=== PATIENT | female | born 1965 | race Caucasian/White ===

== ENCOUNTER 2023-02-20 15:51 | Outpatient (OUT) | payer OTHER, SELFPAY ==
--- NOTE | 2023-02-20 15:53 | MM_ITS ---
Patient Name: BLANCA PEDERSON MR#: [id number] : 1965 Exam Date: 02/20/2023 Ordering Doctor: DR Fredrick Eng . RADIOLOGY REPORT PROCEDURE: MM TOMOSYNTHESIS SCREENING BI COMPARISON: MG MAMM SCREEN 3D MATT CAD, 03/07/2022. MG MAMM SCREEN 3D MATT CAD, 03/03/2021. MG MAMM SCREEN MATT W CAD, 02/24/2020. MG MAMM MATT SCRN W CAD DIG, 11/11/2012. INDICATIONS: Screening Calculator Name NCI Breast Cancer Risk Assessment Tool 5 Year Breast Cancer Risk 2.70% Lifetime Breast Cancer Risk 13.90% Personal Breast Cancer No Personal Ovarian Cancer No Treatments None Family Cancers Mother with breast cancer at age 63. LOCATION: [facility] BREAST COMPOSITION: Heterogeneously dense,which may obscure small masses. FINDINGS: DIAGNOSTIC CATEGORY 1--NEGATIVE. RIGHT BREAST: No significant suspicious finding. No significant change has occurred. LEFT BREAST: No significant suspicious finding. No significant change has occurred. RECOMMENDATIONS: ROUTINE MAMMOGRAM AND CLINICAL EVALUATION IN 12 MONTHS. PLEASE NOTE: A NORMAL MAMMOGRAM DOES NOT EXCLUDE THE POSSIBILITY OF BREAST CANCER. A CLINICALLY SUSPICIOUS PALPABLE LUMP SHOULD BE BIOPSIED. Dictated by: Eduar Trimble M.D. on 02/26/2023 at 12:38 Approved by: Eduar Trimble M.D. on 02/26/2023 at 12:44
== END 2023-02-20 15:52 | disposition home or self-care (01) ==
LOC: MAMMO 15:51
PROVIDERS: PCP Family Medicine; Visit Provider Obstetrics & Gynecology
DX: Z12.31 Encounter for screening mammogram for malignant neoplasm of breast (principal); Z80.3 Family history of malignant neoplasm of breast
CPT/HCPCS: 77063; 77067

== ENCOUNTER 2023-03-01 20:06 | Outpatient (REF) | payer OTHER, SELFPAY ==
[2023-03-07 15:13] LABS: Age Gdln ACOG Testing Note (.); HPV Aptima Negative (Negative); IGP, Aptima HPV, rfx 16/18,45 Note (.)
== END 2023-03-01 20:07 | disposition home or self-care (01) ==
LOC: LAB 20:06
PROVIDERS: PCP Family Medicine; Visit Provider Physician Assistant
DX: Z01.419 Encounter for gynecological examination (general) (routine) without abnormal findings (principal)
CPT/HCPCS: 87624; G0145

== ENCOUNTER 2024-02-21 13:46 | Outpatient (OUT) | payer OTHER, SELFPAY ==
--- OUTSIDE RECORDS SUMMARY | 2024-02-21 13:49 | XMS_ITS | CCD ---
Author Organization [facility] Care Team Providers Care Roofing Foreman Name Role Phone NATI, DR BLOCK Admitting Unavailable NATI, DR BLOCK Attending Unavailable EVLEYN, DR SRINIVASAN Primary Care Unavailable NATI, DR BLOCK Consulting Unavailable EVELYN, DR SRINIVASAN Admitting Unavailable EVELYN, DR SRINIVASAN Attending Unavailable EVELYN, DR SRINIVASAN Primary Care Unavailable EVELYN, DR SRINIVASAN Consulting Unavailable NATI, DR BLOCK Admitting Unavailable NATI, DR BLOCK Attending Unavailable EVELYN, DR SRINIVASAN Primary Care Unavailable NATI, DR BLOCK Consulting Unavailable ZIEBER, DR EDUAR Cherry Consulting Unavailable MD Solomon Rivas Primary Care Provider [phone] MD Solomon Rivas Attending Provider [phone] Solomon Rivas MD Primary Care Provider [phone] SOLOMON RIVAS Attending Unavailable SILVIA COLINDRES Attending Unavailable SOLOMON RIVAS Attending Unavailable MD Solomon Rivas Primary Care Provider MD Solomon Rivas Attending Provider [phone] MD Solomon Rivas Referring Provider [phone] Unavailable Primary Care Provider UnavailYOVANI Bowles Attending Unavailable SOLOMON RIVAS Referring Unavailable Solomon Rivas Primary Care Unavailable Solomon Rivas Attending Unavailable Solomon Rivas Referring Unavailable Solomon Rivas Admitting Unavailable Solomon Rivas MD Primary Care Provider [phone] Medications Current Medications Medication Drug Class(es) Dates Sig (Normalized) Sig (Original) MULTIVITAMIN ORAL (2 sources) MULTIVITAMIN ORA L Take by mouth. Active sod sulf-pot chloride-mag sulf 1.479-0.188- 0.225 gram tablet (2 sources) Start: 01-23-2024 sod sulf-pot chloride-mag sulf 1.479-0.188- 0.225 gram tablet Indications: Encounter for screening colonoscopy Please see instructional sheet given by physicians office. 24 tablet 01/23/2024 Active Problems Active Problems Problem Classification Problem Date Documented Date Episodic/Chronic Chronic kidney disease (8 sources) Chronic kidney disease stage 3A ; Translations: [Stage 3a chronic kidney disease (HCC)] Onset: 01-04-2023 01-04-2023 Chronic Diabetes mellitus without complication (2 sources) Abnormal glucose tolerance test; Translations: [Other abnormal glucose] 01-15-2024 Episodic Essential hypertension (9 sources) Essential (primary) hypertension; Translations: [Hypertensive disorder] Onset: 02-01-2022 01-04-2023 Chronic Immunizations and screening for infectious disease (1 source) Encounter for screening for human papillomavirus (HPV); Translations: [ENC SCREENING HUMAN PAPILLOMAVIRUS] Onset: 02-27-2022 Episodic Osteoarthritis (6 sources) Osteoarthritis of knee; Translations: [Osteoarthritis of knee, unspecified] Onset: 01-04-2023 01-04-2023 Chronic Other screening for suspected conditions (not mental disorders or infectious disease) (12 sources) Encounter for screening mammogram for malignant neoplasm of breast; Translations: [Encounter for screening for malignant neoplasm of cervix] Onset: 02-22-2022 Episodic Residual codes; unclassified (1 source) Family history of malignant neoplasm of breast; Translations: [FAMILY HX MALIG NEOPLASM OF BREAST] Onset: 03-11-2022 Episodic Unclassified (1 source) Colon Cancer Screening Onset: 01-23-2024 Past or Other Problems Problem Classification Problem Date Documented Da te Episodic/Chronic Viral infection (6 sources) Verruca plantaris; Translations: [Plantar wart] Onset: 01-04-2023 01-04-2023 Episodic Results Test Name Value Interpretation Reference Range Facility Alanine aminotransferase [En zymatic activity/volume] in Serum or PlasmaOrdered By: Solomon Rivas on 01-19-2024 ALT [Catalytic activity/Vol] 18 U/L Normal 7-52 [facility] Comment on above: Performed By: #### C BC, CMP, LIPID #### [address] Albumin [Mass/volume] in Ser um or Plasma by Bromocresol green (BCG) dye binding methoOrdered By: Solomon Rivas on 01-19-2024 Albumin BCG dye [Mass/Vol] 4.1 g/dL 3.5-5.7 [facility] Alkaline phosphatase [Enzyma tic activity/volume] in Serum or PlasmaOrdered By: Solomon Becerrila on 01-19-2024 ALP [Catalytic activity/Vol] 68 U/L Normal 34-104 [facility] Comment on above: Performed By: #### C BC, CMP, LIPID #### [facility] [address] Aspartate aminotransferase [ Enzymatic activity/volume] in Serum or PlasmaOrdered By: Solomon Evelyn on 01-19-2024 AST [Catalytic activity/Vol] 23 U/L Normal 13-39 [facility] Comment on above: Performed By: #### C BC, CMP, LIPID #### [facility] [address] [place] [address] Automated basophil %Ordered By: Solomon Rivas on 01-19-2024 Basophils/100 WBC (Bld) 0.8 % Normal . [facility] Comment on above: Performed By: #### C BC, CMP, LIPID #### [facility] [address] [place] [address] Automated basophil countOrde red By: Solomon Rivas on 01-19-2024 Basophils (Bld) [#/Vol] 0.1 10*3/uL Normal 0.0-0.2 [facility] Comment on above: Result Comment: PERF ORMED BY: [place] [address] PATHOLOGIST MARKETING ASSISTANT MANAGER SATHYA LOWRY M.D. Performed By: #### C BC, CMP, LIPID #### [facility] [address] [place] [address] Automated blood monocyte cou ntOrdered By: Solomon Becrerila on 01-19-2024 Monocytes (Bld) [#/Vol] 0.6 10*3/uL Normal 0.0-0.8 [facility] Comment on above: Performed By: #### C BC, CMP, LIPID #### [address] Automated eosinophil %Ordere d By: Solomon Evelyn on 01-19-2024 Eosinophils/100 WBC (Bld) 2.5 % Normal . [facility] Comment on above: Performed By: #### C BC, CMP, LIPID #### [address] Automated eosinophil countOr dered By: Solomon Evelyn on 01-19-2024 Eosinophils (Bld) [#/Vol] 0.2 10*3/uL Normal 0.0-0.45 [facility] Comment on above: Performed By: #### C BC, CMP, LIPID #### [address] Automated monocyte %Ordered By: Solomon Evelyn on 01-19-2024 Monocytes/100 WBC (Bld) 7.8 % Normal . [facility] Comment on above: Performed By: #### C BC, CMP, LIPID #### [address] Automated neutrophil %Ordere d By: Daysicat Evelyn on 01-19-2024 Neutrophils/100 WBC (Bld) 63.3 % Normal . [facility] Comment on above: Performed By: #### C BC, CMP, LIPID #### [address] Bilirubin.total [Mass/volume ] in Serum or PlasmaOrdered By: Solomon Becerrila on 01-19-2024 Bilirubin [Mass/Vol] 0.6 mg/dL Normal 0.3-1.0 [facility] Comment on above: Performed By: #### C BC, CMP, LIPID #### [address] CBC W Auto Differential pane l (Bld)on 01-19-2024 Basophils (Bld) [#/Vol] 0.1 10*3/uL 0.0 - 0.2 10*3/uL [facility] Basophils/100 WBC Manual cnt (Syn fld) 0.8 % . [facility] Eosinophils (Bld) [#/Vol] 0.2 10*3/uL 0.0 - 0.45 10*3/uL [facility] Eosinophils/100 WBC Manual cnt (Syn fld) 2.5 % . [facility] Erythrocyte distribution width (RBC) [Ratio] 12.5 % 11.9 - 15.3 % [facility] Hematocrit (Bld) [Volume fraction] 40.8 % 34.0 - 46.4 % [facility] Hemoglobin (Bld) [Mass/Vol] 13.9 g/dL 11.8 - 15.4 g/dL [facility] Lymphocytes (Bld) [#/Vol] 2.1 10*3/uL 1.00 - 4.8 10*3/uL [facility] Lymphocytes/100 WBC Manual cnt (Syn fld) 25.6 % . [facility] MCH (RBC) [Entitic mass] 32.6 pg 24.7 - 34.3 pg [facility] MCHC (RBC) [Mass/Vol] 34.1 g/dL 32.0 - 35.0 g/dL [facility] MCV (RBC) [Entitic vol] 95.4 fL 80 - 100 fL [facility] Monocytes (Bld) [#/Vol] 0.6 10*3/uL 0.0 - 0.8 10*3/uL [facility] Monocytes+Macrophages/1 00 WBC Manual cnt (Syn fld) 7.8 % . [facility] Neutrophils (Bld) [#/Vol] 5.1 10*3/uL 1.8 - 7.7 10*3/uL [facility] Neutrophils/100 WBC Manual cnt (Syn fld) 63.3 % . [facility] NRBC 0.1 /100{WBC} 0 - 0.5 /100{WBC} [facility] Platelet mean volume (Bld) [Entitic vol] 7.8 fL 6.3 - 10.7 fL [facility] Platelets (Bld) [#/Vol] 293 10*3/uL 150 - 450 10*3/uL [facility] RBC LM.HPF (Urine sed) [#/Area] 4.27 /[HPF] 3.60 - 5.00 [facility] WBC (Bld) [#/Vol] 8.1 10*3/uL 3.8 - 11.6 10*3/uL [facility] WBC LM.HPF (Urine sed) [#/Area] 8.1 10*3/uL 3.8 - 11.6 10*3/uL [facility] Calcium [Mass/volume] in Ser um or PlasmaOrdered By: Solomon Rivas on 01-19-2024 Calcium [Mass/Vol] 9.3 mg/dL Normal 8.6-10.3 [facility] Comment on above: Performed By: #### C BC, CMP, LIPID #### [facility] [address] Carbon dioxide, total [Moles /volume] in Serum or PlasmaOrdered By: Solomon Rivas on 01-19-2024 CO2 [Moles/Vol] 29.5 mmol/L Normal 21.0-31.0 [facility] Comment on above: Performed By: #### C BC, CMP, LIPID #### [facility] [address] [place] [address] [place] Chloride [Moles/volume] in S pat or PlasmaOrdered By: Solomon Rivas on 01-19-2024 Chloride [Moles/Vol] 105 mmol/L Normal 98-107 [facility] Comment on above: Performed By: #### C BC, CMP, LIPID #### [facility] [address] [place] [address] [place] Cholesterol [Mass/volume] in Serum or PlasmaOrdered By: Solomon Rivas on 01-19-2024 Cholesterol [Mass/Vol] 157 mg/dL Normal 140-200 [facility] Comment on above: Chol less than 200 m g/dl low riskChol 201-239 mg/dl borderline riskChol 240 mg/dl and greater high risk Result Comment: Chol less than 200 mg/dl low risk Chol 201-239 mg/dl borderline risk Chol 240 mg/dl and greater high risk Performed By: #### C BC, CMP, LIPID #### [facility] [address] [place] [address] [place] Cholesterol in LDL Calc [Mas s/Vol]Ordered By: Solomon Rivas on 01-19-2024 Cholesterol in LDL [Mass/Vol] 64 mg/dL 0-100 [facility] Comment on above: LDL ATP III CLASSIFI CATIONLDL less than 100 mg/dL OptimalLDL 100-129 mg/dL Near or above optimalLDL 130-159 mg/dL Borderline highLDL 160-189 mg/dL HighLDL greater than 189 mg/dL Very high Cholesterol in VLDL Calc [Ma ss/Vol]Ordered By: Solomon Rivas on 01-19-2024 Cholesterol in VLDL [Mass/Vol] 7 mg/dL [facility] Complete Blood Count Auto Di ffon 01-19-2024 Mean Corpuscular HGB Conc 34.1 g/dL Normal 32.0-35.0 [facility] Comment on above: Performed By: #### C BC, CMP, LIPID #### [facility] [address] [place] [address] NRBC% 0.1 /100{WBC} Normal 0-0.5 [facility] Comment on above: Performed By: #### C BC, CMP, LIPID #### [facility] [address] [place] [address] Comprehensive Metabolic Pane ayad 01-19-2024 Albumin [Mass/Vol] 4.1 g/dL Normal 3.5-5.7 [facility] Comment on above: Performed By: #### C BC, CMP, LIPID #### [address] GFR/1.73 sq M.predicted MDRD (S/P/Bld) [Vol rate/Area] mL/min/{1.73_m2} Normal [facility] Comment on above: Performed By: #### C BC, CMP, LIPID #### [address] Comprehensive metabolic pane ayad 01-19-2024 Albumin [Mass/Vol] 4.1 g/dL 3.5 - 5.7 g/dL [facility] Albumin/Globulin [Mass ratio] 1.5 {ratio} [facility] ALP [Catalytic activity/Vol] 68 U/L 34 - 104 U/L [facility] ALT [Catalytic activity/Vol] 18 U/L 7 - 52 U/L [facility] Anion gap [Moles/Vol] 10 mmol/L 6.0 - 15.0 [facility] AST [Catalytic activity/Vol] 23 U/L 13 - 39 U/L [facility] Bilirubin [Mass/Vol] 0.6 mg/dL 0.3 - 1 .0 mg/dL [facility] Calcium [Mass/Vol] 9.3 mg/dL 8.6 - 10. 3 mg/dL [facility] Chloride [Moles/Vol] 105 mmol/L 98 - 10 7 mmol/L [facility] CO2 [Moles/Vol] 29.5 mmol/L 21.0 - 31.0 mmol/L [facility] Creatinine (U) [Mass/Vol] 0.99 mg/dL 0.60 - 1.20 mg/dL [facility] GFR/1.73 sq M.predicted MDRD (S/P/Bld) [Vol rate/Area] mL/min/{1.73_m2} [facility] Globulin (S) [Mass/Vol] 2.7 g/dL [facility] Glucose [Mass/Vol] 87 mg/dL 70 - 100 mg/dL [facility] Comment on above: Random Glucose Refer ence Range is dependent on time and content of last meal. Glucose of more than 200 mg/dL in a nonstressed, ambulatory subject supports the diagnosis of Diabetes Mellitus. ADA recommended reference range Potassium [Moles/Vol] 4.5 mmol/L 3.5 - 5.1 mmol/L [facility] Protein [Mass/Vol] 6.8 g/dL 6.4 - 8.9 g/dL [facility] Sodium [Moles/Vol] 140 mmol/L 136 - 145 mmol/L [facility] Urea nitrogen [Mass/Vol] 17 mg/dL 7 - 25 mg/dL [facility] Creatinine [Mass/volume] in Serum or PlasmaOrdered By: Solomon Rivas on 01-19-2024 Creatinine [Mass/Vol] 0.99 mg/dL Normal 0.60-1.20 [facility] Comment on above: Performed By: #### C BC, CMP, LIPID #### [address] Erythrocyte distribution wid th [Ratio] by Automated countOrdered By: Solomon Rivas on 01-19-2024 Erythrocyte distribution width (RBC) [Ratio] 12.5 % Normal 11.9-15.3 [facility] Comment on above: Performed By: #### C BC, CMP, LIPID #### [facility] [address] [place] [address] [place] Erythrocytes [#/volume] in B lood by Automated countOrdered By: Solomon Rivas on 01-19-2024 RBC (Bld) [#/Vol] 4.27 10*6/uL Normal 3.60-5.00 [facility] Comment on above: Performed By: #### C BC, CMP, LIPID #### [facility] [address] [place] [address] [place] Glucose [Mass/volume] in Ser um or PlasmaOrdered By: Solomon Rivas on 01-19-2024 Glucose [Mass/Vol] 87 mg/dL Normal 70-100 [facility] Comment on above: ADA recommended refe rence rangeRandom Glucose Reference Range is dependent on time and content of last meal. Glucose of more than 200 mg/dL in a nonstressed, ambulatory subject supports the diagnosis of Diabetes Mellitus. Result Comment: [place] Glucose Reference Range is dependent on time and content of last meal. Glucose of more than 200 mg/dL in a nonstressed, ambulatory subject supports the diagnosis of Diabetes Mellitus. ADA recommended reference range Performed By: #### C BC, CMP, LIPID #### [facility] [address] Hematocrit [Volume Fraction] of Blood by Automated countOrdered By: Solomon Rivas on 01-19-2024 Hematocrit (Bld) [Volume fraction] 40.8 % Normal 34.0-46.4 [facility] Comment on above: Performed By: #### C BC, CMP, LIPID #### [facility] [address] [place] [address] [place] Hemoglobin [Mass/volume] in BloodOrdered By: Solomon Rivas on 01-19-2024 Hemoglobin (Bld) [Mass/Vol] 13.9 g/dL Normal 11.8-15.4 [facility] Comment on above: Performed By: #### C BC, CMP, LIPID #### [facility] [address] [place] [address] [place] Leukocytes [#/volume] correc chidi for nucleated erythrocytes in Blood by Automated counOrdered By: Solomon Rivas on 01-19-2024 WBC corrected for nucl RBC Auto (Bld) [#/Vol] 8.1 10*3/uL 3.8-11.6 [facility] Leukocytes [#/volume] in Blo od by Automated countOrdered By: Solomon Rivas on 01-19-2024 WBC (Bld) [#/Vol] 8.1 10*3/uL Normal 3.8-11.6 [facility] Comment on above: Performed By: #### C BC, CMP, LIPID #### [facility] [address] Lipid 1996 panelon Cholesterol [Mass/Vol] 157 mg/dL 140 - 200 mg/dL [facility] Comment on above: Chol less than 200 m g/dl low risk Chol 201-239 mg/dl borderline risk Chol 240 mg/dl and greater high risk Cholesterol in HDL [Mass/Vol] 86 mg/dL 23 - 92 mg/dL [facility] Comment on above: HDL CHOL ATP-III CLA SSIFICATION Cardiovascular Risk HDL > or equal to 60 mg/dL LOW HDL < 40 mg/dL HIGH Cholesterol.total/Sheri sterol in HDL [Mass ratio] 1.8 {ratio} NINF - 5.0 [facility] LDL CHOLESTEROL,CALCULATED 64 mg/dL 0 - 100 mg/dL [facility] Comment on above: LDL ATP III CLASSIFI CATION LDL less than 100 mg/dL Optimal LDL 100-129 mg/dL Near or above optimal LDL 130-159 mg/dL Borderline high LDL 160-189 mg/dL High LDL greater than 189 mg/dL Very high TRIGLYCERIDE W/REFLEX 35 mg/dL 0 - 14 9 mg/dL [facility] Comment on above: TRIG ATP III CLASSIF ICATION TRIG less than 150 mg/dL Normal TRIG 150-199 mg/dL Borderline high TRIG 200-500 mg/dL High TRIG greater than 500 mg/dL Very high Standard traceable to the Center for Disease Conrtrol and Prevention (CDC) test method. VLDL CHOLESTEROL 7 mg/dL [facility] Lipid Panelon 01-19-2024 LDL Cholesterol,Calculated 64 mg/dL Normal 0-100 [facility] Comment on above: Result Comment: LDL ATP III CLASSIFICATION LDL less than 100 mg/dL Optimal LDL 100-129 mg/dL Near or above optimal LDL 130-159 mg/dL Borderline high LDL 160-189 mg/dL High LDL greater than 189 mg/dL Very high Performed By: #### C BC, CMP, LIPID #### [address] Triglyceride w/Reflex 35 mg/dL Normal 0-149 [facility] Comment on above: Result Comment: TRIG ATP III CLASSIFICATION TRIG less than 150 mg/dL Normal TRIG 150-199 mg/dL Borderline high TRIG 200-500 mg/dL High TRIG greater than 500 mg/dL Very high Standard traceable to the Center for Disease Conrtrol and Prevention (CDC) test method. Performed By: #### C BC, CMP, LIPID #### [address] VLDL CHOLESTEROL 7 mg/dL Normal [facility] Comment on above: Performed By: #### C BC, CMP, LIPID #### [address] Lymphocytes [#/volume] in Bl ood by Automated countOrdered By: Solomon Rivas on 01-19-2024 Lymphocytes (Bld) [#/Vol] 2.1 10*3/uL Normal 1.00-4.8 [facility] Comment on above: Performed By: #### C BC, CMP, LIPID #### [place] [address] [place] Lymphocytes/100 leukocytes i n Blood by Automated countOrdered By: Solomon Rivas on 01-19-2024 Lymphocytes/100 WBC (Bld) 25.6 % Normal . [facility] Comment on above: Performed By: #### C BC, CMP, LIPID #### [place] [address] [place] MCH [Entitic mass] by Automa chidi countOrdered By: Solomon Rivas on 01-19-2024 MCH (RBC) [Entitic mass] 32.6 pg Normal 24.7-34.3 [facility] Comment on above: Performed By: #### C BC, CMP, LIPID #### [facility] [address] MCHC Auto (RBC) [Mass/Vol]Or dered By: Solomon Rivas on 01-19-2024 MCHC (RBC) [Mass/Vol] 34.1 g/dL 32.0-35.0 [facility] MCV [Entitic volume] by Auto mated countOrdered By: Solomon Rivas on 01-19-2024 MCV (RBC) [Entitic vol] 95.4 fL Normal 80-100 [facility] Comment on above: Performed By: #### C BC, CMP, LIPID #### [facility] [address] [place] [address] Neutrophils [#/volume] in Bl ood by Automated countOrdered By: Solomon Rivas on 01-19-2024 Neutrophils (Bld) [#/Vol] 5.1 10*3/uL Normal 1.8-7.7 [facility] Comment on above: Performed By: #### C BC, CMP, LIPID #### [address] No Panel Informationon 01-18 [facility] No Panel InformationOrdered By: Solomon Rivas on 01-19-2024 Estimated GFR (CKD-EPI) > 60.0 mL/Min [facility] Creatinine Clearance (Chem N/A [facility] Nucleated erythrocytes [Pres ence] in Blood by Automated countOrdered By: Solomon Rivas on 01-19-2024 Nucleated RBC Auto Ql (Bld) 0.1 /100{WBC} 0-0.5 [facility] Platelet mean volume [Entiti c volume] in Blood by Automated countOrdered By: Solomon Rivas on 01-19-2024 Platelet mean volume (Bld) [Entitic vol] 7.8 fL Normal 6.3-10.7 [facility] Comment on above: Performed By: #### C BC, CMP, LIPID #### [facility] [address] [place] [address] Platelets [#/volume] in Bloo d by Automated countOrdered By: Solomon Rivas on 01-19-2024 Platelets (Bld) [#/Vol] 293 10*3/uL Normal 150-450 [facility] Comment on above: Performed By: #### C BC, CMP, LIPID #### [facility] [address] [place] [address] Potassium [Moles/volume] in Serum or PlasmaOrdered By: Rugen Troy on 01-19-2024 Potassium [Moles/Vol] 4.5 mmol/L Normal 3.5-5.1 [facility] Comment on above: Performed By: #### C BC, CMP, LIPID #### [facility] [address] [place] [address] Protein [Mass/volume] in Ser um or PlasmaOrdered By: Rugen Troy on 01-19-2024 Protein [Mass/Vol] 6.8 g/dL Normal 6.4-8.9 [facility] Comment on above: Performed By: #### C BC, CMP, LIPID #### [address] Serum globulin measurement b y calculation (mass/volume)Ordered By: Rugcat Troy on 01-19-2024 Globulin (S) [Mass/Vol] 2.7 g/dL Normal [facility] Comment on above: Performed By: #### C BC, CMP, LIPID #### [address] Serum or plasma albumin/glob ulin mass ratioOrdered By: Rugen Troy on 01-19-2024 Albumin/Globulin [Mass ratio] 1.5 {ratio} Normal [facility] Comment on above: Performed By: #### C BC, CMP, LIPID #### [facility] [address] [place] [address] Serum or plasma anion gap de terminationOrdered By: Rugen Evelyn on 01-19-2024 Anion gap [Moles/Vol] 10.0 mmol/L Normal 6.0-15.0 [facility] Comment on above: Performed By: #### C BC, CMP, LIPID #### [facility] [address] [place] [address] Serum or plasma high density lipoprotein (HDL) cholesterol measurementOrdered By: Solomon Rivas on 01-19-2024 Cholesterol in HDL [Mass/Vol] 86 mg/dL Normal 23-92 [facility] Comment on above: HDL CHOL ATP-III CLA SSIFICATION Cardiovascular RiskHDL > or equal to 60 mg/dL LOWHDL < 40 mg/dL HIGH Result Comment: HDL CHOL ATP-III CLASSIFICATION Cardiovascular Risk HDL > or equal to 60 mg/dL LOW HDL < 40 mg/dL HIGH Performed By: #### C BC, CMP, LIPID #### [facility] [address] Serum or plasma total choles terol/high density lipoprotein (HDL) cholesterol mass ratOrdered By: Solomon Rivas on 01-19-2024 Cholesterol.total/Sheri sterol in HDL [Mass ratio] 1.8 {ratio} Normal <5.0 [facility] Comment on above: Result Comment: PERF ORMED BY: [place] [address] PATHOLOGIST MARKETING ASSISTANT MANAGER SATHYA LOWRY M.D. Performed By: #### C BC, CMP, LIPID #### [facility] [address] Sodium [Moles/volume] in Ser um or PlasmaOrdered By: Solomon Rivas on 01-19-2024 Sodium [Moles/Vol] 140 mmol/L Normal 136-145 [facility] Comment on above: Performed By: #### C BC, CMP, LIPID #### [facility] [address] Triglyceride [Mass/volume] i n Serum or PlasmaOrdered By: Solomon Rivas on 01-19-2024 Triglyceride [Mass/Vol] 35 mg/dL 0-149 [facility] Comment on above: TRIG ATP III CLASSIF ICATIONTRIG less than 150 mg/dL NormalTRIG 150-199 mg/dL Borderline highTRIG 200-500 mg/dL High TRIG greater than 500 mg/dL Very highStandard traceable to the Center for Disease Conrtrol and Prevention (CDC) test method. Urea nitrogen [Mass/volume] in Serum or PlasmaOrdered By: Solomon Rivas on 01-19-2024 Urea nitrogen [Mass/Vol] 17 mg/dL Normal 7-25 [facility] Comment on above: Performed By: #### C BC, CMP, LIPID #### [facility] [address] [place] [id number] [facility] Alanine aminotransferase [En zymatic activity/volume] in Serum or PlasmaOrdered By: Solomon Evelyn on 01-27-2023 ALT [Catalytic activity/Vol] 20 U/L 7-52 [facility] Albumin [Mass/volume] in Ser um or Plasma by Bromocresol green (BCG) dye binding methoOrdered By: Solomon Evelyn on 01-27-2023 Albumin BCG dye [Mass/Vol] 4.3 g/dL 3.5-5.7 [facility] Alkaline phosphatase [Enzyma tic activity/volume] in Serum or PlasmaOrdered By: Solomon Evelyn on 01-27-2023 ALP [Catalytic activity/Vol] 67 U/L 34-104 [facility] Aspartate aminotransferase [ Enzymatic activity/volume] in Serum or PlasmaOrdered By: Rugen Troy on 01-27-2023 AST [Catalytic activity/Vol] 22 U/L 13-39 [facility] Basophils Auto (Bld) [#/Vol] Ordered By: Daysien Troy on 01-27-2023 Basophils (Bld) [#/Vol] 0.1 10*3/uL 0.0-0.2 [facility] Basophils/100 WBC Auto (Bld) Ordered By: Solomon Troy on 01-27-2023 Basophils/100 WBC (Bld) 1.4 % . [facility] Bilirubin.total [Mass/volume ] in Serum or PlasmaOrdered By: Rugen Evelyn on 01-27-2023 Bilirubin [Mass/Vol] 0.6 mg/dL 0.3-1.0 [facility] Calcium [Mass/volume] in Ser um or PlasmaOrdered By: Rugen Evelyn on 01-27-2023 Calcium [Mass/Vol] 9.7 mg/dL 8.6-10.3 [facility] Carbon dioxide, total [Moles /volume] in Serum or PlasmaOrdered By: Rugen Troy on 01-27-2023 CO2 [Moles/Vol] 30.5 mmol/L 21.0-31.0 [facility] Chloride [Moles/volume] in S pat or PlasmaOrdered By: Solomon Rivas on 01-27-2023 Chloride [Moles/Vol] 104 mmol/L 98-107 [facility] Cholesterol [Mass/volume] in Serum or PlasmaOrdered By: Solomon Rivas on 01-27-2023 Cholesterol [Mass/Vol] 160 mg/dL 140-200 [facility] Comment on above: Chol less than 200 m g/dl low riskChol 201-239 mg/dl borderline riskChol 240 mg/dl and greater high risk Cholesterol in LDL Calc [Mas s/Vol]Ordered By: Solomon Rivas on 01-27-2023 Cholesterol in LDL [Mass/Vol] 63 mg/dL 0-100 [facility] Comment on above: LDL ATP III CLASSIFI CATIONLDL less than 100 mg/dL OptimalLDL 100-129 mg/dL Near or above optimalLDL 130-159 mg/dL Borderline highLDL 160-189 mg/dL HighLDL greater than 189 mg/dL Very high Cholesterol in VLDL Calc [Ma ss/Vol]Ordered By: Solomon Rivas on 01-27-2023 Cholesterol in VLDL [Mass/Vol] 13 mg/dL [facility] Creatinine [Mass/volume] in Serum or PlasmaOrdered By: Solomon Rivas on 01-27-2023 Creatinine [Mass/Vol] 0.91 mg/dL 0.60-1.20 [facility] Eosinophils Auto (Bld) [#/Vo l]Ordered By: Solomon Rivas on 01-27-2023 Eosinophils (Bld) [#/Vol] 0.3 10*3/uL 0.0-0.45 [facility] Eosinophils/100 WBC Auto (Bl d)Ordered By: Solomon Rivas on 01-27-2023 Eosinophils/100 WBC (Bld) 5.0 % . [facility] Erythrocyte distribution wid th Auto (RBC) [Ratio]Ordered By: Solomon Rivas on 01-27-2023 Erythrocyte distribution width (RBC) [Ratio] 12.6 % 11.9-15.3 [facility] Globulin Calc (S) [Mass/Vol] Ordered By: Solomon Rivas on 01-27-2023 Globulin (S) [Mass/Vol] 2.7 g/dL [facility] Glucose [Mass/volume] in Ser um or PlasmaOrdered By: Solomon Rivas on 01-27-2023 Glucose [Mass/Vol] 83 mg/dL 70-100 [facility] Comment on above: ADA recommended refe rence rangeRandom Glucose Reference Range is dependent on time and content of last meal. Glucose of more than 200 mg/dL in a nonstressed, ambulatory subject supports the diagnosis of Diabetes Mellitus. Hematocrit Auto (Bld) [Volum e fraction]Ordered By: Solomon Rivas on 01-27-2023 Hematocrit (Bld) [Volume fraction] 40.8 % 34.0-46.4 [facility] Hemoglobin [Mass/volume] in BloodOrdered By: Solomon Rivas on 01-27-2023 Hemoglobin (Bld) [Mass/Vol] 13.8 g/dL 11.8-15.4 [facility] Leukocytes [#/volume] correc chidi for nucleated erythrocytes in Blood by Automated counOrdered By: Solomon Rivas on 01-27-2023 WBC corrected for nucl RBC Auto (Bld) [#/Vol] 5.0 10*3/uL 3.8-11.6 [facility] Lymphocytes Auto (Bld) [#/Vo l]Ordered By: Solomon Rivas on 01-27-2023 Lymphocytes (Bld) [#/Vol] 2.4 10*3/uL 1.00-4.8 [facility] Lymphocytes/100 WBC Auto (Bl d)Ordered By: Solomon Rivas on 01-27-2023 Lymphocytes/100 WBC (Bld) 46.8 % . [facility] MCH Auto (RBC) [Entitic mass ]Ordered By: Solomon Rivas on 01-27-2023 MCH (RBC) [Entitic mass] 31.6 pg 24.7-34.3 [facility] MCHC Auto (RBC) [Mass/Vol]Or dered By: Solomon Rivas on 01-27-2023 MCHC (RBC) [Mass/Vol] 33.8 g/dL 32.0-35.0 [facility] MCV Auto (RBC) [Entitic vol] Ordered By: Solomon Becerrila on 01-27-2023 MCV (RBC) [Entitic vol] 93.7 fL 80-100 [facility] Monocytes Auto (Bld) [#/Vol] Ordered By: Solmoon Evelyn on 01-27-2023 Monocytes (Bld) [#/Vol] 0.5 10*3/uL 0.0-0.8 [facility] Monocytes/100 WBC Auto (Bld) Ordered By: Solomon Troy on 01-27-2023 Monocytes/100 WBC (Bld) 9.4 % . [facility] Neutrophils Auto (Bld) [#/Vo l]Ordered By: Solomon Evelyn on 01-27-2023 Neutrophils (Bld) [#/Vol] 1.9 10*3/uL 1.8-7.7 [facility] Neutrophils/100 WBC Auto (Bl d)Ordered By: Solomon Evelyn on 01-27-2023 Neutrophils/100 WBC (Bld) 37.4 % . [facility] No Panel InformationOrdered By: Solomon Rivas on 01-27-2023 Estimated GFR (CKD-EPI) > 60.0 mL/Min [facility] Creatinine Clearance (Chem N/A [facility] Nucleated erythrocytes [Pres ence] in Blood by Automated countOrdered By: Solomon Rivas on 01-27-2023 Nucleated RBC Auto Ql (Bld) 0.1 /100{WBC} 0-0.5 [facility] Platelet mean volume Auto (B ld) [Entitic vol]Ordered By: Solomon Troy on 01-27-2023 Platelet mean volume (Bld) [Entitic vol] 7.8 fL 6.3-10.7 [facility] Platelets Auto (Bld) [#/Vol] Ordered By: Solomon Troy on 01-27-2023 Platelets (Bld) [#/Vol] 276 10*3/uL 150-450 [facility] Potassium [Moles/volume] in Serum or PlasmaOrdered By: Solomon Rivas on 01-27-2023 Potassium [Moles/Vol] 4.8 mmol/L 3.5-5.1 [facility] Protein [Mass/volume] in Ser um or PlasmaOrdered By: Solomon Rivas on 01-27-2023 Protein [Mass/Vol] 7.0 g/dL 6.4-8.9 [facility] RBC Auto (Bld) [#/Vol]Ordere d By: Solomon Rivas on 01-27-2023 RBC (Bld) [#/Vol] 4.36 10*6/uL 3.60-5.00 [facility] Serum or plasma albumin/glob ulin mass ratioOrdered By: Solomon Rivas on 01-27-2023 Albumin/Globulin [Mass ratio] 1.6 {ratio} [facility] Serum or plasma anion gap de terminationOrdered By: Solomon Rivas on 01-27-2023 Anion gap [Moles/Vol] 8.3 mmol/L 6.0-15.0 [facility] Serum or plasma high density lipoprotein (HDL) cholesterol measurementOrdered By: Solomon Rivas on 01-27-2023 Cholesterol in HDL [Mass/Vol] 83 mg/dL 23-92 [facility] Comment on above: HDL CHOL ATP-III CLA SSIFICATION Cardiovascular RiskHDL > or equal to 60 mg/dL LOWHDL < 40 mg/dL HIGH Serum or plasma total choles terol/high density lipoprotein (HDL) cholesterol mass ratOrdered By: Solomon Rivas on 01-27-2023 Cholesterol.total/Sheri sterol in HDL [Mass ratio] 1.9 {ratio} <5.0 [facility] Sodium [Moles/volume] in Ser um or PlasmaOrdered By: Solomon Rivas on 01-27-2023 Sodium [Moles/Vol] 138 mmol/L 136-145 [facility] Triglyceride [Mass/volume] i n Serum or PlasmaOrdered By: Solomon Rivas on 01-27-2023 Triglyceride [Mass/Vol] 69 mg/dL 0-149 [facility] Comment on above: TRIG ATP III CLASSIF ICATIONTRIG less than 150 mg/dL NormalTRIG 150-199 mg/dL Borderline highTRIG 200-500 mg/dL High TRIG greater than 500 mg/dL Very highStandard traceable to the Center for Disease Conrtrol and Prevention (CDC) test method. Urea nitrogen [Mass/volume] in Serum or PlasmaOrdered By: Solomon Rivas on 01-27-2023 Urea nitrogen [Mass/Vol] 18 mg/dL 7-25 [facility] WBC Auto (Bld) [#/Vol]Ordere d By: Solomon Rivas on 01-27-2023 WBC (Bld) [#/Vol] 5.0 10*3/uL 3.8-11.6 [facility] MG MAMM SCREEN 3D MATT CADon 03-07-2022 MG MAMM SCREEN 3D MATT CAD Patient: BLANCA SOLITARIO Exam Date: 03/07/2022 : 1965 Gender:F Ordering : DR UMAIR WISDOM . Admission #: [id number] Family : Order #: [id number] CLICK HERE TO VIEW EXAM RADIOLOGY REPORT PROCEDURE: MAMMOGRAM SCREENING 3D BILATERAL CAD COMPARISON: MG MAMM SCREEN MATT W CAD, 02/24/2020. MG MAMM SCREEN MATT W CAD, 02/20/2019. MG MAMM SCREEN MATT W CAD, 01/17/2018. MG MAMM SCREEN 3D MATT CAD, 03/03/2021. INDICATIONS: Screening mammography Calculator Name NCI Breast Cancer Risk Assessment Tool 5 Year Breast Cancer Risk 2.60% Lifetime Breast Cancer Risk 14.20% Personal Breast Cancer No Personal Ovarian Cancer No Treatments None Family Cancers Mother with breast cancer at age 63. LOCATION: [facility] BREAST COMPOSITION: Heterogeneously dense,which may obscure small masses. FINDINGS: DIAGNOSTIC CATEGORY 1--NEGATIVE. RIGHT BREAST: No significant suspicious finding. No significant change has occurred. LEFT BREAST: No significant suspicious finding. No significant change has occurred. RECOMMENDATIONS: ROUTINE MAMMOGRAM AND CLINICAL EVALUATION IN 12 MONTHS. PLEASE NOTE: A NORMAL MAMMOGRAM DOES NOT EXCLUDE THE POSSIBILITY OF BREAST CANCER. A CLINICALLY SUSPICIOUS PALPABLE LUMP SHOULD BE BIOPSIED. Dictated by: Eduar Trimble M.D. on 03/08/2022 at 07:35 Approved by: Eduar Trimble M.D. on 03/08/2022 at 07:44 Normal [facility] PAP ACOG PANEL 2: 30 to 65on 03-03-2022 . . Normal [facility] Comment on above: Result Comment: Perf ormed at: WB Performed By: #### [id number] #### [facility] [address] [address] [address] Titus Astudillo Age Gdln ACOG Testing 30-65 Normal [facility] Comment on above: Performed By: #### [id number] #### [facility] [address] [address] [address] Titus Astudillo DIAGNOSIS: Comment Normal [facility] Comment on above: Result Comment: NEGA TIVE FOR INTRAEPITHELIAL LESION OR MALIGNANCY. Performed at: WB Performed By: #### [id number] #### [facility] [address] [address] [address] Titus Astudillo HPV Aptima QNSPAP [facility] Comment on above: Result Comment: Test not performed. Liquid based PAP vial contained insufficient specimen for molecular testing; likely a consequence of insufficient cellularity in original collection. This nucleic acid amplification test detects fourteen high-risk HPV types (16,18,31,33,35,39,45,51,52,56,58,59,66,68) without differentiation. Performed at: =G Performed By: #### [id number] #### [facility] [address] [place] [address] Dr. Titus Astudillo HPV Genotype Reflex Comment Normal [facility] Comment on above: Result Comment: Crit eria not met, HPV Genotype not performed. Performed at: WB Performed By: #### [id number] #### [facility] [address] [place] [address] Dr. Titus Astudillo Methodology: Comment Normal [facility] Comment on above: Result Comment: This liquid based ThinPrep(R) pap test was screened with the use of an image guided system. Performed at: WB Performed By: #### [id number] #### [facility] [address] [place] [address] Dr. Titus Astudillo Note: Comment Normal [facility] Comment on above: Result Comment: The Pap smear is a screening test designed to aid in the detection of premalignant and malignant conditions of the uterine cervix. It is not a diagnostic procedure and should not be used as the sole means of detecting cervical cancer. Both false-positive and false-negative reports do occur. . Performed at: WB Performed By: #### [id number] #### [facility] [address] [place] [address] Dr. Titus Astudillo Performed by: Comment Normal [facility] Comment on above: Result Comment: Selene Singh, Dining Car [employer] (ASCP) Performed at: WB Performed By: #### [id number] #### [facility] [address] [place] [address] Dr. Titus Astudillo Specimen adequacy: Comment Normal [facility] Comment on above: Result Comment: Sati sfactory for evaluation. Endocervical and/or squamous metaplastic cells (endocervical component) are present. Performed at: WB Performed By: #### [id number] #### [facility] [address] [place] [address] Dr. Titus Astudillo CBC AUTO DIFFon 01-28-2022 BASO # 0.1 103/ul Normal 0.0-0.1 [facility] Comment on above: Performed By: #### C BC #### [facility] [address] [place] [address] Dr. Titus Astudillo Basophils/100 WBC (Bld) 0.9 % Normal 0.2-2.0 [facility] Comment on above: Performed By: #### C BC #### [facility] [address] [place] [address] Dr. Titus Astudillo EO # 0.1 103/ul Normal 0.0-0.7 [facility] Comment on above: Performed By: #### C BC #### [facility] [address] [place] [address] Dr. Titus Astudillo Eosinophils/100 WBC (Bld) 2.1 % Normal 0.9-7.0 [facility] Comment on above: Performed By: #### C BC #### [facility] [address] [place] [address] Dr. Titus Astudillo Erythrocyte distribution width (RBC) [Ratio] 11.9 % Normal 11.0-15.0 [facility] Comment on above: Performed By: #### C BC #### [facility] [address] [place] [address] Dr. Titus Astudillo Hematocrit (Bld) [Volume fraction] 42.1 % Normal 36.0-48.0 [facility] Comment on above: Performed By: #### C BC #### [facility] [address] [place] [address] Dr. Titus Astudillo Hemoglobin (Bld) [Mass/Vol] 14.0 g/dL Normal 12.0-16.0 [facility] Comment on above: Performed By: #### C BC #### [facility] [address] [place] [address] Dr. Titus Astudillo IG # 0.02 10e3/ul Normal 0.00-0.03 [facility] Comment on above: Performed By: #### C BC #### [facility] [address] [place] [address] Dr. Titus Astudillo IG % 0.3 % Normal 0.0-0.5 [facility] Comment on above: Performed By: #### C BC #### [facility] [address] [place] [address] Dr. Titus Astudillo LYMPH # 2.6 103/ul Normal 1.2-3.8 [facility] Comment on above: Performed By: #### C BC #### [facility] [address] [place] [address] Dr. Titus Astudillo Lymphocytes/100 WBC (Bld) 41.5 % Normal 20.5-60.0 [facility] Comment on above: Performed By: #### C BC #### [facility] [address] [place] [address] Dr. Titus Astudillo MANUAL DIFF REQ NO Normal [facility] Comment on above: Performed By: #### C BC #### [facility] [address] [place] [address] Dr. Titus Astudillo MCH (RBC) [Entitic mass] 31.4 pg Normal 26.7-34.0 [facility] Comment on above: Performed By: #### C BC #### [facility] [address] [place] [address] Dr. Titus Astudillo MCHC (RBC) [Mass/Vol] 33.3 g/dL Normal 29.9-35.2 [facility] Comment on above: Performed By: #### C BC #### [facility] [address] [place] [address] Dr. Titus Astudillo MCV (RBC) [Entitic vol] 94.4 fL Normal 81.0-99.0 [facility] Comment on above: Performed By: #### C BC #### [facility] [address] [place] [address] Dr. Titus Astudillo MONO # 0.5 103/ul Normal 0.3-0.8 [facility] Comment on above: Performed By: #### C BC #### [facility] [address] [place] [address] Dr. Titus Astudillo Monocytes/100 WBC (Bld) 7.9 % Normal 1.7-12.0 [facility] Comment on above: Performed By: #### C BC #### [facility] [address] [place] [address] Dr. Titus Astudillo NEUT # 3.0 103/ul Normal 1.4-6.5 [facility] Comment on above: Performed By: #### C BC #### [facility] [address] [place] [address] Dr. Titus Astudillo Neutrophils/100 WBC (Bld) 47.3 % Normal 43.0-75.0 [facility] Comment on above: Performed By: #### C BC #### [facility] [address] [place] [address] Dr. Titus Astudillo Platelet mean volume (Bld) [Entitic vol] 9.8 fL Normal 9.5-13.5 [facility] Comment on above: Performed By: #### C BC #### [facility] [address] [place] [address] Dr. Titus Astudillo PLT 375 103/ul Normal 150-450 [facility] Comment on above: Performed By: #### C BC #### [facility] [address] [place] [address] Dr. Titus Astudillo RBC 4.46 106/ul Normal 4.20-5.40 [facility] Comment on above: Performed By: #### C BC #### [facility] [address] [place] [address] Dr. Titus Astudillo WBC 6.3 103/ul Normal 4.0-11.0 [facility] Comment on above: Performed By: #### C BC #### [facility] [address] [place] [address] Dr. Titus Astudillo LIPID PROFILEon 01-28-2022 CHOL-HDL RATIO NORM SEE BELOW Normal [facility] Comment on above: Result Comment: 3.3 - 4.4 LOW RISK 4.4 - 7.1 AVERAGE RISK 7.1 - 11.0 MODERATE RISK >11.0 HIGH RISK Performed By: #### C MP, LIPID #### [facility] [address] [place] [address] Dr. Titus Astudillo Cholesterol [Mass/Vol] 163 mg/dL Normal <=200 Th [facility] Comment on above: Performed By: #### C MP, LIPID #### [facility] [address] [place] [address] Dr. Titus Astudillo Cholesterol in HDL [Mass/Vol] 101 mg/dL Critically high 40-60 [facility] Comment on above: Performed By: #### C MP, LIPID #### [facility] [address] [place] [address] Dr. Titus Astudillo Cholesterol in LDL [Mass/Vol] 56.4 mg/dL Normal [facility] Comment on above: Performed By: #### C MP, LIPID #### [facility] [address] [place] [address] Dr. Titus Astudillo Cholesterol.total/Sheri sterol in HDL [Mass ratio] 1.6 {ratio} Normal [facility] Comment on above: Performed By: #### C MP, LIPID #### [facility] [address] [place] [address] Dr. Titus Astudillo HDL NORMAL > or = 60 mg/dl - LO W CARDIOVASCULAR RISK <40 mg/dl - HIGH CARDIOVASCULAR RISK Normal [facility] Comment on above: Performed By: #### C MP, LIPID #### [facility] [address] [place] [address] Dr. Titus Astudillo LDL CALC NORMAL SEE BELOW Normal [facility] Comment on above: Result Comment: <100 mg/dl OPTIMAL 100 - 129 mg/dl NEAR OR ABOVE OPTIMAL 130 - 159 mg/dl BORDERLINE HIGH 160 - 189 mg/dl HIGH >190 mg/dl VERY HIGH Performed By: #### C MP, LIPID #### [facility] [address] [place] [address] Dr. Titus Astudillo Triglyceride [Mass/Vol] 28 mg/dL Normal <=150 T [facility] Comment on above: Performed By: #### C MP, LIPID #### [facility] [address] [place] [address] Dr. Titus Astudillo VLDL CALC 5.6 mg/dL Normal [facility] Comment on above: Performed By: #### C MP, LIPID #### [facility] [address] [place] [address] Dr. Titus Astudillo PROF 14(COMP METB)on 022 Albumin [Mass/Vol] 4.1 g/dL Normal 3.4-5.0 [facility] Comment on above: Performed By: #### C MP, LIPID #### [facility] [address] [place] [address] Dr. Titus Astudillo Albumin/Globulin [Mass ratio] 1.1 {ratio} Normal [facility] Comment on above: Performed By: #### C MP, LIPID #### [facility] [address] [place] [address] Dr. Titus Astudillo ALP [Catalytic activity/Vol] 73 U/L Normal 46-116 [facility] Comment on above: Performed By: #### C MP, LIPID #### [facility] [address] [place] [address] Dr. Titus Astudillo ALT [Catalytic activity/Vol] 29 U/L Normal 14-59 [facility] Comment on above: Performed By: #### C MP, LIPID #### [facility] [address] [place] [address] Dr. Titus Astudillo Anion gap [Moles/Vol] 12.7 mmol/L Normal [facility] Comment on above: Performed By: #### C MP, LIPID #### [facility] [address] [place] [address] Dr. Titus Astudillo AST [Catalytic activity/Vol] 24 U/L Normal 15-37 [facility] Comment on above: Performed By: #### C MP, LIPID #### [facility] [address] [place] [address] Dr. Titus Astudillo Bilirubin [Mass/Vol] 0.5 mg/dL Normal 0.2-1.0 [facility] Comment on above: Performed By: #### C MP, LIPID #### [facility] [address] [place] [address] Dr. Titus Astudillo Calcium [Mass/Vol] 9.5 mg/dL Normal 8.5-10.1 [facility] Comment on above: Performed By: #### C MP, LIPID #### [facility] [address] [place] [address] Dr. Titus Astudillo Chloride [Moles/Vol] 102 mmol/L Normal 98-107 [facility] Comment on above: Performed By: #### C MP, LIPID #### [facility] [address] [place] [address] Dr. Titus Astudillo CO2 [Moles/Vol] 29.6 mmol/L Normal 21.0-32.0 [facility] Comment on above: Performed By: #### C MP, LIPID #### [facility] [address] [place] [address] Dr. Titus Astudillo Creatinine [Mass/Vol] 1.02 mg/dL Normal 0.55-1.02 [facility] Comment on above: Performed By: #### C MP, LIPID #### [facility] [address] [place] [address] Dr. Titus Astudillo EGFR-AF ECUADOREAN >60 Normal >=60 [facility] Comment on above: Performed By: #### C MP, LIPID #### [facility] [address] [place] [address] Dr. Titus Astudillo EGFR-NON AF ECUADOREAN 56 mL/min/1.73m2 Critically low >=60 [facility] Comment on above: Performed By: #### C MP, LIPID #### [facility] [address] [place] [address] Dr. Titus Astudillo Globulin (S) [Mass/Vol] 3.8 g/dL Normal T [facility] Comment on above: Performed By: #### C MP, LIPID #### [facility] [address] [place] [address] Dr. Titus Astudillo Glucose [Mass/Vol] 98 mg/dL Normal 74-106 [facility] Comment on above: Performed By: #### C MP, LIPID #### [facility] [address] [place] [address] Dr. Titus Astudillo Potassium [Moles/Vol] 4.3 mmol/L Normal 3.5-5.1 [facility] Comment on above: Performed By: #### C MP, LIPID #### [facility] [address] [place] [address] Dr. Titus Astudillo Protein [Mass/Vol] 7.9 g/dL Normal 6.4-8.2 [facility] Comment on above: Performed By: #### C MP, LIPID #### [facility] [address] [place] [address] Dr. Titus Astudillo Sodium [Moles/Vol] 140 mmol/L Normal 136-145 [facility] Comment on above: Performed By: #### C MP, LIPID #### [facility] [address] [place] [address] Dr. Titus Astudillo Urea nitrogen [Mass/Vol] 21.0 mg/dL Critically high 7.0-18.0 [facility] Comment on above: Performed By: #### C MP, LIPID #### [facility] [address] [place] [address] Dr. Titus Astudillo Urea nitrogen/Creatinine [Mass ratio] 20.6 mg/mg Normal [facility] Comment on above: Performed By: #### C MP, LIPID #### [facility] [address] [place] [address] Dr. Titus Astudillo Q - SARS CoV2 COVID 19 Ab Ig [place] 03-29-2021 SARS-CoV-2 (COVID-19) Ab IA Qn <1.00 Normal <1.00 [facility] [employer] Comment on above: Order Comment: [facility] performed at: Q, [facility], [address], [address] [place], [address], [employer] Cell Tender: Randy Corona MD [facility] Collection Date/Time: [id number] [facility] Results Received Date/Time: [id number] [facility] Reported Date/Time: [id number] Result Comment: This test is intended to help identify individuals with antibodies to SARS-CoV-2 (COVID-19). The results of this semi-quantitative test should not be interpreted as an indication or degree of immunity or protection from reinfection. A test result that is 1.00 or more (Positive) means antibodies to SARS-CoV-2 were detected in the blood sample by the test. This could mean that the individual may have an immune response to a recent or prior infection with SARS-CoV-2. Positive results may occur after COVID-19 vaccination, but the clinical significance of a positive antibody result for individuals that have received a COVID-19 vaccine is unknown, and the performance of the test has not been established in COVID-19 vaccinees. False positive results for the test may occur due to cross-reactivity from pre-existing antibodies or other possible causes. A test result that is less than 1.00 (Negative) means that antibodies were not detected in the blood sample by the test. This could mean that the individual has not been previously infected with SARS-CoV-2. The clinical significance of a negative antibody result for individuals that have received a COVID-19 vaccine is unknown. The performance of the test has not been established in COVID-19 vaccinees. False negative results for the test may occur if the individual's antibodies have not reached a sufficient level for the test to be able to detect them. Antibodies can take up to two to three weeks (sometimes longer) to develop after someone is infected. How long antibodies to SARS-CoV-2 last after infection is not known. This test should not be used to diagnose an active SARS-CoV-2 infection. If an active infection is suspected, direct molecular or antigen testing for SARS-CoV-2 is recommended. Please review the Fact Sheets available for healthcare providers and patients using the following websites: http://[email or web address]/[facility]-HCP [email or web address]/[facility]-Patients Healthcare Providers: For additional information please refer to: http://education.LoopFuse/faq/WYS789 (This link is being provided for informational/educational purposes only.) This test has been authorized by the FDA under an Emergency Use Authorization (EUA) for use by authorized laboratories. The FDA authorized labeling is available on the [employer] website: www.Rotapanel/Covid19. Performed By: #### 3 [id number] #### [facility] Default [address] [place] [address] Vital Signs Date Time Vital Sign Value Performing Clinician Faci lity 01-23-2024 14:29-0400 Body weight 61.24 kg [facility] Phone: [facility] 01-15-2024 15:55-0400 Body height 170.2 cm Solomon Rivas MD Work Phone: [facility] 01-15-2024 15:55-0400 Body mass index (BMI) [Ratio] 21.46 kg/m2 Solomon Rivas MD Work Phone: [facility] 01-15-2024 15:55-0400 Body weight 62.14 kg Solomon Rivas MD Work Phone: [facility] 01-15-2024 15:55-0400 Diastolic blood pressure 88 mm[Hg] Solomon Rivas MD Work Phone: [facility] 01-15-2024 15:55-0400 Heart rate 78 /min Solomon Rivas MD Work Phone: [facility] 01-15-2024 15:55-0400 SaO2% (BldA) [Mass fraction] 99 % Solomon Rivas MD Work Phone: [facility] 01-15-2024 15:55-0400 Systolic blood pressure 122 mm[Hg] Solomon Rivsa MD Work Phone: [facility] Encounters Encounter Date Encounter Type Care Provider Facility Start: 01-29-2024 End: 02-04-2024 Telephone encounter Yovani Faith SALES PROFESSIONAL-SLOTS MANAGER Work Phone: [facility] Start: 01-23-2024 End: 01-23-2024 Patient encounter procedure Yovani Faith SALES PROFESSIONAL-SLOTS MANAGER Work Phone: [facility] Comment on above: Encounter for screen ing colonoscopy (Primary Dx) Start: 01-23-2024 End: 01-23-2024 [facility]ulatory [facility] Start: 01-19-2024 End: 01-19-2024 External Result Encounter Solomon Rivas MD Work Phone: [facility] Unsolicited Start: 01-19-2024 End: 01-19-2024 External Result Encounter Solomon Rivas MD Work Phone: [facility] Unsolicited Start: 01-19-2024 End: 01-19-2024 Patient encounter procedure MD Solomon Rivas Work Phone: [facility] [place] Work Phone: Start: 01-19-2024 End: 01-19-2024 ambulatory MD Solomon Rivas Work Phone: [facility] Work Phone: Start: 01-19-2024 Encounter for genera l adult medical examination without abnormal findings Solomon Rivas [facility] Start: 01-15-2024 End: 01-15-2024 Patient encounter procedure Solomon Rivas MD Work Phone: [facility] Start: 01-15-2024 End: 01-15-2024 Periodic preventive med est patient 40-64yrs Solomon Rivas MD Work Phone: [facility] Comment on above: Well adult health ch jonny (Primary Dx); Abnormal glucose tolerance test; Benign essential hypertension (CMS/HCC); Annual physical exam; Stage 3a chronic kidney disease (HCC) (CMS/HCC); Screening for lipid disorders Start: 01-15-2024 End: 01-15-2024 ambulatory SOLOMON RIVAS Not Available Start: 01-15-2024 End: 01-15-2024 Bamboo flowsheet Solomon Rivas MD Work Phone: [facility] Start: 01-15-2024 End: 01-15-2024 Bamboo flowsheet Solomon Rivas MD Work Phone: [facility] Start: 01-15-2024 End: 01-15-2024 Patient encounter status Solomon Rivas MD Work Phone: [facility] Work Phone: Start: 01-15-2024 End: 01-22-2024 Telephone encounter Solomon Rivas MD Work Phone: [facility] Start: 03-01-2023 End: 03-01-2023 ambulatory SILVIA COLINDRES Not Available Start: 02-13-2023 End: 02-13-2023 ambulatory SOLOMON RIVAS Not Available Start: 02-13-2023 Patient encounter status Solomon Rivas MD Work Phone: [facility] Work Phone: Start: 01-27-2023 End: 01-27-2023 ambulatory MD Solomon Rivas Work Phone: [facility] Work Phone: Start: 01-27-2023 End: 01-27-2023 Patient encounter procedure MD Solomon Rivas Work Phone: [facility] [place] Work Phone: Start: 03-07-2022 End: 03-08-[address] UMAIR WISDOM Facility:[facility] Start: 02-22-2022 End: 02-22-[address] UMAIR WISDOM Facility:[facility] Start: 02-01-2022 Encounter for genera l adult medical examination without abnormal findings DR SOL[facility]ON RIV[facility] Start: 01-28-2022 End: 01-29-[address] SOLOMON RIVAS Facility:[facility] Start: 01-28-2022 End: 01-29-2022 Encounter for general adult medical examination without abnormal findings DR SOLOMON RIVAS Facility:[facility] Procedures Date Procedure Procedure Detail Performing Clinician Start: 01-19-2024 Complete blood count with white cell differential, automated Solomon Rivas MD Work Phone: Start: 01-19-2024 Comprehensive metabo lic panel Solomon Rivas MD Work Phone: Start: 01-19-2024 Lipid panel Solomon Aquino MD Work Phone: Start: 02-26-2023 Mammography Solomon Rivas MD Work Phone: Start: 02-22-2022 Microscopic observat ion [Identifier] in Cervix by Cyto stain Solomon Rivas MD Work Phone: Start: 10-07-2014 Colonoscopy Solomon Rivas MD Work Phone: Plan of Treatment Date Care Activity Detail Author Start: 02-22-2027 Screening for malign ant neoplasm of cervix [facility] Start: 02-22-2025 Screening for malign ant neoplasm of cervix Pap Smear [facility] Start: 01-22-2025 Tobacco Screening Tobacco Screening [facility] Start: 10-07-2024 Screening for malign ant neoplasm of colon [facility] Start: 02-27-2024 End: 02-27-2024 Patient encounter procedure 02/27/2024 2:30 PM EST Office Visit [facility] [address] [place] [address] Umair Wisdom DO [address] [place] [address] [facility] Start: 02-27-2024 Screening for malign ant neoplasm of breast Mammogram [facility] Start: 02-27-2024 End: 02-27-2024 Telemedicine consultation with patient 02/27/2024 9:30 AM EST Telemedicine [facility] [place] [address] Yovani Faith, SALES PROFESSIONAL-SLOTS MANAGER [address] [place] [address] [facility] Start: 01-15-2024 End: 01-15-2024 Patient encounter procedure 01/15/2024 4:15 PM EDT Office Visit [facility] [address] [place] [address] Solomon Rivas MD [address] [place] [address] Arrived [facility] Comment on above: Arrived Start: 01-15-2024 End: 01-14-2025 CBC W Auto Differential panel - Blood CBC and differential Lab Routine Benign essential hypertension (CMS/HCC) Annual physical exam Stage 3a chronic kidney disease (HCC) (CMS/HCC) Expected: 01/15/2024 (Approximate), Expires: 01/14/2025 [facility] Work Phone: Comment on above: Expected: 01/15/2024 (Approximate), Expires: 01/14/2025 Start: 01-15-2024 End: 01-14-2025 Comprehensive metabolic 2000 panel - Serum or Plasma Comprehensive metabolic panel Lab Routine Abnormal glucose tolerance test Benign essential hypertension (CMS/HCC) Annual physical exam Expected: 01/15/2024 (Approximate), Expires: 01/14/2025 [facility] Comment on above: Expected: 01/15/2024 (Approximate), Expires: 01/14/2025 Start: 01-15-2024 End: 01-14-2025 Lipid 1996 panel - Serum or Plasma Lipid panel Lab Routine Annual physical exam Screening for lipid disorders Expected: 01/15/2024 (Approximate), Expires: 01/14/2025 [facility] Comment on above: Expected: 01/15/2024 (Approximate), Expires: 01/14/2025 Start: 12-02-2023 Influenza vaccination [facility] Start: 2013 Administration of varicella zoster vaccine Zoster (Shingles) Vaccine (1 of 2) [facility] [employer] [facility] Start: 1982 DTaP,Tdap and Td Vaccines (1 - Tdap) DTaP,Tdap and Td Vaccines (1 - Tdap) [employer] Start: 1981 Adult BMI Screening Adult BMI Screen ing [employer] Start: 1975 Depression Screening [facility] Start: 1965 Screening for malign ant neoplasm of colon [facility] End: 01-22-2025 Colonoscopy Colonoscopy GI Routine Encounter for screening colonoscopy 1 Occurrences starting 01/23/2024 until 01/22/2025 [email or web address] Work Phone: Comment on above: 1 Occurrences starti ng 01/23/2024 until 01/22/2025 Payers Date Payer Category Payer Self-pay 2022 Managed Care Other (unspecified) [id number] 2022 Private Health Insurance [facility] [id number] 2022 Unknown [id number] 1965 Unknown [id number] 1963 Unknown [id number] 1963 Unknown [id number] 1963 Unknown [id number] 1963 Unknown [id number] 1963 Unknown [id number] 1963 Unknown [id number] [id number] 1959 Unknown [id number] Unknown [id number] Social History Date Type Detail Facility Tobacco smoking stat RUSTIS Unknown if ever smoked [facility] Work Phone: Start: 1965 Sex Assigned At Female F [facility] Start: 02-12-2023 End: 01-23-2024 Tobacco smoking status DEIS Never smoked tobacco [facility] Start: 02-12-2023 End: 01-23-2024 Tobacco use and exposure Smokeless tobacco non-user [facility] Start: 03-01-2023 End: 01-15-2024 Alcoholic beverage intake Lifetime non-drinker (finding) [facility] Start: 02-13-2023 End: 01-23-2024 History of Social function [facility] Start: 02-13-2023 End: 01-23-2024 Tobacco use panel [facility] Start: 1965 Sex assigned at Not on file N [facility] Start: 01-23-2024 Alcoholic beverage intake Ex-drinker (finding) [facility] Start: 01-17-2024 Sex Female (finding) [facility] Clinical Notes 01-15-2024 to 01-29-2024 Telephone Encounter - Suzanne Sharif - 01/29/2024 1:37 PM EDTTelephone Encounter - Suzanne Sharif - 01/29/2024 1:37 PM EDTTelephone Encounter - Suzanne Sharif - 01/29/2024 1:37 PM EDT Note Date & Type Note Facility 01-29-2024 Miscellaneous Notes Called Blanca regarding the GERD referral that our office received from Blanca Jarvis states that she is already scheduled for a colonoscopy with Dr Lloyd on 02/20/24 at [facility] at 8 am. Sent Lorrie S a staff message to see if we can just add the EGD to the colonoscopy or if she will need to see Yovani Faith NP before that. Lorrie called Blanca and got her scheduled for a video visit with Yovani Faith NP for 02/25/24. documented in this encounter [facility] 01-29-2024 Telephone encounter Note Called Blanca regarding the GERD referral that our office received from Blanca Jarvis states that she is already scheduled for a colonoscopy with Dr Lloyd on 02/20/24 at [facility] at 8 am. Sent Lorrie S a staff message to see if we can just add the EGD to the colonoscopy or if she will need to see Yovani Faith NP before that. [facility] 01-29-2024 Telephone encounter Note Lorrie called Blanca and got her scheduled for a video visit with Yovani Faith NP for 02/25/24. [facility] 01-23-2024 History of Presen t illness Narrative Images from the original note were not included. Chief Complaint: Colon cancer screening History of Present Illness Blanca Solitario is a 58 y.o. female who presents to the office for colon cancer screening. Her last colonoscopy was in 2014 and this was a normal study. Her insurance covers a screening colonoscopy for her yearly and she would like to get 1 done at this time. She denies diarrhea, constipation, abdominal pain, melena, hematochezia, unexplained weight loss. There is no family history of colon cancer. Review of Systems Constitutional: Negative for fever and unexpected weight change. HENT: Negative for trouble swallowing. Respiratory: Negative for shortness of breath. Cardiovascular: Negative for chest pain. Gastrointestinal: Negative for nausea, vomiting, abdominal pain, diarrhea, constipation, blood in stool and black tarry stool. Genitourinary: Negative for dysuria and difficulty urinating. Musculoskeletal: Negative for gait problem. Skin: Negative for rash and wound. Neurological: Negative for dizziness, weakness and light-headedness. Hematological: Does not bruise/bleed easily. Psychiatric/Behavioral: Negative for confusion. History reviewed. No pertinent past medical history. Past Surgical History: Procedure Laterality Date COLONOSCOPY 2014 DILATION AND CURETTAGE OF UTERUS No Known Allergies Current Outpatient Medications: MULTIVITAMIN ORAL, Take by mouth., Disp: , Rfl: sod sulf-pot chloride-mag sulf 1.479-0.188- 0.225 gram tablet, Please see instructional sheet given by physicians office., Disp: 24 tablet, Rfl: 0 Social History Socioeconomic History Marital status: Spouse name: Not on file Number of children: Not on file Years of education: Not on file Highest education level: Not on file Occupational History Not on file Tobacco Use Smoking status: Never Smokeless tobacco: Never Vaping Use Vaping status: Never Used Substance and Sexual Activity Alcohol use: Not Currently Drug use: Never Sexual activity: Defer Other Topics Concern Not on file Social History Narrative Not on file Social Drivers of Health Financial Resource Strain: Not on file Food Insecurity: Not on file Transportation Needs: Not on file Physical Activity: Not on file Stress: Not on file Social Connections: Not on file Interpersonal Safety: Not on file Housing Instability: Not on file Family History Problem Relation Age of Onset Breast cancer Mother Leukemia Father Objective Physical Exam Constitutional: General: She is not in acute distress. Appearance: Normal appearance. She is not ill-appearing. HENT: Head: Normocephalic and atraumatic. Mouth/Throat: Mouth: Mucous membranes are moist. Eyes: Pupils: Pupils are equal, round, and reactive to light. Cardiovascular: Rate and Rhythm: Normal rate and regular rhythm. Pulmonary: Effort: Pulmonary effort is normal. No respiratory distress. Breath sounds: Normal breath sounds. Abdominal: General: There is no distension. Musculoskeletal: General: Normal range of motion. Skin: General: Skin is warm and dry. Neurological: Mental Status: She is alert and oriented to person, place, and time. Mental status is at baseline. Vital Signs: Weight 61.2 kg (135 lb). Respiratory Source: No data recorded Admission Weight: Weight: 61.2 kg (135 lb) Labs No results found for: WBC , HGB , HCT , MCV , PLT No results found for: GLU , CALCIUM , NA , K , CO2 , CL , BUN , CREATININE No results found for: AMYLASE No results found for: LIPASE No results found for: ALT , AST , GGT , ALKPHOS , LABBILI No results found for: INR , PROTIME Assessment Blanca Solitario is a 58 y.o.female who presents to the office for screening colonoscopy. Plan Colonoscopy with possible biopsy and/or polypectomy. Risks, benefits, and alternatives discussed with patient. Educated on bowel evacuation preparation. Patient verbalizes understanding and wishes to proceed. Evaluation included: Preparing to see the patient (e.g., review of tests) Obtaining and/or reviewing separately obtained history Performing a medically appropriate examination and/or evaluation Counseling and educating the patient/family/caregiver Referring and communicating with other health pet caregiver Encounter for screening colonoscopy [Z12.11] DANNY MALLOY [facility] [place] This note was created with the assistance of a speech recognition program. While intending to generate a timely document that accurately reflects the content of the visit, no guarantee can be provided that every grammatical or spelling mistake has been or will be identified or corrected. Thank you for your understanding. DANNY Malloy 01/23/24 1453 documented in this encounter [facility] 01-15-2024 Telephone encounter Note Patient called and said she forgot to mention at her appointment today that she would like to have her colonoscopy done before the end of the year. [facility] 01-15-2024 Miscellaneous Notes Patient called and said she forgot to mention at her appointment today that she would like to have her colonoscopy done before the end of the year. documented in this encounter [facility] 01-15-2024 History of Presen t illness Narrative Images from the original note were not included. Subjective Patient ID: Blanca Solitario is a 58 y.o. female who presents for Annual Exam. Pt is here for her annual visit No current outpatient medications on file prior to visit. No current facility-administered medications on file prior to visit. I have reviewed and reconciled the history and medication list with the patient today. No Known Allergies Social History Tobacco Use Smoking status: Never Smokeless tobacco: Never Substance Use Topics Alcohol use: Never Family History Problem Relation Name Age of Onset Cancer Mother Leukemia Father Heart disease Father Past Medical History: Diagnosis Date Breast cancer screening by mammogram 02/26/2023 neg History of medical problems 02/21/2020 Endometrial Echotexture measuresup to 0.8 cm. Patient still has periods up to this age History of medical problems History of Post-Menopausal Bleeding Hypertension (CMS/HCC) 01/04/2023 Osteoarthritis of knee 01/04/2023 Stage 3a chronic kidney disease (HCC) (CMS/HCC) 01/04/2023 Past Surgical History: Procedure Laterality Date COLONOSCOPY 2014 normal DILATION AND CURETTAGE OF UTERUS 2019 dr wisdom Visit Vitals BP 122/88 Pulse 78 Ht 5' 7 Wt 137 lb SpO2 99% BMI 21.46 kg/m Smoking Status Never BSA 1.71 m Review of Systems Constitutional: Negative for chills, fatigue, fever and unexpected weight change. Respiratory: Negative for cough. Cardiovascular: Negative for chest pain. Gastrointestinal: Negative for abdominal pain, blood in stool, constipation, diarrhea, nausea and vomiting. Genitourinary: Negative for dysuria, enuresis, frequency and hematuria. Musculoskeletal: Negative for back pain and gait problem. Neurological: Negative for dizziness, tremors, syncope, facial asymmetry and speech difficulty. Psychiatric/Behavioral: Negative for agitation, behavioral problems, confusion and dysphoric mood. The patient is not nervous/anxious. Objective Physical Exam Vitals reviewed. Constitutional: General: She is not in acute distress. Appearance: Normal appearance. HENT: Head: Normocephalic. Right Ear: Tympanic membrane, ear canal and external ear normal. Left Ear: Tympanic membrane, ear canal and external ear normal. Nose: Nose normal. Mouth/Throat: Mouth: Mucous membranes are moist. Eyes: Extraocular Movements: Extraocular movements intact. Conjunctiva/sclera: Conjunctivae normal. Pupils: Pupils are equal, round, and reactive to light. Cardiovascular: Rate and Rhythm: Normal rate and regular rhythm. Pulses: Normal pulses. Heart sounds: Normal heart sounds. Pulmonary: Effort: Pulmonary effort is normal. No respiratory distress. Breath sounds: Normal breath sounds. Abdominal: General: Abdomen is flat. Bowel sounds are normal. Palpations: Abdomen is soft. Tenderness: There is no abdominal tenderness. Musculoskeletal: General: Normal range of motion. Cervical back: Normal range of motion and neck supple. Skin: General: Skin is warm and dry. Capillary Refill: Capillary refill takes 2 to 3 seconds. Neurological: General: No focal deficit present. Mental Status: She is alert and oriented to person, place, and time. Psychiatric: Mood and Affect: Mood normal. Assessment/Plan Problem List Items Addressed This Visit Stage 3a chronic kidney disease (HCC) (CMS/HCC) Relevant Orders CBC and differential Well adult health check - Primary [place] Alcohol consumption No Tobacco Seat Belt use Exercise Regularly No Text Drive Social Accountability Other Visit Diagnoses Abnormal glucose tolerance test Relevant Orders Comprehensive metabolic panel Benign essential hypertension (CMS/HCC) Relevant Orders CBC and differential Comprehensive metabolic panel Annual physical exam Relevant Orders CBC and differential Comprehensive metabolic panel Lipid panel Screening for lipid disorders Relevant Orders Lipid panel Follow up in about 1 year (around 01/14/2025). Associated Problem(s): Well adult health check [place] Alcohol consumption No Tobacco Seat Belt use Exercise Regularly No Text Drive Social Accountability documented in this encounter [facility] Evaluation note No assessment inform ation available [facility] Work Phone: Evaluation note Diagnosis Encounter for well adult exam without abnormal findings- Primary Well adult health check- Primary Unspecified general medical examination Abnormal glucose tolerance test Impaired glucose tolerance test Benign essential hypertension (CMS/HCC) Essential hypertension, benign Annual physical exam Routine general medical examination at a health care facility Stage 3a chronic kidney disease (HCC) (CMS/HCC) Screening for lipid disorders documented in this encounter [facility] Diagnosis Encounter for screening colonoscopy- Primary documented in this encounter [facility] filedocumented in this encounter [facility]Not on filedocumented in this encounter [facility] Summary Purpose Family History No Family History Records FoundNo Family History Records FoundNo Family History Records FoundNo Family History Records FoundNo Family History Records Found Advance Directives Advance Directive Response Recorded Date/ Time Advance Directives No January 15, 2023 10:57am Chief Complaint and Reason for Visit Chief Complaint I10 R73.09 Z00.00 Chief Complaint I10 Z00.00 N18.31 R7 3.09 Z13.220 Additional Source Comments INFORMATION SOURCE (unrecogn ized section and content) DATE CREATED AUTHOR 03/30/2021 [facility] dical Specialist DATE CREATED AUTHOR AUTHOR'S ORGANIZ ATION 03/11/2022 [facility] DATE CREATED AUTHOR AUTHOR'S ORGANIZ ATION 01/17/2024 [facility] dical Specialists EPIC DATE CREATED AUTHOR AUTHOR'S ORGANIZ ATION 01/25/2024 [facility] DATE CREATED AUTHOR AUTHOR'S ORGANIZ ATION 01/28/2024 [facility] Care Teams (unrecognized sec tion and content) Team Status: Active Member Role Status Dates Solomon Rivas MD Primary Care Provider Active Team Status: Inactive Member Role Status Dates Solomon Rivas MD Primary Care Provider, Attending Pro vider Active Roofing Foreman Relationship Specialty Start Date End Date Solomon Rivas MD [address] [place] [facility] [address] [place] [address] PCP - General Family Medicine 08/08/22 Roofing Foreman Relationship Specialty Start Date End Date Solomon Rivas MD [address] [facility] [address] [place] [address] PCP - General Family Medicine 08/08/22 Roofing Foreman Relationship Specialty Start Date End Date Solomon Rivas MD [address] [facility] [address] [place] [address] PCP - General Family Medicine 08/08/22 Roofing Foreman Relationship Specialty Start Date End Date Solomon Rivas MD 112 [facility] [address] [place] [address] PCP - General Family Medicine 08/08/22 Team Status: Inactive Member Role Status Dates Solomon Rivas MD Primary Care Provide r, Attending Provider, Referring Provider Active Start: January 19, 2024 End: January 19, 2024 Roofing Foreman Relationship Specialty Start Date End Date Solomon Rivas MD [address] [address] PCP - General Family Medicine 01/29/24 Goals (unrecognized section and content) Goals may be documented in a n alternate sectionGoals may be documented in an alternate sectionNot on filedocumented as of this encounterNot on filedocumented as of this encounter Reason for Visit (unrecogniz ed section and content) Reason Comments Annual Exam Reason Comments Colon Cancer Screening Insurance will co carolyn screening yearly Specialty Diagnoses / Procedures Referred By Marcelo t Referred To Contact Gastroenterology Diagnoses Screening for malignant neoplasm of colon Procedures [place] OFFICE OUTPATIENT VISIT 60-74 MINS HIGH MDM [id number] (SNOMED CT) - AMB REFERRAL TO GASTROENTEROLOGY Solomon Rivas MD [address] [address] Phone: tel: fax: Jerad Lloyd DO [address] [place] [id number] Phone: tel:[phone] fax:[phone] Referral ID Status Reason Start Date Expiration Date V isits Requested Visits Authorized [id number] Pending Review 01/16/2024 07/14/2024 1 1 FOR RECORDS PERTAINING TO PATIENTS WHO ARE OR HAVE BEEN ENROLLED IN A CHEMICAL DEPENDENCY/SUBSTANCEABUSE PROGRAM, SOME INFORMATION MAY BE OMITTED. This clinical summary was aggregated from multiple sources. Caution should be exercised in using it in the provision of clinical care. This summary normalizes information from multiple sources, and as a consequence, information in this document may materially change the coding, format and clinical context of patient data. In addition, data may be omitted in some cases. CLINICAL DECISIONS SHOULD BE BASED ON THE PRIMARY CLINICAL RECORDS. [facility]. provides no warranty or guarantee of the accuracy or completeness of information in this document.
== END 2024-02-21 13:47 | disposition home or self-care (01) ==
LOC: PST 13:46
PROVIDERS: PCP Family Medicine; Visit Provider Surgery
DX: Z01.818 Encounter for other preprocedural examination (principal); Z12.11 Encounter for screening for malignant neoplasm of colon; K21.9 Gastro-esophageal reflux disease without esophagitis

== ENCOUNTER 2024-02-27 19:01 | Outpatient (REF) | payer OTHER, SELFPAY ==
--- OUTSIDE RECORDS SUMMARY | 2024-02-27 19:06 | XMS_ITS | CCD ---
Author Organization [facility] Care Team Providers Care Comptroller Name Role Phone VELASQUEZ, DR BLOCK Admitting Unavailable VELASQUEZ, DR BLOCK Attending Unavailable EVELYN, DR SRINIVASAN Primary Care Unavailable VELASQUEZ, DR BLOCK Consulting Unavailable EVELYN, DR SRINIVASAN Admitting Unavailable EVELYN, DR SRINIVASAN Attending Unavailable EVELYN, DR SRINIVASAN Primary Care Unavailable EVELYN, DR SRINIVASAN Consulting Unavailable VELASQUEZ, DR BLOCK Admitting Unavailable VELASQUEZ, DR BLOCK Attending Unavailable EVELYN, DR SRINIVASAN Primary Care Unavailable VELASQUEZ, DR BLOCK Consulting Unavailable ZIEBER, DR EDUAR Cherry Consulting Unavailable MD Solomon Rivas Primary Care Provider MD Solomon Rivas Attending Provider [phone] Solomon Rivas MD Primary Care Provider [phone] SOLOMON RIVAS Attending Unavailable SILVIA COLINDRES Attending Unavailable SOLOMON RIVAS Attending Unavailable MD Solomon Rivas Primary Care Provider [phone] MD Solomon Rivas Attending Provider [phone] MD Solomon Rivas Referring Provider Unavailable Primary Care Provider UnavailYOVANI Bowles Attending Unavailable SOLOMON RIVAS Referring Unavailable Solomon Rivas Primary Care Unavailable Solomon Rivas Attending Unavailable Solomon Rivas Referring Unavailable Solomon Rivas Admitting Unavailable Solomon Rivas MD Primary Care Provider Medications Current Medications Medication Drug Class(es) Dates Sig (Normalized) Sig (Original) MULTIVITAMIN ORAL (3 sources) MULTIVITAMIN ORA L Take by mouth. Active sod sulf-pot chloride-mag sulf 1.479-0.188- 0.225 gram tablet (3 sources) Start: 01-23-2024 sod sulf-pot chloride-mag sulf 1.479-0.188- 0.225 gram tablet Indications: Encounter for screening colonoscopy Please see instructional sheet given by physicians office. 24 tablet 01/23/2024 Active Problems Active Problems Problem Classification Problem Date Documented Date Episodic/Chronic Abdominal pain (1 source) Upper abdominal pain; Translations: [Upper abdominal pain, unspecified] 02-27-2024 Episodic Chronic kidney disease (9 sources) Chronic kidney disease stage 3A ; Translations: [Stage 3a chronic kidney disease (HCC)] Onset: 01-04-2023 01-04-2023 Chronic Diabetes mellitus without complication (2 sources) Abnormal glucose tolerance test; Translations: [Other abnormal glucose] 01-15-2024 Episodic Essential hypertension (10 sources) Essential (primary) hypertension; Translations: [Hypertensive disorder] Onset: 02-01-2022 01-04-2023 Chronic Immunizations and screening for infectious disease (1 source) Encounter for screening for human papillomavirus (HPV); Translations: [ENC SCREENING HUMAN PAPILLOMAVIRUS] Onset: 02-27-2022 Episodic Osteoarthritis (7 sources) Osteoarthritis of knee; Translations: [Osteoarthritis of knee, unspecified] Onset: 01-04-2023 01-04-2023 Chronic Other screening for suspected conditions (not mental disorders or infectious disease) (13 sources) Encounter for screening mammogram for malignant [...] Date Documented Da te Episodic/Chronic Viral infection (7 sources) Verruca plantaris; Translations: [Plantar wart] Onset: 01-04-2023 01-04-2023 Episodic Results Test Name Value Interpretation Reference Range Facility Alanine aminotransferase [En zymatic activity/volume] in Serum or PlasmaOrdered By: Solomon Rivas on 01-19-2024 ALT [Catalytic activity/Vol] 18 U/L Normal 7-52 [facility] Comment on above: Performed By: #### C BC, CMP, LIPID #### [address] Albumin [Mass/volume] in Ser um or Plasma by Bromocresol green (BCG) dye binding methoOrdered By: Solomon Becerrila on 01-19-2024 Albumin BCG dye [Mass/Vol] 4.1 g/dL 3.5-5.7 [facility] Alkaline phosphatase [Enzyma tic activity/volume] in Serum or PlasmaOrdered By: Rugen Diana on 01-19-2024 ALP [Catalytic activity/Vol] 68 U/L Normal 34-104 [facility] Comment on above: Performed By: #### C BC, CMP, LIPID #### [address] Aspartate aminotransferase [ Enzymatic activity/volume] in Serum or PlasmaOrdered By: Rugen Evelyn on 01-19-2024 AST [Catalytic activity/Vol] 23 U/L Normal 13-39 [facility] Comment on above: Performed By: #### C BC, CMP, LIPID #### [address] Automated basophil %Ordered By: Solomon Diana on 01-19-2024 Basophils/100 WBC (Bld) 0.8 % Normal . [facility] Comment on above: Performed By: #### C BC, CMP, LIPID #### [address] Automated basophil countOrde red By: Solomon Becerrila on 01-19-2024 Basophils (Bld) [#/Vol] 0.1 10*3/uL Normal 0.0-0.2 [facility] Comment on above: Result Comment: PERF ORMED BY: [place] [address] PATHOLOGIST JOINER SATHYA LOWRY M.D. Performed By: #### C BC, CMP, LIPID #### [address] Automated blood monocyte cou ntOrdered By: Rugcat Evelyn on 01-19-2024 Monocytes (Bld) [#/Vol] 0.6 10*3/uL Normal 0.0-0.8 [facility] Comment on above: Performed By: #### C BC, CMP, LIPID #### [address] Automated eosinophil %Ordere d By: Solomon Rivas on 01-19-2024 Eosinophils/100 WBC (Bld) 2.5 % Normal . [facility] Comment on above: Performed By: #### C BC, CMP, LIPID #### [address] Automated eosinophil countOr dered By: Solomon Rivas on 01-19-2024 Eosinophils (Bld) [#/Vol] 0.2 10*3/uL Normal 0.0-0.45 [facility] Comment on above: Performed By: #### C BC, CMP, LIPID #### [address] Automated monocyte %Ordered By: Solomon Becerrila on 01-19-2024 Monocytes/100 WBC (Bld) 7.8 % Normal . [facility] Comment on above: Performed By: #### C BC, CMP, LIPID #### [address] Automated neutrophil %Ordere d By: Solomon Rivas on 01-19-2024 Neutrophils/100 WBC (Bld) 63.3 % Normal . [facility] Comment on above: Performed By: #### C BC, CMP, LIPID #### [address] Bilirubin.total [Mass/volume ] in Serum or PlasmaOrdered By: Solomon Rivas on 01-19-2024 Bilirubin [Mass/Vol] 0.6 mg/dL Normal 0.3-1.0 [facility] Comment on above: Performed By: #### C BC, CMP, LIPID #### [address] CBC W Auto Differential pane l (Bld)on 01-19-2024 Basophils (Bld) [#/Vol] 0.1 10*3/uL 0.0 - 0.2 10*3/uL [facility] Basophils/100 WBC Manual cnt (Syn fld) 0.8 % . [facility] Eosinophils (Bld) [#/Vol] 0.2 10*3/uL 0.0 - 0.45 10*3/uL [facility] Eosinophils/100 WBC Manual cnt (Syn fld) 2.5 % . [facility] Erythrocyte distribution width (RBC) [Ratio] 12.5 % 11.9 - 15.3 % [facility] Hematocrit (Bld) [Volume fraction] 40.8 % 34.0 - 46.4 % [facility] Hemoglobin (Bld) [Mass/Vol] 13.9 g/dL 11.8 - 15.4 g/dL [facility] Lymphocytes (Bld) [#/Vol] 2.1 10*3/uL 1.00 - 4.8 10*3/uL [facility] Lymphocytes/100 WBC Manual cnt (Syn fld) 25.6 % . [facility] MCH (RBC) [Entitic mass] 32.6 pg 24.7 - 34.3 pg [facility] MCHC (RBC) [Mass/Vol] 34.1 g/dL 32.0 - 35.0 g/dL [facility] MCV (RBC) [Entitic vol] 95.4 fL 80 - 100 fL [facility] Monocytes (Bld) [#/Vol] 0.6 10*3/uL 0.0 - 0.8 10*3/uL [facility] Monocytes+Macrophages/1 00 WBC Manual cnt (Syn fld) 7.8 % . [facility] Neutrophils (Bld) [#/Vol] 5.1 10*3/uL 1.8 - 7.7 10*3/uL [facility] Neutrophils/100 WBC Manual cnt (Syn fld) 63.3 % . [facility] NRBC 0.1 /100{WBC} 0 - 0.5 /100{WBC} [facility] Platelet mean volume (Bld) [Entitic vol] 7.8 fL 6.3 - 10.7 fL [facility] Platelets (Bld) [#/Vol] 293 10*3/uL 150 - 450 10*3/uL [facility] RBC LM.HPF (Urine sed) [#/Area] 4.27 /[HPF] 3.60 - 5.00 [facility] WBC (Bld) [#/Vol] 8.1 10*3/uL 3.8 - 11.6 10*3/uL [facility] WBC LM.HPF (Urine sed) [#/Area] 8.1 10*3/uL 3.8 - 11.6 10*3/uL [facility] Calcium [Mass/volume] in Ser um or PlasmaOrdered By: Solomon Rivas on 01-19-2024 Calcium [Mass/Vol] 9.3 mg/dL Normal 8.6-10.3 [facility] Comment on above: Performed By: #### C BC, CMP, LIPID #### [facility] [address] [place] [address] [place] Carbon dioxide, total [Moles /volume] in Serum or PlasmaOrdered By: Solomon Rivas on 01-19-2024 CO2 [Moles/Vol] 29.5 mmol/L Normal 21.0-31.0 [facility] Comment on above: Performed By: #### C BC, CMP, LIPID #### [facility] [address] [place] [address] [place] Chloride [Moles/volume] in S pat or PlasmaOrdered By: Solomon Rivas on 01-19-2024 Chloride [Moles/Vol] 105 mmol/L Normal 98-107 [facility] Comment on above: Performed By: #### C BC, CMP, LIPID #### [facility] [address] [place] [id number] [place] Cholesterol [Mass/volume] in Serum or PlasmaOrdered By: Solomon Rivas on 01-19-2024 Cholesterol [Mass/Vol] 157 mg/dL Normal 140-200 [facility] Comment on above: Chol less than 200 m g/dl low riskChol 201-239 mg/dl borderline riskChol 240 mg/dl and greater high risk Result Comment: Chol less than 200 mg/dl low risk Chol 201-239 mg/dl borderline risk Chol 240 mg/dl and greater high risk Performed By: #### C BC, CMP, LIPID #### [facility] [address] [place] [id number] [place] Cholesterol in LDL Calc [Mas s/Vol]Ordered By: Solomon Rivas on 01-19-2024 Cholesterol in LDL [Mass/Vol] 64 mg/dL 0-100 [facility] Comment on above: LDL ATP III CLASSIFI CATIONLDL less than 100 mg/dL OptimalLDL 100-129 mg/dL Near or above optimalLDL 130-159 mg/dL Borderline highLDL 160-189 mg/dL HighLDL greater than 189 mg/dL Very high Cholesterol in VLDL Calc [Ma ss/Vol]Ordered By: Solomon Rivas on 01-19-2024 Cholesterol in VLDL [Mass/Vol] 7 mg/dL [facility] Complete Blood Count Auto Di ffon 01-19-2024 Mean Corpuscular HGB Conc 34.1 g/dL Normal 32.0-35.0 [facility] Comment on above: Performed By: #### C BC, CMP, LIPID #### [facility] [address] NRBC% 0.1 /100{WBC} Normal 0-0.5 [facility] Comment on above: Performed By: #### C BC, CMP, LIPID #### [facility] [address] Comprehensive Metabolic Pane ayad 01-19-2024 Albumin [Mass/Vol] 4.1 g/dL Normal 3.5-5.7 [facility] Comment on above: Performed By: #### C BC, CMP, LIPID #### [facility] [address] [place] [address] GFR/1.73 sq M.predicted MDRD (S/P/Bld) [Vol rate/Area] mL/min/{1.73_m2} Normal [facility] Comment on above: Performed By: #### C BC, CMP, LIPID #### [facility] [address] Comprehensive metabolic pane ayad 01-19-2024 Albumin [Mass/Vol] 4.1 g/dL 3.5 - 5.7 g/dL [facility] Albumin/Globulin [Mass ratio] 1.5 {ratio} [facility] ALP [Catalytic activity/Vol] 68 U/L 34 - 104 U/L [facility] ALT [Catalytic activity/Vol] 18 U/L 7 - 52 U/L [facility] Anion gap [Moles/Vol] 10 mmol/L 6.0 - 15.0 [facility] AST [Catalytic activity/Vol] 23 U/L 13 - 39 U/L [facility] Bilirubin [Mass/Vol] 0.6 mg/dL 0.3 - 1 .0 mg/dL [facility] Calcium [Mass/Vol] 9.3 mg/dL 8.6 - 10. 3 mg/dL [facility] Chloride [Moles/Vol] 105 mmol/L 98 - 10 7 mmol/L [facility] CO2 [Moles/Vol] 29.5 mmol/L 21.0 - 31.0 mmol/L [facility] Creatinine (U) [Mass/Vol] 0.99 mg/dL 0.60 - 1.20 mg/dL [facility] GFR/1.73 sq M.predicted MDRD (S/P/Bld) [Vol rate/Area] mL/min/{1.73_m2} [facility] Globulin (S) [Mass/Vol] 2.7 g/dL N [facility] Glucose [Mass/Vol] 87 mg/dL 70 - 100 mg/dL [facility] Comment on above: Random Glucose Refer ence Range is dependent on time and content of last meal. Glucose of more than 200 mg/dL in a nonstressed, ambulatory subject supports the diagnosis of Diabetes Mellitus. ADA recommended reference range Potassium [Moles/Vol] 4.5 mmol/L 3.5 - 5.1 mmol/L [facility] Protein [Mass/Vol] 6.8 g/dL 6.4 - 8.9 g/dL [facility] Sodium [Moles/Vol] 140 mmol/L 136 - 145 mmol/L [facility] Urea nitrogen [Mass/Vol] 17 mg/dL 7 - 25 mg/dL [facility] Creatinine [Mass/volume] in Serum or PlasmaOrdered By: Solomon Rivas on 01-19-2024 Creatinine [Mass/Vol] 0.99 mg/dL Normal 0.60-1.20 [facility] Comment on above: Performed By: #### C BC, CMP, LIPID #### [address] Erythrocyte distribution wid th [Ratio] by Automated countOrdered By: Solomon Rivas on 01-19-2024 Erythrocyte distribution width (RBC) [Ratio] 12.5 % Normal 11.9-15.3 [facility] Comment on above: Performed By: #### C BC, CMP, LIPID #### [facility] [address] Erythrocytes [#/volume] in B lood by Automated countOrdered By: Solomon Rivas on 01-19-2024 RBC (Bld) [#/Vol] 4.27 10*6/uL Normal 3.60-5.00 [facility] Comment on above: Performed By: #### C BC, CMP, LIPID #### [facility] [address] [place] [address] [place] Glucose [Mass/volume] in Ser um or PlasmaOrdered By: Solomon Rivas on 01-19-2024 Glucose [Mass/Vol] 87 mg/dL Normal 70-100 [facility] Comment on above: ADA recommended refe rence rangeRandom Glucose Reference Range is dependent on time and content of last meal. Glucose of more than 200 mg/dL in a nonstressed, ambulatory subject supports the diagnosis of Diabetes Mellitus. Result Comment: [place] Glucose Reference Range is dependent on time and content of last meal. Glucose of more than 200 mg/dL in a nonstressed, ambulatory subject supports the diagnosis of Diabetes Mellitus. ADA recommended reference range Performed By: #### C BC, CMP, LIPID #### [facility] [address] [place] [address] [place] Hematocrit [Volume Fraction] of Blood by Automated countOrdered By: Solomon Rivas on 01-19-2024 Hematocrit (Bld) [Volume fraction] 40.8 % Normal 34.0-46.4 [facility] Comment on above: Performed By: #### C BC, CMP, LIPID #### [facility] [address] [place] [address] [place] Hemoglobin [Mass/volume] in BloodOrdered By: Solomon Rivas on 01-19-2024 Hemoglobin (Bld) [Mass/Vol] 13.9 g/dL Normal 11.8-15.4 [facility] Comment on above: Performed By: #### C BC, CMP, LIPID #### [facility] [address] Leukocytes [#/volume] correc chidi for nucleated erythrocytes in Blood by Automated counOrdered By: Solomon Rivas on 01-19-2024 WBC corrected for nucl RBC Auto (Bld) [#/Vol] 8.1 10*3/uL 3.8-11.6 [facility] Leukocytes [#/volume] in Blo od by Automated countOrdered By: Solomon Rivas on 01-19-2024 WBC (Bld) [#/Vol] 8.1 10*3/uL Normal 3.8-11.6 [facility] Comment on above: Performed By: #### C BC, CMP, LIPID #### [facility] [address] Lipid 1996 panelon Cholesterol [Mass/Vol] 157 mg/dL 140 - 200 mg/dL [facility] Comment on above: Chol less than 200 m g/dl low risk Chol 201-239 mg/dl borderline risk Chol 240 mg/dl and greater high risk Cholesterol in HDL [Mass/Vol] 86 mg/dL 23 - 92 mg/dL [facility] Comment on above: HDL CHOL ATP-III CLA SSIFICATION Cardiovascular Risk HDL > or equal to 60 mg/dL LOW HDL < 40 mg/dL HIGH Cholesterol.total/Sheri sterol in HDL [Mass ratio] 1.8 {ratio} NINF - 5.0 [facility] LDL CHOLESTEROL,CALCULATED 64 mg/dL 0 - 100 mg/dL [facility] Comment on above: LDL ATP III CLASSIFI CATION LDL less than 100 mg/dL Optimal LDL 100-129 mg/dL Near or above optimal LDL 130-159 mg/dL Borderline high LDL 160-189 mg/dL High LDL greater than 189 mg/dL Very high TRIGLYCERIDE W/REFLEX 35 mg/dL 0 - 14 9 mg/dL [facility] Comment on above: TRIG ATP III CLASSIF ICATION TRIG less than 150 mg/dL Normal TRIG 150-199 mg/dL Borderline high TRIG 200-500 mg/dL High TRIG greater than 500 mg/dL Very high Standard traceable to the Center for Disease Conrtrol and Prevention (CDC) test method. VLDL CHOLESTEROL 7 mg/dL [facility] Lipid Panelon 01-19-2024 LDL Cholesterol,Calculated 64 mg/dL Normal 0-100 [facility] Comment on above: Result Comment: LDL ATP III CLASSIFICATION LDL less than 100 mg/dL Optimal LDL 100-129 mg/dL Near or above optimal LDL 130-159 mg/dL Borderline high LDL 160-189 mg/dL High LDL greater than 189 mg/dL Very high Performed By: #### C BC, CMP, LIPID #### [address] Triglyceride w/Reflex 35 mg/dL Normal 0-149 [facility] Comment on above: Result Comment: TRIG ATP III CLASSIFICATION TRIG less than 150 mg/dL Normal TRIG 150-199 mg/dL Borderline high TRIG 200-500 mg/dL High TRIG greater than 500 mg/dL Very high Standard traceable to the Center for Disease Conrtrol and Prevention (CDC) test method. Performed By: #### C BC, CMP, LIPID #### [address] VLDL CHOLESTEROL 7 mg/dL Normal [facility] Comment on above: Performed By: #### C BC, CMP, LIPID #### [address] Lymphocytes [#/volume] in Bl ood by Automated countOrdered By: Solomon Rivas on 01-19-2024 Lymphocytes (Bld) [#/Vol] 2.1 10*3/uL Normal 1.00-4.8 [facility] Comment on above: Performed By: #### C BC, CMP, LIPID #### [place] [address] [place] Lymphocytes/100 leukocytes i n Blood by Automated countOrdered By: Solomon Rivas on 01-19-2024 Lymphocytes/100 WBC (Bld) 25.6 % Normal . [facility] Comment on above: Performed By: #### C BC, CMP, LIPID #### [place] [address] [place] MCH [Entitic mass] by Automa chidi countOrdered By: Solomon Rivas on 01-19-2024 MCH (RBC) [Entitic mass] 32.6 pg Normal 24.7-34.3 [facility] Comment on above: Performed By: #### C BC, CMP, LIPID #### [facility] [address] [place] [address] MCHC Auto (RBC) [Mass/Vol]Or dered By: Solomon Rivas on 01-19-2024 MCHC (RBC) [Mass/Vol] 34.1 g/dL 32.0-35.0 [facility] MCV [Entitic volume] by Auto mated countOrdered By: Solomon Rivas on 01-19-2024 MCV (RBC) [Entitic vol] 95.4 fL Normal 80-100 [facility] Comment on above: Performed By: #### C BC, CMP, LIPID #### [address] Neutrophils [#/volume] in Bl ood by Automated countOrdered By: Solomon Rivas on 01-19-2024 Neutrophils (Bld) [#/Vol] 5.1 10*3/uL Normal 1.8-7.7 [facility] Comment on above: Performed By: #### C BC, CMP, LIPID #### [address] No Panel Informationon 01-18 [facility] No Panel InformationOrdered By: Solomon Rivas on 01-19-2024 Estimated GFR (CKD-EPI) > 60.0 mL/Min [facility] Creatinine Clearance (Chem N/A [facility] Nucleated erythrocytes [Pres ence] in Blood by Automated countOrdered By: Solomon Rivas on 01-19-2024 Nucleated RBC Auto Ql (Bld) 0.1 /100{WBC} 0-0.5 [facility] Platelet mean volume [Entiti c volume] in Blood by Automated countOrdered By: Solomon Rivas on 01-19-2024 Platelet mean volume (Bld) [Entitic vol] 7.8 fL Normal 6.3-10.7 [facility] Comment on above: Performed By: #### C BC, CMP, LIPID #### [address] Platelets [#/volume] in Bloo d by Automated countOrdered By: Rugcat Becerrila on 01-19-2024 Platelets (Bld) [#/Vol] 293 10*3/uL Normal 150-450 [facility] Comment on above: Performed By: #### C BC, CMP, LIPID #### [facility] [address] Potassium [Moles/volume] in Serum or PlasmaOrdered By: Rugen Diana on 01-19-2024 Potassium [Moles/Vol] 4.5 mmol/L Normal 3.5-5.1 [facility] Comment on above: Performed By: #### C BC, CMP, LIPID #### [address] Protein [Mass/volume] in Ser um or PlasmaOrdered By: Rugen Diana on 01-19-2024 Protein [Mass/Vol] 6.8 g/dL Normal 6.4-8.9 [facility] Comment on above: Performed By: #### C BC, CMP, LIPID #### [facility] [address] [place] [address] Serum globulin measurement b y calculation (mass/volume)Ordered By: Solomon Becerrila on 01-19-2024 Globulin (S) [Mass/Vol] 2.7 g/dL Normal [facility] Comment on above: Performed By: #### C BC, CMP, LIPID #### [facility] [address] [place] [address] Serum or plasma albumin/glob ulin mass ratioOrdered By: Rugen Diana on 01-19-2024 Albumin/Globulin [Mass ratio] 1.5 {ratio} Normal [facility] Comment on above: Performed By: #### C BC, CMP, LIPID #### [facility] [address] [place] [address] Serum or plasma anion gap de terminationOrdered By: Rugen Diana on 01-19-2024 Anion gap [Moles/Vol] 10.0 mmol/L Normal 6.0-15.0 [facility] Comment on above: Performed By: #### C BC, CMP, LIPID #### [facility] [address] Serum or plasma high density lipoprotein (HDL) cholesterol measurementOrdered By: Solomon Rivas on 01-19-2024 Cholesterol in HDL [Mass/Vol] 86 mg/dL Normal 23-92 [facility] Comment on above: HDL CHOL ATP-III CLA SSIFICATION Cardiovascular RiskHDL > or equal to 60 mg/dL LOWHDL < 40 mg/dL HIGH Result Comment: HDL CHOL ATP-III CLASSIFICATION Cardiovascular Risk HDL > or equal to 60 mg/dL LOW HDL < 40 mg/dL HIGH Performed By: #### C BC, CMP, LIPID #### [facility] [address] Serum or plasma total choles terol/high density lipoprotein (HDL) cholesterol mass ratOrdered By: Solomon Rivas on 01-19-2024 Cholesterol.total/Sheri sterol in HDL [Mass ratio] 1.8 {ratio} Normal <5.0 [facility] Comment on above: Result Comment: PERF ORMED BY: [place] [address] PATHOLOGIST JOINER SATHYA LOWRY M.D. Performed By: #### C BC, CMP, LIPID #### [facility] [address] Sodium [Moles/volume] in Ser um or PlasmaOrdered By: Solomon Rivas on 01-19-2024 Sodium [Moles/Vol] 140 mmol/L Normal 136-145 [facility] Comment on above: Performed By: #### C BC, CMP, LIPID #### [facility] [address] Triglyceride [Mass/volume] i n Serum or PlasmaOrdered By: Solomon Rivas on 01-19-2024 Triglyceride [Mass/Vol] 35 mg/dL 0-149 [facility] Comment on above: TRIG ATP III CLASSIF ICATIONTRIG less than 150 mg/dL NormalTRIG 150-199 mg/dL Borderline highTRIG 200-500 mg/dL High TRIG greater than 500 mg/dL Very highStandard traceable to the Center for Disease Conrtrol and Prevention (CDC) test method. Urea nitrogen [Mass/volume] in Serum or PlasmaOrdered By: Solomon Rivas on 01-19-2024 Urea nitrogen [Mass/Vol] 17 mg/dL Normal - [facility] Comment on above: Performed By: #### C BC, CMP, LIPID #### [facility] [address] Alanine aminotransferase [En zymatic activity/volume] in Serum or PlasmaOrdered By: Solomon Becerrila on 01-27-2023 ALT [Catalytic activity/Vol] 20 U/L 7-52 [facility] Albumin [Mass/volume] in Ser um or Plasma by Bromocresol green (BCG) dye binding methoOrdered By: Solomon Rivas on 01-27-2023 Albumin BCG dye [Mass/Vol] 4.3 g/dL 3.5-5.7 [facility] Alkaline phosphatase [Enzyma tic activity/volume] in Serum or PlasmaOrdered By: Solomon Becerrila on 01-27-2023 ALP [Catalytic activity/Vol] 67 U/L 34-104 [facility] Aspartate aminotransferase [ Enzymatic activity/volume] in Serum or PlasmaOrdered By: Solomon Becerrila on 01-27-2023 AST [Catalytic activity/Vol] 22 U/L 13-39 [facility] Basophils Auto (Bld) [#/Vol] Ordered By: Solomon Becerrila on 01-27-2023 Basophils (Bld) [#/Vol] 0.1 10*3/uL 0.0-0.2 [facility] Basophils/100 WBC Auto (Bld) Ordered By: Solomon Evelyn on 01-27-2023 Basophils/100 WBC (Bld) 1.4 % . [facility] Bilirubin.total [Mass/volume ] in Serum or PlasmaOrdered By: Solomon Becerrila on 01-27-2023 Bilirubin [Mass/Vol] 0.6 mg/dL 0.3-1.0 [facility] Calcium [Mass/volume] in Ser um or PlasmaOrdered By: Solomon Becerrila on 01-27-2023 Calcium [Mass/Vol] 9.7 mg/dL 8.6-10.3 [facility] Carbon dioxide, total [Moles /volume] in Serum or PlasmaOrdered By: Solomon Rivas on 01-27-2023 CO2 [Moles/Vol] 30.5 mmol/L 21.0-31.0 [facility] Chloride [Moles/volume] in S pat or PlasmaOrdered By: Solomon Rivas on 01-27-2023 Chloride [Moles/Vol] 104 mmol/L 98-107 [facility] Cholesterol [Mass/volume] in Serum or PlasmaOrdered By: Solomon Rivas on 01-27-2023 Cholesterol [Mass/Vol] 160 mg/dL 140-200 [facility] Comment on above: Chol less than 200 m g/dl low riskChol 201-239 mg/dl borderline riskChol 240 mg/dl and greater high risk Cholesterol in LDL Calc [Mas s/Vol]Ordered By: Solomon Rivas on 01-27-2023 Cholesterol in LDL [Mass/Vol] 63 mg/dL 0-100 [facility] Comment on above: LDL ATP III CLASSIFI CATIONLDL less than 100 mg/dL OptimalLDL 100-129 mg/dL Near or above optimalLDL 130-159 mg/dL Borderline highLDL 160-189 mg/dL HighLDL greater than 189 mg/dL Very high Cholesterol in VLDL Calc [Ma ss/Vol]Ordered By: Solomon Rivas on 01-27-2023 Cholesterol in VLDL [Mass/Vol] 13 mg/dL [facility] Creatinine [Mass/volume] in Serum or PlasmaOrdered By: Solomon Rivas on 01-27-2023 Creatinine [Mass/Vol] 0.91 mg/dL 0.60-1.20 [facility] Eosinophils Auto (Bld) [#/Vo l]Ordered By: Solomon Rivas on 01-27-2023 Eosinophils (Bld) [#/Vol] 0.3 10*3/uL 0.0-0.45 [facility] Eosinophils/100 WBC Auto (Bl d)Ordered By: Solomon Rivas on 01-27-2023 Eosinophils/100 WBC (Bld) 5.0 % . [facility] Erythrocyte distribution wid th Auto (RBC) [Ratio]Ordered By: Solomon Rivas on 01-27-2023 Erythrocyte distribution width (RBC) [Ratio] 12.6 % 11.9-15.3 [facility] Globulin Calc (S) [Mass/Vol] Ordered By: Solomon Rivas on 01-27-2023 Globulin (S) [Mass/Vol] 2.7 g/dL F [facility] Glucose [Mass/volume] in Ser um or PlasmaOrdered By: Solomon Rivas on 01-27-2023 Glucose [Mass/Vol] 83 mg/dL 70-100 [facility] Comment on above: ADA recommended refe rence rangeRandom Glucose Reference Range is dependent on time and content of last meal. Glucose of more than 200 mg/dL in a nonstressed, ambulatory subject supports the diagnosis of Diabetes Mellitus. Hematocrit Auto (Bld) [Volum e fraction]Ordered By: Solomon Rivas on 01-27-2023 Hematocrit (Bld) [Volume fraction] 40.8 % 34.0-46.4 [facility] Hemoglobin [Mass/volume] in BloodOrdered By: Solomon Rivas on 01-27-2023 Hemoglobin (Bld) [Mass/Vol] 13.8 g/dL 11.8-15.4 [facility] Leukocytes [#/volume] correc chidi for nucleated erythrocytes in Blood by Automated counOrdered By: Solomon Rivas on 01-27-2023 WBC corrected for nucl RBC Auto (Bld) [#/Vol] 5.0 10*3/uL 3.8-11.6 [facility] Lymphocytes Auto (Bld) [#/Vo l]Ordered By: Solomon Rivas on 01-27-2023 Lymphocytes (Bld) [#/Vol] 2.4 10*3/uL 1.00-4.8 [facility] Lymphocytes/100 WBC Auto (Bl d)Ordered By: Solomon Rivas on 01-27-2023 Lymphocytes/100 WBC (Bld) 46.8 % . [facility] MCH Auto (RBC) [Entitic mass ]Ordered By: Solomon Rivas on 01-27-2023 MCH (RBC) [Entitic mass] 31.6 pg 24.7-34.3 [facility] MCHC Auto (RBC) [Mass/Vol]Or dered By: Solomon Rivas on 01-27-2023 MCHC (RBC) [Mass/Vol] 33.8 g/dL 32.0-35.0 [facility] MCV Auto (RBC) [Entitic vol] Ordered By: Solomon Diana on 01-27-2023 MCV (RBC) [Entitic vol] 93.7 fL 80-100 [facility] Monocytes Auto (Bld) [#/Vol] Ordered By: Solomon Diana on 01-27-2023 Monocytes (Bld) [#/Vol] 0.5 10*3/uL 0.0-0.8 [facility] Monocytes/100 WBC Auto (Bld) Ordered By: Solomon Evelyn on 01-27-2023 Monocytes/100 WBC (Bld) 9.4 % . [facility] Neutrophils Auto (Bld) [#/Vo l]Ordered By: Solomon Becerrila on 01-27-2023 Neutrophils (Bld) [#/Vol] 1.9 10*3/uL 1.8-7.7 [facility] Neutrophils/100 WBC Auto (Bl d)Ordered By: Solomon Evelyn on 01-27-2023 Neutrophils/100 WBC (Bld) 37.4 % . [facility] No Panel InformationOrdered By: Solomon Rivas on 01-27-2023 Estimated GFR (CKD-EPI) > 60.0 mL/Min [facility] Creatinine Clearance (Chem N/A [facility] Nucleated erythrocytes [Pres ence] in Blood by Automated countOrdered By: Solomon Rivas on 01-27-2023 Nucleated RBC Auto Ql (Bld) 0.1 /100{WBC} 0-0.5 [facility] Platelet mean volume Auto (B ld) [Entitic vol]Ordered By: Solomon Becerrila on 01-27-2023 Platelet mean volume (Bld) [Entitic vol] 7.8 fL 6.3-10.7 [facility] Platelets Auto (Bld) [#/Vol] Ordered By: Solomon Rivas on 01-27-2023 Platelets (Bld) [#/Vol] 276 10*3/uL 150-450 [facility] Potassium [Moles/volume] in Serum or PlasmaOrdered By: Solomon Rivas on 01-27-2023 Potassium [Moles/Vol] 4.8 mmol/L 3.5-5.1 [facility] Protein [Mass/volume] in Ser um or PlasmaOrdered By: Solomon Rivas on 01-27-2023 Protein [Mass/Vol] 7.0 g/dL 6.4-8.9 [facility] RBC Auto (Bld) [#/Vol]Ordere d By: Solomon Rivas on 01-27-2023 RBC (Bld) [#/Vol] 4.36 10*6/uL 3.60-5.00 [facility] Serum or plasma albumin/glob ulin mass ratioOrdered By: Solomon Rivas on 01-27-2023 Albumin/Globulin [Mass ratio] 1.6 {ratio} [facility] Serum or plasma anion gap de terminationOrdered By: Solomon Rivas on 01-27-2023 Anion gap [Moles/Vol] 8.3 mmol/L 6.0-15.0 [facility] Serum or plasma high density lipoprotein (HDL) cholesterol measurementOrdered By: Solomon Rivas on 01-27-2023 Cholesterol in HDL [Mass/Vol] 83 mg/dL 23-92 [facility] Comment on above: HDL CHOL ATP-III CLA SSIFICATION Cardiovascular RiskHDL > or equal to 60 mg/dL LOWHDL < 40 mg/dL HIGH Serum or plasma total choles terol/high density lipoprotein (HDL) cholesterol mass ratOrdered By: Solomon Rivas on 01-27-2023 Cholesterol.total/Sheri sterol in HDL [Mass ratio] 1.9 {ratio} <5.0 [facility] Sodium [Moles/volume] in Ser um or PlasmaOrdered By: Solomon Rivas on 01-27-2023 Sodium [Moles/Vol] 138 mmol/L 136-145 [facility] Triglyceride [Mass/volume] i n Serum or PlasmaOrdered By: Solomon Rivas on 01-27-2023 Triglyceride [Mass/Vol] 69 mg/dL 0-149 [facility] Comment on above: TRIG ATP III CLASSIF ICATIONTRIG less than 150 mg/dL NormalTRIG 150-199 mg/dL Borderline highTRIG 200-500 mg/dL High TRIG greater than 500 mg/dL Very highStandard traceable to the Center for Disease Conrtrol and Prevention (CDC) test method. Urea nitrogen [Mass/volume] in Serum or PlasmaOrdered By: Solomon Rivas on 01-27-2023 Urea nitrogen [Mass/Vol] 18 mg/dL 7-25 [facility] WBC Auto (Bld) [#/Vol]Ordere d By: Solomon Rivas on 01-27-2023 WBC (Bld) [#/Vol] 5.0 10*3/uL 3.8-11.6 [facility] MG MAMM SCREEN 3D MATT CADon 03-07-2022 MG MAMM SCREEN 3D MATT CAD Patient: BLANCA SOLITARIO Exam Date: 03/07/2022 : 1965 Gender:F Ordering : DR UMAIR WISDOM . Admission #: [id number] Family : Order #: [id number] CLICK HERE TO VIEW EXAM RADIOLOGY REPORT [...] breast cancer at age 61. LOCATION: [facility] BREAST COMPOSITION: Heterogeneously dense,which may obscure small [...] M.D. on 03/08/2022 at 07:44 Normal [facility] PAP ACOG PANEL 2: 30 to 65on 03-03-2022 . . Normal [facility] Comment on above: Result Comment: Perf ormed at: WB Performed By: #### [id number] #### [facility] [address] [place] [address] Dr. Titus Astudillo Age Gdln ACOG Testing 30-65 Normal [facility] Comment on above: Performed By: #### [id number] #### [facility] [address] [place] [address] Dr. Titus Astudillo DIAGNOSIS: Comment Normal [facility] Comment on above: Result Comment: NEGA TIVE FOR INTRAEPITHELIAL LESION OR MALIGNANCY. Performed at: WB Performed By: #### [id number] #### [facility] [address] [place] [address] Dr. Titus Astudillo HPV Aptima QNSPAP [facility] Comment on above: Result Comment: Test not performed. Liquid based PAP vial contained insufficient specimen for molecular testing; likely a consequence of insufficient cellularity in original collection. This nucleic acid amplification test detects fourteen high-risk HPV types (16,18,31,33,35,39,45,51,52,56,58,59,66,68) without differentiation. Performed at: =G Performed By: #### [id number] #### [facility] [address] [place] [address] Dr. Titus Astudillo HPV Genotype Reflex Comment Normal [facility] Comment on above: Result Comment: Crit eria not met, HPV Genotype not performed. Performed at: WB Performed By: #### [id number] #### [facility] [address] [place] [address] Dr. Titus Astudillo Methodology: Comment [facility] Comment on above: Result Comment: This liquid based ThinPrep(R) pap test was screened with the use of an image guided system. Performed at: WB Performed By: #### [id number] #### [facility] [address] [place] [address] Dr. Titus Astudillo Note: Comment Normal [facility] Comment on above: Result Comment: The Pap smear is a screening test designed to aid in the detection of premalignant and malignant conditions of the uterine cervix. It is not a diagnostic procedure and should not be used as the sole means of detecting cervical cancer. Both false-positive and false-negative reports do occur. . Performed at: WB Performed By: #### [id number] #### [facility] [address] [place] [address] Dr. Titus Astudillo Performed by: Comment Normal [facility] Comment on above: Result Comment: Selene Singh, Holder [employer] (ASCP) Performed at: WB Performed By: #### [id number] #### [facility] [address] [place] [address] Dr. Titus Astudillo Specimen adequacy: Comment Normal [facility] Comment on above: Result Comment: Sati sfactory for evaluation. Endocervical and/or squamous metaplastic cells (endocervical component) are present. Performed at: WB Performed By: #### [id number] #### [facility] [address] [place] [address] Dr. Titus Astudillo CBC AUTO DIFFon 01-28-2022 BASO # 0.1 103/ul Normal 0.0-0.1 [facility] Comment on above: Performed By: #### C BC #### [facility] [address] [place] [address] Dr. Titus Astudillo Basophils/100 WBC (Bld) 0.9 % Normal 0.2-2.0 [facility] [place] [facility] Comment on above: Performed By: #### C BC #### [facility] [address] [place] [address] Dr. Titus Astudillo EO # 0.1 103/ul Normal 0.0-0.7 [facility] Comment on above: Performed By: #### C BC #### [facility] [address] [place] [address] Dr. Titus Astudillo Eosinophils/100 WBC (Bld) 2.1 % Normal 0.9-7.0 [facility] Comment on above: Performed By: #### C BC #### [facility] [address] [place] [address] Dr. Titus Astudillo Erythrocyte distribution width (RBC) [Ratio] 11.9 % Normal 11.0-15.0 [facility] Comment on above: Performed By: #### C BC #### [facility] [address] [place] [address] Dr. Titus Astudillo Hematocrit (Bld) [Volume fraction] 42.1 % Normal 36.0-48.0 [facility] Comment on above: Performed By: #### C BC #### [facility] [address] [place] [address] Dr. Titus Astudillo Hemoglobin (Bld) [Mass/Vol] 14.0 g/dL Normal 12.0-16.0 [facility] Comment on above: Performed By: #### C BC #### [facility] [address] [place] [address] Dr. Titus Astudillo IG # 0.02 10e3/ul Normal 0.00-0.03 [facility] Comment on above: Performed By: #### C BC #### [facility] [address] [place] [address] Dr. Titus Astudillo IG % 0.3 % Normal 0.0-0.5 [facility] Comment on above: Performed By: #### C BC #### [facility] [address] [place] [address] Dr. Titus Astudillo LYMPH # 2.6 103/ul Normal 1.2-3.8 [facility] Comment on above: Performed By: #### C BC #### [facility] [address] [place] [address] Dr. Titus Astudillo Lymphocytes/100 WBC (Bld) 41.5 % Normal 20.5-60.0 [facility] Comment on above: Performed By: #### C BC #### [facility] [address] [place] [address] Dr. Titus Astudillo MANUAL DIFF REQ NO Normal [facility] Comment on above: Performed By: #### C BC #### [facility] [address] [place] [address] Dr. Titus Astudillo MCH (RBC) [Entitic mass] 31.4 pg Normal 26.7-34.0 [facility] Comment on above: Performed By: #### C BC #### [facility] [address] [address] [address] Titus Astudillo MCHC (RBC) [Mass/Vol] 33.3 g/dL Normal 29.9-35.2 [facility] Comment on above: Performed By: #### C BC #### [facility] [address] [place] [address] Dr. Titus Astudillo MCV (RBC) [Entitic vol] 94.4 fL Normal 81.0-99.0 [facility] [place] [facility] Comment on above: Performed By: #### C BC #### [facility] [address] [place] [address] Dr. Titus Astudillo MONO # 0.5 103/ul Normal 0.3-0.8 [facility] Comment on above: Performed By: #### C BC #### [facility] [address] [place] [address] Dr. Titus Astudillo Monocytes/100 WBC (Bld) 7.9 % Normal 1.7-12.0 [facility] [place] [facility] Comment on above: Performed By: #### C BC #### [facility] [address] [place] [address] Dr. Titus Astudillo NEUT # 3.0 103/ul Normal 1.4-6.5 [facility] Comment on above: Performed By: #### C BC #### [facility] [address] [place] [address] Dr. Titus Astudillo Neutrophils/100 WBC (Bld) 47.3 % Normal 43.0-75.0 [facility] Comment on above: Performed By: #### C BC #### [facility] [address] [place] [address] Dr. Titus Astudillo Platelet mean volume (Bld) [Entitic vol] 9.8 fL Normal 9.5-13.5 [facility] Comment on above: Performed By: #### C BC #### [facility] [address] [place] [address] Dr. Titus Astudillo PLT 375 103/ul Normal 150-450 [facility] Comment on above: Performed By: #### C BC #### [facility] [address] [address] [address] Titus Astudillo RBC 4.46 106/ul Normal 4.20-5.40 [facility] Comment on above: Performed By: #### C BC #### [facility] [address] [address] [address] Titus Astudillo WBC 6.3 103/ul Normal 4.0-11.0 [facility] Comment on above: Performed By: #### C BC #### [facility] [address] [place] [address] Dr. Titus Astudillo LIPID PROFILEon 01-28-2022 CHOL-HDL RATIO NORM SEE BELOW Normal [facility] Comment on above: Result Comment: 3.3 - 4.4 LOW RISK 4.4 - 7.1 AVERAGE RISK 7.1 - 11.0 MODERATE RISK >11.0 HIGH RISK Performed By: #### C MP, LIPID #### [facility] [address] [place] [address] Dr. Titus Astudillo Cholesterol [Mass/Vol] 163 mg/dL Normal <=200 Th [facility] Comment on above: Performed By: #### C MP, LIPID #### [facility] [address] [place] [address] Dr. Titus Astudillo Cholesterol in HDL [Mass/Vol] 101 mg/dL Critically high 40-60 [facility] Comment on above: Performed By: #### C MP, LIPID #### [facility] [address] [place] [address] Dr. Titus Astudillo Cholesterol in LDL [Mass/Vol] 56.4 mg/dL Normal [facility] Comment on above: Performed By: #### C MP, LIPID #### [facility] [address] [place] [address] Dr. Titus Astudillo Cholesterol.total/Sheri sterol in HDL [Mass ratio] 1.6 {ratio} Normal [facility] Comment on above: Performed By: #### C MP, LIPID #### [facility] [address] [place] [address] Dr. Titus Astudillo HDL NORMAL > or = 60 mg/dl - LO W CARDIOVASCULAR RISK <40 mg/dl - HIGH CARDIOVASCULAR RISK Normal [facility] Comment on above: Performed By: #### C MP, LIPID #### [facility] [address] [place] [address] Dr. Titus Astudillo LDL CALC NORMAL SEE BELOW Normal [facility] Comment on above: Result Comment: <100 mg/dl OPTIMAL 100 - 129 mg/dl NEAR OR ABOVE OPTIMAL 130 - 159 mg/dl BORDERLINE HIGH 160 - 189 mg/dl HIGH >190 mg/dl VERY HIGH Performed By: #### C MP, LIPID #### [facility] [address] [address] [address] Titus Astudillo Triglyceride [Mass/Vol] 28 mg/dL Normal <=150 [facility] [place] [facility] Comment on above: Performed By: #### C MP, LIPID #### [facility] [address] [place] [address] Dr. Titus Astudillo VLDL CALC 5.6 mg/dL Normal [facility] Comment on above: Performed By: #### C MP, LIPID #### [facility] [address] [place] [address] Dr. Titus Astudillo PROF 14(COMP METB)on 01-28- 022 Albumin [Mass/Vol] 4.1 g/dL Normal 3.4-5.0 [facility] Comment on above: Performed By: #### C MP, LIPID #### [facility] [address] [place] [address] Dr. Titus Astudillo Albumin/Globulin [Mass ratio] 1.1 {ratio} Normal [facility] Comment on above: Performed By: #### C MP, LIPID #### [facility] [address] [place] [address] Dr. Titus Astudillo ALP [Catalytic activity/Vol] 73 U/L Normal 46-116 [facility] Comment on above: Performed By: #### C MP, LIPID #### [facility] [address] [address] [address] Titus Astudillo ALT [Catalytic activity/Vol] 29 U/L Normal 14-59 [facility] Comment on above: Performed By: #### C MP, LIPID #### [facility] [address] [address] [address] Titus Astudillo Anion gap [Moles/Vol] 12.7 mmol/L Normal [facility] Comment on above: Performed By: #### C MP, LIPID #### [facility] [address] [address] [address] Titus Astudillo AST [Catalytic activity/Vol] 24 U/L Normal 15-37 [facility] Comment on above: Performed By: #### C MP, LIPID #### [facility] [address] [address] [address] Titus Astudillo Bilirubin [Mass/Vol] 0.5 mg/dL Normal 0.2-1.0 [facility] Comment on above: Performed By: #### C MP, LIPID #### [facility] [address] [place] [address] Dr. Titus Astudillo Calcium [Mass/Vol] 9.5 mg/dL Normal 8.5-10.1 [facility] Comment on above: Performed By: #### C MP, LIPID #### [facility] [address] [address] [address] Titus Astudillo Chloride [Moles/Vol] 102 mmol/L Normal 98-107 [facility] Comment on above: Performed By: #### C MP, LIPID #### [facility] [address] [place] [address] Dr. Titus Astudillo CO2 [Moles/Vol] 29.6 mmol/L Normal 21.0-32.0 [facility] Comment on above: Performed By: #### C MP, LIPID #### [facility] [address] [address] [address] Titus Astudillo Creatinine [Mass/Vol] 1.02 mg/dL Normal 0.55-1.02 [facility] Comment on above: Performed By: #### C MP, LIPID #### [facility] [address] [address] [address] Titus Astudillo EGFR-AF NICARAGUAN >60 Normal >=60 [facility] Comment on above: Performed By: #### C MP, LIPID #### [facility] [address] [address] [address] Titus Astudillo EGFR-NON AF NICARAGUAN 56 mL/min/1.73m2 Critically low >=60 [facility] Comment on above: Performed By: #### C MP, LIPID #### [facility] [address] [address] [address] Titus Astudillo Globulin (S) [Mass/Vol] 3.8 g/dL Normal [facility] Comment on above: Performed By: #### C MP, LIPID #### [facility] [address] [address] [address] Titus Astudillo Glucose [Mass/Vol] 98 mg/dL Normal 74-106 [facility] Comment on above: Performed By: #### C MP, LIPID #### [facility] [address] [address] [address] Titus Astudillo Potassium [Moles/Vol] 4.3 mmol/L Normal 3.5-5.1 [facility] Comment on above: Performed By: #### C MP, LIPID #### [facility] [address] [address] [address] Titus Astudillo Protein [Mass/Vol] 7.9 g/dL Normal 6.4-8.2 [facility] Comment on above: Performed By: #### C MP, LIPID #### [facility] [address] [address] [address] Titus Astudillo Sodium [Moles/Vol] 140 mmol/L Normal 136-145 [facility] Comment on above: Performed By: #### C MP, LIPID #### [facility] [address] [address] [address] Titus Astudillo Urea nitrogen [Mass/Vol] 21.0 mg/dL Critically high 7.0-18.0 [facility] Comment on above: Performed By: #### C MP, LIPID #### [facility] [address] [address] [address] Titus Astudillo Urea nitrogen/Creatinine [Mass ratio] 20.6 mg/mg Normal [facility] Comment on above: Performed By: #### C MP, LIPID #### [facility] [address] [place], [place] [address] Dr. Titus Astudillo Q - SARS CoV2 COVID 19 Ab Ig [place] 03-29-2021 SARS-CoV-2 (COVID-19) Ab IA Qn <1.00 Normal <1.00 [facility] [employer] Comment on above: Order Comment: [facility] Testing performed at: [employer], [facility], [address] [place] [address], [address] [place] [address], [id number], Quality Audit Representative: Randy Corona MD [facility] Collection Date/Time: [id number] [facility] Results Received Date/Time: [id number] [facility] Reported Date/Time: [id number] Result Comment: This test is intended to [...] providers and patients using the following websites: [email or web address] Healthcare Providers: For additional information please refer to: http://education.[employer]/faq/BTR074 (This link is being provided for informational/educational purposes only.) This test has been authorized by the FDA under an Emergency Use Authorization (EUA) for use by authorized laboratories. The FDA authorized labeling is available on the [employer] website: www.[employer]/Covid19. Performed By: #### 3 [id number] #### [facility] Default [address] [place] [address] Vital Signs Date Time Vital Sign Value Performing Clinician David galdamez 01-23-2024 14:29-0400 Body weight 61.24 kg [facility]ani [facility] Work Phone: [facility] 01-15-2024 15:55-0400 Body height 170.2 cm Solomon Rivas MD Work Phone: [facility] 01-15-2024 15:55-0400 Body mass index (BMI) [Ratio] 21.46 kg/m2 Solomon Rivas MD Work Phone: [facility] 01-15-2024 15:55-0400 Body weight 62.14 kg Solomon Rivas MD Work Phone: [facility] 01-15-2024 15:55-0400 Diastolic blood pressure 88 mm[Hg] Solomon Rivas MD Work Phone: [facility] 01-15-2024 15:55-0400 Heart rate 78 /min Solomon Rivas MD Work Phone: [facility] 01-15-2024 15:55-0400 SaO2% (BldA) [Mass fraction] 99 % Solomon Rivas MD Work Phone: [facility] 01-15-2024 15:55-0400 Systolic blood pressure 122 mm[Hg] Solomon Rivas MD Work Phone: [facility] Encounters Encounter Date Encounter Type Care Provider Facility Start: 02-27-2024 End: 02-27-2024 Bamboo flowsheet Umair Velasquez DO Work Phone: [facility] Start: 02-27-2024 End: 02-27-2024 Bamboo flowsheet Umair Velasquez DO Work Phone: [facility] Start: 02-27-2024 End: 02-27-2024 Office outpatient visit 15 minutes Yovani Faith [employer] OBEDIENCE INSTRUCTOR Work Phone: [facility] Comment on above: Encounter for screen ing colonoscopy (Primary Dx); Upper abdominal pain Start: 01-29-2024 End: 02-04-2024 Telephone encounter Yovani Faith [employer] OBEDIENCE INSTRUCTOR Work Phone: [facility] Start: 01-23-2024 End: 01-23-2024 Patient encounter procedure Yovani Faith [employer] OBEDIENCE INSTRUCTOR Work Phone: [facility] Comment on above: Encounter for screen ing colonoscopy (Primary Dx) Start: 01-23-2024 End: 01-23-2024 ambulatory [facility] Darrel FAITH [facility] Start: 01-19-2024 End: 01-19-2024 External Result Encounter Solomon Rivas MD Work Phone: [facility] Unsolicited Start: 01-19-2024 End: 01-19-2024 External Result Encounter Solomon Rivas MD Work Phone: [facility] Unsolicited Start: 01-19-2024 End: 01-19-2024 Patient encounter procedure MD Solomon Rivas Work Phone: [facility] [place] Work Phone: Start: 01-19-2024 End: 01-19-2024 ambulatory MD Solomon Rivas Work Phone: [facility] Work Phone: Start: 01-19-2024 Encounter for genera l adult medical examination without abnormal findings Solomon Rivas [facility] Start: 01-15-2024 End: 01-15-2024 Patient [...] 01-27-2023 ambulatory MD Solomon Rivas Work Phone: [facility] Work Phone: Start: 01-27-2023 End: 01-27-2023 Patient encounter procedure MD Solomon Rivas Work Phone: [facility] [place] Work Phone: Start: 03-07-2022 End: 03-08-[address] UMAIR WISDOM Facility:[facility] Start: 02-22-2022 End: 02-22-[address] UMAIR WISDOM Facility:[facility] Start: 02-01-2022 Encounter for genera l adult medical examination without abnormal findings DR SOLOMON RIVAS [facility] Start: 01-28-2022 End: 01-29-[address] SOLOMON [...] Activity Detail Author Start: 02-22-2027 Screening for malignant neoplasm of cervix [facility] Start: 02-26-2025 Tobacco Screening Tobacco Screening [facility] Start: 02-22-2025 Screening for malignant neoplasm of cervix Pap Smear [facility] Start: 01-22-2025 Tobacco Screening Tobacco Screening [facility] Start: 10-07-2024 Screening for malignant neoplasm of colon [facility] Start: 02-27-2024 End: 02-27-2024 Patient encounter procedure [facility] Comment on above: Arrived Start: 02-27-2024 Screening for malignant neoplasm of breast Mammogram [facility] Start: 02-27-2024 End: 02-27-2024 Telemedicine consultation with patient 02/27/2024 9:30 AM EST Telemedicine [facility] [address] [place] [id number] Yovani Faith, [employer] OBEDIENCE INSTRUCTOR [address] [place] [address] [facility] Start: 01-15-2024 End: 01-15-2024 Patient encounter procedure 01/15/2024 4:15 PM EDT Office Visit [facility] [address] [place] [address] [place] [id number] Solomon Rivas MD [address] [place] [address] [place] [address] Arrived [facility] Comment on above: Arrived Start: 01-15-2024 End: 01-14-2025 CBC W Auto Differential panel - Blood CBC and differential Lab Routine Benign essential hypertension (CMS/HCC) Annual physical exam Stage 3a chronic kidney disease (HCC) (CMS/HCC) Expected: 01/15/2024 (Approximate), Expires: 01/14/2025 [facility] Work Phone: Comment on above: Expected: 01/15/2024 (Approximate), Expi res: 01/14/2025 Start: 01-15-2024 End: 01-14-2025 Comprehensive metabolic 2000 panel - Serum or Plasma Comprehensive metabolic panel Lab Routine Abnormal glucose tolerance test Benign essential hypertension (CMS/HCC) Annual physical exam Expected: 01/15/2024 (Approximate), Expires: 01/14/2025 [facility] Comment on above: Expected: 01/15/2024 (Approximate), Expi res: 01/14/2025 Start: 01-15-2024 End: 01-14-2025 Lipid 1996 panel - Serum or Plasma Lipid panel Lab Routine Annual physical exam Screening for lipid disorders Expected: 01/15/2024 (Approximate), Expires: 01/14/2025 [facility] Comment on above: Expected: 01/15/2024 (Approximate), Expi res: 01/14/2025 Start: 12-02-2023 Influenza vaccination [facility] Start: 2013 Administration of varicella zoster vaccine Zoster (Shingles) Vaccine (1 of 2) [facility] Start: 1982 DTaP,Tdap and Td Vaccines (1 - Tdap) DTaP,Tdap and Td Vaccines (1 - Tdap) [facility] Start: 1981 Adult BMI Screening Adult BMI Screening [facility] Start: 1975 Depression Screening Depression Screening [facility] Start: 1965 Screening for malignant neoplasm of colon [facility] End: 01-22-2025 Colonoscopy Colonoscopy GI Routine Encounter for screening colonoscopy 1 Occurrences starting 01/23/2024 until 01/22/2025 [employer] Work Phone: Comment on above: 1 Occurrences starting 01/23/2024 until 01/22/2025 End: 02-26-2025 Esophagogastroduodenoscopy EGD GI Routine Upper abdominal pain 1 Occurrences starting 02/27/2024 until 02/26/2025 [facility] Work Phone: Comment on above: 1 Occurrences starting 02/27/2024 until 02/26/2025 Payers Date Payer Category Payer Self-pay 2022 Managed Care Other (unspecified) [id number] 2022 Private Health Insurance [facility] [place] [address] [id number] 2022 Unknown [id number] 1965 Unknown [id number] 1963 Unknown [id number] [id number] 1963 Unknown [id number] [id number] 1963 Unknown [id number] [id number] 1963 Unknown [id number] [id number] 1963 Unknown [id number] [id number] 1963 Unknown [id number] [id number] 1959 Unknown [id number] Unknown [id number] [id number] Social History Date Type Detail Facility Tobacco smoking stat [facility] Unknown if ever smoked [facility] Work Phone: Start: 1965 Sex Assigned At Female F [facility] Start: 02-12-2023 End: 01-23-2024 Tobacco smoking status VAIS Never smoked tobacco [facility] Start: 02-12-2023 End: 01-23-2024 Tobacco use and exposure Smokeless tobacco non-user [facility] Start: 03-01-2023 End: 01-15-2024 Alcoholic beverage intake Lifetime non-drinker (finding) [facility] Start: 02-13-2023 End: 01-15-2024 History of Social function [facility] Start: 02-13-2023 End: 01-15-2024 Tobacco use panel [facility] Start: 1965 Sex assigned at Not on file N [facility] Start: 01-23-2024 End: 02-27-2024 Alcoholic beverage intake Ex-drinker (finding) [facility] Start: 01-17-2024 Sex Female (finding) [facility] Clinical Notes 01-15-2024 to 02-27-2024 Yovani Faith, [employer]OG OBEDIENCE INSTRUCTOR - 02/27/2024 9:30 AM ESTTelephone Encounter - Suzanne Sharif - 01/29/2024 1:37 PM EDTTelephone Encounter - Suzanne Kole - 01/29/2024 1:37 PM EDT Note Date & Type Note Facility 02-27-2024 History of Presen t illness Narrative Images [...] at this time. She denies diarrhea, constipation, melena, hematochezia, unexplained weight loss. There is no family history of colon cancer. She also reports her stomach is bothersome and off. She would like to get an EGD done while she is getting her colonoscopy. Her symptoms are sort of vague. She states she has upper abdominal pain that seems to be worse after eating. The pain occurs a few times monthly mainly on the weekends. She denies heartburn. She denies nausea and vomiting. Review of Systems Constitutional: Negative for fever and unexpected weight change. HENT: Negative for trouble swallowing. Respiratory: Negative for shortness of breath. Cardiovascular: Negative for chest pain. Gastrointestinal: Positive for abdominal pain. Negative for nausea, vomiting, diarrhea, constipation, blood in stool and black [...] Current Outpatient Medications: MULTIVITAMIN ORAL, Take by mouth. (Patient not taking: Reported on 02/27/2024), Disp: , Rfl: sod sulf-pot chloride-mag sulf 1.479-0.188- 0.225 gram tablet, Please see instructional sheet given by physicians office. (Patient not taking: Reported on 02/27/2024), Disp: 24 tablet, Rfl: 0 Social History [...] not ill-appearing. HENT: Head: Normocephalic and atraumatic. Eyes: Pupils: Pupils are equal, round, and reactive to light. Pulmonary: Effort: Pulmonary effort is normal. No respiratory distress. Musculoskeletal: General: Normal range of motion. Cervical back: Normal range of motion. Neurological: Mental Status: She is alert and oriented to person, place, and time. Mental status is at baseline. Vital Signs: There were no vitals taken for this visit. Respiratory Source: No data recorded Admission Weight: Labs No results found for: WBC , [...] results found for: INR , PROTIME Assessment Screening colonoscopy Upper abdominal pain Plan EGD and colonoscopy with possible biopsy and/or polypectomy. Risks, benefits, and alternatives discussed with patient. Educated on bowel evacuation preparation. Patient verbalizes understanding and wishes to proceed. Evaluation included: Preparing to see the patient (e.g., review of tests) Obtaining and/or reviewing separately obtained history Performing a medically appropriate examination and/or evaluation Counseling and educating the patient/family/caregiver Referring and communicating with other health human services care specialist Encounter for screening colonoscopy [Z12.11] DANNY MALLOY [facility] This note was created with the assistance of a speech recognition program. While intending to generate a timely document that accurately reflects the content of the visit, no guarantee can be provided that every grammatical or spelling mistake has been or will be identified or corrected. Thank you for your understanding. Video Visit via Real-time Synchronous Audiovisual Provider Location: [address] [address] Patient Location: Patient's home Video Visit Consent Statement: I discussed risks, benefits, and alternatives of a real-time synchronous audiovisual consultation with the patient (and any accompanying persons) including the risks that the patient's personal health details and medical records will be discussed over real-time, synchronous, interactive video/audio/telecommunication technology, the visit will not be recorded without the express consent of both the provider and the patient, and that there are some limitations compared to [id number] evaluations. The patient consented to the presence of additional virtual and/or in-person participants. We elected to proceed. DANNY Malloy 02/27/24 0955 documented in this encounter [facility] [employer] [facility] 01-29-2024 Miscellaneous Notes Called Blanca regarding the GERD referral that our office received from Dr Rivas, Blanca states that she is already scheduled for a colonoscopy with Dr Lloyd on 02/20/24 at [facility] at 8 am. Sent Lorrie Rivas a staff message to see if we can just add the EGD to the colonoscopy or if she will need to see Yovani Faith NP before that. Lorrie called Blanca and got her scheduled for a video visit with Yovani Faith NP for 02/25/24. documented in this encounter [facility] 01-29-2024 Telephone encounter Note Called Blanca regarding the GERD referral that our office received from Dr Rivas, Blanca states that she is already scheduled for a colonoscopy with Dr Lloyd on 02/20/24 at [facility] at 8 am. Sent Lorrie S a staff message to see if we can just add the EGD to the colonoscopy or if she will need to see Yovani Faith NP before that. [facility] 01-29-2024 Telephone encounter Note Lorrie called Blanca and got her scheduled for a video visit with Yovani Faith NP for 02/25/24. [facility] 01-23-2024 History of Presen t illness Narrative [...] Past Surgical History: Procedure Laterality Date COLONOSCOPY 2015 DILATION AND CURETTAGE OF UTERUS No Known [...] patient/family/caregiver Referring and communicating with other health human services care specialist Encounter for screening colonoscopy [Z12.11] DANNY MALLOY [facility] [place] This note was created with the assistance of a speech recognition program. While intending to generate a timely document that accurately reflects the content of the visit, no guarantee can be provided that every grammatical or spelling mistake has been or will be identified or corrected. Thank you for your understanding. DANNY Malloy 01/23/24 1453 documented in this encounter [facility] 01-15-2024 Telephone encounter Note Patient called and said she forgot to mention at her appointment today that she would like to have her colonoscopy done before the end of the year. [facility] 01-15-2024 Miscellaneous Notes Patient called and said she forgot to mention at her appointment today that she would like to have her colonoscopy done before the end of the year. documented in this encounter [facility] 01-15-2024 History of Presen t illness Narrative [...] Drive Social Accountability documented in this encounter [facility] Evaluation note No assessment inform ation available [facility] Work Phone: Evaluation note Diagnosis Encounter [...] for lipid disorders documented in this encounter [facility] HealthcareEvaluation note* Diagnosis Encounter for screening colonoscopy- Primary documented in this encounter [facility] Diagnosis Encounter for screening colonoscopy- Primary Upper abdominal pain documented [facility] filed[facility] in this encounter [facility] filedocumented in this encounter [facility] on filedocumented in this encounter [facility] Summary Purpose Family History No Family [...] section and content) DATE CREATED AUTHOR 03/30/2021 [facility] Specialist DATE CREATED AUTHOR AUTHOR'S ORGANIZ ATION 03/11/2022 [facility] DATE CREATED AUTHOR AUTHOR'S ORGANIZ ATION 01/17/2024 [facility] Specialists EPIC DATE CREATED AUTHOR AUTHOR'S ORGANIZ ATION 01/25/2024 [facility] DATE CREATED AUTHOR AUTHOR'S ORGANIZ ATION 01/28/2024 [facility] Care Teams (unrecognized sec tion and content) Team Status: Active Member Role Status Dates Solomon Rivas MD Primary Care Provider Active Team Status: Inactive Member Role Status Dates Solomon Rivas MD Primary Care Provider, Attending Pro vider Active Comptroller Relationship Specialty Start Date End Date Solomon Rivas MD [address] [address] PCP - General Family Medicine 08/08/22 Comptroller Relationship Specialty Start Date End Date Solomon Rivas MD [address] [facility] [address] [place] [address] PCP - General Family Medicine 08/08/22 Comptroller Relationship Specialty Start Date End Date Solomon Rivas MD [address] [facility] [address] [place] [address] PCP - General Family Medicine 08/08/22 Comptroller Relationship Specialty Start Date End Date Solomon Rivas MD [address] [facility] [address] [place] [address] PCP - General Family Medicine 08/08/22 Team Status: Inactive Member Role Status Dates Solomon Rivas MD Primary Care Provide r, Attending Provider, Referring Provider Active Start: January 19, 2024 End: January 19, 2024 Comptroller Relationship Specialty Start Date End Date Solomon Rivas MD [address] [facility] [address] [place] [address] PCP - General Family Medicine 01/29/24 Comptroller Relationship Specialty Start Date End Date Solomon Rivas MD [address] [facility] [address] [place] [address] PCP - General Family Medicine 01/29/24 Goals (unrecognized section and content) Goals may be documented in a n alternate sectionGoals may be documented in an alternate sectionNot on filedocumented as of this encounterNot on filedocumented as of this encounterNot on filedocumented as of this encounter Reason for Visit (unrecogniz ed section and content) Reason Comments Annual Exam Reason Comments Colon Cancer Screening Insurance will co carolyn screening yearly Specialty Diagnoses / Procedures Referred By Contac t Referred To Contact Gastroenterology Diagnoses Screening for malignant neoplasm of colon Procedures [place] OFFICE OUTPATIENT VISIT 60-74 MINS HIGH MDM [id number] (SNOMED CT) - AMB REFERRAL TO GASTROENTEROLOGY Solomon Rivas MD [address] [facility] [address] [place] [address] Phone: tel: fax: Jerad Lloyd DO [address] [place] [address] Phone: tel:[phone] fax:[phone] Referral ID Status Reason Start Date Expiration Date V isits Requested Visits Authorized [id number] Pending Review 01/16/2024 07/14/2024 1 1 Reason Comments Colon Cancer Screening FOR RECORDS PERTAINING TO PATIENTS WHO ARE [...] BE BASED ON THE PRIMARY CLINICAL RECORDS. [facility] [employer], [facility]. provides no warranty or guarantee of the accuracy or completeness of information in this document.
== END 2024-02-27 19:02 | disposition home or self-care (01) ==
LOC: LAB 19:01
PROVIDERS: PCP Family Medicine; Visit Provider Obstetrics & Gynecology
DX: Z01.419 Encounter for gynecological examination (general) (routine) without abnormal findings (principal)
CPT/HCPCS: 87624; 88175

== ENCOUNTER 2024-03-05 06:20 | Day surgery (SDC) | payer OTHER, SELFPAY ==
--- OUTSIDE RECORDS SUMMARY | 2024-03-05 06:24 | XMS_ITS | CCD ---
Author Organization [facility] Care Team Providers Care Edge Stainer Name Role Phone VELASQUEZ, DR BLOCK Admitting [...] Care Provider MD Solomon Rivas Attending Provider [phone] Solomon Rivas MD Primary Care Provider [phone] MD Solomon Rvias Primary Care Provider MD Solomon Rivas Attending Provider [phone] MD Solomon Rivas Referring Provider [phone] Unavailable Primary Care Provider Unavailabl e Solomon Rivas Primary Care Unavailable Solomon Rivas Attending Unavailable Solomon Rivas Referring Unavailable Solomon Rivas Admitting Unavailable Evelyn Solomon CURTIS Primary Care Provider [phone] YOVANI FAITH Attending Unavailable SOLOMON RIVAS Referring Unavailable YOVANI FAITH Attending Unavailable SOLOMON RIVAS Referring Unavailable SOLOMON RIVAS Primary Care Unavailable SOLOMON RIVAS Attending Unavailable UMAIR WISDOM Attending Unavailable Medications Current Medications Medication Drug Class(es) Dates [...] pain, unspecified] 02-27-2024 Episodic Chronic kidney disease (11 sources) Chronic kidney disease stage 3A ; Translations: [Stage 3a chronic kidney disease (HCC)] Onset: 01-04-2023 01-04-2023 Chronic Diabetes mellitus without complication (2 sources) Abnormal glucose tolerance test; Translations: [Other abnormal glucose] 01-15-2024 Episodic Essential hypertension (12 sources) Essential (primary) hypertension; Translations: [Hypertensive disorder] Onset: 02-01-2022 01-04-2023 Chronic Immunizations and screening for infectious disease (1 source) Encounter for screening for human papillomavirus (HPV); Translations: [ENC SCREENING HUMAN PAPILLOMAVIRUS] Onset: 02-27-2022 Episodic Osteoarthritis (9 sources) Osteoarthritis of knee; Translations: [Osteoarthritis of [...] Date Documented Da te Episodic/Chronic Viral infection (9 sources) Verruca plantaris; Translations: [Plantar wart] Onset: 01-04-2023 01-04-2023 Episodic Results Test Name Value Interpretation Reference Range Facility Alanine aminotransferase [En zymatic activity/volume] in Serum or PlasmaOrdered By: Solomon Rivas on 01-19-2024 ALT [Catalytic activity/Vol] 18 U/L Normal 7-52 [facility] Comment on above: Performed By: #### C BC, CMP, LIPID #### [place] [address] [place] Albumin [Mass/volume] in Ser um or Plasma by Bromocresol green (BCG) dye binding methoOrdered By: Solomon Becerrila on 01-19-2024 Albumin BCG dye [Mass/Vol] 4.1 g/dL 3.5-5.7 [facility] Alkaline phosphatase [Enzyma tic activity/volume] in Serum or PlasmaOrdered By: Rugen Evelyn on 01-19-2024 ALP [Catalytic activity/Vol] 68 U/L Normal 34-104 [facility] Comment on above: Performed By: #### C BC, CMP, LIPID #### [address] Aspartate aminotransferase [ Enzymatic activity/volume] in Serum or PlasmaOrdered By: Solomon [place] on 01-19-2024 AST [Catalytic activity/Vol] 23 U/L Normal 13-39 [facility] Comment on above: Performed By: #### C BC, CMP, LIPID #### [address] Automated basophil %Ordered By: Solomon Rivas on 01-19-2024 Basophils/100 WBC (Bld) 0.8 % Normal . [facility] Comment on above: Performed By: #### C BC, CMP, LIPID #### [address] Automated basophil countOrde red By: Solomon Rivas on 01-19-2024 Basophils (Bld) [#/Vol] 0.1 10*3/uL Normal 0.0-0.2 [facility] Comment on above: Result Comment: PERF ORMED BY: [place] [address] PATHOLOGIST [employer] SATHYA LOWRY M.D. Performed By: #### C BC, CMP, LIPID #### [address] Automated blood monocyte cou ntOrdered By: Solomon Rivas on 01-19-2024 Monocytes (Bld) [#/Vol] 0.6 10*3/uL Normal 0.0-0.8 [facility] Comment on above: Performed By: #### C BC, CMP, LIPID #### [address] Automated eosinophil %Ordere d By: Rugen [place] on 01-19-2024 Eosinophils/100 WBC (Bld) 2.5 % Normal . [facility] Comment on above: Performed By: #### C BC, CMP, LIPID #### [address] Automated eosinophil countOr dered By: Rugen [place] on 01-19-2024 Eosinophils (Bld) [#/Vol] 0.2 10*3/uL Normal 0.0-0.45 [facility] Comment on above: Performed By: #### C BC, CMP, LIPID #### [address] Automated monocyte %Ordered By: Rugen [place] on 01-19-2024 Monocytes/100 WBC (Bld) 7.8 % Normal . [facility] Comment on above: Performed By: #### C BC, CMP, LIPID #### [address] Automated neutrophil %Ordere d By: Rugen Evelyn on 01-19-2024 Neutrophils/100 WBC (Bld) 63.3 % Normal . [facility] Comment on above: Performed By: #### C BC, CMP, LIPID #### [address] Bilirubin.total [Mass/volume ] in Serum or PlasmaOrdered By: Rugen Evelyn on 01-19-2024 Bilirubin [Mass/Vol] 0.6 mg/dL Normal 0.3-1.0 [facility] Comment on above: Performed By: #### C BC, CMP, LIPID #### [address] CBC W Auto Differential pane l (Bld)on 10-19-2024 Basophils (Bld) [#/Vol] 0.1 10*3/uL 0.0 - 0.2 10*3/uL [facility] Basophils/100 WBC Manual cnt (Syn fld) 0.8 % . [facility] Eosinophils (Bld) [#/Vol] 0.2 10*3/uL 0.0 - 0.45 10*3/uL [facility] Eosinophils/100 WBC Manual cnt (Syn fld) 2.5 % . [facility] Erythrocyte distribution width (RBC) [Ratio] 12.5 % 11.9 - 15.3 % [facility] Hematocrit (Bld) [Volume fraction] 40.8 % 34.0 - 46.4 % [facility] Hemoglobin (Bld) [Mass/Vol] 13.9 g/dL 11.8 - 15.4 g/dL [facility] Lymphocytes (Bld) [#/Vol] 2.1 10*3/uL 1.00 - 4.8 10*3/uL [facility] Lymphocytes/100 WBC Manual cnt (Syn fld) 25.6 % . [facility] MCH (RBC) [Entitic mass] 32.6 pg 24.7 - 34.3 pg [facility] MCHC (RBC) [Mass/Vol] 34.1 g/dL 32.0 - 35.0 g/dL [facility] MCV (RBC) [Entitic vol] 95.4 fL 80 - 100 fL [facility] Monocytes (Bld) [#/Vol] 0.6 10*3/uL 0.0 - 0.8 10*3/uL [facility] Monocytes+Macrophages/1 00 WBC Manual cnt (Syn fld) 7.8 % . [facility] Neutrophils (Bld) [#/Vol] 5.1 10*3/uL 1.8 - 7.7 10*3/uL [facility] Neutrophils/100 WBC Manual cnt (Syn fld) 63.3 % . [facility] NRBC 0.1 /100{WBC} 0 - 0.5 /100{WBC} [facility] Platelet mean volume (Bld) [Entitic vol] 7.8 fL 6.3 - 10.7 fL [facility] Platelets (Bld) [#/Vol] 293 10*3/uL 150 - 450 10*3/uL [facility] RBC LM.HPF (Urine sed) [#/Area] 4.27 /[HPF] 3.60 - 5.00 [facility] WBC (Bld) [#/Vol] 8.1 10*3/uL 3.8 - 11.6 10*3/uL [facility] WBC LM.HPF (Urine sed) [#/Area] 8.1 10*3/uL 3.8 - 11.6 10*3/uL [facility] Calcium [Mass/volume] in Ser um or PlasmaOrdered By: Solomon Rivas on 01-19-2024 Calcium [Mass/Vol] 9.3 mg/dL Normal 8.6-10.3 [facility] Comment on above: Performed By: #### C BC, CMP, LIPID #### [facility] [address] [place] [address] [place] Carbon dioxide, total [Moles /volume] in Serum or PlasmaOrdered By: Solomon Rivas on 01-19-2024 CO2 [Moles/Vol] 29.5 mmol/L Normal 21.0-31.0 [facility] Comment on above: Performed By: #### C BC, CMP, LIPID #### [facility] [address] [place] [address] [place] Chloride [Moles/volume] in S pat or PlasmaOrdered By: Solomon Rivas on 01-19-2024 Chloride [Moles/Vol] 105 mmol/L Normal 98-107 [facility] Comment on above: Performed By: #### C BC, CMP, LIPID #### [facility] [address] [place] [id number] [place] Cholesterol [Mass/volume] in Serum or PlasmaOrdered By: Solomon Rivas on 01-19-2024 Cholesterol [Mass/Vol] 157 mg/dL Normal 140-200 [facility] Comment on above: Chol less than 200 m g/dl low riskChol 201-239 mg/dl borderline riskChol 240 mg/dl and greater high risk Result Comment: Chol less than 200 mg/dl low risk Chol 201-239 mg/dl borderline risk Chol 240 mg/dl and greater high risk Performed By: #### C BC, CMP, LIPID #### [facility] [address] [place] [id number] [place] Cholesterol in LDL Calc [Mas s/Vol]Ordered By: Solomon Rivas on 01-19-2024 Cholesterol in LDL [Mass/Vol] 64 mg/dL 0-100 [facility] Comment on above: LDL ATP III CLASSIFI CATIONLDL less than 100 mg/dL OptimalLDL 100-129 mg/dL Near or above optimalLDL 130-159 mg/dL Borderline highLDL 160-189 mg/dL HighLDL greater than 189 mg/dL Very high Cholesterol in VLDL Calc [Ma ss/Vol]Ordered By: Solomon Rivas on 01-19-2024 Cholesterol in VLDL [Mass/Vol] 7 mg/dL [facility] Complete Blood Count Auto Di ffon 01-19-2024 Mean Corpuscular HGB Conc 34.1 g/dL Normal 32.0-35.0 [facility] Comment on above: Performed By: #### C BC, CMP, LIPID #### [facility] [address] NRBC% 0.1 /100{WBC} Normal 0-0.5 [facility] Comment on above: Performed By: #### C BC, CMP, LIPID #### [facility] [address] Comprehensive Metabolic Pane ayad 01-19-2024 Albumin [Mass/Vol] 4.1 g/dL Normal 3.5-5.7 [facility] Comment on above: Performed By: #### C BC, CMP, LIPID #### [facility] [address] GFR/1.73 sq M.predicted MDRD (S/P/Bld) [Vol rate/Area] mL/min/{1.73_m2} Normal [facility] Comment on above: Performed By: #### C BC, CMP, LIPID #### [facility] [address] Comprehensive metabolic pane ayad 01-19-2024 Albumin [Mass/Vol] 4.1 g/dL 3.5 - 5.7 g/dL [facility] Albumin/Globulin [Mass ratio] 1.5 {ratio} [facility] ALP [Catalytic activity/Vol] 68 U/L 34 - 104 U/L [facility] ALT [Catalytic activity/Vol] 18 U/L 7 - 52 U/L [facility] Anion gap [Moles/Vol] 10 mmol/L 6.0 - 15.0 [facility] AST [Catalytic activity/Vol] 23 U/L 13 - 39 U/L [facility] Bilirubin [Mass/Vol] 0.6 mg/dL 0.3 - 1 .0 mg/dL [facility] Calcium [Mass/Vol] 9.3 mg/dL 8.6 - 10. 3 mg/dL [facility] Chloride [Moles/Vol] 105 mmol/L 98 - 10 7 mmol/L [facility] CO2 [Moles/Vol] 29.5 mmol/L 21.0 - 31.0 mmol/L [facility] Creatinine (U) [Mass/Vol] 0.99 mg/dL 0.60 - 1.20 mg/dL [facility] GFR/1.73 sq M.predicted MDRD (S/P/Bld) [Vol rate/Area] mL/min/{1.73_m2} [facility] Globulin (S) [Mass/Vol] 2.7 g/dL [facility] Glucose [Mass/Vol] 87 mg/dL 70 - 100 mg/dL [facility] Comment on above: Random Glucose Refer ence Range is dependent on time and content of last meal. Glucose of more than 200 mg/dL in a nonstressed, ambulatory subject supports the diagnosis of Diabetes Mellitus. ADA recommended reference range Potassium [Moles/Vol] 4.5 mmol/L 3.5 - 5.1 mmol/L [facility] Protein [Mass/Vol] 6.8 g/dL 6.4 - 8.9 g/dL [facility] Sodium [Moles/Vol] 140 mmol/L 136 - 145 mmol/L [facility] Urea nitrogen [Mass/Vol] 17 mg/dL 7 - 25 mg/dL [facility] Creatinine [Mass/volume] in Serum or PlasmaOrdered By: Solomon Rivas on 01-19-2024 Creatinine [Mass/Vol] 0.99 mg/dL Normal 0.60-1.20 [facility] Comment on above: Performed By: #### C BC, CMP, LIPID #### [facility] [address] Erythrocyte distribution wid th [Ratio] by Automated countOrdered By: Solomon Rivas on 01-19-2024 Erythrocyte distribution width (RBC) [Ratio] 12.5 % Normal 11.9-15.3 [facility] Comment on above: Performed By: #### C BC CMP, LIPID #### [facility] [address] Erythrocytes [#/volume] in B lood by Automated countOrdered By: Solomon Rivas on 01-19-2024 RBC (Bld) [#/Vol] 4.27 10*6/uL Normal 3.60-5.00 [facility] Comment on above: Performed By: #### C CHIKA STEWARD, LIPID #### [facility] [address] Glucose [Mass/volume] in Ser um or PlasmaOrdered By: Solomon Rivas on 01-19-2024 Glucose [Mass/Vol] 87 mg/dL Normal 70-100 [facility] Comment on above: ADA recommended refe rence rangeRandom Glucose Reference Range is dependent on time and content of last meal. Glucose of more than 200 mg/dL in a nonstressed, ambulatory subject supports the diagnosis of Diabetes Mellitus. Result Comment: [place] om Glucose Reference Range is dependent on time and content of last meal. Glucose of more than 200 mg/dL in a nonstressed, ambulatory subject supports the diagnosis of Diabetes Mellitus. ADA recommended reference range Performed By: #### C BC CMP, LIPID #### [facility] [address] Hematocrit [Volume Fraction] of Blood by Automated countOrdered By: Solomon Rivas on 01-19-2024 Hematocrit (Bld) [Volume fraction] 40.8 % Normal 34.0-46.4 [facility] Comment on above: Performed By: #### C BC CMP, LIPID #### [facility] [address] Hemoglobin [Mass/volume] in BloodOrdered By: Solomon Rivas on 01-19-2024 Hemoglobin (Bld) [Mass/Vol] 13.9 g/dL Normal 11.8-15.4 [facility] Comment on above: Performed By: #### C BC, CMP, LIPID #### [facility] [address] Leukocytes [#/volume] correc chidi for nucleated erythrocytes in Blood by Automated counOrdered By: Solomon Rivas on 01-19-2024 WBC corrected for nucl RBC Auto (Bld) [#/Vol] 8.1 10*3/uL 3.8-11.6 [facility] Leukocytes [#/volume] in Blo od by Automated countOrdered By: Solomon Rivas on 01-19-2024 WBC (Bld) [#/Vol] 8.1 10*3/uL Normal 3.8-11.6 [facility] Comment on above: Performed By: #### C BC, CMP, LIPID #### [facility] [address] Lipid 1996 panelon Cholesterol [Mass/Vol] 157 mg/dL 140 - 200 mg/dL [facility] Comment on above: Chol less than 200 m g/dl low risk Chol 201-239 mg/dl borderline risk Chol 240 mg/dl and greater high risk Cholesterol in HDL [Mass/Vol] 86 mg/dL 23 - 92 mg/dL [facility] Comment on above: HDL CHOL ATP-III CLA SSIFICATION Cardiovascular Risk HDL > or equal to 60 mg/dL LOW HDL < 40 mg/dL HIGH Cholesterol.total/Sheri sterol in HDL [Mass ratio] 1.8 {ratio} NINF - 5.0 [facility] LDL CHOLESTEROL,CALCULATED 64 mg/dL 0 - 100 mg/dL [facility] Comment on above: LDL ATP III CLASSIFI CATION LDL less than 100 mg/dL Optimal LDL 100-129 mg/dL Near or above optimal LDL 130-159 mg/dL Borderline high LDL 160-189 mg/dL High LDL greater than 189 mg/dL Very high TRIGLYCERIDE W/REFLEX 35 mg/dL 0 - 14 9 mg/dL [facility] Comment on above: TRIG ATP III CLASSIF ICATION TRIG less than 150 mg/dL Normal TRIG 150-199 mg/dL Borderline high TRIG 200-500 mg/dL High TRIG greater than 500 mg/dL Very high Standard traceable to the Center for Disease Conrtrol and Prevention (CDC) test method. VLDL CHOLESTEROL 7 mg/dL [facility] Lipid Panelon 01-19-2024 LDL Cholesterol,Calculated 64 mg/dL Normal 0-100 [facility] Comment on above: Result Comment: LDL ATP III CLASSIFICATION LDL less than 100 mg/dL Optimal LDL 100-129 mg/dL Near or above optimal LDL 130-159 mg/dL Borderline high LDL 160-189 mg/dL High LDL greater than 189 mg/dL Very high Performed By: #### C BC, CMP, LIPID #### [address] Triglyceride w/Reflex 35 mg/dL Normal 0-149 [facility] Comment on above: Result Comment: TRIG ATP III CLASSIFICATION TRIG less than 150 mg/dL Normal TRIG 150-199 mg/dL Borderline high TRIG 200-500 mg/dL High TRIG greater than 500 mg/dL Very high Standard traceable to the Center for Disease Conrtrol and Prevention (CDC) test method. Performed By: #### C BC, CMP, LIPID #### [address] VLDL CHOLESTEROL 7 mg/dL Normal [facility] Comment on above: Performed By: #### C BC, CMP, LIPID #### [place] [address] [place] Lymphocytes [#/volume] in Bl ood by Automated countOrdered By: Solomon Rivas on 01-19-2024 Lymphocytes (Bld) [#/Vol] 2.1 10*3/uL Normal 1.00-4.8 [facility] Comment on above: Performed By: #### C BC, CMP, LIPID #### [place] [address] [place] Lymphocytes/100 leukocytes i n Blood by Automated countOrdered By: Solomon Rivas on 01-19-2024 Lymphocytes/100 WBC (Bld) 25.6 % Normal . [facility] Comment on above: Performed By: #### C BC, CMP, LIPID #### [place] [address] [place] MCH [Entitic mass] by Automa chidi countOrdered By: Solomon Rivas on 01-19-2024 MCH (RBC) [Entitic mass] 32.6 pg Normal 24.7-34.3 [facility] Comment on above: Performed By: #### C BC, CMP, LIPID #### [facility] [address] [place] [address] MCHC Auto (RBC) [Mass/Vol]Or dered By: Solomon Rivas on 01-19-2024 MCHC (RBC) [Mass/Vol] 34.1 g/dL 32.0-35.0 [facility] MCV [Entitic volume] by Auto mated countOrdered By: Solomon Rivas on 01-19-2024 MCV (RBC) [Entitic vol] 95.4 fL Normal 80-100 [facility] Comment on above: Performed By: #### C BC, CMP, LIPID #### [facility] [address] [place] [address] Neutrophils [#/volume] in Bl ood by Automated countOrdered By: Solomon Rivas on 01-19-2024 Neutrophils (Bld) [#/Vol] 5.1 10*3/uL Normal 1.8-7.7 [facility] Comment on above: Performed By: #### C BC, CMP, LIPID #### [facility] [address] [place] [address] No Panel Informationon 01-18 [facility] No Panel InformationOrdered By: Solomon Rivas on 01-19-2024 Estimated GFR (CKD-EPI) > 60.0 mL/Min [facility] Creatinine Clearance (Chem N/A [facility] Nucleated erythrocytes [Pres ence] in Blood by Automated countOrdered By: Solomon Rivas on 01-19-2024 Nucleated RBC Auto Ql (Bld) 0.1 /100{WBC} 0-0.5 [facility] Platelet mean volume [Entiti c volume] in Blood by Automated countOrdered By: Solomon Rivas on 01-19-2024 Platelet mean volume (Bld) [Entitic vol] 7.8 fL Normal 6.3-10.7 [facility] Comment on above: Performed By: #### C BC, CMP, LIPID #### [facility] [address] Platelets [#/volume] in Bloo d by Automated countOrdered By: Rugcat Evelyn on 01-19-2024 Platelets (Bld) [#/Vol] 293 10*3/uL Normal 150-450 [facility] Comment on above: Performed By: #### C BC, CMP, LIPID #### [address] Potassium [Moles/volume] in Serum or PlasmaOrdered By: Rugen Evelyn on 01-19-2024 Potassium [Moles/Vol] 4.5 mmol/L Normal 3.5-5.1 [facility] Comment on above: Performed By: #### C BC, CMP, LIPID #### [address] Protein [Mass/volume] in Ser um or PlasmaOrdered By: Rugen Eveyln on 01-19-2024 Protein [Mass/Vol] 6.8 g/dL Normal 6.4-8.9 [facility] Comment on above: Performed By: #### C BC, CMP, LIPID #### [address] Serum globulin measurement b y calculation (mass/volume)Ordered By: Solomon [place] on 01-19-2024 Globulin (S) [Mass/Vol] 2.7 g/dL Normal [facility] Comment on above: Performed By: #### C BC, CMP, LIPID #### [facility] [address] [place] [address] Serum or plasma albumin/glob ulin mass ratioOrdered By: Rugen [place] on 01-19-2024 Albumin/Globulin [Mass ratio] 1.5 {ratio} Normal [facility] Comment on above: Performed By: #### C BC, CMP, LIPID #### [address] Serum or plasma anion gap de terminationOrdered By: Rugen Evelyn on 01-19-2024 Anion gap [Moles/Vol] 10.0 mmol/L Normal 6.0-15.0 [facility] Comment on above: Performed By: #### C BC, CMP, LIPID #### [facility] [address] Serum or plasma high density lipoprotein (HDL) cholesterol measurementOrdered By: Solomon Rivas on 01-19-2024 Cholesterol in HDL [Mass/Vol] 86 mg/dL Normal 23-92 [facility] Comment on above: HDL CHOL ATP-III CLA SSIFICATION Cardiovascular RiskHDL > or equal to 60 mg/dL LOWHDL < 40 mg/dL HIGH Result Comment: HDL CHOL ATP-III CLASSIFICATION Cardiovascular Risk HDL > or equal to 60 mg/dL LOW HDL < 40 mg/dL HIGH Performed By: #### C BC, CMP, LIPID #### [address] Serum or plasma total choles terol/high density lipoprotein (HDL) cholesterol mass ratOrdered By: Solomon Rivas on 01-19-2024 Cholesterol.total/Sheri sterol in HDL [Mass ratio] 1.8 {ratio} Normal <5.0 [facility] Comment on above: Result Comment: PERF ORMED BY: [place] [address] PATHOLOGIST [employer] SATHYA LOWRY M.D. Performed By: #### C BC, CMP, LIPID #### [address] Sodium [Moles/volume] in Ser um or PlasmaOrdered By: Solomon Rivas on 01-19-2024 Sodium [Moles/Vol] 140 mmol/L Normal 136-145 [facility] Comment on above: Performed By: #### C BC, CMP, LIPID #### [facility] [address] [place] [address] Triglyceride [Mass/volume] i n Serum or PlasmaOrdered By: Solomon Rivas on 01-19-2024 Triglyceride [Mass/Vol] 35 mg/dL 0-149 [facility] Comment on above: TRIG ATP III CLASSIF ICATIONTRIG less than 150 mg/dL NormalTRIG 150-199 mg/dL Borderline highTRIG 200-500 mg/dL High TRIG greater than 500 mg/dL Very highStandard traceable to the Center for Disease Conrtrol and Prevention (CDC) test method. Urea nitrogen [Mass/volume] in Serum or PlasmaOrdered By: Solomon Rivas on 01-19-2024 Urea nitrogen [Mass/Vol] 17 mg/dL Normal 7-25 [facility] Comment on above: Performed By: #### C BC, CMP, LIPID #### [facility] [address] Alanine aminotransferase [En zymatic activity/volume] in Serum or PlasmaOrdered By: Solomon Rivas on 01-27-2023 ALT [Catalytic activity/Vol] 20 U/L 7-52 [facility] Albumin [Mass/volume] in Ser um or Plasma by Bromocresol green (BCG) dye binding methoOrdered By: Solomon Rivas on 01-27-2023 Albumin BCG dye [Mass/Vol] 4.3 g/dL 3.5-5.7 [facility] Alkaline phosphatase [Enzyma tic activity/volume] in Serum or PlasmaOrdered By: Solomon Rivas on 01-27-2023 ALP [Catalytic activity/Vol] 67 U/L 34-104 [facility] Aspartate aminotransferase [ Enzymatic activity/volume] in Serum or PlasmaOrdered By: Solomon Rivas on 01-27-2023 AST [Catalytic activity/Vol] 22 U/L 13-39 [facility] Basophils Auto (Bld) [#/Vol] Ordered By: Solomon Rivas on 01-27-2023 Basophils (Bld) [#/Vol] 0.1 10*3/uL 0.0-0.2 [facility] Basophils/100 WBC Auto (Bld) Ordered By: Solomon Becerrila on 01-27-2023 Basophils/100 WBC (Bld) 1.4 % . [facility] Bilirubin.total [Mass/volume ] in Serum or PlasmaOrdered By: Solomon Rivas on 01-27-2023 Bilirubin [Mass/Vol] 0.6 mg/dL 0.3-1.0 [facility] Calcium [Mass/volume] in Ser um or PlasmaOrdered By: Solomon Rivas on 01-27-2023 Calcium [Mass/Vol] 9.7 mg/dL 8.6-10.3 [facility] Carbon dioxide, total [Moles /volume] in Serum or PlasmaOrdered By: Solomon Rivas on 01-27-2023 CO2 [Moles/Vol] 30.5 mmol/L 21.0-31.0 [facility] Chloride [Moles/volume] in S pat or PlasmaOrdered By: Solomon Rivas on 01-27-2023 Chloride [Moles/Vol] 104 mmol/L 98-107 [facility] Cholesterol [Mass/volume] in Serum or PlasmaOrdered By: Solomon Rivas on 01-27-2023 Cholesterol [Mass/Vol] 160 mg/dL 140-200 [facility] Comment on above: Chol less than 200 m g/dl low riskChol 201-239 mg/dl borderline riskChol 240 mg/dl and greater high risk Cholesterol in LDL Calc [Mas s/Vol]Ordered By: Solomon Rivas on 01-27-2023 Cholesterol in LDL [Mass/Vol] 63 mg/dL 0-100 [facility] Comment on above: LDL ATP III CLASSIFI CATIONLDL less than 100 mg/dL OptimalLDL 100-129 mg/dL Near or above optimalLDL 130-159 mg/dL Borderline highLDL 160-189 mg/dL HighLDL greater than 189 mg/dL Very high Cholesterol in VLDL Calc [Ma ss/Vol]Ordered By: Solomon Rivas on 01-27-2023 Cholesterol in VLDL [Mass/Vol] 13 mg/dL [facility] Creatinine [Mass/volume] in Serum or PlasmaOrdered By: Solomon Rivas on 01-27-2023 Creatinine [Mass/Vol] 0.91 mg/dL 0.60-1.20 [facility] Eosinophils Auto (Bld) [#/Vo l]Ordered By: Solomon Rivas on 01-27-2023 Eosinophils (Bld) [#/Vol] 0.3 10*3/uL 0.0-0.45 [facility] Eosinophils/100 WBC Auto (Bl d)Ordered By: Solomon Rivas on 01-27-2023 Eosinophils/100 WBC (Bld) 5.0 % . [facility] Erythrocyte distribution wid th Auto (RBC) [Ratio]Ordered By: Solomon Rivas on 01-27-2023 Erythrocyte distribution width (RBC) [Ratio] 12.6 % 11.9-15.3 [facility] Globulin Calc (S) [Mass/Vol] Ordered By: Solomon Rivas on 01-27-2023 Globulin (S) [Mass/Vol] 2.7 g/dL [facility] Glucose [Mass/volume] in Ser um or PlasmaOrdered By: Solomon Rivas on 01-27-2023 Glucose [Mass/Vol] 83 mg/dL 70-100 [facility] Comment on above: ADA recommended refe rence rangeRandom Glucose Reference Range is dependent on time and content of last meal. Glucose of more than 200 mg/dL in a nonstressed, ambulatory subject supports the diagnosis of Diabetes Mellitus. Hematocrit Auto (Bld) [Volum e fraction]Ordered By: Solomon Rivas on 01-27-2023 Hematocrit (Bld) [Volume fraction] 40.8 % 34.0-46.4 [facility] Hemoglobin [Mass/volume] in BloodOrdered By: Solomon Rivas on 01-27-2023 Hemoglobin (Bld) [Mass/Vol] 13.8 g/dL 11.8-15.4 [facility] Leukocytes [#/volume] correc chidi for nucleated erythrocytes in Blood by Automated counOrdered By: Solomon Rivas on 01-27-2023 WBC corrected for nucl RBC Auto (Bld) [#/Vol] 5.0 10*3/uL 3.8-11.6 [facility] Lymphocytes Auto (Bld) [#/Vo l]Ordered By: Solomon Rivas on 01-27-2023 Lymphocytes (Bld) [#/Vol] 2.4 10*3/uL 1.00-4.8 [facility] Lymphocytes/100 WBC Auto (Bl d)Ordered By: Solomon Rivas on 01-27-2023 Lymphocytes/100 WBC (Bld) 46.8 % . [facility] MCH Auto (RBC) [Entitic mass ]Ordered By: Solomon Rivas on 01-27-2023 MCH (RBC) [Entitic mass] 31.6 pg 24.7-34.3 [facility] MCHC Auto (RBC) [Mass/Vol]Or dered By: Solomon Rivas on 01-27-2023 MCHC (RBC) [Mass/Vol] 33.8 g/dL 32.0-35.0 [facility] MCV Auto (RBC) [Entitic vol] Ordered By: Solomon Becerrila on 01-27-2023 MCV (RBC) [Entitic vol] 93.7 fL 80-100 [facility] Monocytes Auto (Bld) [#/Vol] Ordered By: Solomon Becerrila on 01-27-2023 Monocytes (Bld) [#/Vol] 0.5 10*3/uL 0.0-0.8 [facility] Monocytes/100 WBC Auto (Bld) Ordered By: Solomon Becerrila on 01-27-2023 Monocytes/100 WBC (Bld) 9.4 % . [facility] Neutrophils Auto (Bld) [#/Vo l]Ordered By: Solomon Rivas on 01-27-2023 Neutrophils (Bld) [#/Vol] 1.9 10*3/uL 1.8-7.7 [facility] Neutrophils/100 WBC Auto (Bl d)Ordered By: Solomon Rivas on 01-27-2023 Neutrophils/100 WBC (Bld) 37.4 % . [facility] No Panel InformationOrdered By: Solomon Rivas on 01-27-2023 Estimated GFR (CKD-EPI) > 60.0 mL/Min [facility] Creatinine Clearance (Chem N/A [facility] Nucleated erythrocytes [Pres ence] in Blood by Automated countOrdered By: Solomon Rivas on 01-27-2023 Nucleated RBC Auto Ql (Bld) 0.1 /100{WBC} 0-0.5 [facility] Platelet mean volume Auto (B ld) [Entitic vol]Ordered By: Solomon Becerrila on 01-27-2023 Platelet mean volume (Bld) [Entitic vol] 7.8 fL 6.3-10.7 [facility] Platelets Auto (Bld) [#/Vol] Ordered By: Solomon Rivas on 01-27-2023 Platelets (Bld) [#/Vol] 276 10*3/uL 150-450 [facility] Potassium [Moles/volume] in Serum or PlasmaOrdered By: Solomon Rivas on 01-27-2023 Potassium [Moles/Vol] 4.8 mmol/L 3.5-5.1 [facility] Protein [Mass/volume] in Ser um or PlasmaOrdered By: Solomon Rivas on 01-27-2023 Protein [Mass/Vol] 7.0 g/dL 6.4-8.9 [facility] RBC Auto (Bld) [#/Vol]Ordere d By: Solomon Rivas on 01-27-2023 RBC (Bld) [#/Vol] 4.36 10*6/uL 3.60-5.00 [facility] Serum or plasma albumin/glob ulin mass ratioOrdered By: Solomon Rivas on 01-27-2023 Albumin/Globulin [Mass ratio] 1.6 {ratio} [facility] Serum or plasma anion gap de terminationOrdered By: Solomon Rivas on 01-27-2023 Anion gap [Moles/Vol] 8.3 mmol/L 6.0-15.0 [facility] Serum or plasma high density lipoprotein (HDL) cholesterol measurementOrdered By: Solomon Rivas on 01-27-2023 Cholesterol in HDL [Mass/Vol] 83 mg/dL 23-92 [facility] Comment on above: HDL CHOL ATP-III CLA SSIFICATION Cardiovascular RiskHDL > or equal to 60 mg/dL LOWHDL < 40 mg/dL HIGH Serum or plasma total choles terol/high density lipoprotein (HDL) cholesterol mass ratOrdered By: Solomon Rivas on 01-27-2023 Cholesterol.total/Sheri sterol in HDL [Mass ratio] 1.9 {ratio} <5.0 [facility] Sodium [Moles/volume] in Ser um or PlasmaOrdered By: Solomon Rivas on 01-27-2023 Sodium [Moles/Vol] 138 mmol/L 136-145 [facility] Triglyceride [Mass/volume] i n Serum or PlasmaOrdered By: Solomon Rivas on 01-27-2023 Triglyceride [Mass/Vol] 69 mg/dL 0-149 [facility] Comment on above: TRIG ATP III CLASSIF ICATIONTRIG less than 150 mg/dL NormalTRIG 150-199 mg/dL Borderline highTRIG 200-500 mg/dL High TRIG greater than 500 mg/dL Very highStandard traceable to the Center for Disease Conrtrol and Prevention (CDC) test method. Urea nitrogen [Mass/volume] in Serum or PlasmaOrdered By: Solomon Rivas on 01-27-2023 Urea nitrogen [Mass/Vol] 18 mg/dL 7-25 [facility] WBC Auto (Bld) [#/Vol]Ordere d By: Solomon Rivas on 01-27-2023 WBC (Bld) [#/Vol] 5.0 10*3/uL 3.8-11.6 [facility] MG MAMM SCREEN 3D MATT CADon 03-07-2022 MG MAMM SCREEN 3D MATT CAD Patient: BLANCA SOLITARIO Exam Date: 03/07/2022 : 1965 Gender:F Ordering : DR UMAIR WISDOM . Admission #: [id number] Family : Order #: [id number] CLICK HERE TO VIEW EXAM RADIOLOGY REPORT [...] breast cancer at age 61. LOCATION: [facility] BREAST COMPOSITION: Heterogeneously dense,which may obscure [...] Trimble M.D. on 03/08/2022 at 07:44 Normal [facility] PAP ACOG PANEL 2: 30 to 65on 03-03-2022 . . Normal [facility] Comment on above: Result Comment: Perf ormed at: WB Performed By: #### [id number] #### [facility] [address] [address] [address] Titus Astudillo Age Gdln ACOG Testing 30-65 Normal [facility] Comment on above: Performed By: #### [id number] #### [facility] [address] [address] [address] Titus Astudillo DIAGNOSIS: Comment [facility] Comment on above: Result Comment: NEGA TIVE FOR INTRAEPITHELIAL LESION OR MALIGNANCY. Performed at: WB Performed By: #### [id number] #### [facility] [address] [place] [address] Dr. Titus Astudillo HPV Aptima QNSPAP [facility] Comment on above: Result Comment: Test not performed. Liquid based PAP vial contained insufficient specimen for molecular testing; likely a consequence of insufficient cellularity in original collection. This nucleic acid amplification test detects fourteen high-risk HPV types (16,18,31,33,35,39,45,51,52,56,58,59,66,68) without differentiation. Performed at: =G Performed By: #### [id number] #### [facility] [address] [place] [address] Dr. Titus Astudillo HPV Genotype Reflex Comment Normal [facility] Comment on above: Result Comment: Crit eria not met, HPV Genotype not performed. Performed at: WB Performed By: #### [id number] #### [facility] [address] [address] [address] Titus Astudillo Methodology: Comment [facility] Comment on above: Result Comment: This liquid based ThinPrep(R) pap test was screened with the use of an image guided system. Performed at: WB Performed By: #### [id number] #### [facility] [address] [place] [address] Dr. Titus Astudillo Note: Comment Normal [facility] Comment on above: Result Comment: The Pap smear is a screening test designed to aid in the detection of premalignant and malignant conditions of the uterine cervix. It is not a diagnostic procedure and should not be used as the sole means of detecting cervical cancer. Both false-positive and false-negative reports do occur. . Performed at: WB Performed By: #### [id number] #### [facility] [address] [place] [address] Dr. Titus Astudillo Performed by: Comment Normal [facility] Comment on above: Result Comment: Selene Singh Grass[employer] Conservationist (ASCP) Performed at: WB Performed By: #### [id number] #### [facility] [address] [place] [address] Dr. Titus Astudillo Specimen adequacy: Comment Normal [place] Comment on above: Result Comment: Sati sfactory for evaluation. Endocervical and/or squamous metaplastic cells (endocervical component) are present. Performed at: WB Performed By: #### [id number] #### [facility] [address] [place] [address] Dr. Titus Astudillo CBC AUTO DIFFon 01-28-2022 BASO # 0.1 103/ul Normal 0.0-0.1 [facility] Comment on above: Performed By: #### C BC #### [facility] [address] [place] [address] Dr. Titus Astudillo Basophils/100 WBC (Bld) 0.9 % Normal 0.2-2.0 [facility] Comment on above: Performed By: #### C BC #### [facility] [address] [place] [address] Dr. Titus Astudillo EO # 0.1 103/ul Normal 0.0-0.7 [facility] Comment on above: Performed By: #### C BC #### [facility] [address] [place] [address] Dr. Titus Astudillo Eosinophils/100 WBC (Bld) 2.1 % Normal 0.9-7.0 [facility] Comment on above: Performed By: #### C BC #### [facility] [address] [place] [address] Dr. Titus Astudillo Erythrocyte distribution width (RBC) [Ratio] 11.9 % Normal 11.0-15.0 [facility] Comment on above: Performed By: #### C BC #### [facility] [address] [place] [address] Dr. Titus Astudillo Hematocrit (Bld) [Volume fraction] 42.1 % Normal 36.0-48.0 [facility] Comment on above: Performed By: #### C BC #### [facility] [address] [place] [address] Dr. Titus Astudillo Hemoglobin (Bld) [Mass/Vol] 14.0 g/dL Normal 12.0-16.0 [facility] Comment on above: Performed By: #### C BC #### [facility] [address] [place] [address] Dr. Titus Astudillo IG # 0.02 10e3/ul Normal 0.00-0.03 [facility] Comment on above: Performed By: #### C BC #### [facility] [address] [place] [address] Dr. Titus Astudillo IG % 0.3 % Normal 0.0-0.5 [facility] Comment on above: Performed By: #### C BC #### [facility] [address] [place] [address] Dr. Titus Astudillo LYMPH # 2.6 103/ul Normal 1.2-3.8 [facility] Comment on above: Performed By: #### C BC #### [facility] [address] [place] [address] Dr. Titus Astudillo Lymphocytes/100 WBC (Bld) 41.5 % Normal 20.5-60.0 [facility] Comment on above: Performed By: #### C BC #### [facility] [address] [place] [address] Dr. Titus Astudillo MANUAL DIFF REQ NO Normal [facility] Comment on above: Performed By: #### C BC #### [facility] [address] [place] [address] Dr. Titus Astudillo MCH (RBC) [Entitic mass] 31.4 pg Normal 26.7-34.0 [facility] Comment on above: Performed By: #### C BC #### [facility] [address] [place] [address] Dr. Titus Astudillo MCHC (RBC) [Mass/Vol] 33.3 g/dL Normal 29.9-35.2 [facility] Comment on above: Performed By: #### C BC #### [facility] [address] [place] [address] Dr. Titus Astudillo MCV (RBC) [Entitic vol] 94.4 fL Normal 81.0-99.0 [facility] Comment on above: Performed By: #### C BC #### [facility] [address] [place] [address] Dr. Titus Astudillo MONO # 0.5 103/ul Normal 0.3-0.8 [facility] Comment on above: Performed By: #### C BC #### [facility] [address] [place] [address] Dr. Titus Astudillo Monocytes/100 WBC (Bld) 7.9 % Normal 1.7-12.0 [facility] Comment on above: Performed By: #### C BC #### [facility] [address] [place] [address] Dr. Titus Astudillo NEUT # 3.0 103/ul Normal 1.4-6.5 [facility] Comment on above: Performed By: #### C BC #### [facility] [address] [place] [address] Dr. Titus Astudillo Neutrophils/100 WBC (Bld) 47.3 % Normal 43.0-75.0 [facility] Comment on above: Performed By: #### C BC #### [facility] [address] [place] [address] Dr. Titus Astudillo Platelet mean volume (Bld) [Entitic vol] 9.8 fL Normal 9.5-13.5 [facility] Comment on above: Performed By: #### C BC #### [facility] [address] [place] [address] Dr. Titus Astudillo PLT 375 103/ul Normal 150-450 [facility] Comment on above: Performed By: #### C BC #### [facility] [address] [address] [address] Titus Astudillo RBC 4.46 106/ul Normal 4.20-5.40 [facility] Comment on above: Performed By: #### C BC #### [facility] [address] [address] [address] Titus Astudillo WBC 6.3 103/ul Normal 4.0-11.0 [facility] Comment on above: Performed By: #### C BC #### [facility] [address] [address] [address] Titus Astudillo LIPID PROFILEon 01-28-2022 CHOL-HDL RATIO NORM SEE BELOW Normal [facility] Comment on above: Result Comment: 3.3 - 4.4 LOW RISK 4.4 - 7.1 AVERAGE RISK 7.1 - 11.0 MODERATE RISK >11.0 HIGH RISK Performed By: #### C MP, LIPID #### [facility] [address] [place] [address] Dr. Titus Astudillo Cholesterol [Mass/Vol] 163 mg/dL Normal <=200 [facility] Comment on above: Performed By: #### C MP, LIPID #### [facility] [address] [place] [address] Dr. Titus Astudillo Cholesterol in HDL [Mass/Vol] 101 mg/dL Critically high 40-60 [facility] Comment on above: Performed By: #### C MP, LIPID #### [facility] [address] [address] [address] Titus Astudillo Cholesterol in LDL [Mass/Vol] 56.4 mg/dL Normal [facility] Comment on above: Performed By: #### C MP, LIPID #### [facility] [address] [address] [address] Titus Astudillo Cholesterol.total/Sheri sterol in HDL [Mass ratio] 1.6 {ratio} Normal [facility] Comment on above: Performed By: #### C MP, LIPID #### [facility] [address] [address] [address] Titus Astudillo HDL NORMAL > or = 60 mg/dl - LO W CARDIOVASCULAR RISK <40 mg/dl - HIGH CARDIOVASCULAR RISK Normal [facility] Comment on above: Performed By: #### C MP, LIPID #### [facility] [address] [place] [address] Dr. Titus Astudillo LDL CALC NORMAL SEE BELOW Normal [facility] Comment on above: Result Comment: <100 mg/dl OPTIMAL 100 - 129 mg/dl NEAR OR ABOVE OPTIMAL 130 - 159 mg/dl BORDERLINE HIGH 160 - 189 mg/dl HIGH >190 mg/dl VERY HIGH Performed By: #### C MP, LIPID #### [facility] [address] [address] [address] Titus Astudillo Triglyceride [Mass/Vol] 28 mg/dL Normal <=150 T [facility] Comment on above: Performed By: #### C MP, LIPID #### [facility] [address] [place] [address] Dr. Titus Astudillo VLDL CALC 5.6 mg/dL Normal [facility] Comment on above: Performed By: #### C MP, LIPID #### [facility] [address] [place] [address] Dr. Titus Astudillo PROF 14(COMP METB)on 01-28- 022 Albumin [Mass/Vol] 4.1 g/dL Normal 3.4-5.0 [place] Comment on above: Performed By: #### C MP, LIPID #### [facility] [address] [place] [address] Dr. Titus Astudillo Albumin/Globulin [Mass ratio] 1.1 {ratio} Normal [facility] Comment on above: Performed By: #### C MP, LIPID #### [facility] [address] [place] [address] Dr. Titus Astudillo ALP [Catalytic activity/Vol] 73 U/L Normal 46-116 [facility] Comment on above: Performed By: #### C MP, LIPID #### [facility] [address] [address] [address] Titus Astudillo ALT [Catalytic activity/Vol] 29 U/L Normal 14-59 [facility] Comment on above: Performed By: #### C MP, LIPID #### [facility] [address] [address] [address] Titus Astudillo Anion gap [Moles/Vol] 12.7 mmol/L Normal [facility] Comment on above: Performed By: #### C MP, LIPID #### [facility] [address] [address] [address] Titus Astudillo AST [Catalytic activity/Vol] 24 U/L Normal 15-37 [facility] Comment on above: Performed By: #### C MP, LIPID #### [facility] [address] [address] [address] Titus Astudillo Bilirubin [Mass/Vol] 0.5 mg/dL Normal 0.2-1.0 [facility] Comment on above: Performed By: #### C MP, LIPID #### [facility] [address] [address] [address] Titus Astudillo Calcium [Mass/Vol] 9.5 mg/dL Normal 8.5-10.1 [place] Comment on above: Performed By: #### C MP, LIPID #### [facility] [address] [address] [address] Titus Astudillo Chloride [Moles/Vol] 102 mmol/L Normal 98-107 [facility] Comment on above: Performed By: #### C MP, LIPID #### [facility] [address] [address] [address] Titus Astudillo CO2 [Moles/Vol] 29.6 mmol/L Normal 21.0-32.0 [facility] Comment on above: Performed By: #### C MP, LIPID #### [facility] [address] [address] [address] Titus Astudillo Creatinine [Mass/Vol] 1.02 mg/dL Normal 0.55-1.02 [facility] Comment on above: Performed By: #### C MP, LIPID #### [facility] [address] [address] [address] Titus Astudillo EGFR-AF OMANI >60 Normal >=60 [facility] Comment on above: Performed By: #### C MP, LIPID #### [facility] [address] [address] [address] Titus Astudillo EGFR-NON AF OMANI 56 mL/min/1.73m2 Critically low >=60 [facility] Comment on above: Performed By: #### C MP, LIPID #### [facility] [address] [address] [address] Titus Astudillo Globulin (S) [Mass/Vol] 3.8 g/dL Normal T [facility] Comment on above: Performed By: #### C MP, LIPID #### [facility] [address] [address] [address] Titus Astudillo Glucose [Mass/Vol] 98 mg/dL Normal 74-106 [place] Comment on above: Performed By: #### C MP, LIPID #### [facility] [address] [address] [address] Titus Astudillo Potassium [Moles/Vol] 4.3 mmol/L Normal 3.5-5.1 [facility] Comment on above: Performed By: #### C MP, LIPID #### [facility] [address] [address] [address] Titus Astudillo Protein [Mass/Vol] 7.9 g/dL Normal 6.4-8.2 [place] Comment on above: Performed By: #### C MP, LIPID #### [facility] [address] [address] [address] Titus Astudillo Sodium [Moles/Vol] 140 mmol/L Normal 136-145 [place] Comment on above: Performed By: #### C MP, LIPID #### [facility] [address] [address] [address] Titus Astudillo Urea nitrogen [Mass/Vol] 21.0 mg/dL Critically high 7.0-18.0 [facility] Comment on above: Performed By: #### C MP, LIPID #### [facility] [address] [address] [address] Titus Astudillo Urea nitrogen/Creatinine [Mass ratio] 20.6 mg/mg Normal [facility] Comment on above: Performed By: #### C MP, LIPID #### [facility] [address] [address] [address] Titus Astudillo Q - SARS CoV2 COVID 19 Ab Ig [place] 03-29-2021 SARS-CoV-2 (COVID-19) Ab IA Qn <1.00 Normal <1.00 [facility] [employer] Comment on above: Order Comment: [facility] Testing performed at: [employer], [employer] [facility], [address] [facility], [address] [place] [address], [phone], [employer]: Randy Corona MD [facility] Collection Date/Time: [id number] [facility] Results Received Date/Time: [id number] [facility] Reported Date/Time: [id number] Result Comment: This test is intended to [...] providers and patients using the following websites: http://[email or web address]-HCP http://[email or web address].[email or web address] Healthcare Providers: For additional information please refer to: http://education.Debteye/faq/ZHV372 (This link is being provided for informational/educational purposes only.) This test has been authorized by the FDA under an Emergency Use Authorization (EUA) for use by authorized laboratories. The FDA authorized labeling is available on the [employer] website: www.[employer]/Covid19. Performed By: #### [id number] #### [facility] Default [address] [place] [address] Vital Signs Date Time Vital Sign Value Performing Clinician Faci lit 02-27-2024 14:55-0500 Body mass index (BMI) [Ratio] 21.74 kg/m2 [employer] DO Work Phone: [facility] 02-27-2024 14:55-0500 Body weight 62.96 kg Umair Velasquez DO Work Phone: [facility] 02-27-2024 14:55-0500 Diastolic blood pressure 78 mm[Hg] Umair Velasquez DO Work Phone: [facility] 02-27-2024 14:55-0500 Systolic blood pressure 120 mm[Hg] Umair Velasquez [employer] Work Phone: [facility] 01-23-2024 14:29-0400 Body weight 61.24 kg Yovani DELGADO Work Phone: [facility] 01-15-2024 15:55-0400 Body height 170.2 cm Solomon Rivas MD Work Phone: [facility] 01-15-2024 15:55-0400 Body mass index (BMI) [Ratio] 21.46 kg/m2 Solomon Rivas MD Work Phone: [facility] 01-15-2024 15:55-0400 Body weight 62.14 kg Solomon Rivas MD Work Phone: [facility] 01-15-2024 15:55-0400 Diastolic blood pressure 88 mm[Hg] Solomon Rivas MD Work Phone: [facility] 01-15-2024 15:55-0400 Heart rate 78 /min Solomon Rivas MD Work Phone: [facility] 01-15-2024 15:55-0400 SaO2% (BldA) [Mass fraction] 99 % Solomon Rivas MD Work Phone: [facility] 01-15-2024 15:55-0400 Systolic blood pressure 122 mm[Hg] Solomon Rivas MD Work Phone: [facility] Healthcare Encounters Encounter Date Encounter Type Care Provider Facility Start: 02-27-2024 End: 02-27-2024 Patient encounter procedure Umair Velasquez DO Work Phone: [facility] Healthcare Work Phone: Start: 02-27-2024 End: 02-27-2024 Periodic preventive med est patient 40-64yrs Umair Velasquez DO Work Phone: [facility] Comment on above: Well woman exam with routine gynecological exam Start: 02-27-2024 End: 02-27-2024 ambulatory UMAIR VELASQUEZ Not Available Start: 02-27-2024 End: 02-27-2024 Bamboo flowsheet Umair Velasquez DO Work Phone: [facility] Start: 02-27-2024 End: 02-27-2024 Bamboo flowsheet Umair Velasquez DO Work Phone: [facility] Start: 02-27-2024 End: 02-27-2024 ambulatory [facility] Darrel FAITH [facility] Start: 02-27-2024 End: 02-27-2024 Office outpatient visit 15 minutes Yovani Faith SPIRITUAL CARE COORDINATOR-CANAL DRIVER Work Phone: [facility] Comment on above: Encounter for screen ing colonoscopy (Primary Dx); Upper abdominal pain Start: 01-29-2024 End: 02-04-2024 Telephone encounter Yovani Faith SPIRITUAL CARE COORDINATOR-CANAL DRIVER Work Phone: [facility] Start: 01-23-2024 End: 01-23-2024 Patient encounter procedure Yovani Faith SPIRITUAL CARE COORDINATOR-CANAL DRIVER Work Phone: [facility] Comment on above: Encounter for screen ing colonoscopy (Primary Dx) Start: 01-23-2024 End: 01-23-2024 ambulatory [facility] Darrel FAITH [facility] Ambulatory [facility] Start: 01-19-2024 End: 01-19-2024 External Result Encounter Solomon Rivas MD Work Phone: [facility] External Department Unsolicited Start: 01-19-2024 End: 01-19-2024 External Result Encounter Solomon Rivas MD Work Phone: [facility] External Department Unsolicited Start: 01-19-2024 End: 01-19-2024 Patient encounter procedure MD Solomon Rivas Work Phone: [facility] [place] Work Phone: Start: 01-19-2024 End: 01-19-2024 ambulatory MD Solomon Rivas Work Phone: [facility] Work Phone: Start: 01-19-2024 Encounter for genera l adult medical examination without abnormal findings Solomon Rivas [facility] Start: 01-15-2024 End: 01-15-2024 [...] MD Work Phone: [facility] Start: 02-13-2023 Patient encounter status Solomon Rivas MD Work Phone: [facility] Work Phone: Start: 01-27-2023 End: 01-27-2023 ambulatory MD Solomon Rivas Work Phone: [facility] Work Phone: Start: 01-27-2023 End: 01-27-2023 Patient encounter procedure MD Solomon Rivas Work Phone: [facility] [place] Work Phone: Start: 03-07-2022 End: 03-08-[address] UMAIR WISDOM Facility:[facility]1 Start: 02-22-2022 End: 02-22-[address] UMAIR WISDOM Facility:[facility] Start: 02-01-2022 Encounter for genera l adult medical examination without abnormal findings DR SOLOMON RIVAS [facility] Start: 01-28-2022 End: 01-29-[address] SOLOMON RIVAS Facility:[facility]1 Start: 01-28-2022 End: 01-29-2022 Encounter for general adult medical examination without abnormal findings DR SOLOMON RIVAS Facility:[facility]1 Procedures Date Procedure Procedure Detail Performing Clinician Start: 01-19-2024 Complete blood count with white cell differential, automated Solomon Rivas MD Work Phone: Start: 01-19-2024 Comprehensive metabo lic panel Solomon iRvas MD Work Phone: Start: 01-19-2024 Lipid panel Solomon Aquino MD Work Phone: Start: 02-26-2023 Mammography Solomon Rivas MD Work Phone: Start: 02-22-2022 Microscopic observat ion [Identifier] in Cervix by Cyto stain Solomon Rivas MD Work Phone: Start: 10-07-2014 Colonoscopy Solomon Rivas MD Work Phone: Plan of Treatment Date Care Activity Detail Author Start: 02-22-2027 Screening for malignant neoplasm of cervix [facility] Healthcare Start: 02-26-2025 Tobacco Screening Tobacco Screening [facility] Start: 02-25-2025 End: 02-25-2025 Patient encounter procedure 02/25/2025 1:00 PM EST Office Visit [facility] [address] [place] [id number] Umair Wisdom, [address] [place] [address] [facility] Start: 02-22-2025 Screening for malignant neoplasm of cervix Pap Smear [facility] Start: 01-22-2025 Tobacco Screening Tobacco Screening [facility] Start: 10-07-2024 Screening for malignant neoplasm of colon [facility] Healthcare Start: 02-27-2024 End: 02-27-2024 Patient encounter procedure [facility] Comment on above: Arrived Start: 02-27-2024 Screening for malignant neoplasm of breast Mammogram [facility] Start: 02-27-2024 End: 02-27-2024 Telemedicine consultation with patient 02/27/2024 9:30 AM EST Telemedicine [facility] [address] [place] [id number] Yovani Faith, SPIRITUAL CARE COORDINATOR-CANAL DRIVER [address] [place] [address] [facility] Start: 01-15-2024 End: 01-15-2024 Patient encounter procedure 01/15/2024 4:15 PM EDT Office Visit [facility] [address] [place] [id number] Solomon Rivas MD [address] [place] [address] Arrived [facility] Comment on above: Arrived Start: 01-15-2024 End: 01-14-2025 CBC W Auto Differential panel - Blood CBC and differential Lab Routine Benign essential hypertension (CMS/HCC) Annual physical exam Stage 3a chronic kidney disease (HCC) (CMS/HCC) Expected: 01/15/2024 (Approximate), Expires: 01/14/2025 [facility] Work Phone: Comment on above: Expected: 01/15/2024 (Approximate), Expi res: 01/14/2025 Start: 01-15-2024 End: 01-14-2025 Comprehensive metabolic 2000 panel - Serum or Plasma Comprehensive metabolic panel Lab Routine Abnormal glucose tolerance test Benign essential hypertension (CMS/HCC) Annual physical exam Expected: 01/15/2024 (Approximate), Expires: 01/14/2025 [facility] Comment on above: Expected: 01/15/2024 (Approximate), Expi res: 01/14/2025 Start: 01-15-2024 End: 01-14-2025 Lipid 1996 panel - Serum or Plasma Lipid panel Lab Routine Annual physical exam Screening for lipid disorders Expected: 01/15/2024 (Approximate), Expires: 01/14/2025 [facility] Comment on above: Expected: 01/15/2024 (Approximate), Expi res: 01/14/2025 Start: 12-02-2023 Influenza vaccination [facility] Start: 2013 Administration of varicella zoster vaccine Zoster (Shingles) Vaccine (1 of 2) [facility] Start: 1982 DTaP,Tdap and Td Vaccines (1 - Tdap) DTaP,Tdap and Td Vaccines (1 - Tdap) [facility] Start: 1981 Adult BMI Screening Adult BMI Screening [facility] Start: 1975 Depression Screening Depression Screening [facility] Start: 1963 Screening for malignant neoplasm of colon [facility] [employer] End: 01-22-2025 Colonoscopy Colonoscopy GI Routine Encounter for screening colonoscopy 1 Occurrences starting 01/23/2024 until 01/22/2025 [employer] Work Phone: Comment on above: 1 Occurrences starting 01/23/2024 until 01/22/2025 End: 02-26-2025 Esophagogastroduodenoscopy EGD GI Routine Upper abdominal pain 1 Occurrences starting 02/27/2024 until 02/26/2025 [facility] Work Phone: Comment on above: 1 Occurrences starting 02/27/2024 until 02/26/2025 THIN PREP TIS PAP AND HR HPV DNA THIN PREP TIS PAP AND HR HPV DNA Pathology and Cytology Routine Well woman exam with routine gynecological exam Ordered: 02/27/2024 [facility] [employer] Work Phone: Comment on above: Ordered: 02/27/2024 Payers Date Payer Category Payer Self-pay 2022 Managed Care Other (unspecified) [id number] 2022 Private Health Insurance [facility] [id number] 2022 Unknown [id number] 1963 Unknown [id number] 1963 Unknown [id number] 1963 Unknown [id number] 1963 Unknown [id number] 1963 Unknown [id number] 1963 Unknown [id number] 1963 Unknown [id number] 1959 Unknown [id number] Unknown [id number] Social History Date Type Detail Facility Tobacco smoking stat [facility] Unknown if ever smoked [facility] Work Phone: Start: 1965 Sex Assigned At Female F [facility] Start: 02-12-2023 End: 01-23-2024 Tobacco smoking status VAIS Never smoked tobacco [facility] Start: 02-12-2023 End: 01-23-2024 Tobacco use and exposure Smokeless tobacco non-user [facility] Start: 03-01-2023 End: 02-27-2024 Alcoholic beverage intake Lifetime non-drinker (finding) [facility] Start: 02-13-2023 End: 01-15-2024 History of Social function [facility] Start: 02-13-2023 End: 01-15-2024 Tobacco use panel [facility] Start: 1965 Sex assigned at Not on file [facility] Start: 01-23-2024 End: 02-27-2024 Alcoholic beverage intake Ex-drinker (finding) [facility] Start: 01-17-2024 Sex Female (finding) [facility] Clinical Notes 01-15-2024 to 02-27-2024 Trisha Chaconmaría, ANGELIQUE - 02/27/2024 2:30 PM Saul Faith APRN-KARINA - 02/27/2024 9:30 AM ESTTelephone Encounter - Suzanne Sharif - 01/29/2024 1:37 PM EDGurmeet Rivas MD - 01/15/2024 4:15 PM EDT Note Date & Type Note Facility 02-27-2024 History of Presen t illness Narrative Reason for Appointment: Patient ID: Blanca Solitario is a 58 y.o. female who presents for Well Women Visit Patient presents today for Annual Exam. MEDICATIONS No current outpatient medications ALLERGIES No Known Allergies PROBLEMS Active Ambulatory Problems Diagnosis Date Noted Hypertension (CMS/HCC) 01/04/2023 Osteoarthritis of knee 01/04/2023 Plantar wart 01/04/2023 Stage 3a chronic kidney disease (HCC) (CMS/HCC) 01/04/2023 Well adult health check 02/13/2023 Resolved Ambulatory Problems Diagnosis Date Noted No Resolved Ambulatory Problems Past Medical History: Diagnosis Date Breast cancer screening by mammogram 02/26/2023 History of medical problems 02/21/2020 History of medical problems HISTORY PAST MEDICAL HISTORY SOCIAL HISTORY Past Medical History: Diagnosis Date Breast cancer screening by mammogram 02/26/2023 neg History of medical problems 02/21/2020 Endometrial Echotexture measuresup to 0.8 cm. Patient still has periods up to this age History of medical problems History of Post-Menopausal Bleeding Hypertension (CMS/HCC) 01/04/2023 Osteoarthritis of knee 01/04/2023 Stage 3a chronic kidney disease (HCC) (CMS/HCC) 01/04/2023 Social History Tobacco Use Smoking status: Never Smokeless tobacco: Never Substance Use Topics Alcohol use: Never Drug use: Not on file FAMILY HISTORY Family History Problem Relation Name Age of Onset Cancer Mother Leukemia Father Heart disease Father SURGICAL HISTORY Past Surgical History: Procedure Laterality Date COLONOSCOPY 2014 normal DILATION AND CURETTAGE OF UTERUS 2019 dr wisdom REVIEW OF SYSTEMS Review of Systems: Review of Systems Constitutional: Negative. HENT: Negative. Eyes: Negative. Respiratory: Negative. Cardiovascular: Negative. Gastrointestinal: Negative. Genitourinary: Negative. Musculoskeletal: Negative. Skin: Negative. Neurological: Negative. All other systems reviewed and are negative. Hematological: Negative. Endocrine: Negative. Allergic/Immunologic: Negative. OBJECTIVE Objective: Physical Exam Constitutional: Appearance: Normal appearance. She is well-developed. Genitourinary: Vulva normal. Breasts: Breasts are soft. Right: Normal. Left: Normal. Cardiovascular: Rate and Rhythm: Normal rate and regular rhythm. Pulmonary: Effort: Pulmonary effort is normal. Breath sounds: Normal breath sounds. Abdominal: General: Bowel sounds are normal. There is no distension. Palpations: Abdomen is soft. Tenderness: There is no abdominal tenderness. There is no guarding or rebound. Musculoskeletal: General: No swelling. Normal range of motion. Right lower leg: No edema. Left lower leg: No edema. Neurological: Mental Status: She is alert and oriented to person, place, and time. Skin: General: Skin is warm and dry. Psychiatric: Mood and Affect: Mood normal. Behavior: Behavior normal. Vitals and nursing note reviewed. Exam conducted with a art gallery director present. Vitals: Estimated body mass index is 21.74 kg/m as calculated from the following: Height as of 01/15/24: 5' 7 . Weight as of this encounter: 138 lb 12.8 oz. BP: 120/78 No LMP recorded. ASSESSMENT & PLAN ICD-10-CM 1. Well woman exam with routine gynecological exam Z01.419 THIN PREP TIS PAP AND HR HPV DNA Annual Exam: Patient presents today for an annual exam. Patient states she is doing well and has no complaints. Pap was obtained without difficulty. Pt to have mammogram and dexa scan next week. No orders of the defined types were placed in this encounter. Follow Up: Patient is to return in one year for annual unless needed otherwise. Documented by Trisha Holt LPN on behalf of: Umair Wisdom DO documented in this encounter [facility] 02-27-2024 History of Presen t illness Narrative [...] patient/family/caregiver Referring and communicating with other health associate director career services Encounter for screening colonoscopy [Z12.11] YOVANI FATIH, SPIRITUAL CARE COORDINATOR-CANAL DRIVER [facility] [place] This note was created with the assistance of a speech recognition program. While intending to generate a timely document that accurately reflects the content of the visit, no guarantee can be provided that every grammatical or spelling mistake has been or will be identified or corrected. Thank you for your understanding. Video Visit via Real-time Synchronous Audiovisual Provider Location: [facility] [address] [facility] [address] Patient Location: Patient's home Video Visit Consent [...] that there are some limitations compared to [id number] evaluations. The patient consented to the presence of additional virtual and/or in-person participants. We elected to proceed. DANNY Hoffman 02/27/24 0955 documented in this encounter [facility] 01-29-2024 Miscellaneous Notes Called Blanca regarding the GERD referral that our office received from Blanca Jarvis states that she is already scheduled for a colonoscopy with Dr Lloyd on 02/20/24 at [facility] at 8 am. Sent Lorrie S a staff message to see if we can just add the EGD to the colonoscopy or if she will need to see Yovani Faith NP before that. Lorrie called Blanca and got her scheduled for a video visit with Yovani Faith NP for 02/25/24. documented in this encounter [facility] 01-29-2024 Telephone encounter Note Called Blanca regarding the GERD referral that our office received from Blanca Jarvis states that she is already scheduled for a colonoscopy with Dr Lloyd on 02/20/24 at [facility] at 8 am. Sent Lorrie S a staff message to see if we can just add the EGD to the colonoscopy or if she will need to see Yovani Faith NP before that. [facility] 01-29-2024 Telephone encounter Note Lorrie called Blanca and got her scheduled for a video visit with Yovani Faith NP for 02/25/24. [facility] 01-23-2024 History of Presen t illness Narrative [...] patient/family/caregiver Referring and communicating with other health associate director career services Encounter for screening colonoscopy [Z12.11] YOVANI FAITH, SPIRITUAL CARE COORDINATOR-CANAL DRIVER [facility] [place] This note was created with the assistance of a speech recognition program. While intending to generate a timely document that accurately reflects the content of the visit, no guarantee can be provided that every grammatical or spelling mistake has been or will be identified or corrected. Thank you for your understanding. DANNY Hoffman 01/23/24 1453 documented in this encounter [facility] 01-15-2024 Telephone encounter Note Patient called and said she forgot to mention at her appointment today that she would like to have her colonoscopy done before the end of the year. [facility] 01-15-2024 Miscellaneous Notes Patient called and said she forgot to mention at her appointment today that she would like to have her colonoscopy done before the end of the year. documented in this encounter [facility] 01-15-2024 History of Presen t illness Narrative [...] 01/04/2023 Stage 3a chronic kidney disease (HCC) ([facility]) 01/04/2023 Past Surgical History: Procedure Laterality Date [...] Visit Stage 3a chronic kidney disease (HCC) ([facility]) Relevant Orders CBC and differential Well adult [...] Evaluation note No assessment inform ation available [facility] Work Phone: Evaluation note Diagnosis Encounter [...] screening colonoscopy- Primary [facility] Encounter for screening colonoscopy- Primary Upper abdominal pain [facility] Diagnosis Encounter for well adult exam without abnormal findings- Primary Well adult health check- Primary Unspecified general medical examination Abnormal glucose tolerance test Impaired glucose tolerance test Benign essential hypertension (CMS/HCC) Essential hypertension, benign Annual physical exam Routine general medical examination at a health care facility Stage 3a chronic kidney disease (HCC) (CMS/HCC) Screening for lipid disorders Well woman exam with routine gynecological exam Routine gynecological examination documented in this encounter [facility] HealthcareInstructionsNot on filedocumented in this encounterProMedica Health SystemInstructionsNot on filedocumented in this encounterProMedica Health SystemInstructionsNot on filedocumented in this encounterProMedica Health System Summary Purpose Family History No Family History Records FoundNo Family History Records FoundNo Family History Records FoundNo Family History Records FoundNo Family History Records Found Advance Directives No Advanced Directives Records Found Advance Directive Response Recorded Date/ Time Advance Directives No January 15, 2023 10:57am Chief Complaint and Reason for Visit Chief Complaint I10 R73.09 Z00.00 Chief Complaint I10 Z00.00 N18.31 R7 3.09 Z13.220 Additional Source Comments INFORMATION SOURCE (unrecogn ized section and content) DATE CREATED AUTHOR 03/30/2021 [facility] dical Specialist DATE CREATED AUTHOR AUTHOR'S ORGANIZ ATION 03/11/2022 [facility] DATE CREATED AUTHOR AUTHOR'S ORGANIZ ATION 01/28/2024 [facility] ysician [facility] DATE CREATED AUTHOR AUTHOR'S ORGANIZ ATION 03/01/2024 [facility] DATE CREATED AUTHOR AUTHOR'S ORGANIZ ATION 03/01/2024 [facility] dical Specialists EP[employer] Care Teams (unrecognized sec tion and content) Team Status: Active Member Role Status Dates Solomon Rivas MD Primary Care Provider Active Team Status: Inactive Member Role Status Dates Solomon Rivas MD Primary Care Provider, Attending Pro vider Active Edge Stainer Relationship Specialty Start Date End Date Solomon Rivas MD [address] [facility] [address] [place] [address] PCP - General Family Medicine 08/08/22 Edge Stainer Relationship Specialty Start Date End Date Solomon Rivas MD [address] [facility] [address] [place] [address] PCP - General Family Medicine 08/08/22 Edge Stainer Relationship Specialty Start Date End Date Solomon Rivas MD [address] [facility] [address] [place] [address] PCP - General Family Medicine 08/08/22 Edge Stainer Relationship Specialty Start Date End Date Solomon Rivas MD [address] [facility] [address] [place] [address] PCP - General Family Medicine 08/08/22 Team Status: Inactive Member Role Status Dates Solomon Rivas MD Primary Care Provide r, Attending Provider, Referring Provider Active Start: January 19, 2024 End: January 19, 2024 Edge Stainer Relationship Specialty Start Date End Date Solomon Rivas MD [address] [facility] [address] [place] [address] PCP - General Family Medicine 01/29/24 Edge Stainer Relationship Specialty Start Date End Date Solomon Rivas MD [address] [facility] [address] [place] [address] PCP - General Family Medicine 01/29/24 Edge Stainer Relationship Specialty Start Date End Date Solomon Rivas MD [address] [facility] [address] [place] [address] PCP - General Family Medicine 08/08/22 Goals (unrecognized section and content) Goals may [...] yearly Specialty Diagnoses / Procedures Referred By Contmau t Referred To Contact Gastroenterology Diagnoses Screening for malignant neoplasm of colon Procedures PA OFFICE OUTPATIENT VISIT 60-74 MINS HIGH MDM [id number] (SNOMED CT) - AMB REFERRAL TO GASTROENTEROLOGY Solomon Rivas MD [address] [facility] [address] [place] [address] Phone: tel: fax: Jerad Lloyd DO [address] [place] [address] Phone: tel:[phone] fax:[phone] Referral ID Status Reason Start Date Expiration Date V isits Requested Visits Authorized [id number] Pending Review 01/16/2024 07/14/2024 1 1 Reason Comments Colon Cancer Screening Reason Comments Well Women Visit FOR RECORDS PERTAINING TO PATIENTS WHO ARE [...] BE BASED ON THE PRIMARY CLINICAL RECORDS. [facility]. provides no warranty or guarantee of the accuracy or completeness of information in this document.
[2024-03-05 06:30] VITALS: BP 157/109; PULSE 87; TEMP 36.3; O2SAT 100; BMI 21.1
--- NOTE | 2024-03-05 07:14 | PM.GSPN ---
Progress Note: A&P Assessment and Plan (1) Epigastric abdominal pain: (2) Screening for cancer: Plan 1. Epigastric abdominal pain rule out gastritis H. pylori 2. Excessive caffeine use 3. Screening for cancer Plan: EGD with biopsy and colonoscopy with possible biopsy or polypectomy. Risks benefits and alternatives to procedures may include perforation or bleeding. She voiced understanding of all the above and wished to proceed. Subjective Subjective Patient reports: still having pain (Gnawing epigastric pain) Interval history: 58-year-old female presents for screening colonoscopy but failed to tell my nurse practitioner that she has had gnawing epigastric pain off and on for the last several months. She drinks 3 cups of coffee daily and on the weekends 1-2 pots of coffee when the pain is worse. She takes Tums 3 of them at a time and that helps with the discomfort. She denies any melena or hematochezia and has never had upper endoscopy. She wishes to have an EGD today. She is here otherwise for screening colonoscopy. Exam Constitutional Vital Signs, click to edit/add: Last Vital Signs Temp 97.3 F L 03/05/24 06:30 Pulse 87 03/05/24 06:30 Resp 16 03/05/24 06:30 BP 157/109 H 03/05/24 06:30 Pulse Ox 100 03/05/24 06:30 O2 Del Method Room Air 03/05/24 06:30 Documenting provider has reviewed patient's vital signs: yes Common normals: no apparent distress, average body habitus, oriented x3, no limitations, healthy appearing, alert and well nourished General appearance: cooperative, comfortable, well kempt and well developed Orientation/consciousness: Yes awake, Yes oriented to person, Yes oriented to place and Yes oriented to time GI Common normals: Normal to inspection, nondistended, normoactive bowel sounds present, soft to palpation, non-tender, no hepatosplenomegaly and no masses Palpation: soft Neuro Common normals: oriented x3 and CN's II-XII intact bilaterally Date and Time Date and Time of Service Date of service: 03/05/24 Time: 07:14
[2024-03-05] MEDS: 0.9 % SODIUM CHLORIDE 500 ML 50 ML IV (07:19)
--- NOTE | 2024-03-05 07:20 | P.GSPRC_ITS ---
Date of procedure: 03/05/24 Indications for Procedure: Epigastric abdominal pain Screening for cancer Pre-op diagnosis: Epigastric abdominal pain/screening for cancer Post-op diagnosis: other (Rule out Gastritis and esophagitis; diverticulum single descending colon) Procedure: EGD with biopsy antrum and distal esophagus colonoscopy Findings: Diverticulum of colon Mild this and esophagitis Anesthesia: [facility] Surgeon: Jerad Lloyd Procedure Summary: PROCEDURE: The patient was taken to the Endoscopy Suite, placed in the left lateral recumbent position, given IV sedation as above. The Olympus EGD scope was advanced under direct visualization into the posterior pharynx esophagus into the stomach through the pylorus into the first second third fourth portions of the duodenum which were completely normal. There were no ulcers polyps or tumors noted. The scope was withdrawn to the stomach retroflexed on itself looking at the GE junction which was normal. There were no ulcers polyps or tumors seen but there was mild watermelon stomach and gastritis noted. Biopsies were taken with hemostasis maintained. The scope was then withdrawn to the distal esophagus where she has mild esophagitis and biopsies were taken to rule out Jeff's esophagus. The rest of the esophagus was completely normal. The scope was removed from the mouth. A rectal digital exam was performed. The sphincter tone was found to be normal. No rectal masses were appreciated. The Olympus video colonoscope was advanced under direct visualization to the rectum, sigmoid colon, descending colon, transverse colon and ascending colon to the ileocecal valve with difficulty. Abdominal pressure had to be placed on the abdominal wall. Appendiceal lumen was visualized. The underside of the valve was seen. The scope was slowly withdrawn with air being desufflated as it was withdrawn. No gross tumors, poly ps were seen. There was a single diverticulum seen in the descending colon. Prep was adequate to identify polyps greater than 5 mm. The patient tolerated the procedure well and went to the Recovery Area in satisfactory condition. I recommend the patient have repeat screening colonoscopy in 10 years unless problems. Would recommend high-fiber diet and lots of fruits and vegetables and water. Estimated blood loss (mL): 0 Complications: No Condition: stable Disposition: PACU
[2024-03-05 08:04] VITALS: BP 151/99; PULSE 76; TEMP 36.1; O2SAT 99
[2024-03-05 08:19] VITALS: BP 138/89; PULSE 80; O2SAT 99
[2024-03-05 08:34] VITALS: BP 136/82; PULSE 83; O2SAT 98
[2024-03-06 09:42] LABS: H Pylori Tissue, Urease Negative
== END 2024-03-05 08:45 | disposition home or self-care (01) ==
PROVIDERS: PCP Family Medicine; Visit Provider Surgery
PROC: (CPT 00813; principal; 2024-03-05 07:30)
DX: Z12.11 Encounter for screening for malignant neoplasm of colon (principal); R10.13 Epigastric pain; K57.30 Diverticulosis of large intestine without perforation or abscess without bleeding; K21.00 Gastro-esophageal reflux disease with esophagitis, without bleeding; K29.50 Unspecified chronic gastritis without bleeding
CPT/HCPCS: 00813; 43239; 45378; 87077; 99999; J2704

== ENCOUNTER 2024-03-06 15:22 | Outpatient (OUT) | payer OTHER, SELFPAY ==
--- NOTE | 2024-03-06 15:27 | MM_ITS ---
Patient Name: BLANCA PEDERSON MR#: [id number] : 1965 Exam Date: 03/06/2024 Ordering Doctor: DR Fredrick Eng . RADIOLOGY REPORT PROCEDURE: MM TOMOSYNTHESIS SCREENING BI COMPARISON: MM TOMOSYNTHESIS SCREENING BI, 02/20/2023. MG MAMM SCREEN 3D MATT CAD, 03/07/2022. MG MAMM SCREEN 3D MATT CAD, 03/03/2021. MG MAMM MATT SCRN W CAD DIG, 11/11/2012. INDICATIONS: Screening Calculator Name NCI Breast Cancer Risk Assessment Tool 5 Year Breast Cancer Risk 2.70% Lifetime Breast Cancer Risk 13.60% Personal Breast Cancer No Personal Ovarian Cancer No Treatments None Family Cancers Mother with breast cancer at age 63. LOCATION: [facility] BREAST COMPOSITION: The breasts are heterogeneously dense,which may obscure small masses. FINDINGS: DIAGNOSTIC CATEGORY 1--NEGATIVE. RIGHT BREAST: No significant suspicious finding. No significant change has occurred. LEFT BREAST: No significant suspicious finding. No significant change has occurred. RECOMMENDATIONS: ROUTINE MAMMOGRAM AND CLINICAL EVALUATION IN 12 MONTHS. PLEASE NOTE: A NORMAL MAMMOGRAM DOES NOT EXCLUDE THE POSSIBILITY OF BREAST CANCER. A CLINICALLY SUSPICIOUS PALPABLE LUMP SHOULD BE BIOPSIED. Dictated by: Eduar Trimble M.D. on 03/07/2024 at 09:41 Approved by: Eduar Trimble M.D. on 03/07/2024 at 09:46
--- OUTSIDE RECORDS SUMMARY | 2024-03-06 15:27 | XMS_ITS | CCD ---
Author Organization [facility] Care Team Providers Care [place] Name Role Phone VELASQUEZ, DR BLOCK Admitting [...] Care Provider MD Solomon Rivas Attending Provider Solomon Rivas MD Primary Care Provider MD Solomon Rivas Primary Care Provider MD Solomon Rivas Attending Provider MD Solomon Rivas Referring Provider Unavailable Primary Care Provider Unavailabl e Solomon Rivas Primary Care Unavailable Solomon Rivas Attending Unavailable Solomon Rivas Referring Unavailable Solomon Rivas Admitting Unavailable Evelyn Solomon CURTIS Primary Care Provider [phone] YOVANI FAITH Attending Unavailable SOLOMON RIVAS Referring Unavailable YOVANI FAITH Attending Unavailable SOLOMON RIVAS Referring Unavailable SOLOMON RIVAS Primary Care Unavailable SOLOMON RIVAS Attending Unavailable UMAIR WISDOM Attending Unavailable Medications Current Medications Medication Drug Class(es) Dates Sig (Normalized) Sig (Original) MULTIVITAMIN ORAL (4 sources) MULTIVITAMIN ORA L Take by mouth. Active sod sulf-pot chloride-mag sulf 1.479-0.188- 0.225 gram tablet (4 sources) Start: 01-23-2024 sod sulf-pot chloride-mag sulf 1.479-0.188- 0.225 gram tablet Indications: Encounter for screening colonoscopy Please see instructional sheet given by physicians office. 24 tablet 01/23/2024 Active Problems Active Problems Problem Classification Problem Date Documented Date Episodic/Chronic Abdominal pain (1 source) Upper abdominal pain; Translations: [Upper abdominal pain, unspecified] 02-27-2024 Episodic Chronic kidney disease (12 sources) Chronic kidney disease stage 3A ; Translations: [Stage 3a chronic kidney disease (HCC)] Onset: 01-04-2023 01-04-2023 Chronic Diabetes mellitus without complication (2 sources) Abnormal glucose tolerance test; Translations: [Other abnormal glucose] 01-15-2024 Episodic Essential hypertension (13 sources) Essential (primary) hypertension; Translations: [Hypertensive disorder] Onset: 02-01-2022 01-04-2023 Chronic Immunizations and screening for infectious disease (1 source) Encounter for screening for human papillomavirus (HPV); Translations: [ENC SCREENING HUMAN PAPILLOMAVIRUS] Onset: 02-27-2022 Episodic Osteoarthritis (10 sources) Osteoarthritis of knee; Translations: [Osteoarthritis of knee, unspecified] Onset: 01-04-2023 01-04-2023 Chronic Other screening for suspected conditions (not mental disorders or infectious disease) (14 sources) Encounter for screening mammogram for malignant [...] Date Documented Da te Episodic/Chronic Viral infection (10 sources) Verruca plantaris; Translations: [Plantar wart] Onset: 01-04-2023 01-04-2023 Episodic Results Test Name Value Interpretation Reference Range Facility TB H PYLORI TISSUEon 2023 H PYLORI TISSUE, UREASE Negative N OMS [facility] Colonoscopyon 03-05-2024 [facility] Alanine aminotransferase [En zymatic activity/volume] in Serum or PlasmaOrdered By: Solomon Becerrila on 01-19-2024 ALT [Catalytic activity/Vol] 18 U/L Normal 7-52 [facility] Comment on above: Performed By: #### C BC, CMP, LIPID #### [place] [address] [place] Albumin [Mass/volume] in Ser um or Plasma by Bromocresol green (BCG) dye binding methoOrdered By: Solomon Becerrila on 01-19-2024 Albumin BCG dye [Mass/Vol] 4.1 g/dL 3.5-5.7 [facility] Alkaline phosphatase [Enzyma tic activity/volume] in Serum or PlasmaOrdered By: Solomon Becerrila on 01-19-2024 ALP [Catalytic activity/Vol] 68 U/L Normal 34-104 [facility] Comment on above: Performed By: #### C BC, CMP, LIPID #### [place] [address] [place] Aspartate aminotransferase [ Enzymatic activity/volume] in Serum or PlasmaOrdered By: Solomon Becerrila on 01-19-2024 AST [Catalytic activity/Vol] 23 U/L Normal 13-39 [facility] Comment on above: Performed By: #### C BC, CMP, LIPID #### [address] Automated basophil %Ordered By: Solomon Rivas on 01-19-2024 Basophils/100 WBC (Bld) 0.8 % Normal . [facility] Comment on above: Performed By: #### C BC, CMP, LIPID #### [address] Automated basophil countOrde red By: Solomon Rivas on 01-19-2024 Basophils (Bld) [#/Vol] 0.1 10*3/uL Normal 0.0-0.2 [facility] Comment on above: Result Comment: PERF ORMED BY: [place] [address] PATHOLOGIST MANA[employer] SATHYA LOWRY M.D. Performed By: #### C BC, CMP, LIPID #### [address] Automated blood monocyte cou ntOrdered By: Rugen [place] on 01-19-2024 Monocytes (Bld) [#/Vol] 0.6 10*3/uL Normal 0.0-0.8 [facility] Comment on above: Performed By: #### C BC, CMP, LIPID #### [address] Automated eosinophil %Ordere d By: Rugen Evelyn on 01-19-2024 Eosinophils/100 WBC (Bld) 2.5 % Normal . [facility] Comment on above: Performed By: #### C BC, CMP, LIPID #### [address] Automated eosinophil countOr dered By: Rugen [place] on 01-19-2024 Eosinophils (Bld) [#/Vol] 0.2 10*3/uL Normal 0.0-0.45 [facility] Comment on above: Performed By: #### C BC, CMP, LIPID #### [address] Automated monocyte %Ordered By: Rugen Evelyn on 01-19-2024 Monocytes/100 WBC (Bld) 7.8 % Normal . [facility] Comment on above: Performed By: #### C BC, CMP, LIPID #### [address] Automated neutrophil %Ordere d By: Rugen [place] on 01-19-2024 Neutrophils/100 WBC (Bld) 63.3 % Normal . [facility] Comment on above: Performed By: #### C BC, CMP, LIPID #### [address] Bilirubin.total [Mass/volume ] in Serum or PlasmaOrdered By: Rugen [place] on 01-19-2024 Bilirubin [Mass/Vol] 0.6 mg/dL Normal 0.3-1.0 [facility] Comment on above: Performed By: #### C BC, CMP, LIPID #### [facility] [address] [place] [id number] [facility] CBC W Auto Differential pane l (Bld)on 01-19-2024 Basophils (Bld) [#/Vol] 0.1 10*3/uL 0.0 - 0.2 10*3/uL [facility] Basophils/100 WBC Manual cnt (Syn fld) 0.8 % . [facility] Eosinophils (Bld) [#/Vol] 0.2 10*3/uL 0.0 - 0.45 10*3/uL [facility] Eosinophils/100 WBC Manual cnt (Syn fld) 2.5 % . [facility] Erythrocyte distribution width (RBC) [Ratio] 12.5 % 11.9 - 15.3 % [facility] Hematocrit (Bld) [Volume fraction] 40.8 % 34.0 - 46.4 % [facility] Hemoglobin (Bld) [Mass/Vol] 13.9 g/dL 11.8 - 15.4 g/dL [facility] Lymphocytes (Bld) [#/Vol] 2.1 10*3/uL 1.00 - 4.8 10*3/uL [facility] Lymphocytes/100 WBC Manual cnt (Syn fld) 25.6 % . [facility] MCH (RBC) [Entitic mass] 32.6 pg 24.7 - 34.3 pg [facility] MCHC (RBC) [Mass/Vol] 34.1 g/dL 32.0 - 35.0 g/dL [facility] MCV (RBC) [Entitic vol] 95.4 fL 80 - 100 fL [facility] Monocytes (Bld) [#/Vol] 0.6 10*3/uL 0.0 - 0.8 10*3/uL [facility] Monocytes+Macrophages/1 00 WBC Manual cnt (Syn fld) 7.8 % . [facility] Neutrophils (Bld) [#/Vol] 5.1 10*3/uL 1.8 - 7.7 10*3/uL [facility] Neutrophils/100 WBC Manual cnt (Syn fld) 63.3 % . [facility] NRBC 0.1 /100{WBC} 0 - 0.5 /100{WBC} [facility] Platelet mean volume (Bld) [Entitic vol] 7.8 fL 6.3 - 10.7 fL [facility] Platelets (Bld) [#/Vol] 293 10*3/uL 150 - 450 10*3/uL [facility] RBC LM.HPF (Urine sed) [#/Area] 4.27 /[HPF] 3.60 - 5.00 [facility] WBC (Bld) [#/Vol] 8.1 10*3/uL 3.8 - 11.6 10*3/uL [facility] WBC LM.HPF (Urine sed) [#/Area] 8.1 10*3/uL 3.8 - 11.6 10*3/uL [facility] Calcium [Mass/volume] in Ser um or PlasmaOrdered By: Solomon Rivas on 01-19-2024 Calcium [Mass/Vol] 9.3 mg/dL Normal 8.6-10.3 [place] Comment on above: Performed By: #### C BC, CMP, LIPID #### [facility] [address] [place] [address] [place] Carbon dioxide, total [Moles /volume] in Serum or PlasmaOrdered By: Solomon Rivas on 01-19-2024 CO2 [Moles/Vol] 29.5 mmol/L Normal 21.0-31.0 [facility] Comment on above: Performed By: #### C BC, CMP, LIPID #### [facility] [address] [place] [address] [place] Chloride [Moles/volume] in S pat or PlasmaOrdered By: Solomon Rivas on 01-19-2024 Chloride [Moles/Vol] 105 mmol/L Normal 98-107 [facility] Comment on above: Performed By: #### C BC, CMP, LIPID #### [facility] [address] [place] [address] [place] Cholesterol [Mass/volume] in Serum or PlasmaOrdered By: Solomon Rivas on 01-19-2024 Cholesterol [Mass/Vol] 157 mg/dL Normal 140-200 [facility] Comment on above: Chol less than 200 m g/dl low riskChol 201-239 mg/dl borderline riskChol 240 mg/dl and greater high risk Result Comment: Chol less than 200 mg/dl low risk Chol 201-239 mg/dl borderline risk Chol 240 mg/dl and greater high risk Performed By: #### C BC, CMP, LIPID #### [address] Cholesterol in LDL Calc [Mas s/Vol]Ordered By: Solomon Rivas on 01-19-2024 Cholesterol in LDL [Mass/Vol] 64 mg/dL 0-100 [facility] Comment on above: LDL ATP III CLASSIFI CATIONLDL less than 100 mg/dL OptimalLDL 100-129 mg/dL Near or above optimalLDL 130-159 mg/dL Borderline highLDL 160-189 mg/dL HighLDL greater than 189 mg/dL Very high Cholesterol in VLDL Calc [Ma ss/Vol]Ordered By: Solomon Rivas on 01-19-2024 Cholesterol in VLDL [Mass/Vol] 7 mg/dL [facility] Complete Blood Count Auto Di ffon 01-19-2024 Mean Corpuscular HGB Conc 34.1 g/dL Normal 32.0-35.0 [facility] Comment on above: Performed By: #### C BC, CMP, LIPID #### [address] NRBC% 0.1 /100{WBC} Normal 0-0.5 [facility] Comment on above: Performed By: #### C BC, CMP, LIPID #### [address] Comprehensive Metabolic Pane ayad 01-19-2024 Albumin [Mass/Vol] 4.1 g/dL Normal 3.5-5.7 [facility] Comment on above: Performed By: #### C BC, CMP, LIPID #### [facility] [address] [place] [address] [place] GFR/1.73 sq M.predicted MDRD (S/P/Bld) [Vol rate/Area] mL/min/{1.73_m2} Normal [facility] Comment on above: Performed By: #### C BC, CMP, LIPID #### [address] Comprehensive metabolic pane ayad 01-19-2024 Albumin [Mass/Vol] 4.1 g/dL 3.5 - 5.7 g/dL [facility] Albumin/Globulin [Mass ratio] 1.5 {ratio} [facility] ALP [Catalytic activity/Vol] 68 U/L 34 - 104 U/L [facility] ALT [Catalytic activity/Vol] 18 U/L 7 - 52 U/L [facility] Anion gap [Moles/Vol] 10 mmol/L 6.0 - 15.0 [facility] AST [Catalytic activity/Vol] 23 U/L 13 [...] System Globulin (S) [Mass/Vol] 2.7 g/dL N [facility] Glucose [Mass/Vol] 87 mg/dL 70 - 100 [...] 01-19-2024 Creatinine [Mass/Vol] 0.99 mg/dL Normal 0.60-1.20 [facility] Comment on above: Performed By: #### C BC, CMP, LIPID #### [facility] [address] Erythrocyte distribution wid th [Ratio] by Automated countOrdered By: Solomon Rivas on 01-19-2024 Erythrocyte distribution width (RBC) [Ratio] 12.5 % Normal 11.9-15.3 [facility] Comment on above: Performed By: #### C BC, CMP, LIPID #### [facility] [address] Erythrocytes [#/volume] in B lood by Automated countOrdered By: Solomon Rivas on 01-19-2024 RBC (Bld) [#/Vol] 4.27 10*6/uL Normal 3.60-5.00 [facility] Comment on above: Performed By: #### C BC, CMP, LIPID #### [facility] [address] Glucose [Mass/volume] in Ser um or PlasmaOrdered By: Solomon Rivas on 01-19-2024 Glucose [Mass/Vol] 87 mg/dL Normal 70-100 [place] Comment on above: ADA recommended refe rence rangeRandom Glucose Reference Range is dependent on time and content of last meal. Glucose of more than 200 mg/dL in a nonstressed, ambulatory subject supports the diagnosis of Diabetes Mellitus. Result Comment: [place] om Glucose Reference Range is dependent on time and content of last meal. Glucose of more than 200 mg/dL in a nonstressed, ambulatory subject supports the diagnosis of Diabetes Mellitus. ADA recommended reference range Performed By: #### C BC, CMP, LIPID #### [facility] [address] Hematocrit [Volume Fraction] of Blood by Automated countOrdered By: Solomon Rivas on 01-19-2024 Hematocrit (Bld) [Volume fraction] 40.8 % Normal 34.0-46.4 [facility] Comment on above: Performed By: #### C BC, CMP, LIPID #### [facility] [address] [place] [address] [place] Hemoglobin [Mass/volume] in BloodOrdered By: Solomon Rivas on 01-19-2024 Hemoglobin (Bld) [Mass/Vol] 13.9 g/dL Normal 11.8-15.4 [facility] Comment on above: Performed By: #### C BC, CMP, LIPID #### [facility] [address] [place] [id number] [facility] Leukocytes [#/volume] correc chidi for nucleated erythrocytes in Blood by Automated counOrdered By: Solomon Rivas on 01-19-2024 WBC corrected for nucl RBC Auto (Bld) [#/Vol] 8.1 10*3/uL 3.8-11.6 [facility] Leukocytes [#/volume] in Blo od by Automated countOrdered By: Solomon Rivas on 01-19-2024 WBC (Bld) [#/Vol] 8.1 10*3/uL Normal 3.8-11.6 [place] Comment on above: Performed By: #### C BC, CMP, LIPID #### [facility] [address] [place] [id number] [facility] Lipid 1996 panelon Cholesterol [Mass/Vol] 157 mg/dL [...] LDL Cholesterol,Calculated 64 mg/dL Normal 0-100 [facility] Comment on above: Result Comment: LDL ATP III CLASSIFICATION LDL less than 100 mg/dL Optimal LDL 100-129 mg/dL Near or above optimal LDL 130-159 mg/dL Borderline high LDL 160-189 mg/dL High LDL greater than 189 mg/dL Very high Performed By: #### C BC, CMP, LIPID #### [address] Triglyceride w/Reflex 35 mg/dL Normal 0-149 [facility] Comment on above: Result Comment: TRIG ATP III CLASSIFICATION TRIG less than 150 mg/dL Normal TRIG 150-199 mg/dL Borderline high TRIG 200-500 mg/dL High TRIG greater than 500 mg/dL Very high Standard traceable to the Center for Disease Conrtrol and Prevention (CDC) test method. Performed By: #### C BC, CMP, LIPID #### [address] VLDL CHOLESTEROL 7 mg/dL Normal [facility] Comment on above: Performed By: #### C BC, CMP, LIPID #### [place] [address] [place] Lymphocytes [#/volume] in Bl ood by Automated countOrdered By: Solomon Rivas on 01-19-2024 Lymphocytes (Bld) [#/Vol] 2.1 10*3/uL Normal 1.00-4.8 [facility] Comment on above: Performed By: #### C BC, CMP, LIPID #### [place] [address] [place] Lymphocytes/100 leukocytes i n Blood by Automated countOrdered By: Solomon Rivas on 01-19-2024 Lymphocytes/100 WBC (Bld) 25.6 % Normal . [facility] Comment on above: Performed By: #### C BC, CMP, LIPID #### [facility] [address] MCH [Entitic mass] by Automa chidi countOrdered By: Solomon Rivas on 01-19-2024 MCH (RBC) [Entitic mass] 32.6 pg Normal 24.7-34.3 [facility] Comment on above: Performed By: #### C BC, CMP, LIPID #### [facility] [address] [place] [address] MCHC Auto (RBC) [Mass/Vol]Or dered By: Solomon Rivas on 01-19-2024 MCHC (RBC) [Mass/Vol] 34.1 g/dL 32.0-35.0 [facility] MCV [Entitic volume] by Auto mated countOrdered By: Solomon Rivas on 01-19-2024 MCV (RBC) [Entitic vol] 95.4 fL Normal 80-100 [facility] Comment on above: Performed By: #### C BC, CMP, LIPID #### [address] Neutrophils [#/volume] in Bl ood by Automated countOrdered By: Solomon Rivas on 01-19-2024 Neutrophils (Bld) [#/Vol] 5.1 10*3/uL Normal 1.8-7.7 [facility] Comment on above: Performed By: #### C BC, CMP, LIPID #### [address] No Panel Informationon 01-18 [facility] No Panel InformationOrdered By: Solomon Rivas on 01-19-2024 Estimated GFR (CKD-EPI) > 60.0 mL/Min [facility] Creatinine Clearance (Chem N/A [facility] Nucleated erythrocytes [Pres ence] in Blood by Automated countOrdered By: Solomon Rivas on 01-19-2024 Nucleated RBC Auto Ql (Bld) 0.1 /100{WBC} 0-0.5 [facility] Platelet mean volume [Entiti c volume] in Blood by Automated countOrdered By: Solomon Rivas on 01-19-2024 Platelet mean volume (Bld) [Entitic vol] 7.8 fL Normal 6.3-10.7 [facility] Comment on above: Performed By: #### C BC, CMP, LIPID #### [facility] [address] Platelets [#/volume] in Bloo d by Automated countOrdered By: Solomon Rivas on 01-19-2024 Platelets (Bld) [#/Vol] 293 10*3/uL Normal 150-450 [facility] Comment on above: Performed By: #### C BC, CMP, LIPID #### [address] Potassium [Moles/volume] in Serum or PlasmaOrdered By: Solomon Rivas on 01-19-2024 Potassium [Moles/Vol] 4.5 mmol/L Normal 3.5-5.1 [facility] Comment on above: Performed By: #### C BC, CMP, LIPID #### [address] Protein [Mass/volume] in Ser um or PlasmaOrdered By: Solomon Rivas on 01-19-2024 Protein [Mass/Vol] 6.8 g/dL Normal 6.4-8.9 [place] Comment on above: Performed By: #### C BC, CMP, LIPID #### [address] Serum globulin measurement b y calculation (mass/volume)Ordered By: Solomon Rivas on 01-19-2024 Globulin (S) [Mass/Vol] 2.7 g/dL Normal [facility] Comment on above: Performed By: #### C BC, CMP, LIPID #### [address] Serum or plasma albumin/glob ulin mass ratioOrdered By: Solomon Becerrila on 01-19-2024 Albumin/Globulin [Mass ratio] 1.5 {ratio} Normal [facility] Comment on above: Performed By: #### C BC, CMP, LIPID #### [address] Serum or plasma anion gap de terminationOrdered By: Solomon Rivas on 01-19-2024 Anion gap [Moles/Vol] 10.0 mmol/L Normal 6.0-15.0 [facility] Comment on above: Performed By: #### C BC, CMP, LIPID #### [facility] [address] Serum or plasma high density lipoprotein (HDL) cholesterol measurementOrdered By: Solomon Rivas on 01-19-2024 Cholesterol in HDL [Mass/Vol] 86 mg/dL Normal 23-92 [facility] Comment on above: HDL CHOL ATP-III CLA SSIFICATION Cardiovascular RiskHDL > or equal to 60 mg/dL LOWHDL < 40 mg/dL HIGH Result Comment: HDL CHOL ATP-III CLASSIFICATION Cardiovascular Risk HDL > or equal to 60 mg/dL LOW HDL < 40 mg/dL HIGH Performed By: #### C BC, CMP, LIPID #### [address] Serum or plasma total choles terol/high density lipoprotein (HDL) cholesterol mass ratOrdered By: Solomon Rivas on 01-19-2024 Cholesterol.total/Sheri sterol in HDL [Mass ratio] 1.8 {ratio} Normal <5.0 [facility] Comment on above: Result Comment: PERF ORMED BY: [place] [address] PATHOLOGIST MANAGER [employer] SATHYA LOWRY M.D. Performed By: #### C BC, CMP, LIPID #### [facility] [address] Sodium [Moles/volume] in Ser um or PlasmaOrdered By: Solomon Rivas on 01-19-2024 Sodium [Moles/Vol] 140 mmol/L Normal 136-145 [place] Comment on above: Performed By: #### C BC, CMP, LIPID #### [facility] [address] Triglyceride [Mass/volume] i n Serum or PlasmaOrdered By: Solomon Rivas on 01-19-2024 Triglyceride [Mass/Vol] 35 mg/dL 0-149 [facility] Comment on above: TRIG ATP III CLASSIF ICATIONTRIG less than 150 mg/dL NormalTRIG 150-199 mg/dL Borderline highTRIG 200-500 mg/dL High TRIG greater than 500 mg/dL Very highStandard traceable to the Center for Disease Conrtrol and Prevention (CDC) test method. Urea nitrogen [Mass/volume] in Serum or PlasmaOrdered By: Solomon Rivas on 01-19-2024 Urea nitrogen [Mass/Vol] 17 mg/dL Normal - [facility] Comment on above: Performed By: #### C BC, CMP, LIPID #### [facility] [address] Alanine aminotransferase [En zymatic activity/volume] in Serum or PlasmaOrdered By: Solomon Rivas on 01-27-2023 ALT [Catalytic activity/Vol] 20 U/L [facility] Albumin [Mass/volume] in Ser um or Plasma by Bromocresol green (BCG) dye binding methoOrdered By: Solomon Rivas on 01-27-2023 Albumin BCG dye [Mass/Vol] 4.3 g/dL 3.5-5.7 [facility] Alkaline phosphatase [Enzyma tic activity/volume] in Serum or PlasmaOrdered By: Solomon Becerrila on 01-27-2023 ALP [Catalytic activity/Vol] 67 U/L 34-104 [facility] Aspartate aminotransferase [ Enzymatic activity/volume] in Serum or PlasmaOrdered By: Solomon Becerrila on 01-27-2023 AST [Catalytic activity/Vol] 22 U/L 13-39 [facility] Basophils Auto (Bld) [#/Vol] Ordered By: Solomon Evelyn on 01-27-2023 Basophils (Bld) [#/Vol] 0.1 10*3/uL 0.0-0.2 [facility] Basophils/100 WBC Auto (Bld) Ordered By: Solomon Evelyn on 01-27-2023 Basophils/100 WBC (Bld) 1.4 % . [facility] Bilirubin.total [Mass/volume ] in Serum or PlasmaOrdered By: Solomon Becerrila on 01-27-2023 Bilirubin [Mass/Vol] 0.6 mg/dL 0.3-1.0 [facility] Calcium [Mass/volume] in Ser um or PlasmaOrdered By: Solomon Rivas on 01-27-2023 Calcium [Mass/Vol] 9.7 mg/dL 8.6-10.3 [place] Carbon dioxide, total [Moles /volume] in Serum or PlasmaOrdered By: Solomon Rivas on 01-27-2023 CO2 [Moles/Vol] 30.5 mmol/L 21.0-31.0 [facility] Chloride [Moles/volume] in S pat or PlasmaOrdered By: Solomon Rivas on 01-27-2023 Chloride [Moles/Vol] 104 mmol/L 98-107 [facility] Cholesterol [Mass/volume] in Serum or PlasmaOrdered By: Solomon Rivas on 01-27-2023 Cholesterol [Mass/Vol] 160 mg/dL 140-200 [facility] Comment on above: Chol less than 200 m g/dl low riskChol 201-239 mg/dl borderline riskChol 240 mg/dl and greater high risk Cholesterol in LDL Calc [Mas s/Vol]Ordered By: Solomon Rivas on 01-27-2023 Cholesterol in LDL [Mass/Vol] 63 mg/dL 0-100 [facility] Comment on above: LDL ATP III CLASSIFI CATIONLDL less than 100 mg/dL OptimalLDL 100-129 mg/dL Near or above optimalLDL 130-159 mg/dL Borderline highLDL 160-189 mg/dL HighLDL greater than 189 mg/dL Very high Cholesterol in VLDL Calc [Ma ss/Vol]Ordered By: Solomon Rivas on 01-27-2023 Cholesterol in VLDL [Mass/Vol] 13 mg/dL [facility] Creatinine [Mass/volume] in Serum or PlasmaOrdered By: Solomon Rivas on 01-27-2023 Creatinine [Mass/Vol] 0.91 mg/dL 0.60-1.20 [facility] Eosinophils Auto (Bld) [#/Vo l]Ordered By: Solomon Rivas on 01-27-2023 Eosinophils (Bld) [#/Vol] 0.3 10*3/uL 0.0-0.45 [facility] Eosinophils/100 WBC Auto (Bl d)Ordered By: Solomon Rivas on 01-27-2023 Eosinophils/100 WBC (Bld) 5.0 % . [facility] Erythrocyte distribution wid th Auto (RBC) [Ratio]Ordered By: Solomon Rivas on 01-27-2023 Erythrocyte distribution width (RBC) [Ratio] 12.6 % 11.9-15.3 [facility] Globulin Calc (S) [Mass/Vol] Ordered By: Solomon Rivas on 01-27-2023 Globulin (S) [Mass/Vol] 2.7 g/dL [facility] Glucose [Mass/volume] in Ser um or PlasmaOrdered By: Solomon Rivas on 01-27-2023 Glucose [Mass/Vol] 83 mg/dL 70-100 [place] Comment on above: ADA recommended refe rence rangeRandom Glucose Reference Range is dependent on time and content of last meal. Glucose of more than 200 mg/dL in a nonstressed, ambulatory subject supports the diagnosis of Diabetes Mellitus. Hematocrit Auto (Bld) [Volum e fraction]Ordered By: Solomon Rivas on 01-27-2023 Hematocrit (Bld) [Volume fraction] 40.8 % 34.0-46.4 [facility] Hemoglobin [Mass/volume] in BloodOrdered By: Solomon Rivas on 01-27-2023 Hemoglobin (Bld) [Mass/Vol] 13.8 g/dL 11.8-15.4 [facility] Leukocytes [#/volume] correc chidi for nucleated erythrocytes in Blood by Automated counOrdered By: Solomon Rivas on 01-27-2023 WBC corrected for nucl RBC Auto (Bld) [#/Vol] 5.0 10*3/uL 3.8-11.6 [facility] Lymphocytes Auto (Bld) [#/Vo l]Ordered By: Solomon Rivas on 01-27-2023 Lymphocytes (Bld) [#/Vol] 2.4 10*3/uL 1.00-4.8 [facility] Lymphocytes/100 WBC Auto (Bl d)Ordered By: Solomon Rivas on 01-27-2023 Lymphocytes/100 WBC (Bld) 46.8 % . [facility] MCH Auto (RBC) [Entitic mass ]Ordered By: Solomon Becerrila on 01-27-2023 MCH (RBC) [Entitic mass] 31.6 pg 24.7-34.3 [facility] MCHC Auto (RBC) [Mass/Vol]Or dered By: Rugen Evelyn on 01-27-2023 MCHC (RBC) [Mass/Vol] 33.8 g/dL 32.0-35.0 [facility] MCV Auto (RBC) [Entitic vol] Ordered By: Solomon Evelyn on 01-27-2023 MCV (RBC) [Entitic vol] 93.7 fL 80-100 [facility] Monocytes Auto (Bld) [#/Vol] Ordered By: Solomon Hempstead on 01-27-2023 Monocytes (Bld) [#/Vol] 0.5 10*3/uL 0.0-0.8 [facility] Monocytes/100 WBC Auto (Bld) Ordered By: Solomon Evelyn on 01-27-2023 Monocytes/100 WBC (Bld) 9.4 % . F [facility] Neutrophils Auto (Bld) [#/Vo l]Ordered By: Solomon Evelyn on 01-27-2023 Neutrophils (Bld) [#/Vol] 1.9 10*3/uL 1.8-7.7 [facility] Neutrophils/100 WBC Auto (Bl d)Ordered By: Solomon Hempstead on 01-27-2023 Neutrophils/100 WBC (Bld) 37.4 % . [facility] No Panel InformationOrdered By: Solomon Rivas on 01-27-2023 Estimated GFR (CKD-EPI) > 60.0 mL/Min [facility] Creatinine Clearance (Chem N/A [facility] Nucleated erythrocytes [Pres ence] in Blood by Automated countOrdered By: Solomon Becerrila on 01-27-2023 Nucleated RBC Auto Ql (Bld) 0.1 /100{WBC} 0-0.5 [facility] Platelet mean volume Auto (B ld) [Entitic vol]Ordered By: Solomon Hempstead on 01-27-2023 Platelet mean volume (Bld) [Entitic vol] 7.8 fL 6.3-10.7 [facility] Platelets Auto (Bld) [#/Vol] Ordered By: Solomon Rivas on 01-27-2023 Platelets (Bld) [#/Vol] 276 10*3/uL 150-450 [facility] Potassium [Moles/volume] in Serum or PlasmaOrdered By: Solomon Rivas on 01-27-2023 Potassium [Moles/Vol] 4.8 mmol/L 3.5-5.1 [facility] Protein [Mass/volume] in Ser um or PlasmaOrdered By: Solomon Rivas on 01-27-2023 Protein [Mass/Vol] 7.0 g/dL 6.4-8.9 [place] RBC Auto (Bld) [#/Vol]Ordere d By: Solomon Rivas on 01-27-2023 RBC (Bld) [#/Vol] 4.36 10*6/uL 3.60-5.00 [facility] Serum or plasma albumin/glob ulin mass ratioOrdered By: Solomon Rivas on 01-27-2023 Albumin/Globulin [Mass ratio] 1.6 {ratio} [facility] Serum or plasma anion gap de terminationOrdered By: Solomon Rivas on 01-27-2023 Anion gap [Moles/Vol] 8.3 mmol/L 6.0-15.0 [facility] Serum or plasma high density lipoprotein (HDL) cholesterol measurementOrdered By: Solomon Rivas on 01-27-2023 Cholesterol in HDL [Mass/Vol] 83 mg/dL 23-92 [facility] Comment on above: HDL CHOL ATP-III CLA SSIFICATION Cardiovascular RiskHDL > or equal to 60 mg/dL LOWHDL < 40 mg/dL HIGH Serum or plasma total choles terol/high density lipoprotein (HDL) cholesterol mass ratOrdered By: Solomon Rivas on 01-27-2023 Cholesterol.total/Sheri sterol in HDL [Mass ratio] 1.9 {ratio} <5.0 [facility] Sodium [Moles/volume] in Ser um or PlasmaOrdered By: Solomon Rivas on 01-27-2023 Sodium [Moles/Vol] 138 mmol/L 136-145 [place] Triglyceride [Mass/volume] i n Serum or PlasmaOrdered By: Solomon iRvas on 01-27-2023 Triglyceride [Mass/Vol] 69 mg/dL 0-149 [facility] Comment on above: TRIG ATP III CLASSIF ICATIONTRIG less than 150 mg/dL NormalTRIG 150-199 mg/dL Borderline highTRIG 200-500 mg/dL High TRIG greater than 500 mg/dL Very highStandard traceable to the Center for Disease Conrtrol and Prevention (CDC) test method. Urea nitrogen [Mass/volume] in Serum or PlasmaOrdered By: Solomon Rivas on 01-27-2023 Urea nitrogen [Mass/Vol] 18 mg/dL 7- [facility] WBC Auto (Bld) [#/Vol]Ordere d By: Solomon Rivas on 01-27-2023 WBC (Bld) [#/Vol] 5.0 10*3/uL 3.8-11.6 [place] MG MAMM SCREEN 3D MATT CADon 03-07-2022 MG MAMM SCREEN 3D MATT CAD Patient: BLANCA SOLITARIO Exam Date: 03/07/2022 : 1965 Gender:F Ordering : DR UMAIR WISDOM . Admission #: [id number] Family : Order #: [id number] CLICK HERE TO VIEW EXAM RADIOLOGY REPORT [...] breast cancer at age 61. LOCATION: [facility] BREAST COMPOSITION: Heterogeneously dense,which may obscure [...] Eduar Trimble M.D. on 03/08/2022 at 07:44 [facility] PAP ACOG PANEL 2: 30 to 65on 03-03-2022 . . Normal [facility] Comment on above: Result Comment: Perf ormed at: WB Performed By: #### [id number] #### [facility] [address] [place] [address] Dr. Titus Astudillo Age Gdln ACOG Testing 30-65 [facility] Comment on above: Performed By: #### [id number] #### [facility] [address] [place] [address] Dr. Titus Astudillo DIAGNOSIS: Comment [facility] Comment on above: Result Comment: NEGA TIVE FOR INTRAEPITHELIAL LESION OR MALIGNANCY. Performed at: WB Performed By: #### [id number] #### [facility] [address] [place] [address] Dr. Titus Astudillo HPV Aptima QNSPAP [facility] Comment on above: Result Comment: Test not performed. Liquid based PAP vial contained insufficient specimen for molecular testing; likely a consequence of insufficient cellularity in original collection. This nucleic acid amplification test detects fourteen high-risk HPV types (16,18,31,33,35,39,45,51,52,56,58,59,66,68) without differentiation. Performed at: =G Performed By: #### [id number] #### [facility] [address] [place] [address] Dr. Titus Astudillo HPV Genotype Reflex Comment Normal [facility] Comment on above: Result Comment: Crit eria not met, HPV Genotype not performed. Performed at: WB Performed By: #### [id number] #### [facility] [address] [place] [address] Dr. Titus Astudillo Methodology: Comment [facility] Comment on above: Result Comment: This liquid based ThinPrep(R) pap test was screened with the use of an image guided system. Performed at: WB Performed By: #### [id number] #### [facility] [address] [place] [address] Dr. Titus Astudillo Note: Comment Normal [facility] Comment on above: Result Comment: The Pap smear is a screening test designed to aid in the detection of premalignant and malignant conditions of the uterine cervix. It is not a diagnostic procedure and should not be used as the sole means of detecting cervical cancer. Both false-positive and false-negative reports do occur. . Performed at: WB Performed By: #### [id number] #### [facility] [address] [place] [address] Dr. Titus Astudillo Performed by: Comment Normal [facility] Comment on above: Result Comment: Selene Singh Vocational Services Specialist (ASCP) Performed at: WB Performed By: #### [id number] #### [facility] [address] [place] [address] Dr. Titus Astudillo Specimen adequacy: Comment Normal [facility] Comment on above: Result Comment: Sati sfactory for evaluation. Endocervical and/or squamous metaplastic cells (endocervical component) are present. Performed at: WB Performed By: #### [id number] #### [facility] [address] [place] [address] Dr. Titus Astudillo CBC AUTO DIFFon 01-28-2022 BASO # 0.1 103/ul Normal 0.0-0.1 [facility] Comment on above: Performed By: #### C BC #### [facility] [address] [place] [address] Dr. Titus Astudillo Basophils/100 WBC (Bld) 0.9 % Normal 0.2-2.0 [facility] Comment on above: Performed By: #### C BC #### [facility] [address] [place] [address] Dr. Titus Astudillo EO # 0.1 103/ul Normal 0.0-0.7 [facility] Comment on above: Performed By: #### C BC #### [facility] [address] [place] [address] Dr. Titus Astudillo Eosinophils/100 WBC (Bld) 2.1 % Normal 0.9-7.0 [facility] Comment on above: Performed By: #### C BC #### [facility] [address] [place] [address] Dr. Titus Astudillo Erythrocyte distribution width (RBC) [Ratio] 11.9 % Normal 11.0-15.0 [facility] Comment on above: Performed By: #### C BC #### [facility] [address] [place] [address] Dr. Titus Astudillo Hematocrit (Bld) [Volume fraction] 42.1 % Normal 36.0-48.0 [facility] Comment on above: Performed By: #### C BC #### [facility] [address] [place] [address] Dr. Titus Astudillo Hemoglobin (Bld) [Mass/Vol] 14.0 g/dL Normal 12.0-16.0 [facility] Comment on above: Performed By: #### C BC #### [facility] [address] [place] [address] Dr. Titus Astudillo IG # 0.02 10e3/ul Normal 0.00-0.03 [facility] Comment on above: Performed By: #### C BC #### [facility] [address] [place] [address] Dr. Titus Astudillo IG % 0.3 % Normal 0.0-0.5 [facility] Comment on above: Performed By: #### C BC #### [facility] [address] [place] [address] Dr. Tiuts Astudillo LYMPH # 2.6 103/ul Normal 1.2-3.8 [facility] Comment on above: Performed By: #### C BC #### [facility] [address] [place] [address] Dr. Titus Astudillo Lymphocytes/100 WBC (Bld) 41.5 % Normal 20.5-60.0 [facility] Comment on above: Performed By: #### C BC #### [facility] [address] [place] [address] Dr. Titus Astudillo MANUAL DIFF REQ NO Normal [facility] Comment on above: Performed By: #### C BC #### [facility] [address] [place] [address] Dr. Titus Astudillo MCH (RBC) [Entitic mass] 31.4 pg Normal 26.7-34.0 [facility] Comment on above: Performed By: #### C BC #### [facility] [address] [place] [address] Dr. Titus Astudillo MCHC (RBC) [Mass/Vol] 33.3 g/dL Normal 29.9-35.2 [facility] Comment on above: Performed By: #### C BC #### [facility] [address] [place] [address] Dr. Titus Astudillo MCV (RBC) [Entitic vol] 94.4 fL Normal 81.0-99.0 [facility] Comment on above: Performed By: #### C BC #### [facility] [address] [place] [address] Dr. Titus Astudillo MONO # 0.5 103/ul Normal 0.3-0.8 [facility] Comment on above: Performed By: #### C BC #### [facility] [address] [place] [address] Dr. Titus Astudillo Monocytes/100 WBC (Bld) 7.9 % Normal 1.7-12.0 [facility] Comment on above: Performed By: #### C BC #### [facility] [address] [place] [address] Dr. Titus Astudillo NEUT # 3.0 103/ul Normal 1.4-6.5 [facility] Comment on above: Performed By: #### C BC #### [facility] [address] [place] [address] Dr. Titus Astudillo Neutrophils/100 WBC (Bld) 47.3 % Normal 43.0-75.0 [facility] Comment on above: Performed By: #### C BC #### [facility] [address] [place] [address] Dr. Titus Astudillo Platelet mean volume (Bld) [Entitic vol] 9.8 fL Normal 9.5-13.5 [facility] Comment on above: Performed By: #### C BC #### [facility] [address] [address] [address] Titus Astudillo PLT 375 103/ul Normal 150-450 [facility] Comment on above: Performed By: #### C BC #### [facility] [address] [address] [address] Titus Astudillo RBC 4.46 106/ul Normal 4.20-5.40 [facility] Comment on above: Performed By: #### C BC #### [facility] [address] [address] [address] Titus Astudillo WBC 6.3 103/ul Normal 4.0-11.0 [facility] Comment on above: Performed By: #### C BC #### [facility] [address] [place] [address] Dr. Titus Astudillo LIPID PROFILEon 01-28-2022 CHOL-HDL RATIO NORM SEE BELOW Normal [facility] Comment on above: Result Comment: 3.3 - 4.4 LOW RISK 4.4 - 7.1 AVERAGE RISK 7.1 - 11.0 MODERATE RISK >11.0 HIGH RISK Performed By: #### C MP, LIPID #### [facility] [address] [place] [address] Dr. Titus Astudillo Cholesterol [Mass/Vol] 163 mg/dL Normal <=200 [facility] Comment on above: Performed By: #### C MP, LIPID #### [facility] [address] [place] [address] Dr. Titus Astudillo Cholesterol in HDL [Mass/Vol] 101 mg/dL Critically high 40-60 [facility] Comment on above: Performed By: #### C MP, LIPID #### [facility] [address] [place] [address] Dr. Titus Astudillo Cholesterol in LDL [Mass/Vol] 56.4 mg/dL Normal [facility] Comment on above: Performed By: #### C MP, LIPID #### [facility] [address] [place] [address] Dr. Titus Astudillo Cholesterol.total/Sheri sterol in HDL [Mass ratio] 1.6 {ratio} Normal [facility] Comment on above: Performed By: #### C MP, LIPID #### [facility] [address] [place] [address] Dr. Titus Astudillo HDL NORMAL > or = 60 mg/dl - LO W CARDIOVASCULAR RISK <40 mg/dl - HIGH CARDIOVASCULAR RISK Normal [facility] Comment on above: Performed By: #### C MP, LIPID #### [facility] [address] [address] [address] Titus Astudillo LDL CALC NORMAL SEE BELOW Normal [facility] Comment on above: Result Comment: <100 mg/dl OPTIMAL 100 - 129 mg/dl NEAR OR ABOVE OPTIMAL 130 - 159 mg/dl BORDERLINE HIGH 160 - 189 mg/dl HIGH >190 mg/dl VERY HIGH Performed By: #### C MP, LIPID #### [facility] [address] [place] [address] Dr. Titus Astudillo Triglyceride [Mass/Vol] 28 mg/dL Normal <=150 [facility] Comment on above: Performed By: #### C MP, LIPID #### [facility] [address] [place] [address] Dr. Titus sAtudillo VLDL CALC 5.6 mg/dL Normal [facility] Comment on above: Performed By: #### C MP, LIPID #### [facility] [address] [place] [address] Dr. Titus Astudillo PROF 14(COMP METB)on 022 Albumin [Mass/Vol] 4.1 g/dL Normal 3.4-5.[address] [facility] Comment on above: Performed By: #### C MP, LIPID #### [facility] [address] [place] [address] Dr. Titus sAtudillo Albumin/Globulin [Mass ratio] 1.1 {ratio} Normal [facility] Comment on above: Performed By: #### C MP, LIPID #### [facility] [address] [place] [address] Dr. Titus Astudillo ALP [Catalytic activity/Vol] 73 U/L Normal 46-116 [facility] Comment on above: Performed By: #### C MP, LIPID #### [facility] [address] [address] [address] Titus Astudillo ALT [Catalytic activity/Vol] 29 U/L Normal 14-59 [facility] Comment on above: Performed By: #### C MP, LIPID #### [facility] [address] [address] [address] Titus Astudillo Anion gap [Moles/Vol] 12.7 mmol/L Normal [facility] Comment on above: Performed By: #### C MP, LIPID #### [facility] [address] [address] [address] Titus Astudillo AST [Catalytic activity/Vol] 24 U/L Normal 15-37 [facility] Comment on above: Performed By: #### C MP, LIPID #### [facility] [address] [address] [address] Titus Astudillo Bilirubin [Mass/Vol] 0.5 mg/dL Normal 0.2-1.0 [facility] Comment on above: Performed By: #### C MP, LIPID #### [facility] [address] [address] [address] Titus Astudillo Calcium [Mass/Vol] 9.5 mg/dL Normal 8.5-10.[address] [facility] Comment on above: Performed By: #### C MP, LIPID #### [facility] [address] [place] [address] Dr. Titus Astudillo Chloride [Moles/Vol] 102 mmol/L Normal 98-107 [facility] Comment on above: Performed By: #### C MP, LIPID #### [facility] [address] [address] [address] Titus Astudillo CO2 [Moles/Vol] 29.6 mmol/L Normal 21.0-32.0 [facility] Comment on above: Performed By: #### C MP, LIPID #### [facility] [address] [address] [address] Titus Astudillo Creatinine [Mass/Vol] 1.02 mg/dL Normal 0.55-1.02 [facility] Comment on above: Performed By: #### C MP, LIPID #### [facility] [address] [address] [address] Titus Astudillo EGFR-AF BRAZILIAN >60 Normal >=60 [facility] Comment on above: Performed By: #### C MP, LIPID #### [facility] [address] [address] [address] Titus Astudillo EGFR-NON AF BRAZILIAN 56 mL/min/1.73m2 Critically low >=60 [facility] Comment on above: Performed By: #### C MP, LIPID #### [facility] [address] [address] [address] Titus Astudillo Globulin (S) [Mass/Vol] 3.8 g/dL Normal T [facility] Comment on above: Performed By: #### C MP, LIPID #### [facility] [address] [address] [address] Titus Astudillo Glucose [Mass/Vol] 98 mg/dL Normal 74-[address] [facility] Comment on above: Performed By: #### C MP, LIPID #### [facility] [address] [address] [address] Titus Astudillo Potassium [Moles/Vol] 4.3 mmol/L Normal 3.5-5.1 [facility] Comment on above: Performed By: #### C MP, LIPID #### [facility] [address] [place] [address] Dr. Titus Astudillo Protein [Mass/Vol] 7.9 g/dL Normal 6.4-8.[address] [facility] Comment on above: Performed By: #### C MP, LIPID #### [facility] [address] [address] [address] Titus Astudillo Sodium [Moles/Vol] 140 mmol/L Normal 136-[address] [facility] Comment on above: Performed By: #### C MP, LIPID #### [facility] [address] [address] [address] Titus Astudillo Urea nitrogen [Mass/Vol] 21.0 mg/dL Critically high 7.0-18.0 [facility] Comment on above: Performed By: #### C MP, LIPID #### [facility] [address] [place], [place] [address] Dr. Titus Astudillo Urea nitrogen/Creatinine [Mass ratio] 20.6 mg/mg Normal [facility] Comment on above: Performed By: #### C MP, LIPID #### [facility] [address] [place], [place] [address] Dr. Titus Astudillo Q - SARS CoV2 COVID 19 Ab Ig [place] 03-29-2021 SARS-CoV-2 (COVID-19) Ab IA Qn <1.00 Normal <1.00 [facility] Accounts Payable Accountant Comment on above: Order Comment: [facility] Testing performed at: [employer], [place] [facility], [address] [place] [address], [address] [place] [address], [id number], Laboratory Sampler: Randy Corona MD [facility] Collection Date/Time: [id number] [facility] Results Received Date/Time: [id number] [facility] Reported Date/Time: [id number] Result Comment: This test is intended to [...] providers and patients using the following websites: [email or web address] [email or web address] Healthcare Providers: For additional information please refer to: http://education.Recommendo/faq/ATV193 (This link is being provided for informational/educational purposes only.) This test has been authorized by the FDA under an Emergency Use Authorization (EUA) for use by authorized laboratories. The FDA authorized labeling is available on the [place] [facility] website: www.BackOps/Covid19. Performed By: #### [id number] #### [facility] Default [address] [place] [address] Vital Signs Date Time Vital Sign Value Performing Clinician David galdamez 02-27-2024 14:55-0500 Body mass index (BMI) [Ratio] 21.74 kg/m2 [employer] Work Phone: [facility] 02-27-2024 14:55-0500 Body weight 62.96 kg Umair Velasquez DO Work Phone: [facility] 02-27-2024 14:55-0500 Diastolic blood pressure 78 mm[Hg] Umair Velasquez DO Work Phone: [facility] 02-27-2024 14:55-0500 Systolic blood pressure 120 mm[Hg] Umair Velasquez [employer] Work Phone: [facility] 01-23-2024 14:29-0400 Body weight 61.24 kg Yovani Faith HEADER OPERATOR[facility] Work Phone: [facility] 01-15-2024 15:55-0400 Body height 170.2 cm [...] 122 mm[Hg] Solomon Rivas MD Work Phone: [facility] Healthcare Encounters Encounter Date Encounter Type Care Provider Facility Start: 03-05-2024 End: 03-06-2024 Clinisync Result Encounter Generic External Data Provider [facility] External Department Unsolicited Start: 03-05-2024 End: 03-06-2024 Clinisync Result Encounter Generic External Data Provider [facility] External Department Unsolicited Start: 03-05-2024 End: 03-05-2024 Orders Only Alicia Pugh [facility] Comment on above: Encounter for screen ing colonoscopy Start: 02-27-2024 End: 02-27-2024 Patient encounter procedure Umair Velasquez DO Work Phone: [facility] Healthcare Work Phone: Start: 02-27-2024 End: 02-27-2024 Periodic preventive med est patient 40-64yrs Umair Velasquez DO Work Phone: [facility] OB Comment on above: Well woman exam with routine gynecological exam Start: 02-27-2024 End: 02-27-2024 ambulatory UMAIR VELASQUEZ Not Available Start: 02-27-2024 End: 02-27-2024 Bamboo flowsheet Umair Velasquez DO Work Phone: [facility] Start: 02-27-2024 End: 02-27-2024 Bamboo flowsheet Umair Velasquez DO Work Phone: [facility] Start: 02-27-2024 End: 02-27-2024 ambulatory [facility] Start: 02-27-2024 End: 02-27-2024 Office outpatient visit 15 minutes Yovani Keny Toni HEADER OPERATOR-CYTOLOGIST Work Phone: [facility] Comment on above: Encounter for screen ing colonoscopy (Primary Dx); Upper abdominal pain Start: 01-29-2024 End: 02-04-2024 Telephone encounter Yovani Keny Toni HEADER OPERATOR-CYTOLOGIST Work Phone: [facility] Start: 01-23-2024 End: 01-23-2024 Patient encounter procedure Yovani Faith HEADER OPERATOR-CYTOLOGIST Work Phone: [facility] Comment on above: Encounter for screen ing colonoscopy (Primary Dx) Start: 01-23-2024 End: 01-23-2024 ambulatory [facility] Start: 01-19-2024 End: 01-19-2024 External Result Encounter Solomon Rivas MD Work Phone: [facility] External Department Unsolicited Start: 01-19-2024 End: 01-19-2024 External Result Encounter Solomon Rivas MD Work Phone: [facility] External Department Unsolicited Start: 01-19-2024 End: 01-19-2024 Patient encounter procedure MD Solomon Rivas Work Phone: [facility] [place] Work Phone: Start: 01-19-2024 End: 01-19-2024 ambulatory MD Solomon Rivas Work Phone: [facility] Work Phone: Start: 01-19-2024 Encounter for genera l adult medical examination without abnormal findings Solomon Rivas [facility] Start: 01-15-2024 End: 01-15-2024 Patient [...] 01-27-2023 ambulatory MD Solomon Rivas Work Phone: [facility] Work Phone: Start: 01-27-2023 End: 01-27-2023 Patient encounter procedure MD Solomon Rivas Work Phone: [facility] [place] Work Phone: Start: 03-07-2022 End: 03-08-[address] UMAIR WISDOM Facility:[facility] Start: 02-22-2022 End: 02-22-[address] UMAIR WISDOM Facility:[facility] Start: 02-01-2022 Encounter for genera l adult medical examination without abnormal findings DR SOLOMON RIVAS [facility] Start: 01-28-2022 End: 01-29-[address] SOLOMON RIVAS Facility:[facility] Start: 01-28-2022 End: 01-29-2022 Encounter for general adult medical examination without abnormal findings DR SOLOMON RIAVS Facility:[facility] Procedures Date Procedure Procedure Detail Performing Clinician Start: 03-05-2024 Colonoscopy Yovani Faith HEADER OPERATOR-CYTOLOGIST Work Phone: Start: 03-05-2024 [facility] H PYLORI TISSUE Gen jason External Data Provider Start: 01-19-2024 Complete blood count with white [...] 02-22-2027 Screening for malignant neoplasm of cervix [facility] Start: 02-26-2025 Tobacco Screening Tobacco Screening [facility] Start: 02-25-2025 End: 02-25-2025 Patient encounter procedure 02/25/2025 1:00 PM EST Office Visit [facility] [address] [facility] [address] [place] [address] Umair Wisdom, DO [address] [place] [address] [place] [address] [facility] Start: 02-22-2025 Screening for malignant neoplasm of cervix Pap Smear [facility] Start: 01-22-2025 Tobacco Screening Tobacco Screening [facility] Start: 10-07-2024 Screening for malignant neoplasm of colon [facility] Start: 02-27-2024 End: 02-27-2024 Patient encounter procedure [facility] Comment on above: Arrived Start: 02-27-2024 Screening for malignant neoplasm of breast Mammogram [facility] Start: 02-27-2024 End: 02-27-2024 Telemedicine consultation with patient 02/27/2024 9:30 AM EST Telemedicine [facility] General Surgery [address] [place] [id number] Yovani Faith, HEADER OPERATOR-CYTOLOGIST [address] [place] [address] [facility] General Surgery Start: 01-15-2024 End: 01-15-2024 Patient encounter procedure 01/15/2024 4:15 PM EDT Office Visit [facility] [address] [facility] [address] [place] [id number] Solomon Rivas MD [address] [facility] [address] [place] [address] Arrived [facility] Comment on above: Arrived Start: 01-15-2024 End: 01-14-2025 CBC W Auto Differential panel - Blood CBC and differential Lab Routine Benign essential hypertension (CMS/HCC) Annual physical exam Stage 3a chronic kidney disease (HCC) (CMS/HCC) Expected: 01/15/2024 (Approximate), Expires: 01/14/2025 [facility] Work Phone: Comment on above: Expected: 01/15/2024 (Approximate), Expi res: 01/14/2025 Start: 01-15-2024 End: 01-14-2025 Comprehensive metabolic 2000 panel - Serum or Plasma Comprehensive metabolic panel Lab Routine Abnormal glucose tolerance test Benign essential hypertension (CMS/HCC) Annual physical exam Expected: 01/15/2024 (Approximate), Expires: 01/14/2025 [facility] Comment on above: Expected: 01/15/2024 (Approximate), Expi res: 01/14/2025 Start: 01-15-2024 End: 01-14-2025 Lipid 1996 panel - Serum or Plasma Lipid panel Lab Routine Annual physical exam Screening for lipid disorders Expected: 01/15/2024 (Approximate), Expires: 01/14/2025 [facility] Comment on above: Expected: 01/15/2024 (Approximate), Expi res: 01/14/2025 Start: 12-02-2023 Influenza vaccination [facility] Start: 2013 Administration of varicella zoster vaccine Zoster (Shingles) Vaccine (1 of 2) [facility] Start: 1982 DTaP,Tdap and Td Vaccines (1 - Tdap) DTaP,Tdap and Td Vaccines (1 - Tdap) [facility] Start: 1981 Adult BMI Screening Adult BMI Screening [facility] Start: 1975 Depression Screening Depression Screening [facility] Start: 1965 Screening for malignant neoplasm of colon [facility] End: 01-22-2025 Colonoscopy Colonoscopy GI Routine Encounter for screening colonoscopy 1 Occurrences starting 01/23/2024 until 01/22/2025 [facility] Work Phone: Comment on above: 1 Occurrences starting 01/23/2024 until 01/22/2025 End: 02-26-2025 Esophagogastroduodenoscopy EGD GI Routine Upper abdominal pain 1 Occurrences starting 02/27/2024 until 02/26/2025 [facility] Work Phone: Comment on above: 1 Occurrences starting 02/27/2024 until 02/26/2025 THIN PREP TIS PAP AND HR HPV DNA THIN PREP TIS PAP AND HR HPV DNA Pathology and Cytology Routine Well woman exam with routine gynecological exam Ordered: 02/27/2024 [facility] [employer] Work Phone: Comment on above: Ordered: 02/27/2024 Payers Date Payer Category Payer Self-pay 2022 Managed Care Other (unspecified) [id number] 2022 Private Health Insurance [facility] [id number] 2022 Unknown [id number] 1965 Unknown [id number] 1965 Unknown [id number] [id number] 1963 Unknown [id number] [id number] 1963 Unknown [id number] [id number] 1965 Unknown [id number] [id number] 1963 Unknown [id number] [id number] 1965 Unknown [id number] [id number] 1959 Unknown [id number] Unknown [id number] [id number] Social History Date Type Detail Facility Tobacco smoking stat us NHIS Unknown if ever smoked [facility] Work Phone: Start: 1965 Sex Assigned At Female F [facility] Start: 02-12-2023 End: 01-23-2024 Tobacco smoking status NHIS Never smoked tobacco [facility] Start: 02-12-2023 End: 01-23-2024 Tobacco use and exposure Smokeless tobacco non-user [facility] Start: 03-01-2023 End: 02-27-2024 Alcoholic beverage intake Lifetime non-drinker (finding) [facility] Start: 02-13-2023 End: 01-15-2024 History of Social function [facility] Start: 02-13-2023 End: 01-15-2024 Tobacco use panel [facility] Start: 1965 Sex assigned at Not on file N [facility] Start: 01-23-2024 End: 02-27-2024 Alcoholic beverage intake Ex-drinker (finding) [facility] Start: 01-17-2024 Sex Female (finding) [facility] Clinical Notes 01-15-2024 to 02-27-2024 Trisha Holt LPN - 02/27/2024 2:30 PM Saul Faith APRN-KARINA - 02/27/2024 9:30 AM ESTTelephone Encounter - Suzanne Sharif - 01/29/2024 1:37 PM Edgar Rivas MD - 01/15/2024 4:15 PM EDT Note Date & Type Note Facility 02-27-2024 History of Presen t illness Narrative Reason for Appointment: Patient ID: Blanca Solitario is a 58 y.o. female who presents for Well Women Visit Patient presents today for Annual Exam. MEDICATIONS No current outpatient medications ALLERGIES No Known Allergies PROBLEMS Active Ambulatory Problems Diagnosis Date Noted Hypertension ([facility]/HCC) 01/04/2023 Osteoarthritis of knee 01/04/2023 Plantar wart [...] medical problems History of Post-Menopausal Bleeding Hypertension ([facility]/HCC) 01/04/2023 Osteoarthritis of knee 01/04/2023 Stage 3a [...] nursing note reviewed. Exam conducted with a harness inspector present. Vitals: Estimated body mass index is [...] Umair Wisdom DO documented in this encounter [facility] 02-27-2024 History of Presen t illness Narrative [...] patient/family/caregiver Referring and communicating with other health healthcare liaison Encounter for screening colonoscopy [Z12.11] DANNY MALLOY [facility] This note was created with the assistance of a speech recognition program. While intending to generate a timely document that accurately reflects the content of the visit, no guarantee can be provided that every grammatical or spelling mistake has been or will be identified or corrected. Thank you for your understanding. Video Visit via Real-time Synchronous Audiovisual Provider Location: [address] [address] Patient Location: Patient's home Video Visit Consent [...] that there are some limitations compared to aesy-be-yqrw evaluations. The patient consented to the presence of additional virtual and/or in-person participants. We elected to proceed. DANNY Malloy 02/27/24 0955 documented in this encounter [facility] 01-29-2024 Miscellaneous Notes Called Blanca regarding the GERD referral that our office received from Dr Rivas, Blanca states that she is already scheduled for a colonoscopy with Dr Lloyd on 02/20/24 at [facility] at 8 am. Sent Lorrie Rivas a staff message to see if we can just add the EGD to the colonoscopy or if she will need to see Yovani Faith NP before that. Lorrie called Blanca and got her scheduled for a video visit with Yovani Faith NP for 02/25/24. documented in this encounter [facility] 01-29-2024 Telephone encounter Note Called Blanca regarding the GERD referral that our office received from Dr Rivas, Blanca states that she is already scheduled for a colonoscopy with Dr Lloyd on 02/20/24 at [facility] at 8 am. Sent Lorrie S a staff message to see if we can just add the EGD to the colonoscopy or if she will need to see Yovani Faith NP before that. [facility] 01-29-2024 Telephone encounter Note Lorrie called Blanca and got her scheduled for a video visit with Yovani Faith NP for 02/25/24. [facility] 01-23-2024 History of Presen t illness [...] patient/family/caregiver Referring and communicating with other health healthcare liaison Encounter for screening colonoscopy [Z12.11] DANNY MALLOY [facility] Physicians General Surgery [place] This note was created with the assistance of a speech recognition program. While intending to generate a timely document that accurately reflects the content of the visit, no guarantee can be provided that every grammatical or spelling mistake has been or will be identified or corrected. Thank you for your understanding. DANNY Malloy 01/23/24 1453 documented in this encounter [facility] 01-15-2024 Telephone encounter Note Patient called [...] Drive Social Accountability documented in this encounter [facility] Evaluation note No assessment inform ation available [facility] Work Phone: Evaluation note Diagnosis Encounter [...] for lipid disorders documented in this encounter [facility] HealthcareEvaluation note* Diagnosis Encounter for screening colonoscopy- Primary documented in this encounter [facility]* Diagnosis Encounter for screening colonoscopy- [...] Routine gynecological examination documented in this encounter [facility] HealthcareEvaluation note* Diagnosis Encounter for screening colonoscopy [facility] [...] section and content) DATE CREATED AUTHOR 03/30/2021 [facility] dical Specialist DATE CREATED AUTHOR AUTHOR'S ORGANIZ ATION 03/11/2022 [facility] DATE CREATED AUTHOR AUTHOR'S ORGANIZ ATION 01/28/2024 [facility] DATE CREATED AUTHOR AUTHOR'S ORGANIZ ATION 03/01/2024 [facility] DATE CREATED AUTHOR AUTHOR'S ORGANIZ ATION 03/01/2024 [facility] dical Specialists EPIC Care Teams (unrecognized sec tion and content) Team Status: Active Member Role Status Dates Solomon Rivas MD Primary Care Provider Active Team Status: Inactive Member Role Status Dates Solomon Rivas MD Primary Care Provider, Attending Pro vider Active [place] Relationship Specialty Start Date End Date Solomon Rivas MD [address] [place] [address] PCP - General Family Medicine 08/08/22 [place] Relationship Specialty Start Date End Date Solomon Rivas MD [address] [place] [address] [place] [address] PCP - General Family Medicine 08/08/22 [place] Relationship Specialty Start Date End Date Solomon Rivas MD [address] [place] [address] [place] [address] PCP - General Family Medicine 08/08/22 [place] Relationship Specialty Start Date End Date Solomon Rivas MD [address] [facility] [address] [place] [address] PCP - General Family Medicine 08/08/22 Team Status: Inactive Member Role Status Dates Solomon Rivas MD Primary Care Provide r, Attending Provider, Referring Provider Active Start: January 19, 2024 End: January 19, 2024 [place] Relationship Specialty Start Date End Date Solomon Rivas MD [address] [facility] [address] [place] [address] PCP - General Family Medicine 01/29/24 [place] Relationship Specialty Start Date End Date Solomon Rivas MD [address] [facility] [address] [place] [address] PCP - General Family Medicine 01/29/24 [place] Relationship Specialty Start Date End Date Solomon Rivas MD [address] [facility] [address] [place] [address] PCP - General Family Medicine 08/08/22 [place] Relationship Specialty Start Date End Date Solomon Rivas MD [address] [facility] [address] [place] [address] PCP - General Family Medicine 01/29/24 Goals [...] Screening for malignant neoplasm of colon Procedures [place] OFFICE OUTPATIENT VISIT 60-74 MINS HIGH MDM [id number] (SNOMED CT) - AMB REFERRAL TO GASTROENTEROLOGY Solomon Rivas MD [address] [facility] 110 [place] [address] Phone: tel: fax: Jerad Lloyd, [address] [place] [address] Phone: tel:[phone] fax:[phone] Referral ID Status Reason Start Date Expiration Date V isits Requested Visits Authorized [id number] Pending Review 01/16/2024 07/14/2024 1 1 Reason [...] BE BASED ON THE PRIMARY CLINICAL RECORDS. [employer] provides no warranty or guarantee of the accuracy or completeness of information in this document.
--- NOTE | 2024-03-06 15:28 | XR_ITS ---
[address] [address] Patient Name: BLANCA PEDERSON MRN: [id number] date: 1965 Sex: F Assigned Patient Location: [facility] Current Patient Location: Accession/Order Number: [id number] Exam Date: 03/06/2024 15:30 Report Date: 03/07/2024 05:25 At the request of: UMAIR DAMIAN Procedure: XR DEXA axial skeleton EXAMINATION: XR DEXA axial skeleton HISTORY: Post Menopause COMPARISON: DEXA bone densitometry 02/24/2020 TECHNIQUE: Dual-energy X-ray absorptiometry (DXA) was performed. FINDINGS: SPINE ANALYSIS: Average bone mineral density is 0.956 g/cm2. T-score (standard deviation relative to young adult mean): -1.9 . Change since prior study. HIP ANALYSIS: Lowest bone mineral density is within the right femoral neck, 0.967 g/cm2. T-score (standard deviation relative to young adult mean): -0.5 . -12.0% change since prior study. XR/XR DEXA axial skeleton IMPRESSION: World Health Organization Classification: Osteopenia - Moderate Fracture Risk FRAX: Cannot be calculated. Pharmacologic treatment recommendations * No uniform recommendation applies to all patients. Management plans must be individualized. * Consider initiating pharmacologic treatment in postmenopausal women and men >= 50 years of age who have the following: Primary fracture prevention: * T-score <= - 2.5 at the femoral neck, total hip, lumbar spine, 33% radius (some uncertainty with existing data) by DXA. * Low bone mass (osteopenia: T-score between - 1.0 and - 2.5) at the femoral neck or total hip by DXA with a 10-year hip fracture risk >= 3% or a 10-year major osteoporosis-related fracture risk >= 20% (i.e., clinical vertebral, hip, forearm, or proximal humerus) based on the [place]-adapted FRAXregistered model. Secondary fracture prevention: * Fracture of the hip or vertebra regardless of BMD [4, 5]. * Fracture of proximal humerus, pelvis, or distal forearm in persons with low bone mass (osteopenia: T-score between - 1.0 and - 2.5). The decision to treat should be individualized in persons with a fracture of the proximal humerus, pelvis, or distal forearm who do not have osteopenia or low BMD [12, 13]. Aleisha MS, Laura SL, Timothy KL, Carlos EM, Andi KG, AJ, Ave ES. The clinician's guide to prevention and treatment of osteoporosis. Osteoporos Int. 2021;33(10):4601-7297. doi: 10.1007/v64113-484-55731-p. Epub 2021Jul 28. Erratum in: Osteoporos Int. 2021Oct 27;: PMID: 88431094; PMCID: [id number]. Electronically authenticated by: YAN PACE Date: 03/07/2024 05:25
== END 2024-03-06 15:23 | disposition home or self-care (01) ==
LOC: RAD 15:22
PROVIDERS: PCP Family Medicine; Visit Provider Obstetrics & Gynecology
DX: Z12.31 Encounter for screening mammogram for malignant neoplasm of breast (principal); Z78.0 Asymptomatic menopausal state; Z80.3 Family history of malignant neoplasm of breast; M85.88 Other specified disorders of bone density and structure, other site
CPT/HCPCS: 77063; 77067; 77080

== ENCOUNTER 2025-02-25 15:26 | Outpatient (REF) | payer OTHER, SELFPAY ==
--- OUTSIDE RECORDS SUMMARY | 2025-02-25 13:00 | XMS_ITS | Encounter Summary ---
Author Organization [facility] Address [address] [place] [address] Care Team Providers Care Telecasting Technician Name Role Phone Solomon Washington MD Primary Care Provider [phone] Reason for Visit * ReasonCommentsWell Women Visit Encounter Details DateTypeDepartmentCare Team (Latest Contact Info)Azskxkyalir38/26/2025 1:00 PM ESTOffice Visit [facility] [address] [facility] [place] [address] Fredrick Wisdom DO [address] [facility] [place] [address] Well woman exam with routine gynecological exam; Encounter for screening mammogram for malignant neoplasm of breast; Postmenopausal state Social History Tobacco UseTypesPacks/DayYears UsedDateSmoking Tobacco: NeverSmokeless Tobacco: NeverAlcohol UseStandard Drinks/WeekCommentsNever0 (1 standard drink = 0.6 oz pure alcohol)CommentsUnknownSex and Gender InformationValueDate Recorded Sex Assigned at BirthNot on fileLegal VkaMxmgwc47/15/2023 6:57 PM EDTGender IdentityNot on fileSexual OrientationNot on filedocumented as of this encounter Last Filed Vital Signs Vital SignReadingTime TakenCommentsBlood Mtwltcey975/8202/25/2025 1:01 PM EST Pulse--Temperature--Respiratory Rate--Oxygen Saturation--Inhaled Oxygen Concentration--Dkngvv24.4 kg (139 lb 12 oz)02/25/2025 1:01 PM ESTHeight--Body Mass Index21.8901/15/2024 3:55 PM EDTdocumented in this encounter Progress Notes * Trisha Holt, WATER POLLUTION CONTROL INSPECTOR - 02/25/2025 1:00 PM EST Reason for Appointment: Patient ID: Mindy Solitario is a 59 y.o. female who presents for [facility] Women Visit Patient presents today for Annual Exam. MEDICATIONS No current outpatient medications ALLERGIES No Known Allergies PROBLEMS Active Ambulatory Problems Diagnosis Date Noted Hypertension 01/04/2023 Osteoarthritis of knee 01/04/2023 Plantar wart 01/04/2023 Stage 3a chronic kidney disease ([facility]-HCC) 01/04/2023 Well adult health check 02/13/2023 Resolved [...] medical problems History of Post-Menopausal Bleeding Hypertension 01/04/2023 Osteoarthritis of knee 01/04/2023 Stage 3a chronic kidney disease ([facility]-HCC) 01/04/2023 Social History Tobacco Use Smoking status: [...] nursing note reviewed. Exam conducted with a forge heater present. Vitals: Estimated body mass index is 21.89 kg/m?? as calculated from the following: Height as of 01/15/24: 5' 7 . Weight as of this encounter: 139 lb 12 oz. BP: 122/82 No LMP recorded. Patient is postmenopausal. ASSESSMENT & PLAN ICD-10-CM 1. Well woman exam with routine gynecological exam Z01.419 THIN PREP TIS PAP AND HR HPV DNA 2. Encounter for screening mammogram for malignant neoplasm of breast Z12.31 Bilateral screening mammogram Bilateral screening mammogram 3. Postmenopausal state Z78.0 Orders Placed This Encounter Procedures Bilateral screening mammogram Annual Wellness Exam: Patient presents today for routine annual exam. Patient states she has no current complaints. Patients vitals were reviewed and within normal limits. Growth and development is noted to be appropriate for age. No mental health concerns was expressed. Pap Smear: Speculum was inserted into the vagina and pap was obtained without difficulty. HPV testing was performed per age guideline. Patient was advised that pap results could take anywhere from 7 to 10 days to receive and our office will reach out to the patient with those once we have them. Patient can also view results via [employer]. I reinforced importance of condom use for STI prevention. Patient declined cultures to be performed with today's visit. Breast Exam: Upon examination, clinical breast exam was noted to be normal and screening mammogram was ordered and given to patient to have obtained. Patient was counseled on breast self-awareness, including the importance of knowing what is normal for her own breasts and promptly reporting any changes such as new lumps, skin dimpling, nipple discharge, or pain. Screening mammogram was recommended annually. Discussed signs and symptoms of breast cancer and when to seek medical attention. Answered all patient questions. DEXA Counseling: DEXA scan ordered and given to the patient to have performed for osteoporosis screening per guidelines. Patient counseled on bone health, including the importance of calcium and vitamin D intake, weight-bearing exercise, fall prevention, and avoiding tobacco and excessive alcohol. Discussed purposeof DEXA in assessing fracture risk and monitoring bone density. Patient advised results will be reviewed upon completion and next steps discussed as needed. Follow Up: Patient is to return to our office in one year for annual exam unless needed otherwise. Documented by Trisha Holt LPN on behalf of: Fredrick Wisdom DO documented in this encounter Plan of Treatment DateTypeDepartmentCare Team (Latest Contact Info)Kiubchinhdl14/02/2025 4:00 PM ESTOffice Visit [facility] [place] [address] [facility] [address] [place] [phone] Solomon Washington MD [address] [facility] [address] [place] [address] 02/24/2026 1:00 PM ESTProcedure Visit [facility] [address] [facility] [place] [address] Fredrick Wisdom DO [address] [facility] [address] [place], [place] [id number] NameTypePriorityAssociated DiagnosesOrder ScheduleTHIN PREP TIS PAP AND HR HPV DNAPathology and CytologyRoutine Well woman exam with routine gynecological exam Ordered: 5Bilateral screening mammogramImagingRoutine Encounter for screening mammogram for malignant neoplasm of breast Expected: 02/25/2025, Expires: 04/27/2026documented as of this encounter Visit Diagnoses Diagnosis Well woman exam with routine gynecological exam Routine gynecological examination Encounter for screening mammogram for malignant neoplasm of breast Postmenopausal state Asymptomatic postmenopausal status (age-related) (natural) documented in this encounter Care Teams Team MemberRelationshipSpecialtyStart DateEnd Date Solomon Washington MD [address] [facility] [address] [place] [address] PCP - GeneralFamily Medicine5/9/23documented as of this encounter
--- OUTSIDE RECORDS SUMMARY | 2025-02-25 15:30 | XMS_ITS | Clinical Summary ---
Author Organization [employer] [facility] Address [id number] [address] [place] [address] Care Team Providers Care [employer] Glazer Name Role Phone Solomon Washington MD Primary Care Provider [phone] Allergies No known active allergies Medications MedicationSigDispense QuantityRefillsLast FilledStart DateEnd DateStatus MULTIVITAMIN ORAL Take by mouth.Active sod sulf-pot chloride-mag sulf 1.479-0.188- 0.225 gram tablet Indications:Encounter for screening colonoscopyPlease see instructional sheet given by physicians office. 24 tablet 01/23/2024ctive Additional Information Patient not taking.Reported on 02/27/2024 Active Problems No known active problems Family History Medical HistoryRelationNameCommentsLeukemiaFatherBreast cancerMotherRelationName StatusCommentsFatherDeceasedMotherDeceased Social History Tobacco UseTypesPacks/DayYears UsedDateSmoking Tobacco: NeverSmokeless Tobacco: Never Tobacco Cessation:Counseling Given: Not Answered Alcohol UseStandard Drinks/WeekCommentsNot Currently0 (1 standard drink = 0.6 oz pure alcohol)CommentsUnknownSex and Gender InformationValueDate Recorded Sex Assigned at BirthNot on fileLegal TutAfghpz99/17/2024 11:45 AM EDTGender IdentityNot on fileSexual OrientationNot on file Last Filed Vital Signs Vital SignReadingTime TakenCommentsBlood Pressure--Pulse--Temperature-- Respiratory Rate--Oxygen Saturation--Inhaled Oxygen Concentration--Elqpjc67.2 kg (135 lb)01/23/2024 2:29 PM EDTHeight--Body Mass Index-- Plan of Treatment Health MaintenanceDue DateLast DoneCommentsDepression Knwrobike22/23/1976Adult BMI Eikqhcqqd42/23/1982DTaP,Tdap and Td Vaccines (1 - Tdap)1982Zoster (Shingles) Vaccine (1 of 2)2013Influenza Iunuyxv4212/01/2024Pap Smear 5104/24/2021Tobacco Lzlixrobv49olonoscopy03/05/2034 03/05/2024, 10/07/2014, 10/07/2014RSV ( or age 60+ yrs) (1 - 1-dose 75+ series)2038 Medical Devices Not on file Procedures Procedure NamePriorityDate/TimeAssociated DiagnosisCommentsCOLONOSCOPYRoutine 03/05/2024 Encounter for screening colonoscopy from Last 3 Months or Most Recently Relevant to Health Maintenance Results * Colonoscopy (03/05/2024) Narrative Authorizing ProviderResult TypeResult StatusJegil Muñoz RESEARCH NURSE-CNPGI PROCEDURE ORDERABLESFinal ResultPerforming OrganizationAddressCity/State/ZIP CodePhone Number MANUALLY TRANSCRIBED RESULTS from Last 3 Months or Most Recently Relevant to Health Maintenance Insurance Care Teams Team MemberRelationshipSpecialtyStart DateEnd Date Solomon Washington MD [address] [address] [facility] Znpxdfuq51/29/24
--- OUTSIDE RECORDS SUMMARY | 2025-02-25 15:30 | XMS_ITS | Clinical Summary ---
Author Organization [facility] Address [address] [place] [address] Care Team Providers Care Employee Relation Manager Name Role Phone Solomon Rivas MD Primary Care Provider Allergies No known active allergies Medications No known medications Active Problems ProblemNoted DateDiagnosed DateWell adult health check02/13/2023 Assessment & Plan (01/15/2024 4:01 PM EDT): Modest Alcohol consumption No Tobacco Seat Belt use Exercise Regularly No Text Drive Social Accountability Assessment & Plan (02/13/2023 4:06 PM EST): Modest Alcohol consumption No Tobacco Seat Belt use Exercise Regularly No Text Drive Social Accountability Xbnfagourgcv02/05/2023Osteoarthritis of knee01/04/2023lantar wart1 Stage 3a chronic kidney ysoxuwa6701/04/2023 Encounters DateTypeDepartmentCare EjpwTslsnybwvlf95/26/2025 1:00 PM ESTOffice Visit [facility] [address] [place] [address] Fredrick Eng DO Well woman exam with routine gynecological exam; Encounter for screening mammogram for malignant neoplasm of breast; Postmenopausal state02/25/2025amboo flowsheet [facility] [address] [place] [address] Fredrick Eng DO from Last 3 Months Family History Medical HistoryRelationNameCommentsHeart diseaseFatherLeukemiaFatherCancerMother RelationNameStatusCommentsFatherDeceasedMotherDeceasedSonAlive2 Social History Tobacco UseTypesPacks/DayYears UsedDateSmoking Tobacco: NeverSmokeless Tobacco: Never Tobacco Cessation:Counseling Given: Not Answered Alcohol UseStandard Drinks/WeekCommentsNever0 (1 standard drink = 0.6 oz pure alcohol)CommentsUnknownSex and Gender InformationValueDate RecordedSex Assigned at BirthNot on fileLegal FanXjcjls94/15/2023 6:57 PM EDTGender Identity Not on fileSexual OrientationNot on file Last Filed Vital Signs Vital SignReadingTime TakenCommentsBlood Yzepojvk829/8202/25/2025 1:01 PM EST Hhljp364601/15/2024 3:55 PM EDTTemperature--Respiratory Rate--Oxygen Cciaseijav66% 01/15/2024 3:55 PM EDTInhaled Oxygen Concentration--Hcvlmk38.4 kg (139 lb 12 oz) 02/25/2025 1:01 PM DQZRvrbna366.2 cm (5' 7 )01/15/2024 3:55 PM EDTBody Mass Index21.8901/15/2024 3:55 PM EDT Plan of Treatment DateTypeDepartmentCare Team (Latest Contact Info)Orefnomiiak57/02/2025 4:00 PM ESTOffice Visit [facility] [address] [facility] [address] [place] [id number] Solomon Rivas MD [address] [facility] [place] [address] [place] [address] 02/24/2026 1:00 PM ESTProcedure Visit [facility] [address] [address] Fredrick Eng DO [address] [place] [address] Health MaintenanceDue DateLast DoneCommentsCT Dzaamlstkedw34/23/1964FIT-DNA 1963FIT1963FOBT1963 9391Rmidrgqbmzusb14/23/1964Colonoscopy 07/08/118030/08/2015Colorectal Cancer Ssxutiwqs21/08/2025COVID-19 Vaccine ( season)2024Influenza Vaccine (#1)12/01/20240659Kuifonepq56/06/2025 03/07/2024, 02/26/2023, 03/07/2022, Additional history existsCervical Cancer Qnvnqeoot38/27/2029HPV/Etiorc1702/26/2029Pap Smear911/, 02/22/2022 Pneumococcal Vaccine: Pediatrics (0 to 5 Years) and At-Risk Patients (6 to 64 Years)Aged OutNo longer eligible based on patient's age to complete this topic Procedures Procedure NamePriorityDate/TimeAssociated DiagnosisCommentsMM TOMOSYNTHESIS SCREENING BI03/07/2024 9:46 AM EST PAP GRLJMHppbcdq17/27/2024 12:00 AM LLNAQPHVCCMEVXUjpxmcr56/08/2015 12:00 PM EDT from Last 3 Months or Most Recently Relevant to Health Maintenance Results * MM TOMOSYNTHESIS SCREENING BI (03/07/2024 9:46 AM EST)Anatomical Region LateralityModalityOtherSpecimen (Source)Anatomical Location / Laterality Collection Method / VolumeCollection TimeReceived Time03/07/2024 9:46 AM EST Narrative 03/07/2024 9:47 AM EST [facility] ?[address] ? [place] [address] ? Mammography Report ? Signed ? Patient: BLANCA SOLITARIO E ?MR#: [id number] ?? : 1965 ?Acct:[id number] ?? Age/Sex: 58 / F ?ADM Date: 03/06/24 ?? Loc: RAD ? Attending Dr: Fredrick Meadows.Jer ? Ordering Physician: Fredrick Eng D.O. ?Results: ? Date of Service: // ?Follow Up: ? Procedure(s): MM tomosynthesis screening BI ?? Accession Number(s): [id number] ? cc: SOLOMON RIVAS ; Fredrick Eng D.O. ? Patient Name: ? BLANCA SOLITARIO ? MR#: [id number] ? : 1965 ? Exam Date: 03/06/2024 ?? Ordering Doctor: DR Fredrick Eng . ? RADIOLOGY REPORT ? PROCEDURE: ? MM TOMOSYNTHESIS SCREENING BI ? COMPARISON: ? MM TOMOSYNTHESIS SCREENING BI, 02/20/2023. ??MG MAMM SCREEN 3D ?? MATT CAD, 03/07/2022. ??MG MAMM SCREEN 3D MATT CAD, 03/03/2021. ??MG MAMM MATT SCRN ?? W CAD DIG, 11/11/2012. ? INDICATIONS: ? Screening ? Calculator Name ? NCI Breast Cancer Risk Assessment Tool ?? 5 Year Breast Cancer Risk ? 2.70% ?? Lifetime Breast Cancer Risk ? 13.60% ?? Personal Breast Cancer ?No ?? Personal Ovarian Cancer ? No ?? Treatments ? None ?? Family Cancers ? Mother with breast cancer at age 63. ? LOCATION: ? [facility] ? BREAST COMPOSITION: ? The breasts are heterogeneously dense,which may ?? obscure small masses. ? FINDINGS: ? DIAGNOSTIC CATEGORY 1--NEGATIVE. ? RIGHT BREAST: ??No significant suspicious finding. ??No significant change has ?? occurred. ? LEFT BREAST: ??No significant suspicious finding. ??No significant change has ?? occurred. ? RECOMMENDATIONS: ? ROUTINE MAMMOGRAM AND CLINICAL EVALUATION IN 12 MONTHS. ? PLEASE NOTE: ??A NORMAL MAMMOGRAM DOES NOT EXCLUDE THE POSSIBILITY OF BREAST ?? CANCER. ??A CLINICALLY SUSPICIOUS PALPABLE LUMP SHOULD BE BIOPSIED. ? Dictated by: Eduar Trimble M.D. on 03/07/2024 at 09:41 ? Approved by: Eduar Trimble M.D. on 03/07/2024 at 09:46 ? Dictated By: ?Eduar Trimble M.D. ? Signed By: ?03/07/2447 ? DD/ 0946 ? TD/TT: ? Educational Fundraising Director: Procedure Note Radiology, Radiologist, MD - 03/07/2024 [place] [address] Mammography Report Signed Patient: BLANCA SOLITARIO EMR#: [id number] : 1965Acct:[id number] Age/Sex: 58 / FADM Date: 03/06/24 Loc: RAD Attending Dr: Fredrick Eng D.O. Ordering Physician: Fredrick Eng D.O.Results: Date of Service: 03/06/24Follow Up: Procedure(s): MM tomosynthesis screening BI Accession Number(s): [id number] cc: SOLOMON RIVAS ; Fredrick Eng D.O. Patient Name: BLANCA SOLITARIO MR#: [id number] : 1965 Exam Date: 03/06/2024 Ordering Doctor: DR Fredrick Eng . RADIOLOGY REPORT PROCEDURE: MM TOMOSYNTHESIS SCREENING BI COMPARISON: MM TOMOSYNTHESIS SCREENING BI, 02/20/2023. MG MAMM BRNZAV6W MATT CAD, 03/07/2022. MG MAMM SCREEN 3D MATT CAD, 03/03/2021. MG MAMM BILSCRN W CAD DIG, 11/11/2012. INDICATIONS: Screening Calculator Name NCI Breast Cancer Risk Assessment Tool 5 Year Breast Cancer Risk 2.70% Lifetime Breast Cancer Risk 13.60% Personal Breast Cancer No Personal Ovarian Cancer No Treatments None Family Cancers Mother with breast cancer at age 63. LOCATION: [facility] BREAST COMPOSITION: The breasts are heterogeneously dense,which may obscure small masses. FINDINGS: DIAGNOSTIC CATEGORY 1--NEGATIVE. RIGHT BREAST: No significant suspicious finding. No significant changehas occurred. LEFT BREAST: No significant suspicious finding. No significant changehas occurred. RECOMMENDATIONS: ROUTINE MAMMOGRAM AND CLINICAL EVALUATION IN 12 MONTHS. PLEASE NOTE: A NORMAL MAMMOGRAM DOES NOT EXCLUDE THE POSSIBILITY OFBREAST CANCER. A CLINICALLY SUSPICIOUS PALPABLE LUMP SHOULD BE BIOPSIED. Dictated by: Eduar Trimble M.D. on 03/07/2024 at 09:41 Approved by: Eduar Trimble M.D. on 03/07/2024 at 09:46 Dictated By: Eduar Trimble M.D. Signed By:03/07/24946 DD/ 5 TD/TT: Educational Fundraising Director: Authorizing ProviderResult TypeResult StatusCorey Velasquez DOCLINISYNC IMAGINGFinal Result * Pap Smear (02/27/2024 12:00 AM EST)Specimen (Source)Anatomical Location / LateralityCollection Method / VolumeCollection TimeReceived TimeSwabCervical swab / Unknown Narrative Authorizing ProviderResult TypeResult StatusCorey Velasquez DOLAB CYTOLOGY ORDERABLESFinal ResultPerforming OrganizationAddressCity/State/ZIP CodePhone Number EXTERNAL LAB * Colonoscopy (10/07/2014 12:00 PM EDT)Anatomical RegionLateralityModality EndoscopySpecimen (Source)Anatomical Location / LateralityCollection Method / VolumeCollection TimeReceived Time10/07/2014 12:00 PM EDT Narrative 10/07/2014 12:00 PM EDT PERFORMED AT [facility] LOCATION:[id number] NORMAL Procedure Note CONVERSION, GENERIC - 08/17/[address] [facility] LOCATION:[id number] NORMAL Authorizing ProviderResult TypeResult StatusSolomon Rivas MDENDOSCOPY PROCEDURE ORDERABLESFinal Result from Last 3 Months or Most Recently Relevant to Health Maintenance Insurance Care Teams Team MemberRelationshipSpecialtyStart DateEnd Date Solomon Rivas MD [address] [address] PCP - GeneralFamily Medicine08/08/22
--- OUTSIDE RECORDS SUMMARY | 2025-02-25 15:30 | XMS_ITS | Encounter Summary ---
Author Organization [facility] Address [address] [facility] [place] [address] Care Team Providers Care Braille Operator Name Role Phone Solomon Washington MD Primary Care Provider [phone] Encounter Details DateTypeDepartmentCare Team (Latest Contact Info)Auydqkuduky65/26/2025Bamboo flowsheet [facility] [address] [place] [address] Fredrick Eng DO [address] [facility] [address] [place], [facility] Social History Tobacco UseTypesPacks/DayYears UsedDateSmoking Tobacco: NeverSmokeless Tobacco: NeverAlcohol UseStandard Drinks/WeekCommentsNever0 (1 standard drink = 0.6 oz pure alcohol)CommentsUnknownSex and Gender InformationValueDate Recorded Sex Assigned at BirthNot on fileLegal BtcWmiuxb25/15/2023 6:57 PM EDTGender IdentityNot on fileSexual OrientationNot on filedocumented as of this encounter Plan of Treatment DateTypeDepartmentCare Team (Latest Contact Info)Repevjjdzfy60/02/2025 4:00 PM ESTOffice Visit [facility] [place] [address] [place] [address] [place] [address] Solomon Washington MD [address] [place] [address] [place], [place] [id number] 02/24/2026 1:00 PM ESTProcedure Visit [facility] [address] [facility] [facility] [place] [phone] Fredrick Eng, [address] [facility] [place] [address] documented as of this encounter Visit Diagnoses Not on filedocumented in this encounter Care Teams Team MemberRelationshipSpecialtyStart DateEnd Date Solomon Washington MD [address] [facility] [address] [place] [address] PCP - GeneralFamily Medicine08/08/22documented as of this encounter
--- OUTSIDE RECORDS SUMMARY | 2025-02-25 15:33 | XMS_ITS | CCD ---
Author Organization [facility] Care Team Providers Care Psychopaedic Nurse Name Role Phone VELASQUEZ, DR BLOCK Admitting [...] Provider Solomon Rivas MD Primary Care Provider [phone] MD Solomon Rivas Primary Care Provider MD Solomon Rivas Attending Provider MD Solomon Rivas Referring Provider YOVANI FAITH Attending Unavailable SOLOMON RIVAS Referring Unavailable YOVANI FAITH Attending Unavailable SOLOMON RIVAS Referring Unavailable SOLOMON RIVAS Primary Care Unavailable SOLOMON RIVAS Attending Unavailable UMAIR WISDOM Attending Unavailable Jerad Lloyd Admitting Unavailable Jerad Lloyd Attending Unavailable Solomon Rivas Admitting Unavailable Solomon Rivas Primary Care Unavailable Solomon Rivas Attending Unavailable Solomon Rivas Referring Unavailable Solomon Rivas MD Primary Care Provider Unavailable Primary Care Provider Unavailabl e Medications Current Medications MedicationDrug Class(es)DatesSig (Normalized)Sig (Original)MULTIVITAMIN ORAL (8 sources)MULTIVITAMIN ORAL Take by mouth. Activesod sulf-pot chloride-mag sulf 1.479-0.188- 0.225 gram tablet (8 sources)Start: 23-02-3345zkx sulf-pot chloride-mag sulf 1.479-0.188- 0.225 gram tablet Indications: Encounter for screening colonoscopy Please see instructional sheet given by physicians office. 24 tablet 01/23/2024 Active Problems Active Problems Problem ClassificationProblemDateDocumented DateEpisodic/ChronicAbdominal pain (1 source)Upper abdominal pain; Translations: [Upper abdominal pain, unspecified]58-98-1343PdnhuiofBujqklz kidney disease (15 sources)Chronic kidney disease stage 3A ; Translations: [Stage 3a chronic kidney disease (HCC)]Onset: 250220-78-7134FazgpcnRkoecwcz mellitus without complication (2 sources)Abnormal glucose tolerance test; Translations: [Other abnormal glucose]41-45-8145CikcrkrqVrkokwvwg hypertension (16 sources)Essential (primary) hypertension; Translations: [Hypertensive disorder]Onset: 186479-28-0955XouoorbFdyjeucoszcxr and screening for infectious disease (1 source)Encounter for screening for human papillomavirus (HPV); Translations: [ENC SCREENING HUMAN PAPILLOMAVIRUS]Onset: 56-07-5113GbhedlfvKjhllkvebgygsm (13 sources)Osteoarthritis of knee; Translations: [Osteoarthritis of knee, unspecified]Onset: 241241-97-0541TfphujlWctvf screening for suspected conditions (not mental disorders or infectious disease) (14 sources)Encounter for screening mammogram for malignant neoplasm of breast; Translations: [Encounter for screening for malignant neoplasm of cervix]Onset: 13-60-6910BckcosboOpqqyorz codes; unclassified (1 source)Family history of malignant neoplasm of breast; Translations: [FAMILY HX MALIG NEOPLASM OF BREAST]Onset: 57-45-9074TrgytdpvOgbwvxmqwdzw (1 source)Colon Cancer ScreeningOnset: 01-23-2024 Past or Other Problems Problem ClassificationProblemDateDocumented DateEpisodic/ChronicViral infection (13 sources)Verruca plantaris; Translations: [Plantar wart]Onset: 01-04-2023 03-15-4616Wenjcuws Results Test NameValueInterpretationReference RangeFacilityIGP,APTIMA HPV,AGE GDLNon 22-42-9944ULC GDLN ACOG TESTINGNote.NOMS HealthcareComment on above:TESTS RESULT FLAG UNITS REF RANGE LAB Clinician Provided Cytology Information Source.............Cervix;Endocervix No. of containers..01 ThinPrep Vial Age Algo ACOG Jane... FLAG LEGEND: L-Low Normal,H-High Normal,LL-Alert Low,HH-Alert High <-Panic Low,>-Panic High,A-Abnormal,AA-Critical Abnormal Performed at: 01 =[address] [address] Matilda Schaefer MD, HPV APTIMANegativeNegativeNOMS HealthcareComment on above:This nucleic acid amplification test detects fourteen high- risk HPV types (16,18,31,33,35,39,45,51,52,56,58,59,66,68) without differentiation. Performed at: =[address] [id number] Technical Sales Associate: Matilda Schaefer MD, Phone: [phone] Performed at: [address] [id number] Technical Sales Associate: Matilda Schaefer MD, Phone: [phone] IGP, APTIMA HPV, RFX 16/18,45Note.NOMS [facility]iler Memorial HospitalComment on above:TESTS RESULT FLAG UNITS REF RANGE LAB DIAGNOSIS: 02 NEGATIVE FOR INTRAEPITHELIAL LESION OR MALIGNANCY. CELLULAR CHANGES ASSOCIATED WITH ATROPHY ARE PRESENT. Specimen adequacy: 02 Satisfactory for evaluation. Endocervical and/or squamous metaplastic cells (endocervical component) are present. Performed by: 02 José Antonio Hart, Volcanologist ([facility]) . 02 Note: Note 02 The Pap smear is a screening test designed to aid in the detection of premalignant and malignant conditions of the uterine cervix. It is not a diagnostic procedure and should not be used as the sole means of detecting cervical cancer. Both false-positive and false-negative reports do occur. Test Methodology: Note 02 This liquid based ThinPrep(R) pap test was screened with the use of an image guided system. HPV Genotype Reflex Note 02 Criteria not met, HPV Genotype not performed. FLAG LEGEND: L-Low Normal,H-High Normal,LL-Alert Low,HH-Alert High <-Panic Low,>-Panic High,A-Abnormal,AA-Critical Abnormal Performed at: [address] [address] Matilda Schaefer MD, BRUSH-SPATULA CERVIX ENDOCERVIX CLINISYTennova Healthcare [facility] TOMOSYNTHESIS SCREENING BIon 60-74-6830[place]wd[place] [address] Mammography Report Signed Patient: BLANCA SOLITARIO MR#: [id number] : 1965 Acct:[id number] Age/Sex: 58 / F ADM Date: 03/06/24 Loc: RAD Attending Dr: Umair Wisdom D.O. Ordering Physician: Umair Wisdom D.O. Results: Date of Service: 03/06/24 Follow Up: Procedure(s): MM tomosynthesis screening BI Accession Number(s): [id number] cc: SOLOMON RIVAS ; Umair Wisdom D.O. Patient Name: BLANCA SOLITARIO MR#: [id number] : 1965 Exam Date: 03/06/2024 Ordering Doctor: DR Umair Wisdom . RADIOLOGY REPORT PROCEDURE: MM TOMOSYNTHESIS SCREENING BI COMPARISON: MM TOMOSYNTHESIS SCREENING BI, 02/20/2023. MG MAMM SCREEN 3D MATT CAD, 03/07/2022. MG MAMM SCREEN 3D MATT CAD, 03/03/2021. MG MAMM MATT SCRN W CAD DIG, 11/11/2012. INDICATIONS: Screening Calculator Name NCI Breast Cancer Risk Assessment Tool 5 Year Breast Cancer Risk 2.70% Lifetime Breast Cancer Risk 13.60% Personal Breast Cancer No Personal Ovarian Cancer No Treatments None Family Cancers Mother with breast cancer at age 63. LOCATION: [facility] BREAST COMPOSITION: The breasts are heterogeneously dense,which [...] 09:46 Dictated By: Eduar Trimble M.D. Signed By: 03/07/24 0947 DD/ 0946 TD/TT: Medical Writer:ARIESHRadiology, Radiologist, MD - 03/07/2024 [place] [address] Mammography Report Signed Patient: BLANCA SOLITARIO MR#: [id number] : 1965 Acct:[id number] Age/Sex: 58 / F ADM Date: 03/06/24 Loc: RAD Attending Dr: Umair Wisdom D.O. Ordering Physician: Umair Wisdom D.O. Results: Date of Service: 03/06/24 Follow Up: Procedure(s): MM tomosynthesis screening BI Accession Number(s): [id number] cc: SOLOMON RIVAS ; Umair Wisdom D.O. Patient Name: BLANCA SOLITARIO MR#: [id number] : 1965 Exam Date: 03/06/2024 Ordering Doctor: DR Umair Wisdom . RADIOLOGY REPORT PROCEDURE: MM TOMOSYNTHESIS SCREENING BI COMPARISON: MM TOMOSYNTHESIS SCREENING BI, 02/20/2023. MG MAMM SCREEN 3D MATT CAD, 03/07/2022. MG MAMM SCREEN 3D MATT CAD, 03/03/2021. MG MAMM MATT SCRN W CAD DIG, 11/11/2012. INDICATIONS: Screening Calculator Name NCI Breast Cancer Risk Assessment Tool 5 Year Breast Cancer Risk 2.70% Lifetime Breast Cancer Risk 13.60% Personal Breast Cancer No Personal Ovarian Cancer No Treatments None Family Cancers Mother with breast cancer at age 63. LOCATION: [facility] BREAST COMPOSITION: The breasts are heterogeneously dense,which [...] 09:46 Dictated By: Eduar Trimble M.D. Signed By: 03/07/24946 DD/ 5 TD/TT: Medical Writer: ELIN HealthcareRadiology Study observation (narrative)SANGPershing Memorial HospitalMM TOMOSYNTHESIS SCREENING BIOrdered By: Radiologist Radiology on 00-68-2119XJNI Healthcare Work Phone: XR DEXA AXIAL SKELETONon [phone][place] [address] XRay Report Signed Patient: BLANCA SOLITARIO MR#: [id number] : 1965 Acct:[id number] Age/Sex: 58 / F ADM Date: 03/06/24 Loc: RAD Attending Dr: Umair Wisdom D.O. Ordering Physician: Umair Wisdom D.O. Date of Service: 03/06/24 Procedure(s): XR DEXA axial skeleton Accession Number(s): [id number] cc: SOLOMON RIVAS ; Umair Wisdom D.O. [place] [id number] Patient Name: BLANCA SOLITARIO MRN: [id number] date: 1965 Sex: F Assigned Patient Location: [facility] Current Patient Location: Accession/Order Number: [id number] Exam Date: 03/06/2024 15:30 Report Date: 03/07/2024 05:25 At the request of: UMAIR WISDOM Procedure: XR DEXA axial skeleton EXAMINATION: XR DEXA axial skeleton HISTORY: Post Menopause COMPARISON: DEXA bone densitometry 02/24/2020 TECHNIQUE: Dual-energy X-ray absorptiometry (DXA) was performed. FINDINGS: SPINE ANALYSIS: Average bone mineral density is 0.956 g/cm2. T-score (standard deviation relative to young adult mean): -1.9 . Change since prior study. HIP ANALYSIS: Lowest bone mineral density is within the right femoral neck, 0.967 g/cm2. T-score (standard deviation relative to young adult mean): -0.5 . -12.0% change since prior study. XR/XR DEXA axial skeleton IMPRESSION: World Health Organization Classification: Osteopenia - Moderate Fracture Risk FRAX: Cannot be calculated. Pharmacologic treatment recommendations * No uniform recommendation applies to all patients. Management plans must be individualized. * Consider initiating pharmacologic treatment in postmenopausal women and men >= 50 years of age who have the following: Primary fracture prevention: * T-score <= - 2.5 at the femoral neck, total hip, lumbar spine, 33% radius (some uncertainty with existing data) by DXA. * Low bone mass (osteopenia: T-score between - 1.0 and - 2.5) at the femoral neck or total hip by DXA with a 10-year hip fracture risk >= 3% or a 10-year major osteoporosis-related fracture risk >= 20% (i.e., clinical vertebral, hip, forearm, or proximal humerus) based on the US-adapted FRAXregistered model. Secondary fracture prevention: * Fracture of the hip or vertebra regardless of BMD [4, 5]. * Fracture of proximal humerus, pelvis, or distal forearm in persons with low bone mass (osteopenia: T-score between - 1.0 and - 2.5). The decision to treat should be individualized in persons with a fracture of the proximal humerus, pelvis, or distal forearm who do not have osteopenia or low BMD [12, 13]. Aleisha MS, Laura SL, Timothy KL, Carlos EM, Andi KG, AJ, Ave ES. The clinician's guide to prevention and treatment of osteoporosis. Osteoporos Int. 2021;33(10):2436-0517. doi: 10.1007/b42668-932-80100-i. Epub 2021Jul 28. Erratum in: Osteoporos Int. 2021Oct 27;: PMID: 20003508; PMCID: HFX4165097. Electronically authenticated by: EDUAR TRIMBLE Date: 03/07/2024 05:25 Dictated By: Eduar Trimble M.D. Signed By: 03/07/24526 DD/ 4 TD/TT: Medical Writer:TBHRadiology, Radiologist, - 03/07/2024 [facility] [address] [place] [address] XRay Report Signed Patient: BLANCA SOLITARIO MR#: [id number] : 1965 Acct:[id number] Age/Sex: 58 / F ADM Date: 03/06/24 Loc: RAD Attending Dr: Umair Wisdom D.O. Ordering Physician: Umair Wisdom D.O. Date of Service: 03/06/24 Procedure(s): XR DEXA axial skeleton Accession Number(s): [id number] cc: SOLOMON RIVAS ; Umair Wisdom D.O. The [address] [address] Patient Name: BLANCA SOLITARIO MRN: [id number] date: 1965 Sex: F Assigned Patient Location: [facility] Current Patient Location: Accession/Order Number: [id number] Exam Date: 03/06/2024 15:30 Report Date: 03/07/2024 05:25 At the request of: UMAIR WISDOM Procedure: XR DEXA axial skeleton EXAMINATION: XR DEXA axial skeleton HISTORY: Post Menopause COMPARISON: DEXA bone densitometry 02/24/2020 TECHNIQUE: Dual-energy X-ray absorptiometry (DXA) was performed. FINDINGS: SPINE ANALYSIS: Average bone mineral density is 0.956 g/cm2. T-score (standard deviation relative to young adult mean): -1.9 . Change since prior study. HIP ANALYSIS: Lowest bone mineral density is within the right femoral neck, 0.967 g/cm2. T-score (standard deviation relative to young adult mean): -0.5 . -12.0% change since prior study. XR/XR DEXA axial skeleton IMPRESSION: World Health Organization Classification: Osteopenia - Moderate Fracture Risk FRAX: Cannot be calculated. Pharmacologic treatment recommendations * No uniform recommendation applies to all patients. Management plans must be individualized. * Consider initiating pharmacologic treatment in postmenopausal women and men >= 50 years of age who have the following: Primary fracture prevention: * T-score <= - 2.5 at the femoral neck, total hip, lumbar spine, 33% radius (some uncertainty with existing data) by DXA. * Low bone mass (osteopenia: T-score between - 1.0 and - 2.5) at the femoral neck or total hip by DXA with a 10-year hip fracture risk >= 3% or a 10-year major osteoporosis-related fracture risk >= 20% (i.e., clinical vertebral, hip, forearm, or proximal humerus) based on the US-adapted FRAXregistered model. Secondary fracture prevention: * Fracture of the hip or vertebra regardless of BMD [4, 5]. * Fracture of proximal humerus, pelvis, or distal forearm in persons with low bone mass (osteopenia: T-score between - 1.0 and - 2.5). The decision to treat should be individualized in persons with a fracture of the proximal humerus, pelvis, or distal forearm who do not have osteopenia or low BMD [12, 13]. Aleisha MS, Laura SL, Timothy KL, Carlos EM, Andi KG, AJ, Ave ES. The clinician's guide to prevention and treatment of osteoporosis. Osteoporos Int. 2021;33(10):0175-0668. doi: 10.1007/v86386-058-65182-v. Epub 2021Jul 28. Erratum in: Osteoporos Int. 2021Oct 27;: PMID: 57655795; PMCID: [id number]. Electronically authenticated by: EDUAR TRIMBLE Date: 03/07/2024 05:25 Dictated By: Eduar Trimble M.D. Signed By: 03/07/24526 DD/ 4 TD/TT: Medical Writer: ELIN HealthcareRadiology Study observation (narrative)[facility] HealthcareXR DEXA AXIAL SKELETONOrdered By: Radiologist Radiology on 34-09-1754N[employer] Work Phone: TB H PYLORI TISSUEon 03-06-2024H PYLORI TISSUE, UREASENegativeNOWI HealthcareCLINISYNCNOMS HealthcareColonoscopyon 03-05-2024 [facility] SystemPathology Request for Lab Corpon 42-86-5146Kcbprtzri Request for Lab [facility] Physician GroupComment on above:Order Comment: PATHOLOGY GI SPECIMENResult Comment: See report. Scanned copy available in EMR. PERFORMED BY: [place] [address] PATHOLOGIST WHIP SAWYER CARIN PATEL M.D.Performed By: #### PATH TO [facility] #### [place] [address] USASurgical Pathologyon 19-22-4750ZiwOpngatTrinity Health System [facility] Alanine aminotransferase [Enzymatic activity/volume] in Serum or PlasmaOrdered By: Solomon Howland on 43-77-0240PYA [Catalytic activity/Vol]18 U/LNormal7-52 [facility] HospitalComment on above:Performed By: #### CBC, CMP, LIPID #### [place] [address] USAAlbumin [Mass/volume] in Serum or Plasma by Bromocresol green (BCG) dye binding methoOrdered By: Solomon Evelyn on 22-41-7433Cizmqmf BCG dye [Mass/Vol]4.1 g/dL3.5-5.7FKnox Community HospitalAlkaline phosphatase [Enzymatic activity/volume] in Serum or PlasmaOrdered By: Rugen Howland on 01-81-7939LYO [Catalytic activity/Vol]68 U/FGekgai29-336KkfkpmiybMercy Health West HospitalComment on above:Performed By: #### CBC, CMP, LIPID #### [place] [address] USAAspartate aminotransferase [Enzymatic activity/volume] in Serum or PlasmaOrdered By: Daysien Evelyn on 17-55-2186BVC [Catalytic activity/Vol] 23 U/LLsdocd07-11NcyuodphzMercy Health West HospitalComment on above:Performed By: #### CBC, CMP, LIPID #### [facility] [address] [place] [address] USAAutomated basophil %Ordered By: Solomon Evelyn on 01-19-2024 Basophils/100 WBC (Bld)0.8 %Normal.[facility] HospitalComment on above:Performed By: #### CBC, CMP, LIPID #### [place] [address] USAAutomated basophil countOrdered By: Rugen Howland on 05-04-7068Belhhbabz (Bld) [#/Vol]0.1 10*3/uLNormal0.0-0.2FKnox Community HospitalComment on above:Result Comment: PERFORMED BY: [place] [address] PATHOLOGIST WHIP SAWYER SATHYA LOWRY M.D.Performed By: #### CBC, CMP, LIPID #### [place] [address] USAAutomated blood monocyte countOrdered By: Rugen Howland on 25-41-6105Amgplkwoi (Bld) [#/Vol]0.6 10*3/uLNormal0.0-0.8[facility] HospitalComment on above:Performed By: #### CBC, CMP, LIPID #### [facility] [address] [place] [address] USAAutomated eosinophil %Ordered By: Rugen Evelyn on 01-19-2024 Eosinophils/100 WBC (Bld)2.5 %Normal.[facility] HospitalComment on above:Performed By: #### CBC, CMP, LIPID #### [facility] [address] [place] [address] USAAutomated eosinophil countOrdered By: Rugen Howland on 44-26-7978Elbnswcyrhf (Bld) [#/Vol]0.2 10*3/uLNormal0.0-0.45[facility] HospitalComment on above:Performed By: #### CBC, CMP, LIPID #### [facility] [address] [place] [address] USAAutomated monocyte %Ordered By: Rugen Evelyn on 01-19-2024 Monocytes/100 WBC (Bld)7.8 %Normal.[facility] HospitalComment on above:Performed By: #### CBC, CMP, LIPID #### [facility] [address] [place] [address] USAAutomated neutrophil %Ordered By: Rugen Howland on 01-19-2024 Neutrophils/100 WBC (Bld)63.3 %Normal.[facility] HospitalComment on above:Performed By: #### CBC, CMP, LIPID #### [facility] [address] [place] [address] USABilirubin.total [Mass/volume] in Serum or PlasmaOrdered By: Solomon Rivas on 29-44-6794Xfkhabtef [Mass/Vol]0.6 mg/dLNormal0.3-1.0Mer[facility] HospitalComment on above:Performed By: #### CBC, CMP, LIPID #### [facility] [address] [place] [address] USACBC W Auto Differential panel (Bld)on 49-87-8208Iucooqneg (Bld) [#/Vol]0.1 10*3/uL0.0 - 0.2 10*3/uLNOMS HealthcareBasophils/100 WBC Manual cnt (Syn fld)0.8 %.[facility] HealthcareEosinophils (Bld) [#/Vol]0.2 10*3/uL0.0 - 0.45 10*3/uLNOMS HealthcareEosinophils/100 WBC Manual cnt (Syn fld)2.5 %.[facility] VA Medical CenterErythrocyte distribution width (RBC) [Ratio]12.5 %11.9 - 15.3 %[facility] Medical CenterHematocrit (Bld) [Volume fraction]40.8 %34.0 - 46.4 %[facility] Hemoglobin (Bld) [Mass/Vol]13.9 g/dL11.8 - 15.4 g/dLNOWI HealthcareLymphocytes (Bld) [#/Vol]2.1 10*3/uL1.00 - 4.8 10*3/uLNOMS HealthcareLymphocytes/100 WBC Manual cnt (Syn fld)25.6 %.[facility] Medical CenterMCH (RBC) [Entitic mass]32.6 pg24.7 - 34.3 pgNOMS Detwiler Memorial HospitalMCHC (RBC) [Mass/Vol]34.1 g/dL32.0 - 35.0 g/dLNOSaint Joseph Health CenterMCV (RBC) [Entitic vol]95.4 fL80 - 100 fLNOMS HealthcareMonocytes (Bld) [#/Vol]0.6 10*3/uL0.0 - 0.8 10*3/uLNOMS Healthcare Monocytes+Macrophages/100 WBC Manual cnt (Syn fld)7.8 %.[facility] Neutrophils (Bld) [#/Vol]5.1 10*3/uL1.8 - 7.7 10*3/uLNOMS Healthcare Neutrophils/100 WBC Manual cnt (Syn fld)63.3 %.NOMS HealthcareNRBC0.1 /100{WBC}0 - 0.5 /100{WBC}NOMS HealthcarePlatelet mean volume (Bld) [Entitic vol]7.8 fL6.3 - 10.7 fLNOMS HealthcarePlatelets (Bld) [#/Vol]293 10*3/uL150 - 450 10*3/uLNOMS HealthcareRBC LM.HPF (Urine sed) [#/Area]4.27 /[HPF]3.60 - 5.00MS Healthcare WBC (Bld) [#/Vol]8.1 10*3/uL3.8 - 11.6 10*3/uLNOMS HealthcareWBC LM.HPF (Urine sed) [#/Area]8.1 10*3/uL3.8 - 11.6 10*3/uLNOMS Detwiler Memorial HospitalNOMS HealthcareCalcium [Mass/volume] in Serum or PlasmaOrdered By: Solomon Rivas on 01-10-4511Upkxspk [Mass/Vol]9.3 mg/dLNormal8.6-10.3FKnox Community HospitalComment on above:Performed By: #### CBC, CMP, LIPID #### [facility] [address] [place] [address] USACarbon dioxide, total [Moles/volume] in Serum or Plasma Ordered By: Solomon Rivas on 00-38-6021ET3 [Moles/Vol]29.5 mmol/AItucdo24.0-31.0 [facility] HospitalComment on above:Performed By: #### CBC, CMP, LIPID #### [facility] [address] [place] [address] USAChloride [Moles/volume] in Serum or PlasmaOrdered By: Solomon Rivas on 38-95-0944Ylmnvmvj [Moles/Vol]105 mmol/NZgulsb51-181YcksuhwhiMercy Health West HospitalComment on above:Performed By: #### CBC, CMP, LIPID #### [facility] [address] [place] [address] USACholesterol [Mass/volume] in Serum or PlasmaOrdered By: Solomon Rivas on 19-54-3632Lbpsreskspf [Mass/Vol]157 mg/lHIxtjsy174-579KurtnjuciMercy Health West HospitalComment on above:Chol less than 200 mg/dl low riskChol 201-239 mg/dl borderline riskChol 240 mg/dl and greater high riskResult Comment: Chol less than 200 mg/dl low risk Chol 201-239 mg/dl borderline risk Chol 240 mg/dl and greater high riskPerformed By: #### CBC, CMP, LIPID #### [facility] [address] [place] [address] USACholesterol in LDL Calc [Mass/Vol]Ordered By: Solomon Rivas on 93-69-8399Hebqpuqhkry in LDL [Mass/Vol]64 mg/dL0-100Mer[facility] HospitalComment on above:LDL ATP III CLASSIFICATIONLDL less than 100 mg/dL OptimalLDL 100-129 mg/dL Near or above lqaeuqxUKD875-557 mg/dL Borderline highLDL 160-189 mg/dL HighLDL greater than 189 mg/dL Very highCholesterol in VLDL Calc [Mass/Vol]Ordered By: Solomon Rivas on 65-85-3888Tvzhyuvdopx in VLDL [Mass/Vol]7 mg/dLMercy Health West HospitalComplete Blood Count Auto Diff on 45-82-8537Htxw Corpuscular HGB Conc34.1 g/hEUbmloc06.0-35.0The [facility] Physician GroupComment on above:Performed By: #### CBC, CMP, LIPID #### [facility] [address] [place] [address] USANRBC%0.1 /100{WBC}Normal0-0.5[facility] Comment on above:Performed By: #### CBC, CMP, LIPID #### [facility] [address] [place] [address] USAComprehensive Metabolic Panelon 46-89-4669Zuvepcw [Mass/Vol]4.1 g/dLNormal3.5-5.7The [facility] Physician GroupComment on above: Performed By: #### CBC, CMP, LIPID #### [facility] [address] [place] [address] USAGFR/1.73 sq M.predicted MDRD (S/P/Bld) [Vol rate/Area] mL/min/{1.73_m2}NormalThe [facility]rium Health Union Physician GroupComment on above:Performed By: #### CBC, CMP, LIPID #### [facility] [address] [place] [address] USAComprehensive metabolic panelon 28-14-8567Angzbji [Mass/Vol]4.1 g/dL3.5 - 5.7 g/dLNOMS HealthcareAlbumin/Globulin [Mass ratio]1.5 {ratio}NOMS HealthcareALP [Catalytic activity/Vol]68 U/L34 - 104 U/LNOMS HealthcareALT [Catalytic activity/Vol]18 U/L7 - 52 U/LNOMS HealthcareAnion gap [Moles/Vol]10 mmol/L6.0 - 15.0NOMS HealthcareAST [Catalytic activity/Vol]23 U/L 13 - 39 U/LNOMS HealthcareBilirubin [Mass/Vol]0.6 mg/dL0.3 - 1.0 mg/dLNOMS HealthcareCalcium [Mass/Vol]9.3 mg/dL8.6 - 10.3 mg/dLNOMS HealthcareChloride [Moles/Vol]105 mmol/L98 - 107 mmol/LNOMS HealthcareCO2 [Moles/Vol]29.5 mmol/L 21.0 - 31.0 mmol/LNOMS HealthcareCreatinine (U) [Mass/Vol]0.99 mg/dL0.60 - 1.20 mg/dLNOWI HealthcareGFR/1.73 sq M.predicted MDRD (S/P/Bld) [Vol rate/Area] mL/min/{1.73_m2}NOMS HealthcareGlobulin (S) [Mass/Vol]2.7 g/dLNOMS Healthcare Glucose [Mass/Vol]87 mg/dL70 - 100 mg/dLNOWI HealthcareComment on above:Random Glucose Reference Range is dependent on time and content of last meal. Glucose of more than 200 mg/dL in a nonstressed, ambulatory subject supports the diagnosis of Diabetes Mellitus. ADA recommended reference range Potassium [Moles/Vol]4.5 mmol/L3.5 - 5.1 mmol/LNOMS HealthcareProtein [Mass/Vol] 6.8 g/dL6.4 - 8.9 g/dLNOMS HealthcareSodium [Moles/Vol]140 mmol/L136 - 145 mmol/LNOMS HealthcareUrea nitrogen [Mass/Vol]17 mg/dL7 - 25 mg/dLNOMS Healthcare Creatinine [Mass/volume] in Serum or PlasmaOrdered By: Solomon Rivas on 01-19-2024 Creatinine [Mass/Vol]0.99 mg/dLNormal0.60-1.20[facility] Comment on above:Performed By: #### CBC, CMP, LIPID #### [facility] [address] [place] [address] USAErythrocyte distribution width [Ratio] by Automated count Ordered By: Solomon Rivas on 78-77-3552Tejezybfnra distribution width (RBC) [Ratio] 12.5 %Caymco95.9-15.3FKnox Community HospitalComment on above:Performed By: #### CBC, CMP, LIPID #### [facility] [address] [place] [address] USAErythrocytes [#/volume] in Blood by Automated countOrdered By: Solomon Rivas on 60-45-0980SEE (Bld) [#/Vol]4.27 10*6/uLNormal3.60-5.00 [facility] HospitalComment on above:Performed By: #### CBC, CMP, LIPID #### [facility] [address] [place] [address] USAGlucose [Mass/volume] in Serum or PlasmaOrdered By: Solomon Rivas on 30-60-8617Jsaajbk [Mass/Vol]87 mg/iPLwtvyg01-933AoplocgqoMercy Health West HospitalComment on above:ADA recommended reference rangeRandom Glucose Reference Range is dependent on time and content of last meal. Glucose of more than 200 mg/dL in a nonstressed, ambulatory subject supports the diagnosisof Diabetes Mellitus.Result Comment: Random Glucose Reference Range is dependent on time and content of last meal. Glucose of more than 200 mg/dL in a nonstressed, ambulatory subject supports the diagnosis of Diabetes Mellitus. ADA recommended reference rangePerformed By: #### CBC, CMP, LIPID #### [facility] [address] [place] [address] USAHematocrit [Volume Fraction] of Blood by Automated count Ordered By: Solomon Rivas on 03-02-8184Rzsepnkkbs (Bld) [Volume fraction]40.8 % Nnukls53.0-46.4FKnox Community HospitalComment on above:Performed By: #### CBC, CMP, LIPID #### [facility] [address] [place] [address] USAHemoglobin [Mass/volume] in BloodOrdered By: Solomon Rivas on 54-44-9345Lhprzbjmmo (Bld) [Mass/Vol]13.9 g/iZFojams88.8-15.4FKnox Community HospitalComment on above:Performed By: #### CBC, CMP, LIPID #### [facility] [address] [place] [address] USALeukocytes [#/volume] corrected for nucleated erythrocytes in Blood by Automated counOrdered By: Solomon Rivas on 73-22-7045RJY corrected for nucl RBC Auto (Bld) [#/Vol]8.1 10*3/uL3.8-11.6FKnox Community Hospital Leukocytes [#/volume] in Blood by Automated countOrdered By: Solomon Rivas on 46-71-0919YCA (Bld) [#/Vol]8.1 10*3/uLNormal3.8-11.6FKnox Community HospitalComment on above:Performed By: #### CBC, CMP, LIPID #### [facility] [address] [place] [id number] USALipid 1996 panelon 26-75-5619Qfwuiclelts [Mass/Vol]157 mg/dL140 - 200 mg/dLJohn J. Pershing VA Medical CenterComment on above:Chol less than 200 mg/dl low risk Chol 201-239 mg/dl borderline risk Chol 240 mg/dl and greater high risk Cholesterol in HDL [Mass/Vol]86 mg/dL23 - 92 mg/dLOGDEN REGIONAL MEDICAL CENTER HealthcareComment on above:HDL CHOL ATP-III CLASSIFICATION Cardiovascular Risk HDL > or equal to 60 mg/dL LOW HDL < 40 mg/dL HIGH Cholesterol.total/Cholesterol in HDL [Mass ratio]1.8 {ratio}NINF - 5.0John J. Pershing VA Medical CenterLDL CHOLESTEROL,RRGNGNBLVT83 mg/dL0 - 100 mg/dLNOWI HealthcareComment on above:LDL ATP III CLASSIFICATION LDL less than 100 mg/dL Optimal LDL 100-129 mg/dL Near or above optimal LDL 130-159 mg/dL Borderline high LDL 160-189 mg/dL High LDL greater than 189 mg/dL Very high TRIGLYCERIDE W/PNOARY08 mg/dL0 - 149 mg/dLOGDEN REGIONAL MEDICAL CENTER HealthcareComment on above:TRIG ATP III CLASSIFICATION TRIG less than 150 mg/dL Normal TRIG 150-199 mg/dL Borderline high TRIG 200-500 mg/dL High TRIG greater than 500 mg/dL Very high Standard traceable to the Center for Disease Conrtrol and Prevention (CDC) test method. VLDL CHOLESTEROL7 mg/dLJohn J. Pershing VA Medical CenterLipid Panelon 50-50-3996TMG Cholesterol,Ycgatzkplp43 mg/dLNormal0-100The [facility] Union Physician GroupComment on above:Result Comment: LDL ATP III CLASSIFICATION LDL less than 100 mg/dL Optimal LDL 100-129 mg/dL Near or above optimal LDL 130-159 mg/dL Borderline high LDL 160-189 mg/dL High LDL greater than 189 mg/dL Very highPerformed By: #### CBC, CMP, LIPID #### [facility] [address] [place] [address] USATriglyceride w/Lsjomi12 mg/dLNormal0-149The [facility] Union Physician GroupComment on above:Result Comment: TRIG ATP III CLASSIFICATION TRIG less than 150 mg/dL Normal TRIG 150-199 mg/dL Borderline high TRIG 200-500 mg/dL High TRIG greater than 500 mg/dL Very high Standard traceable to the Center for Disease Conrtrol and Prevention (CDC) test method.Performed By: #### CBC, CMP, LIPID #### [facility] [address] [place] [address] USAVLDL CHOLESTEROL7 mg/dLNormalThe [facility] Comment on above:Performed By: #### CBC, CMP, LIPID #### [facility] [address] [place] [address] USALymphocytes [#/volume] in Blood by Automated countOrdered By: Solomon Rivas on 28-72-3454Udeudfelmau (Bld) [#/Vol]2.1 10*3/uLNormal1.00-4.8 [facility] HospitalComment on above:Performed By: #### CBC, CMP, LIPID #### [facility] [address] [place] [address] USALymphocytes/100 leukocytes in Blood by Automated count Ordered By: Solomon Rivas on 80-88-3685Zrrfjzmgrkb/100 WBC (Bld)25.6 %Normal. [facility] HospitalComment on above:Performed By: #### CBC, CMP, LIPID #### [address] [Entitic mass] by Automated countOrdered By: Solomon Rivas on 18-19-0843EXL (RBC) [Entitic mass]32.6 zsDczwct83.7-34.3FKnox Community HospitalComment on above:Performed By: #### CBC, CMP, LIPID #### [facility] [address] [place] [address] Auto (RBC) [Mass/Vol]Ordered By: Solomon Rivas on 71-65-4069BZTR (RBC) [Mass/Vol]34.1 g/dL32.0-35.0[facility] HospitalMCV [Entitic volume] by Automated countOrdered By: Solomon Becerrila on 04-97-0299RYE (RBC) [Entitic vol]95.4 oUQiwmgz32-168JvxsffgegMercy Health West HospitalComment on above:Performed By: #### CBC, CMP, LIPID #### [facility] [address] [place] [address] USANeutrophils [#/volume] in Blood by Automated countOrdered By: Solomon Rivas on 64-97-0694Ofuqrynvrjs (Bld) [#/Vol]5.1 10*3/uLNormal1.8-7.7 [facility] HospitalComment on above:Performed By: #### CBC, CMP, LIPID #### [facility] [address] [place] [address] USANo Panel Informationon 11-53-0975IKXN HealthcareNo Panel InformationOrdered By: Solomon Rivas on 93-13-8949Ddyvloosx GFR (CKD-EPI)> 60.0 mL/MinMercy Health West HospitalPharmacy Creatinine Clearance (ChemN/A [facility] HospitalNucleated erythrocytes [Presence] in Blood by Automated countOrdered By: Solomon Rivas on 01-05-8593Ojcqwxble RBC Auto Ql (Bld) 0.1 /100{WBC}0-0.5FKnox Community HospitalPlatelet mean volume [Entitic volume] in Blood by Automated countOrdered By: Solomon Rivas on 38-44-5340Fewkoyyz mean volume (Bld) [Entitic vol]7.8 fLNormal6.3-10.7FKnox Community HospitalComment on above:Performed By: #### CBC, CMP, LIPID #### [facility] [address] [place] [address] USAPlatelets [#/volume] in Blood by Automated countOrdered By: Solomon Rivas on 33-86-1202Pfrxcwehz (Bld) [#/Vol]293 10*3/lXQfsljl736-932 [facility] HospitalComment on above:Performed By: #### CBC, CMP, LIPID #### [facility] [address] [place] [address] USAPotassium [Moles/volume] in Serum or PlasmaOrdered By: Solomon Rivas on 73-77-1932Lwdjmyrpe [Moles/Vol]4.5 mmol/LNormal3.5-5.1FKnox Community HospitalComment on above:Performed By: #### CBC, CMP, LIPID #### [facility] [address] [place] [address] USAProtein [Mass/volume] in Serum or PlasmaOrdered By: Solomon Rivas on 23-07-8276Djhsusi [Mass/Vol]6.8 g/dLNormal6.4-8.9[facility] HospitalComment on above:Performed By: #### CBC, CMP, LIPID #### [facility] [address] [place] [address] USASerum globulin measurement by calculation (mass/volume) Ordered By: Solomon Rivas on 92-66-9159Cwwlrkgt (S) [Mass/Vol]2.7 g/dLNormal [facility] HospitalComment on above:Performed By: #### CBC, CMP, LIPID #### [facility] [address] [place] [address] USASerum or plasma albumin/globulin mass ratioOrdered By: Solomon Rivas on 64-09-0686Gfvvmii/Globulin [Mass ratio]1.5 {ratio}NormalMercy Health West HospitalComment on above:Performed By: #### CBC, CMP, LIPID #### [facility] [address] [place] [address] USASerum or plasma anion gap determinationOrdered By: Solomon Rivas on 71-53-8149Kvgan gap [Moles/Vol]10.0 mmol/LNormal6.0-15.0[facility] HospitalComment on above:Performed By: #### CBC, CMP, LIPID #### [facility] [address] [place] [address] USASerum or plasma high density lipoprotein (HDL) cholesterol measurementOrdered By: Solomon Rivas on 47-36-1161Bmjlgthnpih in HDL [Mass/Vol]86 mg/dOYyharq77-07YafufqfooMercy Health West HospitalComment on above:HDL CHOL ATP- III CLASSIFICATION Cardiovascular RiskHDL > or equal to 60 mg/dL LOWHDL < 40 mg/dL HIGHResult Comment: HDL CHOL ATP-III CLASSIFICATION Cardiovascular Risk HDL > or equal to 60 mg/dL LOW HDL < 40 mg/dL HIGHPerformed By: #### CBC, CMP, LIPID #### [facility] [address] [place] [address] USASerum or plasma total cholesterol/high density lipoprotein (HDL) cholesterol mass ratOrdered By: Solomon Rivas on 01-19-2024 Cholesterol.total/Cholesterol in HDL [Mass ratio]1.8 {ratio}Normal<5.0[facility] HospitalComment on above:Result Comment: PERFORMED BY: [place] [address] PATHOLOGIST WHIP SAWYER SATHYA LOWRY M.D.Performed By: #### CBC, CMP, LIPID #### [place] [address] USASodium [Moles/volume] in Serum or PlasmaOrdered By: Solomon Rivas on 25-36-5219Khboim [Moles/Vol]140 mmol/HXpwsza089-193SkpkzgsppMercy Health West HospitalComment on above:Performed By: #### CBC, CMP, LIPID #### [place] [id number] USATriglyceride [Mass/volume] in Serum or PlasmaOrdered By: Solomon Rivas on 12-12-3153Nyntwvelufom [Mass/Vol]35 mg/dL0-149[facility] HospitalComment on above:TRIG ATP III CLASSIFICATIONTRIG less than 150 mg/dL NormalTRIG 150-199 mg/dL Borderline highTRIG 200-500 mg/dL High TRIG greater than 500 mg/dL Very highStandard traceable to the Center for Disease Co nrtrol and Prevention (CDC) test method.Urea nitrogen [Mass/volume] in Serum or PlasmaOrdered By: Solomon Rivas on 71-40-3564Aexu nitrogen [Mass/Vol]17 mg/dLNormal 7-25Mer[facility] HospitalComment on above:Performed By: #### CBC, CMP, LIPID #### [place] [id number] USAAlanine aminotransferase [Enzymatic activity/volume] in Serum or PlasmaOrdered By: Solomon Rivas on 72-55-1677JUP [Catalytic activity/Vol] 20 U/L7-52Mer[facility] HospitalAlbumin [Mass/volume] in Serum or Plasma by Bromocresol green (BCG) dye binding methoOrdered By: Solomon Rivas on 15-85-9644Jkgavhd BCG dye [Mass/Vol]4.3 g/dL3.5-5.7FKnox Community HospitalAlkaline phosphatase [Enzymatic activity/volume] in Serum or PlasmaOrdered By: Solomon Rivas on 93-80-1809ZYT [Catalytic activity/Vol]67 U/M01-105VmizsijmhMercy Health West HospitalAspartate aminotransferase [Enzymatic activity/volume] in Serum or PlasmaOrdered By: Solomon Rivas on 05-66-5254PYW [Catalytic activity/Vol] 22 U/K56-29YeksqvrkiMercy Health West HospitalBasophils Auto (Bld) [#/Vol]Ordered By: Solomon Evelyn on 42-19-9653Dogjloulj (Bld) [#/Vol]0.1 10*3/uL0.0-0.2FKnox Community HospitalBasophils/100 WBC Auto (Bld)Ordered By: Solomon Evelyn on 55-70-6102Lgjdbgkte/100 WBC (Bld)1.4 %.[facility] Bilirubin.total [Mass/volume] in Serum or PlasmaOrdered By: Solomon Rivas on 42-82-9485Fhowfucns [Mass/Vol]0.6 mg/dL0.3-1.0[facility] Calcium [Mass/volume] in Serum or PlasmaOrdered By: Solomon Rivas on 01-27-2023 Calcium [Mass/Vol]9.7 mg/dL8.6-10.3FKnox Community HospitalCarbon dioxide, total [Moles/volume] in Serum or PlasmaOrdered By: Solomon Rivas 37-83-1821JE0 [Moles/Vol]30.5 mmol/L21.0-31.0[facility] Chloride [Moles/volume] in Serum or PlasmaOrdered By: Solomon Rivas on 01-27-2023 Chloride [Moles/Vol]104 mmol/T20-835VtrsnnvruMercy Health West HospitalCholesterol [Mass/volume] in Serum or PlasmaOrdered By: Solomon Rivas on 99-35-3882Vdjkhzrrtce [Mass/Vol]160 mg/kI472-543VrkuurilfMercy Health West HospitalComment on above: Chol less than 200 mg/dl low riskChol 201-239 mg/dl borderline riskChol 240 mg/dl and greater high riskCholesterol in LDL Calc [Mass/Vol]Ordered By: Solomon Rivas on 92-52-4294Zfibeesudnf in LDL [Mass/Vol]63 mg/dL0-100[facility] HospitalComment on above:LDL ATP III CLASSIFICATIONLDL less than 100 mg/dL OptimalLDL 100-129 mg/dL Near or above psxvyrkYOL748-826 mg/dL Borderline highLDL 160-189 mg/dL HighLDL greater than 189 mg/dL Very highCholesterol in VLDL Calc [Mass/Vol]Ordered By: Solomon Rivas on 92-50-4240Gfvhvhpicsm in VLDL [Mass/Vol]13 mg/dLMercy Health West HospitalCreatinine [Mass/volume] in Serum or PlasmaOrdered By: Solomon Rivas on 48-15-5751Qvymemuvlp [Mass/Vol]0.91 mg/dL0.60-1.20[facility] HospitalEosinophils Auto (Bld) [#/Vol] Ordered By: Solomon Rivas on 31-44-1291Xccemwzacum (Bld) [#/Vol]0.3 10*3/uL0.0-0.45 [facility] HospitalEosinophils/100 WBC Auto (Bld)Ordered By: Solomon Rivas on 84-35-8727Uybayzysqdd/100 WBC (Bld)5.0 %.[facility] HospitalErythrocyte distribution width Auto (RBC) [Ratio]Ordered By: Solomon Rivas on 39-84-0273Fmuayebhfrx distribution width (RBC) [Ratio]12.6 %11.9-15.3FKnox Community HospitalGlobulin Calc (S) [Mass/Vol]Ordered By: Solomon Rivas on 84-17-0636Ahvdcpgf (S) [Mass/Vol]2.7 g/dLMercy Health West Hospital Glucose [Mass/volume] in Serum or PlasmaOrdered By: Solomon Rivas on 01-27-2023 Glucose [Mass/Vol]83 mg/lW49-057GrafxxqovMercy Health West HospitalComment on above:ADA recommended reference rangeRandom Glucose Reference Range is dependent on time and content of last meal. Glucose of more than 200 mg/dL in a nonstressed, ambulatory subject supports the diagnosisof Diabetes Mellitus. Hematocrit Auto (Bld) [Volume fraction]Ordered By: Solomon Rivas on 01-27-2023 Hematocrit (Bld) [Volume fraction]40.8 %34.0-46.4FKnox Community HospitalHemoglobin [Mass/volume] in BloodOrdered By: Solomon Rivas on 01-27-2023 Hemoglobin (Bld) [Mass/Vol]13.8 g/dL11.8-15.4FKnox Community Hospital Leukocytes [#/volume] corrected for nucleated erythrocytes in Blood by Automated counOrdered By: Solomon Rivas on 54-55-5839ZUO corrected for nucl RBC Auto (Bld) [#/Vol]5.0 10*3/uL3.8-11.6FKnox Community HospitalLymphocytes Auto (Bld) [#/Vol]Ordered By: Solomon Rivas on 00-26-8923Ursichytaef (Bld) [#/Vol]2.4 10*3/uL1.00-4.8Mer[facility] HospitalLymphocytes/100 WBC Auto (Bld) Ordered By: Solomon Rivas on 72-23-6950Gxfftakpxlv/100 WBC (Bld)46.8 %.[facility] CenterH Auto (RBC) [Entitic mass]Ordered By: Solomon Rivas on 09-38-8280MMF (RBC) [Entitic mass]31.6 pg24.7-34.3FKnox Community HospitalMCHC Auto (RBC) [Mass/Vol]Ordered By: Solomon Rivas on 60-37-8647RTGU (RBC) [Mass/Vol]33.8 g/dL32.0-35.0Mer[facility] HospitalMCV Auto (RBC) [Entitic vol]Ordered By: Solomon Rivas on 38-54-0388OVG (RBC) [Entitic vol]93.7 fL 80-100Mer[facility] HospitalMonocytes Auto (Bld) [#/Vol]Ordered By: Solomon Rivas on 76-52-5807Vcgzlesfn (Bld) [#/Vol]0.5 10*3/uL0.0-0.8[facility] HospitalMonocytes/100 WBC Auto (Bld)Ordered By: Solomon Rivas on 93-10-1145Tcfwbcpgg/100 WBC (Bld)9.4 %.[facility] Neutrophils Auto (Bld) [#/Vol]Ordered By: Solomon Rivas on 39-91-1884Skaduusjonn (Bld) [#/Vol]1.9 10*3/uL1.8-7.7FKnox Community HospitalNeutrophils/100 WBC Auto (Bld)Ordered By: Solomon Rivas on 77-85-9529Qnefaxthkji/100 WBC (Bld)37.4 %.[facility] HospitalNo Panel InformationOrdered By: Solomon Rivas on 11-32-2608Dutqtvboc GFR (CKD-EPI)> 60.0 mL/MinMercy Health West Hospital Pharmacy Creatinine Clearance (ChemN/[facility]tering Health DaytonNucleated erythrocytes [Presence] in Blood by Automated countOrdered By: Solomon Rivas on 89-56-8671Pdkqxjrzw RBC Auto Ql (Bld)0.1 /100{WBC}0-0.5FKnox Community HospitalPlatelet mean volume Auto (Bld) [Entitic vol]Ordered By: Solomon Rivas on 65-21-2098Fhvaandh mean volume (Bld) [Entitic vol]7.8 fL6.3-10.7 [facility] HospitalPlatelets Auto (Bld) [#/Vol]Ordered By: Solomon Rivas on 17-18-3502Dnihxwusu (Bld) [#/Vol]276 10*3/kX099-069VrngjoieoMercy Health West HospitalPotassium [Moles/volume] in Serum or PlasmaOrdered By: Solomon Rivas on 04-99-2527Vojecprlr [Moles/Vol]4.8 mmol/L3.5-5.1FKnox Community HospitalProtein [Mass/volume] in Serum or PlasmaOrdered By: Solomon Rivas on 76-71-1771Ptkudud [Mass/Vol]7.0 g/dL6.4-8.9[facility] HospitalRBC Auto (Bld) [#/Vol]Ordered By: Solomon Rivas on 10-73-5924BCH (Bld) [#/Vol]4.36 10*6/uL3.60-5.00[facility] Hospitalerum or plasma albumin/globulin mass ratioOrdered By: Solomon Rivas on 34-57-8306Eqooqin/Globulin [Mass ratio]1.6 {ratio}[facility] Hospitalerum or plasma anion gap determinationOrdered By: Solomon Rivas on 06-91-0844Vanou gap [Moles/Vol]8.3 mmol/L6.0-15.0[facility] Hospitalerum or plasma high density lipoprotein (HDL) cholesterol measurementOrdered By: Solomon Rivas on 01-27-2023 Cholesterol in HDL [Mass/Vol]83 mg/fM26-34FuahieywrMercy Health West Hospital Comment on above:HDL CHOL ATP-III CLASSIFICATION Cardiovascular RiskHDL > or equal to 60 mg/dL LOWHDL < 40 mg/dL HIGHSerum or plasma total cholesterol/high density lipoprotein (HDL) cholesterol mass ratOrdered By: Solomon Rivas on 47-80-9486Tqsrluenglt.total/Cholesterol in HDL [Mass ratio]1.9 {ratio}<5.0 [facility] Hospitalodium [Moles/volume] in Serum or PlasmaOrdered By: Solomon Rivas on 42-75-9397Gpznrx [Moles/Vol]138 mmol/T933-737DkkdubvttMercy Health West HospitalTriglyceride [Mass/volume] in Serum or PlasmaOrdered By: Solomon Rivas on 31-22-8034Kahjcnmwnjsa [Mass/Vol]69 mg/dL0-149Mer[facility] HospitalComment on above:TRIG ATP III CLASSIFICATIONTRIG less than 150 mg/dL NormalTRIG 150-199 mg/dL Borderline highTRIG 200-500 mg/dL High TRIG greater than 500 mg/dL Very highStandard traceable to the Center for Disease Co nrtrol and Prevention (CDC) test method.Urea nitrogen [Mass/volume] in Serum or PlasmaOrdered By: Solomon Rivas on 63-06-8707Airu nitrogen [Mass/Vol]18 mg/dL7-25 [facility] HospitalWBC Auto (Bld) [#/Vol]Ordered By: Solomon Rivas on 40-50-7005BZG (Bld) [#/Vol]5.0 10*3/uL3.8-11.6FKnox Community Hospital MG MAMM SCREEN 3D MATT CADon 71-69-8310DX MAMM SCREEN 3D MATT CADPatient: BLANCA SOLITARIO Exam Date: 03/07/2022 : 1965 Gender:F Ordering : DR UMAIR WISDOM . Admission #: [id number] Family : Order #: [id number] CLICK HERE TO VIEW EXAM RADIOLOGY REPORT [...] breast cancer at age 61. LOCATION: [facility] BREAST COMPOSITION: Heterogeneously dense,which may obscure small [...] by: Eduar Trimble M.D. on 03/08/2022 at 07:44[facility] ACOG PANEL 2: 30 to 65on 03-03-2022..NormalHolzer Hospital Comment on above:Result Comment: Performed at: WBPerformed By: #### [id number] #### [facility] [address] [place] [address] [address] Titus Catherine Gdln ACOG Rudukpy30-49QxedagJycTrinity Health System East CampusComment on above:Performed By: #### [id number] #### [facility] [address] [place] [address] [address] Titus AstudilloDIAGNOSIS:CommentBarney Children's Medical CenterComment on above: Result Comment: NEGATIVE FOR INTRAEPITHELIAL LESION OR MALIGNANCY. Performed at: WBPerformed By: #### [id number] #### [facility] [address] [place] [address] Dr. Titus Palmer AptimaQNSPAPNormalThe [facility] on above: Result Comment: Test not performed. Liquid based PAP vial contained insufficient specimen for molecular testing; likely a consequence of insufficient cellularity in original collection. This nucleic acid amplification test detects fourteen high-risk HPV types (16,18,31,33,35,39,45,51,52,56,58,59,66,68) without differentiation. Performed at: =GPerformed By: #### [id number] #### [facility] [address] [place] [address] Dr. Titus Palmer Genotype ReflexCommentCleveland Clinic Avon Hospital on above:Result Comment: Criteria not met, HPV Genotype not performed. Performed at: WBPerformed By: #### [id number] #### [facility] [address] [place] [address] Dr. Titus AstudilloMethodology:CommentCleveland Clinic Avon Hospital on above: Result Comment: This liquid based ThinPrep(R) pap test was screened with the use of an image guided system. Performed at: WBPerformed By: #### [id number] #### [place] [address] Dr. Titus AstudilloNote:CommentCleveland Clinic Avon Hospital on above:Result Comment: The Pap smear is a screening test designed to aid in the detection of premalignant and malignant conditions of the uterine cervix. It is not a diagnostic procedure and should not be used as the sole means of detecting cervical cancer. Both false-positive and false-negative reports do occur. . Performed at: WBPerformed By: #### [id number] #### [facility] [address] [place] [address] Dr. Titus AstudilloPerformed by:CommentCleveland Clinic Avon Hospital on above: Result Comment: Kadi Singh Volcanologist (ASCP) Performed at: WBPerformed By: #### [id number] #### [facility] [address] [place] [address] Dr. Titus Ocampo adequacy:CommentNoOhioHealth Grove City Methodist Hospital on above:Result Comment: Satisfactory for evaluation. Endocervical and/or squamous metaplastic cells (endocervical component) are present. Performed at: WBPerformed By: #### [id number] #### [facility] [address] [place] [address] Dr. Titus Gordon AUTO DIFFon 27-99-5848FPYJ #0.1 103/ulNormal0.0-0.1The [facility]'S Medical CenterComment on above:Performed By: #### CBC #### [facility] [address] [place] [address] Dr. Titus AstudilloBasophils/100 WBC (Bld)0.9 %Normal0.2-2.0[facility] Comment on above:Performed By: #### CBC #### [facility] [address] [place] [address] Dr. Titus Miller #0.1 103/ulNormal0.0-0.7The [facility] Medical CenterComtrinity health [facility] on above: Performed By: #### CBC #### [facility] [address] [place] [address] Dr. Titus Thomsonosinophils/100 WBC (Bld)2.1 %Normal0.9-7.0[facility] Comment on above:Performed By: #### CBC #### [facility] [address] [place] [address] Dr. Titus Thomsonrythrocyte distribution width (RBC) [Ratio]11.9 %Hqmgox56.0-15.[address] [facility]'S Medical CenterComment on above:Performed By: #### CBC #### [facility] [address] [place] [address] Dr. Titus AstudilloHematocrit (Bld) [Volume fraction]42.1 %Limain37.0-48.0The [facility]'S Medical CenterComment on above:Performed By: #### CBC #### [facility] [address] [place] [address] Dr. Titus AstudilloHemoglobin (Bld) [Mass/Vol]14.0 g/fZOssrfl47.0-16.0The [facility]'S Medical CenterComment on above:Performed By: #### CBC #### [facility] [address] [place] [address] Dr. Titus Deleon #0.02 10e3/ulNormal0.00-0.03The [facility] Rita'S Medical CenterComment on above:Performed By: #### CBC #### [facility] [address] [place] [address] Dr. Titus Deleon %0.3 %Normal0.0-0.5The [facility] Rita'S Medical CenterComment on above: Performed By: #### CBC #### [facility] [address] [place] [address] Dr. Titus Silva #2.6 103/ulNormal1.2-3.8The [facility]'S Medical CenterComment on above:Performed By: #### CBC #### [facility] [address] [place] [address] Dr. Titus Jeromehocytes/100 WBC (Bld)41.5 %Qtexnu75.5-60.0[facility] Medical CenterComtrinity health [place] on above:Performed By: #### CBC #### [facility] [address] [place] [address] Dr. Titus MosquedaUAL DIFF REQNONormalThe [facility]'S Medical CenterComment on above: Performed By: #### CBC #### [facility] [address] [place] [address] Dr. Titus Finch (RBC) [Entitic mass]31.4 qmCtiqol81.7-34.0The [facility]S Medical CenterComment on above:Performed By: #### CBC #### [facility] [address] [place] [address] Dr. Titus Finch (RBC) [Mass/Vol]33.3 g/mSGfhhgk32.9-35.2The [facility] Medical CenterComment on above:Performed By: #### CBC #### [facility] [address] [address] [address] Titus FinchV (RBC) [Entitic vol]94.4 sPKxtohb15.0-99.0The [facility]S Medical CenterComment on above:Performed By: #### CBC #### [facility] [address] [place] [address] Dr. Titus Stark #0.5 103/ulNormal0.3-0.8The [facility] Medical CenterComment on above:Performed By: #### CBC #### [facility] [address] [place] [address] Dr. Titus Bondsocytes/100 WBC (Bld)7.9 %Normal1.7-12.0The [facility] Comment on above:Performed By: #### CBC #### [facility] [address] [place] [address] Dr. Titus Bojorquez #3.0 103/ulNormal1.4-6.5The [facility] Medical CenterComment on above:Performed By: #### CBC #### [facility] [address] [place] [address] Dr. Titus Tracyutrophils/100 WBC (Bld)47.3 %Bbsdxi83.0-75.0The [facility] on above:Performed By: #### CBC #### [facility] [address] [place] [address] Dr. Titus Rogerslet mean volume (Bld) [Entitic vol]9.8 fLNormal9.5-13.5The [facility] CenterComment on above:Performed By: #### CBC #### [facility] [address] [place] [address] Dr. Titus AstudilloPLT375 103/kqHwwyoe258-484Smx [facility] CenterComment on above: Performed By: #### CBC #### [facility] [address] [place] [address] Dr. Titus AstudilloRBC4.46 106/ulNormal4.20-5.40The [facility] Medical CenterComment on above:Performed By: #### CBC #### [facility] [address] [address] [address] Titus AstudilloWBC6.3 103/ulNormal4.0-11.0The [facility] CenterComment on above: Performed By: #### CBC #### [facility] [address] [address] [address] Titus AvilesID PROFILEon 00-26-7234ELJM-HDL RATIO NORMSEE [facility] CenterComment on above:Result Comment: 3.3 - 4.4 LOW RISK 4.4 - 7.1 AVERAGE RISK 7.1 - 11.0 MODERATE RISK >11.0 HIGH RISKPerformed By: #### CMP, LIPID #### [facility] [address] [place] [address] Dr. Titus Mendozaesterol [Mass/Vol]163 mg/dLNormal<=200The [facility] Comment on above:Performed By: #### CMP, LIPID #### [facility] [address] [address] [address] Titus Mendozaesterol in HDL [Mass/Vol]101 mg/dLCritically tkhl12-18Iqm [facility] CenterComment on above:Performed By: #### CMP, LIPID #### [facility] [address] [place] [address] Dr. Titus Mendozaesterol in LDL [Mass/Vol]56.4 mg/dLBarney Children's Medical CenterComment on above:Performed By: #### CMP, LIPID #### [facility] [address] [place] [address] Dr. Titus Wilcox.total/Cholesterol in HDL [Mass ratio]1.6 {ratio} NormalHolzer HospitalComment on above:Performed By: #### CMP, LIPID #### [facility] [address] [place] [address] Dr. Titus Blankenship NORMAL> or = 60 mg/dl - LOW CARDIOVASCULAR RISK <40 mg/dl - HIGH CARDIOVASCULAR RISKBarney Children's Medical CenterComment on above:Performed By: #### CMP, LIPID #### [facility] [address] [address] [address] Titus Infante CALC NORMALSEE BELOWBarney Children's Medical CenterComment on above:Result Comment: <100 mg/dl OPTIMAL 100 - 129 mg/dl NEAR OR ABOVE OPTIMAL 130 - 159 mg/dl BORDERLINE HIGH 160 - 189 mg/dl HIGH >190 mg/dl VERY HIGH Performed By: #### CMP, LIPID #### [facility] [address] [address] [address] Titus AstudilloTriglyceride [Mass/Vol]28 mg/dLNormal<=150The [facility] Comment on above:Performed By: #### CMP, LIPID #### [facility] [address] [place] [address] Dr. Titus AstudilloVLDL CALC5.6 mg/dLNoTrinity Health System East CampusComment on above: Performed By: #### CMP, LIPID #### [facility] [address] [place] [address] Dr. Titus AstudilloPROF 14(COMP METB)on 76-86-6060Hisrbbr [Mass/Vol]4.1 g/dLNormal 3.4-5.0The [facility] Medical CenterComment on above:Performed By: #### CMP, LIPID #### [facility] [address] [place] [address] Dr. Titus AstudilloAlbumin/Globulin [Mass ratio]1.1 {ratio}NormalThe [facility]S Medical CenterComment on above:Performed By: #### CMP, LIPID #### [facility] [address] [place] [address] Dr. Titus Winkler [Catalytic activity/Vol]73 U/KGnealb89-970Yfm [facility] Medical CenterComment on above:Performed By: #### CMP, LIPID #### [facility] [address] [place] [address] Dr. Titus Cao [Catalytic activity/Vol]29 U/TJqbeiw45-88Qrt [facility] Medical CenterComment on above:Performed By: #### CMP, LIPID #### [facility] [address] [place] [address] Dr. Titus Covarrubias gap [Moles/Vol]12.7 mmol/LNormalHolzer Hospital Comment on above:Performed By: #### CMP, LIPID #### [facility] [address] [address] [address] Titus AstudilloAST [Catalytic activity/Vol]24 U/KMpywqe58-18Jgx [facility] Medical CenterComment on above:Performed By: #### CMP, LIPID #### [facility] [address] [address] [address] Titus AstudilloBilirubin [Mass/Vol]0.5 mg/dLNormal0.2-1.0The [facility] Comment on above:Performed By: #### CMP, LIPID #### [facility] [address] [place] [address] Dr. Titus AstudilloCalcium [Mass/Vol]9.5 mg/dLNormal8.5-10.1[facility] Comment on above:Performed By: #### CMP, LIPID #### [facility] [address] [place] [address] Dr. Titus AstudilloChloride [Moles/Vol]102 mmol/WSqdxfk69-521Wjg [facility] Comment on above:Performed By: #### CMP, LIPID #### [facility] [address] [place] [address] Dr. Titus AstudilloCO2 [Moles/Vol]29.6 mmol/AXnqiqa20.0-32.0[facility] Comment on above:Performed By: #### CMP, LIPID #### [facility] [address] [place] [address] Dr. Titus AstudilloCreatinine [Mass/Vol]1.02 mg/dLNormal0.55-1.02The [facility] Medical CenterComment on above:Performed By: #### CMP, LIPID #### [facility] [address] [place] [address] Dr. Titus ThomsonGFR-AF ESTONIAN>60Normal>=60The [facility] Medical CenterComment on above:Performed By: #### CMP, LIPID #### [facility] [address] [place] [address] Dr. Titus ThomsonGFR-NON AF AIZTJCEP73 mL/min/1.01r0Rilhebnarm low>=60The [facility] Medical CenterComment on above:Performed By: #### CMP, LIPID #### [facility] [address] [place] [address] Dr. Titus AstudilloGlobulin (S) [Mass/Vol]3.8 g/dLNormalThProMedica Memorial HospitalComment on above:Performed By: #### CMP, LIPID #### [facility] [address] [place] [address] Dr. Titus AstudilloGlucose [Mass/Vol]98 mg/aDAonwrk43-710Sll [facility] Comment on above:Performed By: #### CMP, LIPID #### [facility] [address] [place] [address] Dr. Titus AstudilloPotassium [Moles/Vol]4.3 mmol/LNormal3.5-5.1The [facility] Comment on above:Performed By: #### CMP, LIPID #### [facility] [address] [place] [address] Dr. Titus AstudilloProtein [Mass/Vol]7.9 g/dLNormal6.4-8.2[facility] Comment on above:Performed By: #### CMP, LIPID #### [facility] [address] [place] [address] Dr. Titus AstudilloSodium [Moles/Vol]140 mmol/LXkwooz633-270KvnHolzer Hospital Comment on above:Performed By: #### CMP, LIPID #### [facility] [address] [place] [address] Dr. Titus AstudilloUrea nitrogen [Mass/Vol]21.0 mg/dLCritically high7.0-18.0Holzer HospitalComment on above:Performed By: #### CMP, LIPID #### [facility] [address] [place] [address] Dr. Titus Figueroa nitrogen/Creatinine [Mass ratio]20.6 mg/mgNoalThProMedica Memorial HospitalComment on above:Performed By: #### CMP, LIPID #### [facility] [address] [place] [address] Dr. Titus Bey - SARS CoV2 COVID 19 Ab IgGon 57-56-0064JYFI-CoV-2 (COVID-19) Ab IA Qn<1.00Normal<1.00[facility] SpecialistComment on above:Order Comment: [facility] Testing performed at: [facility], [address], [address] [place], [address], Extrusion Former: Randy Corona MD [facility] Collection Date/Time: [id number] [facility] Results Received Date/Time: [id number] [facility] Reported Date/Time: [id number] Comment: This test is intended to help [...] providers and patients using the following websites: http://patient.Ocutec.com/Atellica-HCP http://patient.Infinias.com/Atellica-Patients Healthcare Providers: For additional information please refer to: http://education.Buttercoin/faq/MYK004 (This link is being provided for informational/educational purposes only.) This test has been authorized by the FDA under an Emergency Use Authorization (EUA) for use by authorized laboratories. The FDA authorized labeling is available on the [employer] website: www.Grupo IMO/Covid19.Performed By: #### [id number] #### [facility] Default [address] [place] [address] Vital Signs Date TimeVital SignValuePerforming SqhkelewiUjsrcirs03-06-9306 14:55-0500Body mass index (BMI) [Ratio]21.74 kg/s0Sosri Velasquez DO Work Phone: [facility]cSaint [facility] CenterXjdwvwuqmi76-02-8262 14:55-0500Body eaqnsh72.96 kgCorey Zenitum Work Phone: [facility]cSaint [facility] Health CenterGrdfqqniia28-02-6166 14:55-0500Diastolic blood bmfllrjo89 mm[Hg]UmairPaperShare Work Phone: [facility] CenterLubsunaixm08-01-9278 14:55-0500Systolic blood qbetadds355 mm[Hg]19pay Work Phone: [facility] CenterNaxeqnapya15-59-6870 14:29-0400Body .24 kgYovani DELGADO Work Phone: [facility]10-15-2024 15:55-0400Body ckyuxu336.2 Kiersten Rivas MD Work Phone: [facility]itecSaint [facility] Health CenterVdulecdvra22-58-8349 15:55-0400Body mass index (BMI) [Ratio]21.46 kg/h8TkqsgSolomon Rivas MD Work Phone: noMS Uxywchwkxi56-70-2095 15:55-0400Body oqurtq03.14 kgSolomon Rivas MD Work Phone: NOSaint [facility] CenterYkcqdiilsf02-39-6711 15:55-0400Diastolic blood bnkgapyq57 mm[Hg]Solomon Rivas MD Work Phone: [facility] CenterYtsnzycnjr32-74-4646 15:55-0400Heart rate78 /min Solomon Rivas MD Work Phone: NOSaint Joseph Health CenterXtcurqfyrk81-47-7644 15:55-2962LzX8% (BldA) [Mass fraction]99 %Solomon Rivas MD Work Phone: [facility] CenterVlisbeyybw86-17-1842 15:55-0400Systolic blood hncggapc614 mm[Hg]Solomon Rivas MD Work Phone: [facility] Encounters Encounter DateEncounter TypeCare ProviderFacilityStart: 03-27-2024 End: 61-07-4026Fknnqudng encounterRegina Liu RMAProMedica Physicians General SurgeryStart: 03-11-2024 End: 64-15-8876Vcrydv OnlyNot In System Ref ProvProMedica Physicians General SurgeryStart: 03-07-2024 End: 73-19-4854Mkimlgmvr Result EncounterCorey Velasquez DO Work Phone: [facility] External Department UnsolicitedStart: 03-07-2024 End: 31-74-8777Bxdbfckmx Result EncounterCorey Velasquez DO Work Phone: NOJ[facility] External Department UnsolicitedStart: 03-05-2024 End: 28-23-8291Fpqakvqex Result EncounterGeneric External Data ProviderNOMS External Department UnsolicitedStart: 03-05-2024 End: 02-68-9267Pdtayrwzv Result EncounterGeneric External Data ProviderNOMS External Department UnsolicitedStart: 03-05-2024 End: 11-68-9062skgrifxuijArsxkcb E PremaFacility:[facility] HospitalComment on above:Encounter for screening colonoscopyStart: 02-27-2024 End: 83-79-4179Vdpufhg encounter procedureCorey Velasquez DO Work Phone: [facility] Work Phone: Start: 02-27-2024 End: 19-95-7121Fcwepfnb preventive med est patient 40-64yrsCorey Velasquez DO Work Phone: [facility] BCP OBComment on above:Well woman exam with routine gynecological examStart: 02-27-2024 End: 01-43-2804zmxjainrrySXIAK FAZIONot AvailableStart: 02-27-2024 End: 94-55-7263Zvoyzr flowsheetCorey Velasquez DO Work Phone: [facility] BCP OBStart: 02-27-2024 End: 57-86-3818Kwgfei flowsheetCorey Velasquez DO Work Phone: [facility] BCP OBStart: 02-27-2024 End: 10-86-3280Wdjlsbhge Result EncounterGeneric External Data ProviderNOMS External Department UnsolicitedStart: 02-27-2024 End: 16-32-1132psgpzooyrgBIJLSRCParkview [facility] Start: 02-27-2024 End: 94-28-4522Pscipl outpatient visit 15 minutesJessdalila A Faith RING SPINNER-ACID SUPERVISOR Work Phone: ProPromedica [facility] Hospitalca Physicians General SurgeryComment on above: Encounter for screening colonoscopy (Primary Dx); Upper abdominal painStart: 02-04-2024 End: 99-96-6741Vwadbdnfz encounterRegsharon Hatfield RMAProMeddalila Physicians General SurgeryStart: 01-29-2024 End: 31-95-2202Yeozkqauo encounterJessica A Faith RING SPINNER-ACID SUPERVISOR Work Phone: [facility] Physicians General SurgeryStart: 01-23-2024 End: 89-74-2716Wiynpmc encounter procedureJessica A Faith RING SPINNER-ACID SUPERVISOR Work Phone: [facility] Physicians General SurgeryComment on above: Encounter for screening colonoscopy (Primary Dx)Start: 01-23-2024 End: 96-08-9036ajmeuhmxxjEDHLZVHParkview [facility] Start: 01-19-2024 End: 83-79-3889Deemcwck Result EncounterSolomon Rivas MD Work Phone: NO[facility] External Department UnsolicitedStart: 01-19-2024 End: 74-43-2342Cdorhesn Result EncounterSolomon Rivas MD Work Phone: [facility] External Department UnsolicitedStart: 01-19-2024 End: 52-92-3168Fohydlo encounter procedureMD Solomon Rivas Work Phone: [facility] [place] Work Phone: Start: 01-19-2024 End: 61-55-0706yjsrrrbsxqNZ Rugen M Alda Work Phone: [facility] Work Phone: Start: 68-17-1063Qovhkxbie for general adult medical examination without abnormal findingsSolomon Parker [facility] Start: 01-15-2024 End: 58-81-0659Dvxkver encounter procedureSolomon Rivas MD Work Phone: noms HealthcareStart: 01-15-2024 End: 84-12-8242Hruabnbi preventive med est patient 40-64yrsRgiuliana Rivas MD Work Phone: [facility] CI FMComment on above:Well adult health check (Primary Dx); Abnormal glucose tolerance test; Benign essential hypertension (CMS/HCC); Annual physical exam; Stage 3a chronic kidney disease (HCC) (CMS/HCC); Screening for lipid disordersStart: 01-15-2024 End: 11-18-2426jeojdyyaskSQYUF M ALDANot AvailableStart: 01-15-2024 End: 12-13-8200Jcjotf Sandee Rivas MD Work Phone: [facility] CI FMStart: 01-15-2024 End: 77-71-8679Szrrcc Sandee Rivas MD Work Phone: [facility] CI FMStart: 01-15-2024 End: 89-24-5104Ixheppn encounter statusSolomon Rivas MD Work Phone: [facility] Work Phone: Start: 01-15-2024 End: 33-27-1070Ayqiouqwz encounterSolomon Rivas MD Work Phone: [facility] CI FMStart: 38-83-2342Vrrvsey encounter status Solomon Rivas MD Work Phone: [facility] Work Phone: Start: 01-27-2023 End: 29-86-6590rtxzntdoomLJ Solomon Rivas Work Phone: [facility] Work Phone: Start: 01-27-2023 End: 07-88-6287Iahkxpn encounter procedureMD Solomon Becerrila Work Phone: [facility] [place] Work Phone: Start: 03-07-2022 End: 57-76-8215ttrcxyvmrnEI UMAIR FAZIOFacility:A8Bshqf: 02-22-2022 End: 61-43-3993tmcprgagzuDE UMAIR FAZIOFacility:S1Jxwrk: 65-23-9629Qhfxegmmf for general adult medical examination without abnormal findingsDR RUGEN ALDAThe [facility]iland HospitalStart: 01-28-2022 End: 54-62-7594qsyeurhecgYF RUGEN ALDAFacility:B7Nsugo: 01-28-2022 End: 90-95-9973Hsarcnscc for general adult medical examination without abnormal findingsDR RUGEN ALDAFacility:H1 Procedures DateProcedureProcedure DetailPerforming ClinicianStart: 94-63-2114PZ TOMOSYNTHESIS SCREENING Amy Wisdom DO Work Phone: Start: 51-42-0003ID DEXA AXIAL SKELETONGeneric External Data ProviderStart: 43-83-8814SbeosevjtjmPbiqejg ProviderStart: 69-41-8595Qovzr i surg pathology gross examination onlyNot In System Ref Prov Start: 40-85-2485TQH H PYLORI TISSUEGeneric External Data ProviderStart: 03-05-2024 End: 28-12-3678JjlyuoqfvkcZgudprz A Carroll RING SPINNER-ACID SUPERVISOR Work Phone: Start: 01-97-2387UBL,APTIMA HPV,AGE GDLNCorey Velasquez DO Work Phone: Start: 57-39-6807Rdsqohbbnwg observation [Identifier] in Cervix by Cyto stainCorey Velasquez DO Work Phone: Start: 52-00-0809Ynvjnddk blood count with white cell differential, automatedSolomon Rivas MD Work Phone: Start: 53-94-2868Jxlcjubwsodiv metabolic panelSolomon Rivas MD Work Phone: Start: 37-38-4642Iwctk panelSolomon Rivas MD Work Phone: Start: 27-65-5362SvebooamfnvKlhhf Alda MD Work Phone: Start: 58-07-9602Gfbnbzudbtb observation [Identifier] in Cervix by Cyto stainSolomon Rivas MD Work Phone: Start: 24-29-4704KmkzdknerwtGisdb Alda MD Work Phone: Plan of Treatment DateCare ActivityDetailAuthorStart: 46-93-2115Rzxduxfrp for malignant neoplasm of colonColonoscopySCCI Hospital [facility] Health SystemStart: 35-36-7952Ezklzysdb for malignant neoplasm of cervixNOMS HealthcareStart: 63-16-1422Lodeumzcr for malignant neoplasm of cervixNOMS HealthcareStart: 46-05-6539Rqubswzds for malignant neoplasm of breastMammogramNOMS HealthcareStart: 03-03-2025 End: 04-09-7328Auhouym encounter wjfzvyjsx70/02/2025 4:00 PM EST Office Visit [facility] [place] [facility] [address] [place] [address] Solomon Rivas MD [address] [place] [address] [place] [address] [facility] [place] Family MedinceStart: 02-26-2025 Tobacco ScreeningTobacco ScreeningAshtabula County Medical Center SystemStart: 02-25-2025 End: 28-85-6205Qupwaaf encounter procedureNOMS BCP OBStart: 39-43-0022Svulhvnls for malignant neoplasm of cervixPap SmearAshtabula County Medical Center SystemStart: 41-80-4730Xotuwhx ScreeningTobacco ScreeningAshtabula County Medical Center SystemStart: 88-21-9449Zogstibbq vaccinationAshtabula County Medical Center SystemStart: 81-26-4325Usucmxbck for malignant neoplasm of colonNOMS HealthcareStart: 02-27-2024 End: 23-83-5680Clxikai encounter procedureNOMS BCP OBComment on above:Arrived Start: 16-52-7399Amxviriug for malignant neoplasm of breastMammogramNOMS HealthcareStart: 02-27-2024 End: 04-22-0505Owudmsurhfzk consultation with ckbsctp8302/27/2024 9:30 AM EST Telemedicine [facility] [address] [place] [address] Yovani Faith, RING SPINNER-[facility] [address] [place] [address] [facility] Start: 01-15-2024 End: 84-97-4630Sjaihfk encounter vzilhdjjd71/15/2024 4:15 PM EDT Office Visit [facility] [address] [facility] [address] [place] [address] Solomon Rivas MD [address] [facility] [address] [place] [address] ArrivedNOMS CI FMComment on above:ArrivedStart: 01-15-2024 End: 33-52-2227CRH W Auto Differential panel - BloodCBC and differential Lab Routine Benign essential hypertension (CMS/HCC) Annual physical exam Wcgah9q chronic kidney disease (HCC) (CMS/HCC) Expected: 01/15/2024 (Approximate), Expires: 01/14/2025[facility] Work Phone: Comment on above:Expected: 01/15/2024 (Approximate), Expires: 01/14/2025Start: 01-15-2024 End: 22-17-1474Xigdtnjgvixpy metabolic 2000 panel - Serum or PlasmaComprehensive metabolic panel Lab Routine Abnormal glucose tolerance test Benign essential hypertension (CMS/HCC) Annual physical exam Expected: 01/15/2024 (Approximate), Expires: 01/14/2025[facility] HealthcareComment on above:Expected: 01/15/2024 (Approximate), Expires: 01/14/2025Start: 01-15-2024 End: 33-82-3918Uqtiv 1996 panel - Serum or PlasmaLipid panel Lab Routine Annual physical exam Screening for lipid disorders Expected: 01/15/2024 (Approximate), Expires: 01/14/2025[facility] HealthcareComment on above:Expected: 01/15/2024 (Approximate), Expires: 01/14/2025Start: 17-47-6360Flmvqxycj vaccinationOGDEN REGIONAL MEDICAL CENTER HealthcareStart: 44-99-5700Anvuvzugkpapel of varicella zoster vaccineZoster (Shingles) Vaccine (1 of 2)[facility] SystemStart: 56-78-6670WAnK,Tdap and Td Vaccines (1 - Tdap)DTaP,Tdap and Td Vaccines (1 - Tdap)[facility] SystemStart: 67-07-4432Fhvjs BMI ScreeningAdult BMI ScreeningProSheltering Arms Hospital SystemStart: 21-04-8395Irijjeoiwj ScreeningDepression ScreeningProSheltering Arms Hospital SystemStart: 22-87-8848Gqaltnrhi for malignant neoplasm of colonJohn J. [facility]hing [facility] End: 51-55-5660NakivvlmwuyOncunvpruio GI Routine Encounter for screening colonoscopy 1 Occurrences starting 01/23/2024 until 01/22/2025[facility] Work Phone: Comment on above:1 Occurrences starting 01/23/2024 until 01/22/2025 End: 76-96-1453TfnrtbxucbgcminugflfnysinfQKS GI Routine Upper abdominal pain 1 Occurrences starting 02/27/2024 until 02/26/2025[facility] Work Phone: Comment on above:1 Occurrences starting 02/27/2024 until 02/26/2025THIN PREP TIS PAP AND HR HPV DNATHIN PREP TIS PAP AND HR HPV DNA Pathology and Cytology Routine Well woman exam with routine gynecological exam Ordered: 02/27/2024[facility] Work Phone: comment on above:Ordered: 02/27/2024 Payers DatePayer CategoryPayerPolicy [id number] Care Other (unspecified)[id number] Health InsuranceUNITED HEALTHCARE Member Subscriber Plan / Payer (Effective 2022-Present) Name: Blanca Solitario Relation to Subscriber: Spouse Name: Neel Solitario Date of : 1958 Address: [address] [place] [id number] Payer ID: [id number] (NAIC) Type: Not on file Address: [address] [id number] 2..1.708495.3.57[id number] 2..1.307153.3.57[id number] 2.0.1.064462.3.57[id number] 2..1.097126.3.57[id number] 2..840.1.051780.3.57[id number] 2..840.1.246620.3.57[id number] 2..840.1.588131.3.57[id number] 2.16.840.1.9[id number] 2.16.840.1.861424.3.579.2.531 Social History DateTypeDetailFacilityTobacco smoking status NHISUnknown if ever smokedMarietta Osteopathic Clinic Work Phone: Start: 33-17-2007Bcj Assigned At BirthFeKettering Health Behavioral Medical Centertart: 02-12-2023 End: 35-63-4223Npnwhtu smoking status NHISNever smoked tobaccoNOMS Healthcare Start: 02-12-2023 End: 82-06-0103Erfxqzu use and exposureSmokeless tobacco non-userNOMS Healthcare Start: 03-01-2023 End: 74-58-0963Aqahitbik beverage intakeLifetime non-drinker (finding)[facility]OM[facility] HealthcareStart: 02-13-2023 End: 57-04-7247Nldrmov of Social functionNOMS HealthcareStart: 02-13-2023 End: 44-84-4948Ztesjyu use panelNOMS HealthcareStart: 43-96-8337Cbl assigned at birthNot on fileNOWI HealthcareStart: 01-23-2024 End: 48-35-6707Wvlgmkcvv beverage intakeEx-drinker (finding)[facility] SystemStart: 70-94-9845DugToxrah (finding)[facility] SystemStart: 42-04-1521WziPldvoxMBRT Healthcare Clinical Notes 01-15-2024 to 03-27-2024 Note Date & [id number] Miscellaneous Notes* Telephone Encounter - TESFAYE Veronica - 03/27/2024 2:02 PM EST Blanca called into the office inquiring about a video visit bill she recently received. Blanca came into the office for an office visit on 01/23/24. After that visit, it was decided she needed a colonoscopy. Her surgery was scheduled on 02/20/24 unfortunately, it had to be reschedule because Dr. Lloyd was going to be out. Blanca's surgery was rescheduled to 03/05/24 at [facility]. She had to have an updated H & P visit however she was unable to come into the office. So we scheduled a vid eo visit on 02/27/24 which Yovani Faith NP performed. I sent over all the updated paperwork to [facility]. Blanca's question is why is she getting a bill for that 02/27/24 video visit. I told Blanca I will reach out to my supervisor trust accounts to follow up on this. * Telephone Encounter - TESFAYE Gao - 03/27/2024 2:02 PM EST Called patient. Informed patient that due to her PCP request to add an EGD on her screening colonoscopy consult for diagnostic reasoning, per the provider the charges do stand. Explained [facility] hospitalprotocol and our diagnostic protocol. Patient verbalized understanding. documented in this encounterOhioHealth Grant Medical Center12-26-2024 Telephone encounter Note* Telephone Encounter - TESFAYE Veronica - 03/27/2024 2:02 PM EST Blanca called into the office inquiring about a video visit bill she recently received. Blanca came into the office for an office visit on 01/23/24. After that visit, it was decided she needed a colonoscopy. Her surgery was scheduled on 02/20/24 unfortunately, it had to be reschedule because Dr. Lloyd was going to be out. Blanca's surgery was rescheduled to 03/05/24 at [facility]. She had to have an updated H & P visit however she was unable to come into the office. So we scheduled a vid eo visit on 02/27/24 which Yovani Faith NP performed. I sent over all the updated paperwork to [facility]. Blanca's question is why is she getting a bill for that 02/27/24 video visit. I told Blanca I will reach out to my supervisor trust accounts to follow up on this. [facility]12-26-[facility] Telephone encounter Note* Telephone Encounter - TESFAYE Gao - 03/27/2024 2:02 PM EST Called patient. Informed patient that due to her PCP request to add an EGD on her screening colonoscopy consult for diagnostic reasoning, per the provider the charges do stand. Explained [facility] hospitalprotocol and our diagnostic protocol. Patient verbalized understanding. [facility] Credivalores-Crediservicios [id number] Miscellaneous Notes* Telephone Encounter - Farrah Estrada CMA - 03/11/2024 1:43 PM EST ----- Message from Dr. Jerad Lloyd DO sent at 03/11/2024 11:01 AM EST ----- Please let patient know that she had chronic gastritis and I recommend taking omeprazole OTC for the next 6 weeks only. Avoid aspirin and anti-inflammatory medications as well. ThanksDr. North * Telephone Encounter - Farrah Estrada CMA - 03/11/2024 1:43 PM EST Spoke with patient regarding pathology results. Patient verbally understood and questions were answered. Will put colonoscopy recall in chart. documented in this encounterOhioHealth Grant Medical Center12-10-2024 Telephone encounter Note* Telephone Encounter - Farrah Estrada CMA - 03/11/2024 1:43 PM EST ----- Message from Dr. Jerad Lloyd DO sent at 03/11/2024 11:01 AM EST ----- Please let patient know that she had chronic gastritis and I recommend taking omeprazole OTC for the next 6 weeks only. Avoid aspirin and anti-inflammatory medications as well. Thanks, Dr. North [facility] [id number] Telephone encounter Note* Telephone Encounter - Farrah Estrada CMA - 03/11/2024 1:43 PM EST Spoke with patient regarding pathology results. Patient verbally understood and questions were answered. Will put colonoscopy recall in chart. [facility] Credivalores-Crediservicios [id number] History of Present illness Narrative* Trisha Holt LPN - 02/27/2024 2:30 PM EST Reason for Appointment: Patient ID: Blanca Solitario [...] nursing note reviewed. Exam conducted with a hotbed transfer operator present. Vitals: Estimated body mass index is [...] of: Umair Wisdom DO documented in this encounterJohn J. Pershing VA Medical [id number] History of Present illness Narrative* Yovani Faith, RING SPINNER-ACID SUPERVISOR - 02/27/2024 9:30 AM EST Images from the original note were not included. Chief Complaint: Colon cancer screening History of Present Illness Blanca Solitario is a 58 y.o. female who presents to the office for colon cancer screening. Her last colonoscopy was in 2014 and this was a normal study. Her insurance covers a screening colonoscopyfor her yearly and she would like to [...] 0.225 gram tablet, Please see instructional sheet givenby physicians office. (Patient not taking: Reported on [...] patient/family/caregiver Referring and communicating with other health day care worker Encounter for screening colonoscopy [Z12.11] DANNY MALLOY [facility] This note was created with the assistance of a speech recognition program. While intending to generate a timely document that accurately reflects the content of the visit, no guarantee can be provided that every grammatical or spelling mistake has been or will be identified or corrected. Thank you for your understanding. Video Visit via Real-time Synchronous Audiovisual Provider Location: [facility] [address] [place], [place] [address]ES Osman [facility] [id number] Patient Location: Patient's home Video Visit Consent Statement: I discussed risks, benefits, and alternatives of a real-time synchronous audiovisual consultation with the patient (and any accompanying persons) including the risks that the patient's personal health details and medical records will be discussed over real-time, synchronous, interactive video/audio/telecommunication technology, the visit will not be recorded withoutthe express consent of both the provider and the patient, and that there are some limitations compared to shmy-ck-hpwc evaluations. The patient consented to the presence of additional virtual and/or in-person participants. We elected to proceed. DANNY Malloy 02/27/24 0955 documented in this encounterOhioHealth Grant Medical Center11-04-2024 Miscellaneous Notes* Telephone Encounter - Alena Hatfield, Darrel - 02/04/2024 2:44 PM EST A referral was received for an EGD for patient from her PCP / Dr. Rivas. I called the office and they are going to fax over the order. I called [facility] and added the procedure to colonoscopy surgery with Dr. Lloyd. The surgery was previously scheduled for 02/20/24 but had to be moved because Dr. Lloyd will be out. After rescheduling the surgery to 03/05/24, I scheduled the patient for a video visiton 02/25/24. I will send the bowel prep and coupon to the patient. After the video visit, I will email the paperwork to [facility] / Jackie Valentino. documented in this encounterOhioHealth Grant Medical Center11-04-2024 Telephone encounter Note* Telephone Encounter - TESFAYE Veronica - 02/04/2024 2:44 PM EST A referral was received for an EGD for patient from her PCP / Dr. Rivas. I called the office and they are going to fax over the order. I called [facility] and added the procedure to colonoscopy surgery with Dr. Lloyd. The surgery was previously scheduled for 02/20/24 but had to be moved because Dr. Lloyd will be out. After rescheduling the surgery to 03/05/24, I scheduled the patient for a video visiton 02/25/24. I will send the bowel prep and coupon to the patient. After the video visit, I will email the paperwork to [facility] / Jackie Valentino. [facility]10-29-2024 Miscellaneous Notes* Telephone Encounter - Suzanne Sharif - 01/29/2024 1:37 PM EDT Called Blanca regarding the GERD referral that our office received from Dr Rivas, Blanca states that she is already scheduled for a colonoscopy with Dr Lloyd on 02/20/24 at [facility] at 8 am. Sent Lorrie S a staff message to see if we can just add the EGD to the colonoscopy or if she will need to see Yovani Faith NP before that. * Telephone Encounter - Suzanne Sharif - 01/29/2024 1:37 PM EDT Lorrie called Blanca and got her scheduled for a video visit with Yovani Faith NP for 02/25/24. documented in this encounterOhioHealth Grant Medical Center10-29-2024 Telephone encounter Note* Telephone Encounter - Suzanne Sharif - 01/29/2024 1:37 PM EDT Called Blanca regarding the GERD referral that our office received from Dr Rivas, Blanca states that she is already scheduled for a colonoscopy with Dr Lloyd on 02/20/24 at [facility] at 8 am. Sent Lorrie S a staff message to see if we can just add the EGD to the colonoscopy or if she will need to see Yovani Faith NP before that. Meijob10-29-2024 Telephone encounter Note* Telephone Encounter - Suzanne Sharif - 01/29/2024 1:37 PM EDT Lorrie called Blanca and got her scheduled for a video visit with Yovani Faith NP for 02/25/24. [facility] [id number] History of Present illness Narrative* Yovani Faith APRN-ACID SUPERVISOR - 01/23/2024 2:30 PM EDT Images from the original note were not included. Chief Complaint: Colon cancer screening History of Present Illness Blanca Solitario is a 58 y.o. female who presents to the office for colon cancer screening. Her lastcolonoscopy was in 2014 and this was a [...] 0.225 gram tablet, Please see instructional sheet givenby physicians office., Disp: 24 tablet, Rfl: 0 [...] evacuation preparation. Patient verbalizes understanding and wishes toproceed. Evaluation included: Preparing to see the patient (e.g., review of tests) Obtaining and/or reviewing separately obtained history Performing a medically appropriate examination and/or evaluation Counseling and educating the patient/family/caregiver Referring and communicating with other health day care worker Encounter for screening colonoscopy [Z12.11] DANNY MALLOY [facility] [place] This note was created with the assistance of a speech recognition program. While intending to generate a timely document that accurately reflects the content of the visit, no guarantee can be provided that every grammatical or spelling mistake has been or will be identified or corrected. Thank you for your understanding. DANNY Malloy 01/23/24 1453 documented in this encounterOhioHealth Grant Medical Center10-15-2024 Telephone encounter Note* Telephone Encounter - Karol Arita - 01/15/2024 4:40 PM EDT Patient called and said she forgot to mention at her appointment today that she would like to have her colonoscopy done before the end of the year. [facility] Medical [id number] Miscellaneous Notes* Telephone Encounter - Karol Arita - 01/15/2024 4:40 PM EDT Patient called and said she forgot to mention at her appointment today that she would like to have her colonoscopy done before the end of the year. documented in this encounterJohn J. Pershing VA Medical [id number] History of Present illness Narrative* Solomon Rivas MD - 01/15/2024 4:15 PM EDT Images from the original note were not [...] medical problems History of Post-Menopausal Bleeding Hypertension ([facility]/HCC) 01/04/2023 Osteoarthritis of knee 01/04/2023 Stage 3a chronic kidney disease (HCC) ([facility]/HCC) 01/04/2023 Past Surgical History: Procedure Laterality Date [...] up in about 1 year (around 01/14/2025). * Solomon Rivas MD - 01/15/2024 4:01 PM EDTAssociated Problem(s): Well adult health check [place] Alcohol consumption No Tobacco Seat Belt use Exercise Regularly No Text Drive Social Accountability documented in this encounterNOMS HealthcareEvaluation noteNo assessment information availableMarietta Osteopathic Clinic Work Phone: Evaluation note* Diagnosis Encounter for well adult exam without abnormal findings- Primary Well adult health check- Primary Unspecified general medical examination Abnormal glucose tolerance test Impaired glucose tolerance test Benign essential hypertension (CMS/HCC) Essential hypertension, benign Annual physical exam Routine general medical examination at a health care facility Stage 3a chronic kidney disease (HCC) (CMS/HCC) Screening for lipid disorders documented in this encounter [facility] HealthcareEvaluation note* Diagnosis Encounter for well adult exam without abnormal findings- Primary Well adult health check- Primary Unspecified general medical examination Abnormal glucose tolerance test Impaired glucose tolerance test Benign essential hypertension (CMS/HCC) Essential hypertension, benign Annual physical exam Routine general medical examination at a health care facility Stage 3a chronic kidney disease (HCC) ([facility]) Screening for lipid disorders Well woman exam with routine gynecological exam Routine gynecological examination documented in this encounter [facility] HealthcareEvaluation note* Diagnosis Encounter for screening colonoscopy- Primary documented in this encounter [facility]* Diagnosis Encounter for screening colonoscopy- Primary Upper abdominal pain documented in this encounter [facility] SystemEvaluation [facility]* Diagnosis Encounter for screening colonoscopy documented in this encounter [facility] SystemInstructionsNot on filedocumented in this encounter [facility] SystemInstructionsNot on filedocumented in this encounter [facility] SystemInstructionsNot on filedocumented in this encounter [facility] SystemInstructionsNot on filedocumented in this encounter [facility] SystemInstructionsNot on filedocumented in this encounter [facility] Summary Purpose Family History No [...] section and content) DATE CREATED AUTHOR 03/30/2021 [facility] DATE CREATED AUTHOR AUTHOR'S ORGANIZ ATION 03/11/[address] [facility] DATE CREATED AUTHOR AUTHOR'S ORGANIZ ATION 03/01/2024 [facility] DATE CREATED AUTHOR AUTHOR'S ORGANIZ ATION 03/01/2024 [facility] DATE CREATED AUTHOR AUTHOR'S ORGANIZ ATION 03/13/2024 [facility] Care Teams (unrecognized sec tion and content) Team Status: Active Member Role Status Dates Solomon Rivas MD Primary Care Provider Active Team Status: Inactive Member Role Status Dates Solomon Rivas MD Primary Care Provider, Attending Pro vider Active Team MemberRelationshipSpecialtyStart DateEnd Date Solomon Rivas MD [address] [facility] [address] [place] [address] PCP - GeneralFamily Medicine08/08/22Team MemberRelationshipSpecialtyStart DateEnd Date Solomon Rivas MD [address] [facility] [address] [place] [address] PCP - GeneralFamily Medicine08/08/22Team MemberRelationshipSpecialtyStart DateEnd Date Solomon Rivas MD [address] [facility] [address] [place] [address] PCP - GeneralFamily Medicine08/08/22Team MemberRelationshipSpecialtyStart DateEnd Date Solomon Rivas MD [address] [facility] [address] [place] [address] PCP - GeneralFamily Medicine08/08/22 Team Status: Inactive Member Role Status Solomon Rivas MD Primary Care Provide r, Attending Provider, Referring Provider Active Start: January 19, 2024 End: January 19, 2024Team MemberRelationshipSpecialtyStart DateEnd Date Solomon Rivas MD [address] [facility] [address] [place] [address] PCP - GeneralFamily Medicine08/08/22Team MemberRelationshipSpecialtyStart DateEnd Date Solomon Rivas MD [address] [facility] [address] [place] [address] PCP - GeneralFamily Vkrytxjg72/29/24Team MemberRelationshipSpecialtyStart Date End Date Solomon Rivas MD [address] [facility] [address] [place] [address] PCP - [facility]01/29/24Team MemberRelationshipSpecialtyStart Date End Date Solomon Rivas MD [address] [place] [address] [place] [address] PCP - [facility]01/29/24Team MemberRelationshipSpecialtyStart Date End Date Solomon Rivas MD [address] [place] [address] [place] [address] [facility]01/29/24Te MemberRelationshipSpecialtyStart Date End Date Solomon Rivas MD [address] [facility] [address] [place] [address] [facility]01/29/24 Goals (unrecognized section and content) Goals may [...] for Visit (unrecogniz ed section and content) ReasonCommentsAnnual ExamReasonCommentsWell Women VisitReasonCommentsColon Cancer ScreeningInsurance will cover screening yearlySpecialtyDiagnoses / ProceduresReferred By ContactReferred To ContactGastroenterology Diagnoses Screening for malignant neoplasm of colon Procedures IN OFFICE OUTPATIENT VISIT 60-74 MINS HIGH MDM [phone] (SNOMED CT) - AMB REFERRAL TO GASTROENTEROLOGY Solomon Rivas MD [address] [facility] [address] [place] [address] Phone: tel: fax: Jerad Lloyd DO [address] [place] [address] Phone: tel: fax: Referral IDStatusReasonSttoni DateExpiration DateVisits RequestedVisits [id number] Cancer Screening FOR RECORDS PERTAINING TO PATIENTS [...] BE BASED ON THE PRIMARY CLINICAL RECORDS. [facility]. provides no warranty or guarantee of the accuracy or completeness of information in this document.
[2025-03-01 13:08] LABS: Age Gdln ACOG Testing Note (.); IGP, Aptima HPV, rfx 16/18,45 Note (.)
== END 2025-02-25 15:27 | disposition home or self-care (01) ==
LOC: LAB 15:26
PROVIDERS: PCP Family Medicine; Visit Provider Obstetrics & Gynecology
DX: Z01.419 Encounter for gynecological examination (general) (routine) without abnormal findings (principal)
CPT/HCPCS: 87624; 88175